=== PATIENT | male | born 1935 | race Caucasian/White ===

== ENCOUNTER 2019-04-17 03:44 | Emergency (ER) | payer MEDICARE, OTHER, SELFPAY | END 2019-04-17 06:46 | disposition short-term general hospital (02) | PROVIDERS: Emergency Provider Emergency Medicine; Family Provider Family Medicine; Visit Provider Emergency Medicine | DX: R55 Syncope and collapse (principal); S36.112A Contusion of liver, initial encounter; W19.XXXA Unspecified fall, initial encounter; Y92.000 Kitchen of unspecified non-institutional (private) residence as the place of occurrence of the external cause; I25.10 Atherosclerotic heart disease of native coronary artery without angina pectoris; I11.0 Hypertensive heart disease with heart failure; I50.9 Heart failure, unspecified; I25.2 Old myocardial infarction; Z98.61 Coronary angioplasty status; Z79.02 Long term (current) use of antithrombotics/antiplatelets; Z79.82 Long term (current) use of aspirin; Z88.5 Allergy status to narcotic agent | CPT/HCPCS: 70450; 70486; 71045; 71260; 72125; 73080; 74177; 80053; 81001; 83735; 84484 ×2; 85025; 85610; 93005; 96360; 96361; 99285; Q9967 ==

== ENCOUNTER 2019-05-09 09:51 | Observation (INO) | payer MEDICARE, OTHER, SELFPAY ==
[2019-05-09] VITALS (9 sets, daily range): BP systolic 128–151; BP diastolic 47–78; PULSE 65–76; RESP 14–26; TEMP 36.4–36.7; O2SAT 94–99; BMI 30.7
--- NOTE | 2019-05-09 09:59 | ED_ITS ---
Entered by Katerin Lerner, acting as scribe for Eriberto Brenner DO HPI - Chest Pain General: Chief Complaint: Chest Pain Stated Complaint: chest pain Time Seen by Provider: 05/09/19 10:03 History of Present Illness: HPI narrative: 83 yo male presents with chest pain. Pt states that his pain is gone at this time, but it started 2-3 days ago. pt states that he wasn't doing anything when his pain started. Pt states that eating worsened the pain. Pt states that when he sat down and rested it helped his pain. Pt states that he has noticed that all he wants to do is lay around and sleep. states that 3 weeks ago, pt fell and lacerated his liver. Pt was transferred at that time, ever since then he has been weak and fatigued. MD complaint: chest pain Onset (ago): day(s) (2-3 ) Prior episodes: Yes Pain radiation: back Severity: moderate Quality: aching Relieving factors: sitting upright Exacerbating factors: eating and movement Associated symptoms: Reports dyspnea; Deny abdominal pain, fever(s), nausea, palpitations, syncope or vomiting Review of Systems Const: Denies: fever, chills, body aches, fatigue or night sweats Eyes: Denies: change in vision or blurry vision ENMT: Denies: throat pain, oral sores/lesions, dental pain, nasal discharge or nasal congestion Card: Reports: chest pain and shortness of breath on exertion; Denies: palpitations, irregular heart rhythm, edema, syncope, shortness of breath when lying down or leg pain with exertion Resp: Reports: shortness of breath; Denies: productive cough, non-productive cough or wheezing GI: Denies: abdominal pain, nausea, vomiting, vomiting blood, coffee grounds in vomit, difficulty swallowing, heartburn/indigestion, diarrhea, constipation, cramping, blood in stool or black tarry stool : Denies: flank pain, difficulty urinating, painful urination, urinary frequency, urinary urgency, urinary incontinence or blood in urine Musc: Denies: neck pain, back pain, extremity pain, extremity swelling, joint pain or joint swelling Skin/Breast: Denies: rash, itching or redness Neuro: Denies: headache, numbness in extremities, weakness in extremities, changes in sensation, lack of coordination, difficulty walking, frequent falls, dizziness, vertigo or confusion Psych: Denies: anxiety, depression, loss of interest, visual hallucinations, auditory hallucinations, suicidal ideation or homicidal ideation Endo: Denies: excessive urination, excessive thirst, tired all the time or cold intolerance Aj/Lymph: Denies: easy bruising, easy bleeding, petechiae, enlarged lymph nodes or tender lymph nodes PFSH ED PFSH: Statuses (acute, chronic, etc) shown below reflect problem list status as previously entered and may not be historically accurate Medical History Aortic stenosis, severe (Acute) ASHD (arteriosclerotic heart disease) (Acute) Basal cell carcinoma (Acute) BPH (benign prostatic hyperplasia) (Acute) Cervical post-laminectomy syndrome (Acute) CHF (congestive heart failure) (Acute) CKD (chronic kidney disease) (Acute) DDD (degenerative disc disease) (Acute) Diabetes (Acute) GERD (gastroesophageal reflux disease) (Acute) Hyperlipemia (Acute) Hypertension (Acute) Iron deficiency anemia (Acute) Neuropathy (Acute) TIA (transient ischemic attack) (Acute) Surgical History H/O arthroscopy of knee (Acute) History of angioplasty (Acute) Family History Other CAD (coronary artery disease) Social History Smoking and tobacco status: former smoker Alcohol intake: never Household members: spouse Marital status: Current occupational status: retired Current gender identity: Male Physical Exam Const: COMMON NORMALS: average body habitus, oriented x3 and alert GENERAL APPEARANCE: cooperative, comfortable, well kempt and well developed NUTRITIONAL APPEARANCE: not obese ORIENTATION/CONSCIOUSNESS: Yes awake, Yes oriented to person and Yes oriented to place HENMT: COMMON NORMALS: normocephalic, head/scalp atraumatic, EAC's normal, TM's normal bilaterally, external nose normal, moist oral mucous membranes and oropharynx normal HEAD & SCALP: normocephalic and atraumatic NOSE: external nose normal EXTERNAL AUDITORY CANAL: EAC's normal TYMPANIC MEMBRANE: TM's normal bilaterally MOUTH: oral and palatal mucosa normal, lip normal and tongue normal THROAT: posterior oropharynx normal and tonsils normal Eye: COMMON NORMALS: PERRL, EOMs intact bilaterally, conjunctivae normal and no scleral icterus CONJUNCTIVA: Yes conjunctivae normal PUPIL: Yes PERRL Neck/C-Spine: COMMON NORMALS: full ROM, no lymphadenopathy, supple, no meninge al signs and thyroid normal THYROID: thyroid normal and asymmetrical Lymph: LYMPHATIC: no lymphadenopathy noted Resp: COMMON NORMALS: normal respiratory effort, no retractions, no use of accessory muscles and clear to auscultation bilaterally AUSCULTATION: clear to auscultation bilaterally Cardio: COMMON NORMALS: regular rate and regular rhythm RATE: regular rate RHYTHM: regular rhythm HEART SOUNDS: no murmurs GI: COMMON NORMALS: normal to inspection, nondistended, normoactive bowel sounds, soft to palpation and no hepatosplenomegaly PALPATION: Yes soft and Yes no hepatosplenomegaly : COMMON NORMALS: Yes no CVA tenderness BLADDER/KIDNEY EXAM: Yes no CVA tenderness Back/Pelvis: COMMON NORMALS: no CVA tenderness LUMBAR SPINE/LOWER BACK: Yes normal to inspection Extremity: COMMON NORMALS: no clubbing, cyanosis or edema, no calf tenderness and no pedal edema Neuro: COMMON NORMALS: oriented x3 SENSORIUM/ORIENTATION: Yes alert, Yes oriented to person and Yes oriented to place MENINGEAL SIGNS: Yes no meningeal signs Psych: APPEARANCE: Yes well kempt Skin: COMMON NORMALS: no rashes or lesions noted and skin turgor normal GE NERAL SKIN EXAM: no rashes or lesions noted and turgor normal Course ED course: Patient has intermittent chest pains with his exertion better with rest is a history of heart disease and a moderate heart score will go ahead and put him on [facility] discussed with the hospitalist they will accept him to their service. Vital Signs: Vital signs: Vital Signs Temperature 98.2 F 05/11/19 11:08 Pulse Rate 73 05/11/19 11:08 Respiratory Rate 22 H 05/11/19 11:08 Blood Pressure 97/44 05/11/19 11:08 Pulse Oximetry 93 05/11/19 11:08 MDM - Chest Pain Lab Data: Labs: Lab Results 05/09/19 05/09/19 05/09/19 Range/Units 10:37 10:37 10:37 WBC 8.3 (4.0-10.0) 10^3/ uL RBC 3.52 L (4.1-5.3) 10^6/u L Hgb 10.3 L (11.7-16.6) g/dL Hct 32.4 L (42.0-52.0) % MCV 92.0 (80-94) fL MCH 29.3 (28.0-34.0) pg MCHC 31.8 (30.0-36.0) g/dL RDW 13.4 (12.1-15.1) % Plt Count 288 (130-400) 10^3/c mm MPV 9.6 (7.4-10.4) fL Neut % (Auto) 78.7 % Lymph % (Auto) 10.9 % Charlton % (Auto) 7.2 % Eos % (Auto) 2.2 % Baso % (Auto) 0.6 % Neut # (Auto) 6.6 (1.8-7.7) 10^3/u L Lymph # (Auto) 0.9 (0.8-4.8) 10^3/u L Charlton # (Auto) 0.6 (0.2-0.9) 10^3/u L Eos # (Auto) 0.2 (0.0-0.8) 10^3/u L Baso # (Auto) 0.1 (0.0-0.1) 10^3/u L Nucleated RBC % (a uto) 0 % Nucleated RBCs # 0.0 /100WBC Sodium 137 (136-145) mmol/L Potassium 4.1 (3.5-5.1) mmol/L Chloride 98 (98-107) mmol/L Carbon Dioxide 30 H (22-29) mmol/L Anion Gap 13.1 (5-19) BUN 34 H (8-23) mg/dL Creatinine 1.5 H (0.7-1.2) mg/dL Glucose 140 H (74-106) mg/dL Calcium 9.4 (8.8-10.2) mg/Dl Total Bilirubin 0.4 (0.15-1.2) mg/dL AST 16 (0-40) U/L ALT 11 (0-41) U/L Alkaline Phosphata se 121 (40-130) IU/L Troponin T Baselin e 84 H (0-15) ng/mL Troponin T 120 Min [place] (0-15) ng/mL Delta Troponin T (0-10) ABS# Total Protein 6.8 (6.6-8.7) g/dL Albumin 3.3 L (3.5-5.2) g/dL Globulin 3.5 (1.3-4.6) g/dL 05/09/19 Range/Units 12:25 WBC (4.0-10.0) 10^3/ uL RBC (4.1-5.3) 10^6/u L Hgb (11.7-16.6) g/dL Hct (42.0-52.0) % MCV (80-94) fL MCH (28.0-34.0) pg MCHC (30.0-36.0) g/dL RDW (12.1-15.1) % Plt Count (130-400) 10^3/c mm MPV (7.4-10.4) fL Neut % (Auto) % Lymph % (Auto) % Charlton % (Auto) % Eos % (Auto) % Baso % (Auto) % Neut # (Auto) (1.8-7.7) 10^3/u L Lymph # (Auto) (0.8-4.8) 10^3/u L Charlton # (Auto) (0.2-0.9) 10^3/u L Eos # (Auto) (0.0-0.8) 10^3/u L Baso # (Auto) (0.0-0.1) 10^3/u L Nucleated RBC % (a uto) % Nucleated RBCs # /100WBC Sodium (136-145) mmol/L Potassium (3.5-5.1) mmol/L Chloride (98-107) mmol/L Carbon Dioxide (22-29) mmol/L Anion Gap (5-19) BUN (8-23) mg/dL Creatinine (0.7-1.2) mg/dL Glucose (74-106) mg/dL Calcium (8.8-10.2) mg/Dl Total Bilirubin (0.15-1.2) mg/dL AST (0-40) U/L ALT (0-41) U/L Alkaline Phosphata se (40-130) IU/L Troponin T Baselin e (0-15) ng/mL Troponin T 120 Min [place] 84.48 H (0-15) ng/mL Delta Troponin T 0.48 (0-10) ABS# Total Protein (6.6-8.7) g/dL Albumin (3.5-5.2) g/dL Globulin (1.3-4.6) g/dL Imaging Data^: CXR: Radiologist's impression: Patient: Hayes Solis Unit #: [id number] : 1935 Acct#:[id number] Age/Sex: 83 / M ADM Date: 05/09/19 Loc: ER Room/Bed: Attending Dr: Ordering Provider/Ordering MD: Eriberto Brenner DO Date of Service: 05/09/19 Procedure(s): XR chest 1V portable [id number] Accession Number(s): [id number] Report Number: [id number] WS: [id number] PORTABLE CHEST HISTORY: dyspnea/chest pain COMPARISON: 04/17/2019 No pneumonia. Minimal atelectasis at the lung bases. Small bilateral pleural effusions are similar to 04/17/2019. Cardiac size: Mildly enlarged cardiac silhouette. Mediastinum/Aorta: Normal mediastinum. No osseous abnormality seen. XR/XR chest 1V portable [id number] IMPRESSION: 1. Small stable bilateral pleural effusions. 2. No pneumonia. Dictated By: Marycruz Bobby DO Signed By: Marycruz Bobby DO Signed Date/Time: 05/09/19 1206 Discharge Plan Discharge Patient Disposition: Admitted As Inpatient Admit Provider: Yoel Gleason Condition: Stable Referrals: Tiki Dorado MD [Primary Care Provider] - Discharge Date/Time: 05/09/19 13:44 Coding Level of Care Code ED Gear Straightener for Chg Fwd Exam Problem Focused The documentation recorded by the Yann carrillo Kialy, accurately reflects the service I personally performed and the decisions made by Jordin hudson Curtis L, DO May 09, 2019 09:51
--- NOTE | 2019-05-09 10:25 | XR_ITS ---
WS: [id number] PORTABLE CHEST HISTORY: dyspnea/chest pain COMPARISON: 04/17/2019 No pneumonia. Minimal atelectasis at the lung bases. Small bilateral pleural effusions are similar to 04/17/2019. Cardiac size: Mildly enlarged cardiac silhouette. Mediastinum/Aorta: Normal mediastinum. No osseous abnormality seen. XR/XR chest 1V portable [id number] IMPRESSION: 1. Small stable bilateral pleural effusions. 2. No pneumonia.
--- NOTE | 2019-05-09 10:26 | ECG_ITS ---
Measurements Intervals [place] Rate: 70 P: 70 WI: 177 QRS: -33 QRSD: 105 T: 105 QT: 381 QTc: 413 SINUS RHYTHM LEFT AXIS DEVIATION [QRS AXIS < -30] ANTERIOR MYOCARDIAL INFARCTION , probably old with possible aneurysmal formation in the apex Compared to ECG 04/17/2019 04:08:48 Left-axis deviation now present Myocardial infarct finding still present Electronically Signed On 05-09-2019 17:22:13 YEAST MAKER by Ayo Sorenson M.D. [email or web address]
--- NOTE | 2019-05-09 10:39 | PC.NURSE ---
Lab at bedside
[2019-05-09 10:45] LABS: Basophils # 0.1 10^3/uL (0.0-0.1); Basophils % 0.6 %; Eosinophils # 0.2 10^3/uL (0.0-0.8); Eosinophils % 2.2 %; Hematocrit 32.4 % (42.0-52.0); Hemoglobin 10.3 g/dL (11.7-16.6); Lymphocytes # 0.9 10^3/uL (0.8-4.8); Lymphocytes % 10.9 %; Mean Corpuscular HGB Conc 31.8 g/dL (30.0-36.0); Mean Corpuscular Hemoglobin 29.3 pg (28.0-34.0); Mean Platelet Volume 9.6 fL (7.4-10.4); Monocytes # 0.6 10^3/uL (0.2-0.9); Monocytes % 7.2 %; Neutrophils # 6.6 10^3/uL (1.8-7.7); Neutrophils % 78.7 %; Nucleated Red Blood Cells % 0 %; Platelet Count 288 10^3/cmm (130-400); Red Blood Count 3.52 10^6/uL (4.1-5.3); Red Cell Distribution Width 13.4 % (12.1-15.1); White Blood Count 8.3 10^3/uL (4.0-10.0)
[2019-05-09 10:59] LABS: Alanine Aminotransferase 11 U/L (0-41); Albumin Level 3.3 g/dL (3.5-5.2); Alkaline Phosphatase 121 IU/L (40-130); Anion Gap 13.1 (5-19); Aspartate Amino Transferase 16 U/L (0-40); Blood Urea Nitrogen 34 mg/dL (8-23); Calcium 9.4 mg/Dl (8.8-10.2); Carbon Dioxide 30 mmol/L (22-29); Chloride 98 mmol/L (98-107); Globulin 3.5 g/dL (1.3-4.6); Glucose 140 mg/dL (74-106); Potassium 4.1 mmol/L (3.5-5.1); Sodium 137 mmol/L (136-145); Total Bilirubin 0.4 mg/dL (0.15-1.2); Total Protein 6.8 g/dL (6.6-8.7)
[2019-05-09 11:02] LABS: Troponin(5th) Baseline 84 ng/mL (0-15)
--- NOTE | 2019-05-09 11:13 | PC.NURSE ---
Denies chest pain at this time.
--- NOTE | 2019-05-09 12:26 | ECG_ITS ---
Measurements Intervals [place] Rate: 66 P: 54 NC: 215 QRS: -33 QRSD: 105 T: 124 QT: 407 QTc: 427 SINUS RHYTHM WITH FIRST DEGREE AV BLOCK LEFT AXIS DEVIATION [QRS AXIS < -30] ANTERIOR MYOCARDIAL INFARCTION , old with possible aneurysm formation of the apex Compared to ECG 04/17/2019 04:08:48 First degree AV block now present Left-axis deviation now present Myocardial infarct finding still present Electronically Signed On 05-09-2019 17:29:11 REIMBURSEMENT SPECIALIST by Ayo Sorenson M.D. [email or web address]
[2019-05-09 12:46] LABS: Troponin 5 2HR 84.48 ng/mL (0-15); Troponin 5 2HR Delta 0.48 ABS# (0-10)
--- NOTE | 2019-05-09 15:09 | USCV_ITS ---
Hayes Solis Age: 83 Gender: M : 1935 Exam Date: 05/09/2019 16:48 Ordering Phys: Yoel Gleason MD Technologist: Rebecca Montes Exam Location[place] [facility] [place]ication: eval aortic valve BP: 148 / 47 HR: 79 Rhythm: Sinus Technical Quality: Adequate MEASUREMENTS (Male / Female) Normal Values 2D ECHO LV Diastolic Diameter PLAX 3.9 cm 4.2 - 5.9 / 3.9 - 5.3 cm LV Systolic Diameter PLAX 2.4 cm LV Chamber Size 2.8 cm IVS Diastolic Thickness 1.4 cm 0.6 - 1.0 / 0.6 - 0.9 cm IVS Systolic Thickness 1.6 cm LVPW Diastolic Thickness 1.9 cm 0.6 - 1.0 / 0.6 - 0.9 cm LVPW Systolic Thickness 2.4 cm RV Chamber Size 2.3 cm LVOT Diameter 2.1 cm LV Ejection Fraction 2D Teich 70.1 % LV Ejection Fraction MOD 2C 26.6 % LV Ejection Fraction 2C AL 27.4 % LA Diameter 4.5 cm LA Width 4.8 cm LA Height 5.0 cm RA Width 4.1 cm RA Height 4.9 cm M-MODE LV Diastolic Diameter MM 7.4 cm 4.2 - 5.9 / 3.9 - 5.3 cm LV Systolic Diameter MM 6.4 cm LV Ejection Fraction MM Teich 27.7 % IVS Diastolic Thickness MM 0.8 cm 0.6 - 1.0 / 0.6 - 0.9 cm IVS Systolic Thickness MM 0.9 cm LVPW Diastolic Thickness MM 0.9 cm 0.6 - 1.0 / 0.6 - 0.9 cm LVPW Systolic Thickness MM 1.2 cm Aortic Annulus Diameter 3.0 cm LA Ao Ratio MM 1.5 MV E Point Septal Separation 1.1 cm DOPPLER AV Peak Velocity 311.0 cm/s LVOT Peak Velocity 128.0 cm/s AV Area Cont Eq vti 1.4 cm squared AV Area Cont Eq pk 1.4 cm squared MV Area PHT 3.0 cm squared Mitral E to A Ratio 0.8 MV E' Velocity 11.0 cm/s Mitral E to MV E' Ratio 13.4 Mitral E to LV E' Lateral Ratio 11.5 Mitral E to LV E' Septal Ratio 16.1 TR Peak Velocity 201.0 cm/s TR Peak Gradient 16.1 mmHg TV Peak E Velocity 50.0 cm/s Right Atrial Pressure 3.0 mmHg Pulmonary Artery Systolic Pressu 19.2 mmHg PV Peak Velocity 90.0 cm/s RV Acceleration Time 0.1 s RV Ejection Time 0.3 s RV AcT/ET 0.4 FINDINGS Left Ventricle Mildly increased left ventricular cavity size. The mid anterior wall and apex are thinned. The mid anterior wall, apex, anterior apex and apical septal regions are all akinetic. Ejection fraction is 35%. The remainder of the ventricle contracts normally. There is grade 1 diastolic dysfunction. There may be an aneurysmal segment in the apex. This is all consistent with a previous LAD distribution myocardial infarction. Right Ventricle Normal right ventricular size and systolic function. Normal right ventricular systolic pressure. Right Atrium Mildly increased right atrial size. Left Atrium Mildly increased left atrial size. Mitral Valve Thickened mitral valve. Moderate mitral annular calcification. Moderate-severe mitral valve regurgitation. Aortic Valve Structurally normal trileaflet aortic valve. Moderate aortic valve calcification. Moderate aortic valve stenosis, mean gradient 20 mmHg, TOMY 1.4 cm squared. Tricuspid Valve Structurally normal tricuspid valve. Trace to mild tricuspid valve regurgitation. Pulmonic Valve Pulmonic valve not well visualized. Pericardium Normal pericardium without effusion. Aorta Normal ascending aorta dimension. CONCLUSIONS Mildly increased left ventricular cavity size. The mid anterior wall and apex are thinned. The mid anterior wall, apex, anterior apex and apical septal regions are all akinetic. Ejection fraction is 35%. The remainder of the ventricle contracts normally. There is grade 1 diastolic dysfunction. There may be an aneurysmal segment in the apex. This is all consistent with a previous LAD distribution myocardial infarction. Mildly increased right atrial size. Mildly increased left atrial size. Thickened mitral valve. Moderate mitral annular calcification. Moderate-severe mitral valve regurgitation. Structurally normal trileaflet aortic valve. Moderate aortic valve calcification. Moderate aortic valve stenosis, mean gradient 20 mmHg, TOMY 1.4 cm squared. When compared to the previous echocardiogram performed 6 months ago there has been no change with the exception of the mitral regurgitation which is worse. Dr. Ayo Sorenson MD (Electronically Signed) Final Date: 09 May 2019 17:35 S
--- NOTE | 2019-05-09 15:09 | CT_ITS ---
WS: [id number] CTA THORACIC TECHNIQUE: Contrast enhanced CTA of the thoracic aorta with coronal and sagittal reformatted images a nd maximum intensity projection (MIP) images. CLINICAL INFORMATION: aortic dissection COMPARISON: None. DLP: 1153.[address] scans at [facility] use at least one of these dose optimization techniques: automat ed exposure control; mA and/or kV adjustment per patient size (includes targeted exams where dose is matched to clinical indication); or iterative reconstruction. FINDINGS: Multiple sclerotic lesions suspicious for blastic metastatic disease throughout the visualized thorac ic spine and ribs. Small right pleural effusion. Subsegmental atelectasis in the lung bases. Trace le ft pleural fluid. No acute-appearing pulmonary infiltrates. Cardiomegaly. Coronary calcification. Normal caliber thoracic aorta. No evidence of thoracic aortic dissection. A few enlarged pretracheal lymph nodes largest measuring 14 mm. No axillary lymphadenopat hy. Subcapsular liver hematoma described on the CT abdomen pelvis. Prominent gallstone in gallbladder. Le ft renal cortical cysts. CT/CT angio chest [id number] IMPRESSION: 1. Diffuse sclerotic lesions throughout the visualized bony structures suspici ous for blastic metastatic disease. 2. No evidence of thoracic aortic dissection. 3. Subcapsular liver hematoma described on the accompanying CT abdomen pelvis. 4. Small right greater than left pleural effusions with bibasilar atelectasis. 5. Prominent gallstone is unchanged. 6. Enlarged paratracheal lymph nodes
--- NOTE | 2019-05-09 15:14 | CT_ITS ---
WS: [id number] CT ABDOMEN PELVIS TECHNIQUE: Noncontrast CT of the abdomen and pelvis with coronal and sagittal reformatted images. CLINICAL INFORMATION: subscauplar hematoma COMPARISON: April 17, 2019 DLP: 1493.[address] scans at [facility] use at least one of these dose optimization techniques: automat ed exposure control; mA and/or kV adjustment per patient size (includes targeted exams where dose is matched to clinical indication); or iterative reconstruction. FINDINGS: Again seen is the mixed attenuation mass involving the right hepatic lobe corresponding to the previo usly described subcapsular hematoma. Evolution of the previously described blood products with some h igh attenuation subacute appearing hemorrhage. Subcapsular hematoma measures approximately 7.2 x 7.9 x 6.7 cm slightly larger compared to the prior examination. Localized mass effect on the right hepati c lobe. Recommend follow-up to resolution to exclude underlying mass. Stable prominent gallstone in the gallbladder. Small right pleural effusion. Bibasilar atelectasis. N ormal gastroesophageal junction. Adrenal glands are normal. Fatty atrophy of the pancreas. Normal lakia iber abdominal aorta. Aortic calcification. Lobulated enlarged prostate measuring 5.6 cm suspicious f or carcinoma. Sigmoid diverticulosis. No evidence of acute diverticulitis. No evidence of small or la rge bowel obstruction. No abdominal lymphadenopathy. Anterior wedging L1 is unchanged. Stable cortica l cysts left kidney. Sclerotic lesions visualized throughout the bony structures worse in the pelvis and sacrum suspicious for metastatic disease. Consider prostate carcinoma. CT/CT abdomen pelvis wo con [id number] IMPRESSION: 1. Enlarged lobulated heterogeneous prostate suspicious for prostate carcinoma . Recommend correlation for PSA. 2. Diffuse sclerotic lesions within the visualized bony structures worse in th e bony pelvis and sacrum suspicious for metastatic disease. This can be further evaluated with bone scan. Consider prostate carcinoma. 3. Slight increase in size with maturation of the previously described subcaps ular hematoma with subacute blood products. Recommend follow-up to resolution t o exclude underlying mass. 4. Small right pleural effusion. 5. Stable gallstone. 6. Stable cortical lesions left kidney.
--- NOTE | 2019-05-09 15:19 | PM.HP ---
Providers/Chief Complaint Admitting Physician: Yoel Gleason MD Primary Care Provider: Tiki Dorado Chief Complaint: chest pain History of Present Illness Hayes Solis is a 83 year old male CAD status post stenting x5, last stent was in June 2018, history of chronic systolic congestive heart failure echocardiogram in 10/07/2018 showed an ejection fraction of 45%, mild to moderate aortic stenosis, moderate mitral regurg, chronic lung disease obstructive and restrictive pattern, hypertension, BPH, obstructive sleep apnea who presents to the emergency room due to complaints of syncope, shortness of breath, chest pain. Patient states that 3 weeks ago he at 2:30 in the morning went to the kitchen to get ice cream, suddenly blacked out, the next thing he remembers he was on the floor floor, episode lasted a few seconds. He had head trauma, neck trauma, abdominal and back trauma and chest trauma from his fall, has hardwood floors. Both of his sons were able to get him very quickly, no reported seizure-like activity, no urinary or bowel incontinence, no postictal confusion. He said that he might of been a bit lightheaded, dizzy preceding the fall. No chest pain, no palpitations. Patient states that he has chronic shortness of breath, less than 100 feet, but for the last few months has been more short of breath with exertion, his health club manager feels that his shortness of breath is likely secondary to his heart failure, and was put on torsemide 20 mg once daily, his believes that his syncopal episode was secondary to his diuretic, but she states that he took the medication in the morning. Patient states that he has had other syncopal episodes, one might of been related to spironolactone, but never sought medical intervention. Denies fevers, chills, cough. Patient states what brought him into the emergency room today with chest pain radiating to his back. Patient and his states that on patient had severe chest pain radiating to his back specifically between both of the scapula, he has a history of back pain, typically lower back pain, but has never had pain between his scapula, pain was very severe, he did not seek any medical intervention, pain persisted intermittently throughout the weekend, last episode was at [employer]. In addition he complains of anterior chest pain, sometimes sharp, sometimes dull, intermittent, becoming more frequent recently, he states that this chest pain is a bit different from his typical chest pain in that it does not go down his left arm, chest pain is sometimes associated lightheadedness, dizziness he has, his shortness of breath all the time, no nausea, no vomiting. Patient does report some chest wall tenderness under the right breast. Review of Systems Const: Denies: fever or chills Eyes: Denies: change in vision Card: Reports: chest pain, lightheadedness, syncope, shortness of breath on exertion and shortness of breath when lying down Resp: Denies: shortness of breath or productive cough GI: Denies: abdominal pain, nausea or vomiting : Denies: flank pain or difficulty urinating Musc: Denies: neck pain or back pain Skin/Breast: Denies: rash or itching Neuro: Denies: headache, numbness in extremities or weakness in extremities Endo: Denies: excessive urination Aj/Lymph: Denies: easy bruising Medications/Allergies Home Medications Medication Instructions Recorded Confirmed Last Taken Type Multiple Vitamins 1 tab PO DAILY 05/09/19 05/09/19 05/08/19 History docusate sodium [Colace] 100 mg PO EVERY OTHER DAY 05/09/19 05/09/19 Unknown History duloxetine 30 mg PO DAILY 05/09/19 05/09/19 05/08/19 History torsemide 20 mg PO PRN PRN 05/09/19 05/09/19 05/05/19 07:00 History Allergies Allergy/AdvReac Type Severity Reaction Status Date / Time diclofenac Allergy Unknown Verified 05/06/19 13:13 isosorbide [From Imdur] Allergy Unknown Verified 05/06/19 13:13 meperidine Allergy ADR-Vomitin Verified 05/09/19 09:59 g spironolactone Allergy Unknown Verified 05/06/19 13:13 PFSH Acute PFSH: Statuses (acute, chronic, etc) shown below reflect problem list status as previously entered and may not be historically accurate Medical History (Updated 05/09/19 @ 15:51 by Yoel Gleason MD) Aortic stenosis, severe (Acute) ASHD (arteriosclerotic heart disease) (Acute) Basal cell carcinoma (Acute) BPH (benign prostatic hyperplasia) (Acute) Cervical post-laminectomy syndrome (Acute) CHF (congestive heart failure) (Acute) CKD (chronic kidney disease) (Acute) DDD (degenerative disc disease) (Acute) Diabetes (Acute) GERD (gastroesophageal reflux disease) (Acute) Hyperlipemia (Acute) Hypertension (Acute) Iron deficiency anemia (Acute) Neuropathy (Acute) TIA (transient ischemic attack) (Acute) Surgical History H/O arthroscopy of knee (Acute) History of angioplasty (Acute) Family History (Updated 05/09/19 @ 15:40 by Yoel Gleason MD) Other CAD (coronary artery disease) Social History Smoking and tobacco status: former smoker Alcohol intake: never Household members: spouse Marital status: Current occupational status: retired Current gender identity: Male Vitals/I&O/Wt Last Vital Signs Temp 97.9 F 05/09/19 14:27 Pulse 69 05/09/19 14:27 Resp 18 05/09/19 14:27 BP 140/66 05/09/19 14:27 Pulse Ox 97 05/09/19 14:27 Weight last 48 hrs Weight 99.79 kg Physical Exam Const: COMMON NORMALS: no apparent distress HENMT: COMMON NORMALS: normocephalic Eye: COMMON NORMALS: PERRL and EOMs intact bilaterally Neck/C-Spine: COMMON NORMALS: full ROM and no lymphadenopathy GENERAL: Yes JVD Lymph: LYMPHATIC: no lymphadenopathy noted Chest: COMMONS NORMALS: inspection of chest normal BREAST/AXILLA PALPATION: Yes abnormal palpation of the breast (Tenderness under right breast) Resp: COMMON NORMALS: normal respiratory effort, no retractions, no use of accessory muscles, clear to auscultation bilaterally and percussion normal Cardio: COMMON NORMALS: regular rate, regular rhythm, S1 normal heart sound and S2 normal heart sound HEART SOUNDS: murmur GI: COMMON NORMALS: normal to inspection, nondistended, normoactive bowel sounds, soft to palpation, non-tender and no hepatosplenomegaly OTHER: Has a umbilical hernia, reducible : COMMON NORMALS: Yes no CVA tenderness Back/Pelvis: COMMON NORMALS: thoracic and lumbar spine normal to inspection Extremity: COMMON NORMALS: normal to inspection, normal capillary refill, no clubbing, cyanosis or edema and no pedal edema Neuro: COMMON NORMALS: oriented x3, CN's II-XII intact bilaterally, moves all extremities and no focal motor deficits Psych: COMMON NORMALS: mental status grossly normal, thought process normal and cooperative Data : 05/09/19 10:37 05/09/19 10:37 CXR: Radiologist's impression: WS: [id number] PORTABLE CHEST HISTORY: dyspnea/chest pain COMPARISON: 04/17/2019 No pneumonia. Minimal atelectasis at the lung bases. Small bilateral pleural effusions are similar to 04/17/2019. Cardiac size: Mildly enlarged cardiac silhouette. Mediastinum/Aorta: Normal mediastinum. No osseous abnormality seen. EKG 1: I personally reviewed and interpreted this EKG as follows: My Interpretation: Chronic repolarization abnormalities in leads V1, V2, V3 Left axis deviation QTc 413 ms QRS 105 ms A&P Assessment and plan (1) Syncope: -Patient has had multiple syncopal episodes, along with angina and dyspnea, moderate to severe aortic stenosis, sounds like his symptoms are related to aortic stenosis Plan: -Given patient's fall, now complains of pain between the scapula, will do CT Angio of the chest to rule out aortic dissection -Continue telemetry monitoring -Cardiac echocardiogram Status: Acute Code(s): R55 - Syncope and collapse (2) Aortic stenosis: -Has moderate to severe aortic stenosis, mean gradient 22.9, aortic valve area 0.7 cm? 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, last time he was treated with a drug-eluting stent to the mid LAD for non-ST elevation [place] in June 2019 Status: Acute Code(s): I25.10 - Atherosclerotic heart disease of [place] coronary artery without angina pectoris (4) Hypertension: Status: Acute Code(s): I10 - Essential (primary) hypertension (5) Chronic systolic heart failure: -Chest x-ray showed bilateral pleural effusions -BNP is pending -no bilateral lower extremity edema, no significant JVD, chest x-ray shows bilateral pleural effusions -Continue Lasix Status: Acute Code(s): I50.22 - Chronic systolic (congestive) heart failure (6) Chronic lung disease: Status: Acute Code(s): J98.4 - Other disorders of lung (7) Hyperlipemia: Status: Acute Code(s): E78.5 - Hyperlipidemia, unspecified (8) Subcapsular hematoma of liver: -Has a history of a subscapular hematoma of the liver cyst sustained after a fall -We will repeat CT of the chest given drop in hemoglobin to 10.3 Status: Acute Code(s): K76.89 - Other specified diseases of liver (9) Chest pain: -Anterior chest wall pain, with tenderness under the right breast -With con current fall, likely patient has some component of chest wall trauma, rib fracture -Patient's baseline troponin was 84, 120-minute troponin was 84.48, with a clinically not significant delta -EKG showed chronic repolarization abnormalities in V1 to V3 -No active chest pain Plan: -Continue aspirin, statin, beta-hung -Continue telemetry monitoring -Imaging of the chest as above Status: Acute Code(s): R07.9 - Chest pain, unspecified Attestations Medical Necessity Statement*: Patient requires hospitalization, outpatient, with observation, for chest pain, syncope, abdominal pain Coding Level of Care Code Acute Gas Fitter Apprentice for Chg Fwd Diagnoses Syncope R55 Aortic stenosis I35.0 CAD (coronary artery disease) I25.10 Hypertension I10 Chronic systolic heart failure I50.22 Chronic lung disease J98.4 Hyperlipemia E78.5 Subcapsular hematoma of liver K76.89 Chest pain R07.9
[2019-05-09] MEDS: iodixanol 320 mg/mL 100mL Btl IV (15:56)
[2019-05-09 15:58] LABS: NT Pro B Type Natriuretic Pept 1762 pg/mL (0-450)
[2019-05-09] MEDS: sodium chloride 0.9% 1,000 ML 50 ML IV (16:06)
--- NOTE | 2019-05-09 16:26 | ECG_ITS ---
Measurements Intervals [place] Rate: 69 P: 60 [place]: 206 QRS: -30 QRSD: 112 T: 107 QT: 387 QTc: 415 SINUS RHYTHM WITH OCCASIONAL VENTRICULAR PREMATURE COMPLEXES ANTERIOR MYOCARDIAL INFARCTION [40+ ms Q WAVE AND/OR ST/T ABNORMALITY IN V3/V4], PROBABLY RECENT ACUTE OR Compared to ECG 05/09/2019 12:18:24 Ventricular premature complex(es) now present First degree AV block no longer present Left-axis deviation no longer present Myocardial infarct finding still present Electronically Signed On 05-10-2019 22:04:15 CODING SUPPORT SPECIALIST by Galina Houston M.D. [email or web address]
[2019-05-09] MEDS: carvedilol 6.25 mg Tablet PO (17:32)
[2019-05-09] MEDS: tamsulosin 0.4 mg Capsule PO (17:32)
[2019-05-09 17:34] LABS: Troponin 5 6HR 72.05 ng/L (0-15)
[2019-05-09 17:47] LABS: Troponin 5 6HR Delta -11.95 ng/L (0-12)
[2019-05-09] MEDS: nitroglycerin 1 gm/inch oint Pkt 1 INCH TOPICAL (18:30)
[2019-05-09 19:38] LABS: Tumor Marker Alpha Fetoprotein 0.6 ng/mL (0-8.3)
--- NOTE | 2019-05-09 20:30 | PC.NURSE ---
Patient lying supine in bed with family at bedside. Teary eyed at times. Denies complaints at present with no s/s of distress noted. Will monitor.
--- NOTE | 2019-05-09 21:28 | PC.NURSE ---
HS meds given to patient without difficulty. Unable to given 1/2 of Xanax secondary to patient receiving it earlier at 1830. Explained this to daughter and patient with daughter voicing understanding. Daughter states, The doctor was going to increase it today. This nurse explained to daughter that there was no order for increasing the Xanax but I would check on patient around 2300. Daughter in agreement with this. Will monitor.
--- NOTE | 2019-05-09 21:35 | PC.NURSE ---
Patient lying supine in bed with family members at bedside. Teary eyed at this time. States, I'll sure call you if I need anything. Denies any needs at this time. Will monitor.
--- NOTE | 2019-05-09 23:31 | PC.NURSE ---
Patient lying supine in bed with eyes closed. Respirations even and unlabored with oxygen saturation at 98%. Patient continues on NC at .5L/NC. Daughter sleeping at bedside. Heart rate 84 with monitor showing A-Fib. Will monitor.
[2019-05-10] VITALS (7 sets, daily range): BP systolic 103–121; BP diastolic 44–56; PULSE 63–76; RESP 16–30; TEMP 36.6–36.8; O2SAT 92–99
[2019-05-10] MEDS: nitroglycerin 1 gm/inch oint Pkt 1 INCH TOPICAL ×2 (00:27→06:00)
--- NOTE | 2019-05-10 03:15 | PC.NURSE ---
Lying supine in bed with spouse at bedside. Lab in room drawing blood. Denies needs at this time. Will monitor.
[2019-05-10 03:48] LABS: Basophils # 0.1 10^3/uL (0.0-0.1); Basophils % 0.7 %; Eosinophils # 0.2 10^3/uL (0.0-0.8); Eosinophils % 2.6 %; Hematocrit 29.9 % (42.0-52.0); Hemoglobin 9.5 g/dL (11.7-16.6); Lymphocytes # 0.9 10^3/uL (0.8-4.8); Mean Corpuscular HGB Conc 31.8 g/dL (30.0-36.0); Mean Corpuscular Hemoglobin 29.1 pg (28.0-34.0); Mean Corpuscular Volume 91.7 fL (80-94); Mean Platelet Volume 9.9 fL (7.4-10.4); Monocytes # 0.6 10^3/uL (0.2-0.9); Monocytes % 8.4 %; Neutrophils # 5.5 10^3/uL (1.8-7.7); Neutrophils % 75.9 %; Nucleated Red Blood Cells % 0 %; Platelet Count 287 10^3/cmm (130-400); Red Blood Count 3.26 10^6/uL (4.1-5.3); Red Cell Distribution Width 13.4 % (12.1-15.1); White Blood Count 7.3 10^3/uL (4.0-10.0)
[2019-05-10 04:05] LABS: Alanine Aminotransferase 10 U/L (0-41); Albumin Level 2.9 g/dL (3.5-5.2); Alkaline Phosphatase 107 IU/L (40-130); Anion Gap 11.6 (5-19); Aspartate Amino Transferase 17 U/L (0-40); Blood Urea Nitrogen 32 mg/dL (8-23); Calcium 9.4 mg/Dl (8.8-10.2); Carbon Dioxide 30 mmol/L (22-29); Chloride 102 mmol/L (98-107); Globulin 3.3 g/dL (1.3-4.6); Glucose 144 mg/dL (74-106); Magnesium 2.3 mg/dL (1.7-2.3); Phosphorus 3.7 mg/dL (2.5-4.5); Potassium 4.6 mmol/L (3.5-5.1); Sodium 139 mmol/L (136-145); Total Bilirubin 0.3 mg/dL (0.15-1.2); Total Protein 6.2 g/dL (6.6-8.7)
[2019-05-10] MEDS: FUROsemide 40 mg Tablet PO (06:00)
--- NOTE | 2019-05-10 06:21 | PC.NURSE ---
Patient states, You know, they told me today that basically there's nothing they can do for me....I wish they would let me go home and enjoy what time I have left with my family.....I don't want to be poked and prodded and running here and there to see doctor's....I just want to go home and enjoy myself. This nurse explained to patient that he needed to speak with his family and let them know how he feels and then let the physician know. Patient voices understanding.
[2019-05-10] MEDS: clopidogrel 75 mg Tablet PO (09:09)
[2019-05-10] MEDS: duloxetine 30 mg Capsule PO (09:09)
[2019-05-10] MEDS: finasteride 5 mg Tablet PO (09:09)
[2019-05-10] MEDS: atorvastatin 40 mg Tablet 20 MG PO (09:09)
[2019-05-10] MEDS: magnesium oxide 400 mg tablet PO (09:09)
[2019-05-10] MEDS: pantoprazole DR 40 mg Tablet PO (09:09)
[2019-05-10] MEDS: tamsulosin 0.4 mg Capsule PO ×2 (09:09→17:22)
[2019-05-10] MEDS: carvedilol 6.25 mg Tablet PO ×2 (09:09→17:21)
[2019-05-10] MEDS: multivitamin therapeutic Tablet 1 TAB PO (09:10)
[2019-05-10] MEDS: chlorthalidone 25 mg Tablet PO (09:10)
[2019-05-10] MEDS: losartan 50 mg Tablet PO (09:10)
--- NOTE | 2019-05-10 16:38 | P.PN_ITS ---
Subjective Subjective: Interval history: Overnight, no events, no chest pain, no shortness of breath, no lightheadedness, no dizziness, no nausea, no vomiting, no syncopal episodes Upon further review of imaging last night, patient was found to have metastatic prostate cancer, I reviewed these imaging findings with the radiologist Dr. Crowe, and I spoke to oncologist Dr. Giron. I discussed with the patient his options: -Can discharge him with outpatient follow-up with hematology oncology for consideration of prostate biopsy and further work-up -Can discharge him on hospice Patient voiced understanding, all questions answered Vitals/I&O/Wt Last Vital Signs Temp 97.9 F 05/10/19 15:01 Pulse 72 05/10/19 15:01 Resp 28 H 05/10/19 15:01 BP 103/44 05/10/19 15:01 Pulse Ox 94 05/10/19 15:01 05/10/19 05/10/19 05/10/19 06:59 14:59 22:59 Intake Total 320 / 680 1620 / 1620 Balance 320 / 680 1620 / 1620 Weight last 48 hrs Weight 101.196 kg Weight 99.79 kg Physical Exam Const: COMMON NORMALS: no apparent distress and oriented x3 HENMT: COMMON NORMALS: normocephalic HEAD & SCALP: normocephalic Eye: COMMON NORMALS: PERRL and EOMs intact bilaterally PUPIL: Yes PERRL Neck/C-Spine: COMMON NORMALS: full ROM and no lymphadenopathy GENERAL: Yes JVD Lymph: LYMPHATIC: no lymphadenopathy noted Chest: COMMONS NORMALS: inspection of chest normal BREAST/AXILLA PALPATION: Yes abnormal palpation of the breast (Tenderness under right breast) Resp: COMMON NORMALS: normal respiratory effort, no retractions, no use of a ccessory muscles, clear to auscultation bilaterally and percussion normal AUSCULTATION: clear to auscultation bilaterally PERCUSSION: percussion normal Cardio: COMMON NORMALS: regular rate, regular rhythm, S1 normal heart sound and S2 normal heart sound RATE: regular rate RHYTHM: regular rhythm HEART SOUNDS: S1 normal, S2 normal and murmur GI: COMMON NORMALS: normal to inspection, nondistended, normoactive bowel sounds, soft to palpation, non-tender and no hepatosplenomegaly PALPATION: Yes soft and Yes no hepatosplenomegaly OTHER: Has a umbilical hernia, reducible Extremity: COMMON NORMALS: normal to inspection, normal capillary refill, no clubbing, cyanosis or edema and no pedal edema Neuro: COMMON NORMALS: oriented x3 Data : 05/10/19 03:05 05/10/19 03:05 A&P Assessment and plan (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 - Diffuse sclerotic lesions within the visualized bony structures worse in the bony pelvis and sacrum suspicious for metastatic disease -Diffuse sclerotic lesions throughout the visualized bony structures suspicious for blastic metastatic disease -mixed attenuation mass involving the right hepatic lobe corresponding to the previously described subcapsular hematoma. Evolution of the previously described blood products with some high attenuation subacute appearing hemorrhage. Subcapsular hematoma measures approximately 7.2 x 7.9 x 6.7 cm slightly larger compared to the prior examination. Localized mass effect on the right hepatic lobe -Patient was advised that this is likely metastatic prostate cancer, however cancer is a tissue diagnosis, and he will likely require a prostate biopsy to prove that this is prostate cancer -I discussed options including prostate biopsy - I discussed options including anti androgenic therapy which would not be curative for the cancer but would help suppress cancer cells. 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 Moderate aortic valve stenosis, mean gradient 20 mmHg, TOMY 1.4 cm squared. Only significant change compared to echocardiogram 6 months ago, was worsening of mitral regurgitation Plan: -Unfortunately patient is not a good surgical candidate for aortic valve replacement given his newly diagnosed metastatic prostate cancer, poor functional status given his CAD, CHF, chronic lung disease -Continue telemetry monitoring Status: Acute Code(s): R55 - Syncope and collapse (4) Aortic stenosis: -Has moderate to severe aortic stenosis, mean gradient 22.9, aortic valve area 0.7 cm? -There were concerns for pseudo aortic stenosis due to reduced LV function on last echocardiogram -Moderate aortic valve calcification. Moderate aortic valve stenosis, mean gradient 20 mmHg, TOMY 1.4 cm squared. Status: Acute Code(s): I35.0 - Nonrheumatic aortic (valve) stenosis (5) CAD (coronary artery disease): -Stents x5 -Past medical history is significant for nonsignificant ostial left main 45% lesion, and a old anterior wall myocardial infarct, last time he was treated with a drug-eluting stent to the mid LAD for non-ST elevation [place] in June 2019 Status: Acute Code(s): I25.10 - Atherosclerotic heart disease of [place] coronary artery without angina pectoris (6) Hypertension: Status: Acute Code(s): I10 - Essential (primary) hypertension (7) Chronic systolic heart failure: -Chest x-ray showed bilateral pleural effusions -BNP is pending -no bilateral lower extremity edema, no significant JVD, chest x-ray shows bilateral pleural effusions -Continue Lasix Status: Acute Code(s): I50.22 - Chronic systolic (congestive) heart failure (8) Chronic lung disease: Status: Acute Code(s): J98.4 - Other disorders of lung (9) Hyperlipemia: Status: Acute Code(s): E78.5 - Hyperlipidemia, unspecified (10) Chest pain: -Anterior chest wall pain, with tenderness under the right breast -With con current fall, likely patient has some component of chest wall trauma, rib fracture -Patient's baseline troponin was 84, 120-minute troponin was 84.48, with a clinically not significant delta -EKG showed chronic repolarization abnormalities in V1 to V3 -No active chest pain Plan: -Continue aspirin, statin, beta-hung -Continue telemetry monitoring Status: Acute Code(s): R07.9 - Chest pain, unspecified (11) Subcapsular hematoma of liver: -No significant right upper quadrant pain -Hemoglobin 9.5 -We will continue to monitor hemoglobin -If hemoglobin drops, patient has right upper quadrant pain we will transfuse and consider consulting surgery Status: Acute Code(s): K76.89 - Other specified diseases of liver Attestations Medical Necessity Statement*: Patient requires continued hospitalization due to newly diagnosed metastatic prostate cancer Coding Level of Care Code Acute Casting Room Helper for Chg Fwd Diagnoses Prostate cancer metastatic to bone C61; C79.51 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
--- NOTE | 2019-05-10 17:31 | PC.PT ---
PT note;Dr Gleason recommends discharge physical therapy order secondary to new findings. Discharge physical therapy evaluation
[2019-05-10] MEDS: aspirin 81 mg EC Tablet PO (20:54)
[2019-05-11] VITALS (7 sets, daily range): BP systolic 97–115; BP diastolic 44–54; PULSE 53–76; RESP 21–22; TEMP 36.6–36.8; O2SAT 92–94
[2019-05-11] MEDS: FUROsemide 40 mg Tablet PO (05:25)
[2019-05-11 05:41] LABS: Basophils % 0.6 %; Eosinophils # 0.2 10^3/uL (0.0-0.8); Eosinophils % 3.3 %; Hematocrit 30.3 % (42.0-52.0); Hemoglobin 9.6 g/dL (11.7-16.6); Lymphocytes % 14.4 %; Mean Corpuscular HGB Conc 31.7 g/dL (30.0-36.0); Mean Corpuscular Hemoglobin 29.3 pg (28.0-34.0); Mean Corpuscular Volume 92.4 fL (80-94); Monocytes # 0.6 10^3/uL (0.2-0.9); Monocytes % 8.6 %; Neutrophils # 4.8 10^3/uL (1.8-7.7); Neutrophils % 72.8 %; Nucleated Red Blood Cells % 0 %; Platelet Count 292 10^3/cmm (130-400); Red Blood Count 3.28 10^6/uL (4.1-5.3); Red Cell Distribution Width 13.4 % (12.1-15.1); White Blood Count 6.6 10^3/uL (4.0-10.0)
[2019-05-11 05:57] LABS: Alanine Aminotransferase 10 U/L (0-41); Albumin Level 2.7 g/dL (3.5-5.2); Alkaline Phosphatase 101 IU/L (40-130); Aspartate Amino Transferase 15 U/L (0-40); Blood Urea Nitrogen 20 mg/dL (8-23); Calcium 9.4 mg/Dl (8.8-10.2); Carbon Dioxide 28 mmol/L (22-29); Chloride 102 mmol/L (98-107); Globulin 3.1 g/dL (1.3-4.6); Glucose 128 mg/dL (74-106); Magnesium 2.1 mg/dL (1.7-2.3); Phosphorus 3.6 mg/dL (2.5-4.5); Sodium 139 mmol/L (136-145); Total Bilirubin 0.4 mg/dL (0.15-1.2); Total Protein 5.8 g/dL (6.6-8.7)
[2019-05-11] MEDS: magnesium oxide 400 mg tablet PO (09:17)
[2019-05-11] MEDS: finasteride 5 mg Tablet PO (09:17)
[2019-05-11] MEDS: carvedilol 6.25 mg Tablet PO (09:18)
[2019-05-11] MEDS: duloxetine 30 mg Capsule PO (09:18)
[2019-05-11] MEDS: docusate sodium 100 mg Capsule PO (09:18)
[2019-05-11] MEDS: pantoprazole DR 40 mg Tablet PO (09:18)
[2019-05-11] MEDS: chlorthalidone 25 mg Tablet PO (09:18)
[2019-05-11] MEDS: tamsulosin 0.4 mg Capsule PO (09:18)
[2019-05-11] MEDS: clopidogrel 75 mg Tablet PO (09:18)
[2019-05-11] MEDS: multivitamin therapeutic Tablet 1 TAB PO (09:18)
[2019-05-11] MEDS: atorvastatin 40 mg Tablet 20 MG PO (09:19)
[2019-05-11] MEDS: losartan 50 mg Tablet PO (09:31)
--- NOTE | 2019-05-11 20:03 | PM.DCS ---
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: Status: Acute (3) Syncope: Status: Acute (4) Aortic stenosis: Status: Acute (5) CAD (coronary artery disease): Status: Acute (6) Hypertension: Status: Acute (7) Chronic systolic heart failure: Status: Acute (8) Chronic lung disease: Status: Acute (9) Hyperlipemia: Status: Acute (10) Chest pain: Status: Acute (11) Subcapsular hematoma of liver: Status: Acute Reason for Visit Reason for Visit: Reason For Visit: chest pain Hospital Course Hospital Course: Hayes Solis is a 83 year old male CAD status post stenting x5, last stent was in June 2018, history of chronic systolic congestive heart failure echocardiogram in 10/07/2018 showed an ejection fraction of 45%, mild to moderate aortic stenosis, moderate mitral regurg, chronic lung disease obstructive and restrictive pattern, hypertension, BPH, obstructive sleep apnea who presents to the emergency room due to complaints of syncope, shortness of breath, chest pain. Patient was admitted for's syncopal episode and chest pain, patient's baseline troponin was 84, 120-minute troponin was 84.48, with no clinically significant delta, EKG showed no significant ST-T wave changes, no active chest pain, no significant telemetry changes. Patient was discharged on his home aspirin, Plavix, statin, beta-hung. Patient's syncopal episode was likely multifactorial, related to dehydration related to torsemide, orthostatic hypotension, and aortic stenosis. Repeat echocardiogram on this admission showed an ejection fraction of 35%, mid anterior wall, apex, anterior apex and apical septal regions are all akinetic, moderate to severe mitral regurg, moderate aortic stenosis with a mean gradient of 20 mmHg, aortic valve area of 1.4 cm?, compared to echocardiogram 6 months ago there was no significant change except mitral regurg which is worse. Patient had complaints of syncope, angina, dyspnea intermittently for the last few months. Unfortunately due to patient's newly diagnosed metastatic prostate carcinoma as below, patient was deemed a poor surgical candidate currently, was discharged on Lasix 40 mg once daily, with a close follow-up with cardiology as outpatient. Unfortunately patient was unable to tolerate and declined and MRI brain to rule out metastatic disease from prostate cancer as a possible etiology for syncope, will have oncology readdress this as outpatient. Patient was advised that if he were to have recurrent episodes of syncope or chest pain to back to the emergency room. On 04/08/2019, patient had an ER visit for syncope and fall. Imaging at that time showed a subscapular hematoma, patient was told he had a liver laceration secondary to fall, and was advised of conservative management as outpatient. During this admission, patient had complaints of pain between his shoulder blades, and some right upper quadrant pain so I did a CT of the thoracic aorta to rule out dissection, and a CT of the abdomen to evaluate the subscapular hematoma. Unfortunately-we found and enlarged lobulated heterogeneous prostate suspicious for prostate carcinoma with a PSA of 435.2. Patients imaging also revealed, diffuse sclerotic lesions within the visualized bony structures worse in the bony pelvis and sacrum suspicious for metastatic disease; Diffuse sclerotic lesions throughout the visualized bony structures suspicious for blastic metastatic disease. [place], CT abdomen showed mixed attenuation mass involving the right hepatic lobe corresponding to the previously described subcapsular hematoma, and evolution of the previously described blood products with some high attenuation subacute appearing hemorrhage. Subcapsular hematoma measures approximately 7.2 x 7.9 x 6.7 cm slightly larger compared to the prior examination with Localized mass effect on the right hepatic lobe. His AFP was 0.6.Patient was advised that this was likely metastatic prostate cancer to the bone and liver. Obviously patient and family were devastated about the new findings, as he just had imaging a few weeks ago, I apologized to patient, and they were very understanding. I advised patient family options that are available to the patient include: -Further work-up with oncology, including MRI of the brain and PET scan -I discussed options including prostate biopsy, bone biopsy, lymph node biopsy - I discussed options including anti androgenic therapy which would not be curative for the cancer but would help suppress cancer cells. -For his metastatic disease to his liver he will likely require chemotherapy, and I am unsure if he is able to tolerate this due to his poor functional status -Hospice After long discussion of the risks and benefits, all questions answered, patient elected to see Dr. Lynch as outpatient for consideration of prostate biopsy and they have elected to follow-up with oncology as outpatient. I have of course spoke spoken to Dr. Lynch and oncology at [facility], who have graciously helped with above work-up, and have agreed to see patient as outpatient. For patient's subscapular liver hematoma related to fall versus metastatic prostate cancer?, patient's hemoglobin has slowly been declining, but stable between 10-9, likely multifactorial related to subscapular liver hematoma and/or malignancy. Patient was advised that he will require outpatient monitoring of his CBC, and to monitor for right upper quadrant pain, and if he were to develop lightheadedness, dizziness, or worsening right upper quadrant pain come back to the emergency room. Discharge Data Data Completed and Pending: Completed Studies During Hospitalization Category Date Time Status CT abdomen pelvis wo con [id number] Stat Cat Scan 05/09/19 15:[address] angio chest 71 275 Stat Cat Scan 05/09/19 15:09 Completed XR chest 1V kehinde ble [id number] Stat Exams 05/09/19 10:25 Completed CV echo complete* [id number] Routine Ultrasound 05/09/19 15:09 Completed Labs from last 24 hours 05/11/19 05/11/19 04:23 04:23 WBC 6.6 RBC 3.28 L Hgb 9.6 L Hct 30.3 L MCV 92.4 MCH 29.3 MCHC 31.7 RDW 13.4 Plt Count 292 MPV 10.0 Neut % (Auto) 72.8 Lymph % (Auto) 14.4 Colbert % (Auto) 8.6 Eos % (Auto) 3.3 Baso % (Auto) 0.6 Neut # (Auto) 4.8 Lymph # (Auto) 1.0 Colbert # (Auto) 0.6 Eos # (Auto) 0.2 Baso # (Auto) 0.0 Nucleated RBC % (a uto) 0 Nucleated RBCs # 0.0 Sodium 139 Potassium 4.0 Chloride 102 Carbon Dioxide 28 Anion Gap 13.0 BUN 20 Creatinine 1.2 Glucose 128 H Calcium 9.4 Phosphorus 3.6 Magnesium 2.1 Total Bilirubin 0.4 AST 15 ALT 10 Alkaline Phosphata se 101 Total Protein 5.8 L Albumin 2.7 L Globulin 3.1 Vitals: Last Vital Signs Temp 98.2 F 05/11/19 14:33 Pulse 73 05/11/19 14:33 Resp 22 H 05/11/19 14:33 BP 97/44 05/11/19 14:33 Pulse Ox 93 05/11/19 14:33 Discharge Plan Discharge Patient Disposition: Home, Self-Care Condition: Stable Prescriptions: Continued tamsulosin 0.4 mg capsule 0.4 mg PO BID RF: 0 omeprazole 20 mg capsule,delayed release(DR/EC) 20 mg PO DAILY RF: 0 furosemide 40 mg tablet 40 mg PO QAM RF: 0 pravastatin 80 mg tablet 80 mg PO DAILY RF: 0 nitroglycerin [Nitrostat] 0.4 mg tablet, sublingual 0.4 mg SUBLINGUAL Q5M PRN (Reason: Chest Pain) RF: 0 clopidogrel 75 mg tablet 75 mg PO DAILY RF: 0 carvedilol [Coreg] 6.25 mg tablet 6.25 mg PO BID RF: 0 finasteride 5 mg tablet 5 mg PO DAILY RF: 0 losartan 50 mg tablet 50 mg PO DAILY RF: 0 chlorthalidone 25 mg tablet 25 mg PO DAILY RF: 0 potassium chloride [Klor-Con 10] 10 mEq tablet extended release 20 meq PO BID RF: 0 magnesium oxide 400 mg magnesium tablet 400 mg PO DAILY RF: 0 aspirin [Adult Low Dose Aspirin] 81 mg tablet,delayed release (DR/EC) 81 mg PO DAILY RF: 0 Colace 100 mg Capsule 100 mg PO EVERY OTHER DAY RF: 0 Multiple Vitamins 1 tab PO DAILY RF: 0 duloxetine 30 mg capsule,delayed release(DR/EC) 30 mg PO DAILY RF: 0 Discontinued torsemide tablet 20 mg PO PRN PRN (Reason: Shortness Of Breath) RF: 0 Discharge Orders: Discharge Order (Routine); Ordered 05/11/19 Ordered By: Yoel Gleason Other Ambulatory Orders: Complete Blood Count w/Auto (Routine) Timeframe: 2 Days Location: Determined by Patient Ordered By: Yoel Gleason Referrals: Ayo Sorenson MD [Physician] - 2 weeks (You haave an follow-up appointment with Joan Michael at [facility] on May.25 at 10a.m. Please arrive at 9:45a.m. to check-in. If, you have any questions or need to reschedule. Please call ) Uri Lynch MD [Physician] - 4-7 days (You have an appointment at [facility] with on May 18 at 2:30p.m. If, you have any questions or need to reschedule. Please call: ) Shanice Giron MD [Staff Physician] - 7-10 days ([facility] will be contacting to schedule an appointment. If, You haven't heard from them by Thursday. Please, call ) Tiki Dorado MD [Primary Care Provider] - (You have an follow-up appointment with Tiki Dorado on May 16 at 1:00p.m. If, you have any questions or need to reschedule. Please [phone]) Discharge Diet: Advance as tolerated Discharge Activity: Resume usual activity Patient Instructions: Type 2 Diabetes, Heart Failure (DC), Heart Failure (GEN), Coronary Artery Disease (DC), Chest Pain (DC), Aortic Stenosis (DC), Benign Prostatic Hypertrophy (DC), Syncope (DC), Iron Deficiency Anemia (DC), Gastroesophageal Reflux Disease (DC), Hypertension (DC), CHF Stoplight, Chest Pain Stoplight Activity Restrictions/Additional Instructions: -If you have recurrent lightheadedness, dizziness, go to the emergency room -Please drink plenty of electrolyte balance fluids -please follow-up with Dr. 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
== END 2019-05-11 15:24 | disposition home or self-care (01) ==
LOC: ER 13:22 → CSU 13:34
PROVIDERS: Admitting Provider Family Medicine; Emergency Provider Family Medicine; Family Provider Family Medicine; PCP Family Medicine; Visit Provider Family Medicine
DX: C61 Malignant neoplasm of prostate (principal); C79.51 Secondary malignant neoplasm of bone; C78.7 Secondary malignant neoplasm of liver and intrahepatic bile duct; R55 Syncope and collapse; I35.0 Nonrheumatic aortic (valve) stenosis; I25.10 Atherosclerotic heart disease of native coronary artery without angina pectoris; J98.4 Other disorders of lung; E78.5 Hyperlipidemia, unspecified; K76.89 Other specified diseases of liver; R07.9 Chest pain, unspecified; Z95.5 Presence of coronary angioplasty implant and graft; N40.0 Benign prostatic hyperplasia without lower urinary tract symptoms; G47.33 Obstructive sleep apnea (adult) (pediatric); E11.22 Type 2 diabetes mellitus with diabetic chronic kidney disease; I13.0 Hypertensive heart and chronic kidney disease with heart failure and stage 1 through stage 4 chronic kidney disease, or unspecified chronic kidney disease; N18.9 Chronic kidney disease, unspecified; I50.20 Unspecified systolic (congestive) heart failure; K21.9 Gastro-esophageal reflux disease without esophagitis; Z86.73 Personal history of transient ischemic attack (TIA), and cerebral infarction without residual deficits; Z82.49 Family history of ischemic heart disease and other diseases of the circulatory system; Z87.891 Personal history of nicotine dependence
CPT/HCPCS: 12345; 36415; 71045; 71275; 74176; 80053; 82105; 83735; 83880; 84100; 84153; 84484; 85025; 93005; 93306; 96360; 96361; 99282; 99285; G0378; J7030; Q9967

== ENCOUNTER → 2019-05-16 14:22 | Outpatient (BNVA) | payer MEDICARE, OTHER, SELFPAY | PROVIDERS: Family Provider Family Medicine; PCP Family Medicine; Visit Provider Family Medicine | DX: D64.9 Anemia, unspecified (principal) | CPT/HCPCS: 85025 ==

== ENCOUNTER → 2019-05-18 14:49 | Outpatient (BNVA) | payer MEDICARE, OTHER, SELFPAY | PROVIDERS: Family Provider Family Medicine; PCP Family Medicine; Visit Provider Urology | DX: C61 Malignant neoplasm of prostate (principal); N40.0 Benign prostatic hyperplasia without lower urinary tract symptoms; C79.51 Secondary malignant neoplasm of bone; N18.9 Chronic kidney disease, unspecified | CPT/HCPCS: 81001 ==

== ENCOUNTER 2019-05-23 12:53 | Outpatient (CLI) | payer MEDICARE, OTHER, SELFPAY ==
[2019-05-23 17:33] LABS: Ferritin 135 ng/mL (30-400); Iron 63 ug/dL (59-158); Total Iron Binding Capacity 286 mcg/dl; Unsaturated Iron Binding 223 ug/dL (112-347)
== END 2019-05-23 12:54 | disposition home or self-care (01) ==
LOC: ONCMED 12:59
PROVIDERS: Family Provider Family Medicine; PCP Family Medicine; Referring Provider Family Medicine; Visit Provider Internal Medicine Hematology & Oncology
DX: C61 Malignant neoplasm of prostate (principal); C79.51 Secondary malignant neoplasm of bone; I25.10 Atherosclerotic heart disease of native coronary artery without angina pectoris; I13.0 Hypertensive heart and chronic kidney disease with heart failure and stage 1 through stage 4 chronic kidney disease, or unspecified chronic kidney disease; N18.9 Chronic kidney disease, unspecified; I08.0 Rheumatic disorders of both mitral and aortic valves; J44.9 Chronic obstructive pulmonary disease, unspecified; G47.33 Obstructive sleep apnea (adult) (pediatric); D50.9 Iron deficiency anemia, unspecified; J90 Pleural effusion, not elsewhere classified; S36.112D Contusion of liver, subsequent encounter; Z79.82 Long term (current) use of aspirin; Z79.02 Long term (current) use of antithrombotics/antiplatelets; Z79.891 Long term (current) use of opiate analgesic; Z79.899 Other long term (current) drug therapy; Z86.73 Personal history of transient ischemic attack (TIA), and cerebral infarction without residual deficits; Z95.5 Presence of coronary angioplasty implant and graft
CPT/HCPCS: 36415; 82728; 83540; 83550; 99205

== ENCOUNTER 2019-05-31 15:10 | Outpatient (CLI) | payer MEDICARE, OTHER, SELFPAY ==
[2019-05-31] MEDS: denosumab 120 mg SDV SUBCUT (15:35)
[2019-05-31] MEDS: goserelin acetate 10.8 mg Implant SUBCUT (15:42)
== END 2019-05-31 15:11 | disposition home or self-care (01) ==
PROVIDERS: Family Provider Family Medicine; PCP Family Medicine; Visit Provider Internal Medicine Hematology & Oncology
DX: C61 Malignant neoplasm of prostate (principal); C79.51 Secondary malignant neoplasm of bone
CPT/HCPCS: 96372; 96402; J0897; J9202

== ENCOUNTER 2019-06-27 09:15 | Outpatient (CLI) | payer MEDICARE, OTHER, SELFPAY ==
[2019-06-27 11:19] LABS: Basophils # 0.1 10^3/uL (0.0-0.1); Eosinophils # 0.1 10^3/uL (0.0-0.8); Eosinophils % 2.5 %; Hematocrit 35.9 % (42.0-52.0); Hemoglobin 11.2 g/dL (11.7-16.6); Lymphocytes % 18.7 %; Mean Corpuscular HGB Conc 31.2 g/dL (30.0-36.0); Mean Corpuscular Hemoglobin 27.5 pg (28.0-34.0); Mean Platelet Volume 10.6 fL (7.4-10.4); Monocytes # 0.3 10^3/uL (0.2-0.9); Monocytes % 5.4 %; Neutrophils # 3.7 10^3/uL (1.8-7.7); Neutrophils % 72.2 %; Nucleated Red Blood Cells % 0 %; Platelet Count 292 10^3/cmm (130-400); Red Blood Count 4.08 10^6/uL (4.1-5.3); Red Cell Distribution Width 13.8 % (12.1-15.1); White Blood Count 5.2 10^3/uL (4.0-10.0)
[2019-06-27 11:44] LABS: Prostate Specific Antigen 11.94 ng/mL (0-4)
[2019-06-27 11:55] LABS: Alanine Aminotransferase 12 U/L (0-41); Albumin Level 3.6 g/dL (3.5-5.2); Alkaline Phosphatase 115 IU/L (40-130); Anion Gap 17.6 (5-19); Aspartate Amino Transferase 17 U/L (0-40); Blood Urea Nitrogen 50 mg/dL (8-23); Calcium 8.4 mg/dL (8.5-10.5); Carbon Dioxide 29 mmol/L (22-29); Chloride 96 mmol/L (98-107); Globulin 3.1 g/dL (1.3-4.6); Glucose 234 mg/dL (65-115); Osmolality Calculated 294 mOsm/kg (285-295); Potassium 3.6 mmol/L (3.5-5.1); Sodium 139 mmol/L (136-145); Total Bilirubin 0.4 mg/dL (0.15-1.2); Total Protein 6.7 g/dL (6.6-8.7)
== END 2019-06-27 09:16 | disposition home or self-care (01) ==
LOC: ONCMED 17:55
PROVIDERS: Family Provider Family Medicine; PCP Family Medicine; Visit Provider Internal Medicine Hematology & Oncology
DX: C61 Malignant neoplasm of prostate (principal)
CPT/HCPCS: 80053; 84153; 85025

== ENCOUNTER 2019-06-29 05:56 | Outpatient (CLI) | payer MEDICARE, OTHER, SELFPAY ==
[2019-06-29] MEDS: denosumab 120 mg SDV SUBCUT (14:28)
--- NOTE | 2019-06-29 14:30 | ONC FU_ITS ---
Dr. Giron follow up note Patient: Hayes Solis Unit #: [id number]: [id number] Dicatated By: Shanice Giron M.D.Date of Visit:Jun 29, 2019 Onc Med Follow-up/Prog Note History of Present Illness: Mr. Hayes Solis, is a 83-year-old gentleman who was recently admitted to hospital with right sided chest pain, as per patient had a fall prior to the admission on 05/09/2019 and as per patient and his on 04/08/2019 patient had episode of syncopal attack and sustained the liver injury causing hepatic hematoma. Patient is on aspirin and Plavix as has history of coronary artery disease ???5 recent stent placed in June 2018., At that time he underwent CT scan of chest abdomen which showed a patent subscapular hematoma and also enlarged lobulated prostate suspicious for possible carcinoma and his PSA was 435.2 and scan also showed diffuse sclerotic lesions within the visualized bony structures worse in the pelvis and sacrum suspicious for metastatic disease moreover CT scan of abdomen showed mixed attenuation mass involving the right hepatic lobe corresponding to the previously described subcapsular hematoma., His AFP was 0.6. As per patient in October 2018 his PSA was 4, he follow Dr. Lynch. Patient was seen by Dr. 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 As history of coronary artery disease status post multiple stent and history of congestive heart failure, Echocardiogram done on 10/07/2018 showed ejection fraction 45%, [id number] aortic stenosis, moderate mitral regurg, COPD, sleep apnea, iron deficiency anemia, TIA, hypertension, chronic kidney disease, The patient denies any melena or hematochezia, denies any nausea or vomiting, denies any shortness of breath or palpitation at rest. But generalized weakness and fatigue. No hematuria or dysuria. Came for follow-up, denies any specific complaints except [id number] back pain, is tolerable, patient is not taking narcotics because of constipation. Otherwise no fever or chills no nausea vomiting no dysuria no hematuria. Patient it lost weeks and also complaining of excessive urination and blaming diuretics. Patient said he has aortic valve problem and Dr. Sorenson wants to fix it if is prostrate cancer is under control. Denies any night sweats but generalized weakness otherwise tolerating Zoladex/Casodex/Xgeva well Medications: Bicalutamide 1 Tablet (of 50 mg) Oral daily, Carvedilol 1 Tablet (of 6.25 mg) Oral b.i.d., Chlorthalidone 1 Tablet (of 25 mg) Oral daily, Clopidogrel Bisulfate 1 Tablet (of 75 mg) Oral daily, DULoxetine HCl 1 Capsule (of 30 mg) Capsule Delayed Release Particles Oral daily, Finasteride 1 Tablet (of 5 mg) Oral daily, HYDROcodone-Acetaminophen 1 Tablet (of 5-325 mg) Oral daily PRN, Losartan Potassium 1 Tablet (of 50 mg) Oral daily, Magnesium 1 Tablet (of 200 mg) Tablet, chewable Oral daily, Mens Multivitamin Tablet Oral, Omeprazole 1 Capsule (of 20 mg) Capsule Delayed Release Oral daily, Potassium Chloride ER 2 Capsule (of 10 meq) Capsule, controlled release Oral daily, Pravastatin Sodium 1 Tablet (of 80 mg) Oral at bedtime, Tamsulosin HCl 1 Capsule (of 0.4 mg) Oral b.i.d. Allergies: demoral, Diclofenac Sodium, Isosorbide Mononitrate, Meperidine HCl, and Spironolactone. Review of Systems: Review of Systems is not available for this patient. Vital Signs: Performed on Jun 29, 2019 13:51 Height - 71.00 in Weight - 213.8 lbs (LOW) BSA - 2.17 sq.m BMI - 29.82 Temperature - 97.8 F (LOW) Pulse - 79 /min Respiration - 18 /min BP - 92/51 mm(hg) O2 Sat - 94 % (LOW) Pain - 0 Performance Status: 1 - No physically strenuous activity, but ambulatory and able to carry out light or sedentary work (e.g. office work, light house work). (ECOG) Physical Examination: ENMT - Sinuses are nontender. No oral exudates, ulcers, masses, thrush or mucositis. Oropharynx clear. Tongue normal, Respiratory - Lungs are clear to auscultation without rhonchi or wheezing, Cardiovascular - Regular rate and rhythm of heart with systolic murmur, Abdomen - Non-tender, non-distended, Good bowel sounds. No guarding or rebound tenderness. No pulsatile masses, Extremities - trace edema. Lab/Imaging: Test performed on May 23, 2019 15:50 Ferritin 135 ng/mL Impression: 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 Lynch, urologist started him on Casodex 50 mg by mouth daily based on clinical diagnosis of metastatic prostrate cancer CT scan of chest abdomen pelvis done on 04/17/2019 and on 05/09/2019 showed enlarged lobulated heterogeneous prostate suspicious for prostrate carcinoma, diffuse sclerotic lesions within the visualized bony structures worse in the bony pelvis and sacrum suspicious for metastatic disease. Hepatic Subcapsular hematoma. Small right pleural effusion. History of hepatic subcapsular hematoma due to fall due to syncopal attack in March 2019 while on aspirin and Plavix for coronary artery disease status post stent placement History of congestive heart failure ejection fraction 45% on 10/07/2018 Plan: Discussed with patient regarding his labs white blood count 5.2 hemoglobin 11.2 crit 35.9 platelets 292,000 CMP within normal limit except glucose 234 creatinine 1.6 and his PSA is 11.94 compared to 435.2 at the time of diagnosis Clinically, patient is doing well, tolerating Zoladex/Casodex/Xgeva well but with expected side effects. With excellent response to the treatment his PSA has gone down to 11.94 compared to 435.2 with time of diagnosis. We'll proceed with next monthly dose of Xgeva today and then patient return to clinic in a month for his monthly dose of Xgeva and then we'll see him back in 2 months with CBC and PSA and testosterone level. As far as hyperglycemia is concern patient is noncompliant with his diet and patient was advised to watch his diet and minimize carbohydrate and sugar intake. And his back pain is under control without narcotics patient was advised in case there is sudden worsening of pain , he need to call us or go to emergency room for evaluation. Otherwise return to clinic in 2 months. Signed By: Shanice Giron M.D. <<Signature on File>>
== END 2019-06-29 05:57 | disposition home or self-care (01) ==
PROVIDERS: Family Provider Family Medicine; PCP Family Medicine; Visit Provider Internal Medicine Hematology & Oncology
DX: C61 Malignant neoplasm of prostate (principal); C79.51 Secondary malignant neoplasm of bone; I25.10 Atherosclerotic heart disease of native coronary artery without angina pectoris; I50.9 Heart failure, unspecified; I08.0 Rheumatic disorders of both mitral and aortic valves; N18.9 Chronic kidney disease, unspecified; I13.0 Hypertensive heart and chronic kidney disease with heart failure and stage 1 through stage 4 chronic kidney disease, or unspecified chronic kidney disease; J44.9 Chronic obstructive pulmonary disease, unspecified; G47.30 Sleep apnea, unspecified; D50.9 Iron deficiency anemia, unspecified; Z79.82 Long term (current) use of aspirin; Z79.02 Long term (current) use of antithrombotics/antiplatelets; Z79.818 Long term (current) use of other agents affecting estrogen receptors and estrogen levels; Z79.899 Other long term (current) drug therapy; Z79.891 Long term (current) use of opiate analgesic; Z86.73 Personal history of transient ischemic attack (TIA), and cerebral infarction without residual deficits; Z95.5 Presence of coronary angioplasty implant and graft
CPT/HCPCS: 96372; 99214; J0897

== ENCOUNTER 2019-08-01 13:10 | Outpatient (CLI) | payer MEDICARE, OTHER, SELFPAY | END 2019-08-01 13:11 | disposition home or self-care (01) | LOC: ONCMED 13:10 | PROVIDERS: Family Provider Family Medicine; PCP Family Medicine; Visit Provider Internal Medicine Hematology & Oncology | DX: C79.51 Secondary malignant neoplasm of bone (principal) | CPT/HCPCS: 96372; J0897 ==

== ENCOUNTER 2019-08-11 08:28 | Observation (INO) | payer MEDICARE, OTHER, SELFPAY ==
[2019-08-11] VITALS (15 sets, daily range): BP systolic 111–158; BP diastolic 39–65; PULSE 58–74; RESP 15–20; TEMP 36.2–37.1; O2SAT 95–100; BMI 29.5
--- NOTE | 2019-08-11 08:33 | ECG_ITS ---
Measurements Intervals [place] Rate: 62 P: 59 IL: 219 QRS: -24 QRSD: 114 T: 121 QT: 427 QTc: 436 SINUS RHYTHM WITH FIRST DEGREE AV BLOCK ANTEROSEPTAL MYOCARDIAL INFARCTION , PROBABLY RECENT [40+ ms Q WAVE IN V1-V4] ACUTE NV Compared to ECG 05/09/2019 18:05:48 First degree AV block now present Ventricular premature complex(es) no longer present Myocardial infarct finding still present Electronically Signed On 08-11-2019 18:11:07 CDT by Galina Houston M.D. [id number]
--- NOTE | 2019-08-11 08:33 | XR_ITS ---
WS: [id number] CHEST XRAY TECHNIQUE: Portable chest. CLINICAL INFORMATION: cough/congestion COMPARISON: May 09, 2019 FINDINGS: Heart: Cardiomegaly. Lungs: Mild chronic emphysematous changes. Small bilateral pleural effusions. Slight bibasilar atelec tasis. No focal pneumonia. Bones: Normal visualized bony structures. XR/XR chest 1V portable [id number] IMPRESSION: Cardiomegaly with small bilateral pleural effusions.
--- NOTE | 2019-08-11 08:47 | ED_ITS ---
HPI - Chest Pain General: Chief Complaint: Chest Pain Stated Complaint: CHEST/RT ARM PAIN Time Seen by Provider: 08/11/19 08:32 History of Present Illness: HPI narrative: 83-year-old male presents to the emergency room with complaint of left arm pain began overnight. He states pain is about a 5-6 of 10 initially and then after he took several nitro to decrease to around 2 or 3 he still has left arm pain. Mildly short of breath no orthopnea. No nausea or vomiting. He has had heart attack in the past. Has had multiple stenting. Denies being diabetic. He is unsure of his last cardiac evaluation. EKG today is unchanged from EKG on 04/17/2019 the computer is labeling today's EKG is being an acute GA there was more evidence of ST elevation on 04/17. 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 Onset (ago): hour(s) Timing of current episode: episodic Onset: during rest Pain location: other (Left shoulder ) Pain radiation: left arm Pain scale (0-10): 5 Quality: aching and similar to prior GA Relieving factors: nitroglycerin and rest Associated symptoms: Reports dyspnea and nausea; Deny abdominal pain, fever(s) or vomiting Treatment prior to arrival: nitroglycerin Review of Systems Const: Denies: fever, chills, body aches, change in appetite, fatigue or malaise ENMT: Denies: throat pain, ear pain, nasal discharge or nasal congestion Card: Reports: other (Complains of left shoulder and arm pain relates having had similar symptoms previously); Denies: chest pain, edema, shortness of breath on exertion or shortness of breath when lying down Resp: Reports: shortness of breath GI: Reports: nausea; Denies: abdominal pain or vomiting : Denies: flank pain, painful urination, urinary frequency or urinary urgency Skin/Breast: Denies: rash or itching [facility] ED PFSH: Medical History (Updated 08/11/19 @ 12:27 by Maya Brady DO) ASHD (arteriosclerotic heart disease) Basal cell carcinoma BPH (benign prostatic hyperplasia) Cervical post-laminectomy syndrome CHF (congestive heart failure) Chronic shortness of breath CKD (chronic kidney disease) DDD (degenerative disc disease) Diabetes GERD (gastroesophageal reflux disease) Hyperlipemia Hypertension Iron deficiency anemia Ischemic cardiomyopathy Neuropathy Sleep apnea TIA (transient ischemic attack) Surgical History 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 History of angioplasty History of heart artery stent Previous back surgery Family History Father , AT AGE 80 CAD (coronary artery disease) Mother , AT AGE 73 Dementia ALZHIEMERS Social History Smoking and tobacco status: former smoker Alcohol intake: current Alcohol intake frequency: holidays/special occasions only Household members: spouse Marital status: Current occupational status: retired Current gender identity: Male Physical Exam Const: COMMON NORMALS: no apparent distress GENERAL APPEARANCE: cooperative and comfortable ORIENTATION/CONSCIOUSNESS: Yes awake, Yes oriented to person, Yes oriented to place and Yes oriented to time HENMT: COMMON NORMALS: normocephalic, head/scalp atraumatic, hearing grossly normal bilaterally, external ears normal, EAC's normal, TM's normal bilaterally, nasal mucous membranes and turbinates normal, moist oral mucous membranes and oropharynx normal HEAD & SCALP: normocephalic and atraumatic NOSE: nasal mucous membranes and turbinates normal EXTERNAL EAR: Yes external ears normal EXTERNAL AUDITORY CANAL: EAC's normal TYMPANIC MEMBRANE: TM's normal bilaterally Eye: COMMON NORMALS: PERRL, EOMs intact bilaterally, conjunctivae normal and no scleral icterus CONJUNCTIVA: Yes conjunctivae normal PUPIL: Yes PERRL Neck/C-Spine: COMMON NORMALS: full ROM, no lymphadenopathy, supple and no JVD Lymph: LYMPHATIC: no lymphadenopathy noted and no lymphedema noted Resp: COMMON NORMALS: normal respiratory effort, no retractions, no use of accessory muscles and clear to auscultation bilaterally AUSCULTATION: clear to auscultation bilaterally Cardio: COMMON NORMALS: no JVD, regular rate, regular rhythm and no murmurs RATE: regular rate RHYTHM: regular rhythm GI: COMMON NORMALS: soft to palpation and no hepatosplenomegaly AUSCULTATION: Yes normoactive bowel sounds PALPATION: Yes soft, No tender, No guarding and Yes no hepatosplenomegaly Extremity: COMMON NORMALS: normal to inspection, normal capillary refill, no clubbing, cyanosis or edema, no calf tenderness and no pedal edema Neuro: SENSORIUM/ORIENTATION: Yes oriented to person, Yes oriented to place and Yes oriented to time Skin: COMMON NORMALS: no rashes or lesions noted GENERAL SKIN EXAM: no rashes or lesions noted Course Vital Signs: Vital signs: Vital Signs Temperature 98.1 F 08/11/19 15:06 Pulse Rate 60 08/11/19 15:06 Respiratory Rate 16 08/11/19 15:06 Blood Pressure 111/50 08/11/19 15:06 Pulse Oximetry 97 08/11/19 15:06 MDM - Chest Pain MDM Narrative: Medical decision making narrative: Discussed with Dr. Sorenson, Dr. Brady will admit to adjust for medical management at this point with his metastatic disease and severity of his heart disease and aortic stenosis not much of an interventional candidate. Lab Data: Labs: Lab Results 08/11/19 08/11/19 08/11/19 Range/Units 09:00 09:00 09:00 WBC 6.3 (4.0-10.0) 10^3/ uL RBC 4.31 (4.1-5.3) 10^6/u L Hgb 12.0 (11.7-16.6) g/dL Hct 37.6 L (42.0-52.0) % MCV 87.2 (80-94) fL MCH 27.8 L (28.0-34.0) pg MCHC 31.9 (30.0-36.0) g/dL RDW 13.6 (12.1-15.1) % Plt Count 276 (130-400) 10^3/c mm MPV 10.2 (7.4-10.4) fL Neut % (Auto) 74.5 % Lymph % (Auto) 15.7 % Sterling % (Auto) 7.3 % Eos % (Auto) 1.3 % Baso % (Auto) 1.0 % Neut # (Auto) 4.7 (1.8-7.7) 10^3/u L Lymph # (Auto) 1.0 (0.8-4.8) 10^3/u L Sterling # (Auto) 0.5 (0.2-0.9) 10^3/u L Eos # (Auto) 0.1 (0.0-0.8) 10^3/u L Baso # (Auto) 0.1 (0.0-0.1) 10^3/u L Nucleated RBC % (a uto) 0 % Nucleated RBCs # 0.0 /100WBC Sodium 139 (136-145) mmol/L Potassium 4.1 (3.5-5.1) mmol/L Chloride 99 (98-107) mmol/L Carbon Dioxide 29 (22-29) mmol/L Anion Gap 15.1 (5-19) BUN 43 H (8-23) mg/dL Creatinine 1.8 H (0.7-1.2) mg/dL Glucose 149 H (65-115) mg/dL Calculated Osmolal ity 289 (285-295) mOsm/k g Calcium 8.4 L (8.5-10.5) mg/dL Total Bilirubin 0.4 (0.15-1.2) mg/dL AST 18 (0-40) U/L ALT 12 (0-41) U/L Alkaline Phosphata se 125 (40-130) IU/L Creatine Kinase 73 (39-308) U/L Troponin T Baselin e 69 H (0-15) ng/mL NT-Pro-B Natriuret Pep (0-450) pg/mL Total Protein 7.4 (6.6-8.7) g/dL Albumin 3.9 (3.5-5.2) g/dL Globulin 3.5 (1.3-4.6) g/dL TSH (0.27-4.20) uIU/ mL 08/11/19 Range/Units 09:00 WBC (4.0-10.0) 10^3/ uL RBC (4.1-5.3) 10^6/u L Hgb (11.7-16.6) g/dL Hct (42.0-52.0) % MCV (80-94) fL MCH (28.0-34.0) pg MCHC (30.0-36.0) g/dL RDW (12.1-15.1) % Plt Count (130-400) 10^3/c mm MPV (7.4-10.4) fL Neut % (Auto) % Lymph % (Auto) % Sterling % (Auto) % Eos % (Auto) % Baso % (Auto) % Neut # (Auto) (1.8-7.7) 10^3/u L Lymph # (Auto) (0.8-4.8) 10^3/u L Sterling # (Auto) (0.2-0.9) 10^3/u L Eos # (Auto) (0.0-0.8) 10^3/u L Baso # (Auto) (0.0-0.1) 10^3/u L Nucleated RBC % (a uto) % Nucleated RBCs # /100WBC Sodium (136-145) mmol/L Potassium (3.5-5.1) mmol/L Chloride (98-107) mmol/L Carbon Dioxide (22-29) mmol/L Anion Gap (5-19) BUN (8-23) mg/dL Creatinine (0.7-1.2) mg/dL Glucose (65-115) mg/dL Calculated Osmolal ity (285-295) mOsm/k g Calcium (8.5-10.5) mg/dL Total Bilirubin (0.15-1.2) mg/dL AST (0-40) U/L ALT (0-41) U/L Alkaline Phosphata se (40-130) IU/L Creatine Kinase (39-308) U/L Troponin T Baselin e (0-15) ng/mL NT-Pro-B Natriuret Pep 1313 H (0-450) pg/mL Total Protein (6.6-8.7) g/dL Albumin (3.5-5.2) g/dL Globulin (1.3-4.6) g/dL TSH 3.93 (0.27-4.20) uIU/ mL Discharge Plan Discharge Patient Disposition: Placed in Observation Admit Provider: Maya Brady Clinical Impression: Aortic stenosis, Ischemic cardiomyopathy, CAD (coronary artery disease), Prostate cancer metastatic to bone Discharge Date/Time: 08/11/19 11:27 Coding Level of Care Code ED Vp Rheumatology for Chg Fwd Exam Comprehensive
[2019-08-11 09:10] LABS: Basophils # 0.1 10^3/uL (0.0-0.1); Eosinophils # 0.1 10^3/uL (0.0-0.8); Eosinophils % 1.3 %; Hematocrit 37.6 % (42.0-52.0); Lymphocytes % 15.7 %; Mean Corpuscular HGB Conc 31.9 g/dL (30.0-36.0); Mean Corpuscular Hemoglobin 27.8 pg (28.0-34.0); Mean Corpuscular Volume 87.2 fL (80-94); Mean Platelet Volume 10.2 fL (7.4-10.4); Monocytes # 0.5 10^3/uL (0.2-0.9); Monocytes % 7.3 %; Neutrophils # 4.7 10^3/uL (1.8-7.7); Neutrophils % 74.5 %; Nucleated Red Blood Cells % 0 %; Platelet Count 276 10^3/cmm (130-400); Red Blood Count 4.31 10^6/uL (4.1-5.3); Red Cell Distribution Width 13.6 % (12.1-15.1); White Blood Count 6.3 10^3/uL (4.0-10.0)
[2019-08-11] MEDS: aspirin 81 mg Chew Tablet PO (09:22)
[2019-08-11] MEDS: nitroglycerin 1 gm/inch oint Pkt 1 INCH TOPICAL (09:22)
[2019-08-11 09:33] LABS: Alanine Aminotransferase 12 U/L (0-41); Albumin Level 3.9 g/dL (3.5-5.2); Alkaline Phosphatase 125 IU/L (40-130); Anion Gap 15.1 (5-19); Aspartate Amino Transferase 18 U/L (0-40); Blood Urea Nitrogen 43 mg/dL (8-23); Calcium 8.4 mg/dL (8.5-10.5); Carbon Dioxide 29 mmol/L (22-29); Chloride 99 mmol/L (98-107); Creatine Phosphokinase 73 U/L (39-308); Globulin 3.5 g/dL (1.3-4.6); Glucose 149 mg/dL (65-115); Osmolality Calculated 289 mOsm/kg (285-295); Potassium 4.1 mmol/L (3.5-5.1); Sodium 139 mmol/L (136-145); Total Bilirubin 0.4 mg/dL (0.15-1.2); Total Protein 7.4 g/dL (6.6-8.7)
[2019-08-11 09:34] LABS: Troponin(5th) Baseline 69 ng/mL (0-15)
--- NOTE | 2019-08-11 10:33 | ECG_ITS ---
Measurements Intervals [place] Rate: 57 P: 39 MD: 166 QRS: -19 QRSD: 117 T: 104 QT: 468 QTc: 458 SINUS BRADYCARDIA ANTERIOR MYOCARDIAL INFARCTION , PROBABLY RECENT [40+ ms Q WAVE AND/OR ST/T ABNORMALITY IN V3/V4] ACUTE SD Compared to ECG 05/09/2019 18:05:48 Sinus rhythm no longer present Ventricular premature complex(es) no longer present Myocardial infarct finding still present Electronically Signed On 08-11-2019 18:14:11 CDT by Galina Houston M.D. [email or web address]
--- NOTE | 2019-08-11 10:54 | P.HP_ITS ---
Providers/Chief Complaint Admitting Physician: Maya Brady DO Primary Care Provider: Tiki Dorado MD Chief Complaint: Left Arm Pain History of Present Illness Hayes Solis is a 83 year old male that presented to the emergency department today due to pain in his left arm. He reported that every other time he has had pain like this in his left arm he had worsening coronary artery disease and required intervention. He stated that he has been having increased dyspnea on exertion and dizziness. He reports that he has known metastatic prostate cancer along with coronary artery disease and aortic stenosis. He reports that he believes he needs to have a TAVR to repair his aortic valve, he has been in multiple discussions with his engineering writer and oncologist about t his. Discussed with patient that many of the surgeries are on hold at this time due to pandemic and with his metastatic cancer this could be complicating factor, he verbalized understanding. Patient denies any recent fevers, no increasing cough or sputum production. Patient denies any sick contacts, no fevers or chills. Patient denies being on any oxygen at home, reports history of obstructive sleep apnea but refuses to wear CPAP. He reports that after nitroglycerin the pain in his left arm has now resolved. Patient denies any recent medication changes, reported that he had not taken his medications at home yet this morning. Patient was seen and evaluated in the emergency department due to his anginal equivalent he was admitted for further evaluation and treatment. Review of Systems Const: Denies: fever or chills Eyes: Denies: change in vision ENMT: Denies: nasal congestion Card: Reports: other (Reports left arm pain, anginal equivalent); Denies: chest pain, palpitations or edema Resp: Reports: other (Dyspnea on exertion); Denies: shortness of breath, productive cough or coughing up blood GI: Denies: abdominal pain, nausea, vomiting, diarrhea, constipation, blood in stool or black tarry stool : Denies: painful urination or blood in urine Musc: Denies: extremity pain or muscle cramps Skin/Breast: Denies: rash or new lesion Neuro: Reports: dizziness; Denies: headache Psych: Denies: anxiety or depression Endo: Denies: excessive urination or hot flashes Aj/Lymph: Denies: easy bruising or easy bleeding Medications/Allergies Home Medications Medication Instructions Recorded Confirmed Last Taken Type Multiple Vitamins 1 tab PO DAILY 05/09/19 08/11/19 08/10/19 History aspirin 81 mg tablet,delayed 81 mg PO DAILY 05/09/19 08/11/19 08/10/19 History release carvedilol 6.25 mg tablet 6.25 mg PO BID 05/09/19 08/11/19 08/10/19 History docusate sodium [Colace] 100 mg PO EVERY OTHER DAY 05/09/19 08/11/19 08/10/19 History finasteride 5 mg tablet 5 mg PO DAILY 05/09/19 08/11/19 08/10/19 History furosemide 40 mg tablet 40 mg PO QAM 05/09/19 08/11/19 08/10/19 History losartan 50 mg tablet 50 mg PO DAILY 05/09/19 08/11/19 08/10/19 History magnesium oxide 400 mg PO DAILY 05/09/19 08/11/19 08/10/19 History nitroglycerin 0.4 mg sublingual 0.4 mg SUBLINGUAL Q5M PRN 05/09/19 08/11/19 Unknown History tablet omeprazole 20 mg capsule,delayed 20 mg PO DAILY 05/09/19 08/11/19 08/10/19 History release potassium chloride 10 mEq 20 meq PO BID 05/09/19 08/11/19 08/10/19 History tablet,extended release pravastatin 80 mg tablet 80 mg PO DAILY 05/09/19 08/11/19 08/10/19 History tamsulosin 0.4 mg capsule 0.4 mg PO BID cap 05/09/19 08/11/19 08/10/19 History hydrocodone 5 mg-acetaminophen 325 1 tab PO Q6H PRN tab 05/18/19 08/11/19 08/10/19 History mg tablet chlorthalidone 25 mg tablet 25 mg PO DAILY 90 Days #90 tab 06/03/19 08/11/19 08/10/19 Rx duloxetine 30 mg capsule,delayed 30 mg PO DAILY #30 cap 06/03/19 08/11/19 08/10/19 Rx release clopidogrel 75 mg tablet 75 mg PO DAILY 90 Days #90 tab 06/28/19 08/11/19 08/10/19 Rx bicalutamide 50 mg PO DAILY 08/11/19 08/11/19 08/10/19 History Allergies Allergy/AdvReac Type Severity Reaction Status Date / Time diclofenac Allergy Unknown Verified 05/19/19 15:20 meperidine Allergy ADR-Vomitin Verified 05/19/19 15:20 g spironolactone Allergy Unknown Verified 05/19/19 15:20 PFSH Acute PFSH: Medical History (Updated 08/11/19 @ 12:27 by Maya Brady DO) ASHD (arteriosclerotic heart disease) Basal cell carcinoma BPH (benign prostatic hyperplasia) Cervical post-laminectomy syndrome CHF (congestive heart failure) Chronic shortness of breath CKD (chronic kidney disease) DDD (degenerative disc disease) Diabetes GERD (gastroesophageal reflux disease) Hyperlipemia Hypertension Iron deficiency anemia Ischemic cardiomyopathy Neuropathy Sleep apnea TIA (transient ischemic attack) Surgical History 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 History of angioplasty History of heart artery stent Previous back surgery Family History Father , AT AGE 80 CAD (coronary artery disease) Mother , AT AGE 73 Dementia ALZHIEMERS Social History Smoking and tobacco status: former smoker Alcohol intake: current Alcohol intake frequency: holidays/special occasions only Household members: spouse Marital status: Current occupational status: retired Current gender identity: Male Vitals/I&O/Wt Last Vital Signs Temp 97.8 F 08/11/19 08:32 Pulse 66 08/11/19 08:32 Resp 15 08/11/19 08:32 BP 145/57 08/11/19 08:32 Pulse Ox 98 08/11/19 08:32 Weight last 48 hrs Weight 96.162 kg Physical Exam Const: COMMON NORMALS: oriented x3 and alert GENERAL APPEARANCE: cooperative ORIENTATION/CONSCIOUSNESS: Yes awake, Yes oriented to person, Yes oriented to place and Yes oriented to time HENMT: COMMON NORMALS: normocephalic and head/scalp atraumatic HEAD & SCALP: normocephalic and atraumatic Eye: COMMON NORMALS: PERRL PUPIL: Yes PERRL Neck/C-Spine: COMMON NORMALS: supple GENERAL: Yes normal visual inspection Resp: COMMON NORMALS: normal respiratory effort and clear to auscultation bilaterally EFFORT & INSPECTION: Yes able to speak in complete sentences AUSCULTATION: clear to auscultation bilaterally, no rhonchi and no wheezes Cardio: COMMON NORMALS: regular rate and regular rhythm RATE: regular rate RHYTHM: regular rhythm HEART SOUNDS: murmur systolic GI: COMMON NORMALS: soft to palpation and non-tender INSPECTION: No abdominal distension AUSCULTATION: Yes normoactive bowel sounds PALPATION: Yes soft Extremity: COMMON NORMALS: no calf tenderness NARRATIVE EXTREMITY EXAM: non-pitting edema in the LE bilaterally Neuro: COMMON NORMALS: oriented x3, CN's II-XII intact bilaterally, moves all extremities and no focal motor deficits SENSORIUM/ORIENTATION: Yes alert, Yes oriented to person, Yes oriented to place and Yes oriented to time SPEECH: speech normal Psych: COMMON NORMALS: mental status grossly normal and cooperative Skin: COMMON NORMALS: no rashes or lesions noted GENERAL SKIN EXAM: no rashes or lesions noted Data : 08/11/19 09:00 08/11/19 09:00 A&P Assessment and plan (1) Chest pain: Atypical chest pain, left arm and shoulder pain, reports previous coronary events with similar symptoms. Serial EKG and troponin Close monitoring on telemetry Patient follows with Dr. Sorenson in the outpatient setting, he was made aware of admission Patient reports improvement with nitroglycerin, Nitropaste removed and started on Imdur, will continue with medical management at this time due to patient's underlying metastatic cancer. Continue on aspirin, statin, Coreg, Plavix, losartan and started on Imdur as noted. Had cardiac cath last year in June 2018 with stent placement to the LAD Status: Acute (2) Ischemic cardiomyopathy: LVEF of 35% on echocardiogram from earlier this year. Continue with home Lasix, chlorthalidone, Coreg, losartan Strict intake and output as well as daily weights Status: Acute (3) Prostate cancer metastatic to bone: Followed by Dr. Giron, currently on treatment for metastatic prostate cancer Status: Acute (4) CAD (coronary artery disease): As noted above, multiple stents in the past with many to the LAD. Last ca rdiac cath in June 2018 with stent to LAD at that time Followed in the outpatient setting by Dr. Sorenson Status: Acute (5) Aortic stenosis: Moderate to severe aortic stenosis, patient reports increased dizziness. Will repeat limited echocardiogram, echocardiogram from earlier this year reviewed. Patient has been told that TAVR is on hold at this time due to current pandemic by his engineering writer multiple times and also in light of his metastatic disease he may not be a good candidate for this surgical intervention. We will follow- up with repeat limited echocardiogram and further recommendations based on findi ngs Status: Acute (6) Hypertension: Continue home furosemide, chlorthalidone, Coreg, losartan Status: Acute (7) Hyperlipemia: Continue statin Status: Acute Additional A&P Information DVT prophylaxis: SCDs, no pharmacologic prophylaxis at this time due history of subcapsular hematoma of the liver in April, repeat ultrasound of the liver at this time Diet: Cardiac CODE STATUS: Limited resuscitation, okay with defibrillation, no other r esuscitative measures. No CPR and no intubation. This was discussed with patient in the ED> Attestations Medical Necessity Statement*: Observation due to chest pain with known coronary artery disease and aortic stenosis. Expected stay less than 2 midnights Coding Level of Care Code Acute Professor Of Management for Antwon Oconnell Diagnoses Chest pain R07.9 Ischemic cardiomyopathy I25.5 Prostate cancer metastatic to bone C61; C79.51 CAD (coronary artery disease) I25.10 Aortic stenosis I35.0 Hypertension I10 Hyperlipemia E78.5
--- NOTE | 2019-08-11 11:10 | XR_ITS ---
WS: [id number] Humerus LEFT TECHNIQUE: 2 views of the left humerus CLINICAL INFORMATION: Arm pain COMPARISON: None. 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 Rotator cuff arthropathy. Normal humerus . XR/[place] [id number] IMPRESSION: No acute fractures
--- NOTE | 2019-08-11 11:10 | USCV_ITS ---
SolisHayes Age: 83 Gender: M : 1935 Exam Date: 08/11/2019 13:47 Ordering Phys: Maya Brady DO Technologist: [place] Exam Location: [place] Indication: ANGINAL EQUIVALANT DIZZYNESS BP: 132 / 80 HR: 73 Rhythm: Sinus Technical Quality: Fair MEASUREMENTS (Male / Female) Normal Values 2D ECHO LV Diastolic Diameter PLAX 3.8 cm 4.2 - 5.9 / 3.9 - 5.3 cm LV Systolic Diameter PLAX 3.0 cm IVS Diastolic Thickness 0.8 cm 0.6 - 1.0 / 0.6 - 0.9 cm IVS Systolic Thickness 1.3 cm LVPW Diastolic Thickness 0.9 cm 0.6 - 1.0 / 0.6 - 0.9 cm LVPW Systolic Thickness 1.2 cm LVOT Diameter 2.1 cm LV Ejection Fraction 2D Teich 46.3 % LV Ejection Fraction MOD 2C 51.3 % LV Ejection Fraction 2C AL 49.0 % LA Diameter 5.3 cm LA Width 4.7 cm LA Height 5.6 cm RA Width 4.6 cm RA Height 6.0 cm M-MODE LV Diastolic Diameter MM 6.1 cm 4.2 - 5.9 / 3.9 - 5.3 cm LV Systolic Diameter MM 4.9 cm LV Ejection Fraction MM Teich 38.7 % IVS Diastolic Thickness MM 1.1 cm 0.6 - 1.0 / 0.6 - 0.9 cm IVS Systolic Thickness MM 1.1 cm LVPW Diastolic Thickness MM 1.2 cm 0.6 - 1.0 / 0.6 - 0.9 cm LVPW Systolic Thickness MM 1.5 cm RV Diastolic Diameter MM 1.7 cm Aortic Annulus Diameter 4.9 cm LA Ao Ratio MM 1.1 MV E Point Septal Separation 1.7 cm FINDINGS Left Ventricle Severe hypokinesia of the mid and apical septum, anteroseptal and inferolateral wall segments. Minimal dyskinesia of the LV apex. Ejection fraction around 35% Right Ventricle Not visualized well. Possibly of normal size and ejection fraction. Right Atrium Normal right atrial size. Left Atrium Mildly increased left atrial size. Mitral Valve Thickened mitral valve. Moderate mitral annular calcification. Aortic Valve Thickened aortic valve. Tricuspid Valve Not visualized well Pulmonic Valve Not visualized well Pericardium No significant effusion Aorta Normal aortic annulus size. CONCLUSIONS Multiple wall motion normalities with a diminished ejection fraction of 35%. Mildly dilated left ventricle and left atrium. Thickened aortic and mitral valves. No pericardial effusion. No obvious intracardiac masses. Technically difficult study because of the poor ultrasonic window. Compared to the previous study from 05/09/2019, there may not be a significant change in the 2D findings. Dr Galina Houston MD FACC (Electronically Signed) Final Date: 12 August 2019 12:26 S
[2019-08-11 11:39] LABS: Troponin 5 2HR 63.96 ng/mL (0-15)
[2019-08-11 11:43] LABS: Troponin 5 2HR Delta -5.04 ABS# (0-10)
--- NOTE | 2019-08-11 11:46 | PC.CHAP ---
Pastoral Care Encounter/Spiritual Assessment Type of Contact [] Declined fourchette sewer visit [] Patient/Family/Request visit [] Outpatient visit [] Follow-up visit [] Physician referral [] Code/Alert [x] Routine visit [] Staff referral [] Actively dying [] Patient sleeping [] Family support [] [] Out of room [] Palliative care [] [] Receiving care in room [] Pre-surgical visit [] Trauma [] Long length of stay [] ICU visit [] Other: Relational/Emotional Strength [x] Patient feels connected with others/family/visitors/staff [] Distress [] Loneliness/isolation [] Abandonment Spirituality of Patient [x] Person of Manuela [] Attends Mormon of their Manuela [] Believes in Prayer [] Reads Bible or Faith materials [x] There are Spiritual issues to be addressed [employer] Distribution Supervisor Interventions [x] Prayer x[] Active listening [x] Non-anxious presence [x] Spiritual/emotional support [] Crisis/trauma care x[] Spiritual counseling [] Bereavement support [] Provided bereavement packet [] Provided Bible/devotional materials [] Provided toy/stuffed animal, coloring book to patient or family member [] Provided Communion [] Anointing/[place] [] Salvation [x] Completed spiritual assessment [] Other: Impact on Illness or Injury [] Angry [] Fearful [] Anxious [] Often cries [] Exhaustion [] Unable to work [] Unable to attend islam [] Unable to walk/stand [] Unable to read [] Unable to drive [] Unable to eat/drink [] Unable to sleep [] Unable to be with family [] Patient intubated [x] Other: Summary Patient professes manuela in [place] but does not attend islam services. Time spent with patient 10 minutes
[2019-08-11 11:49] LABS: NT Pro B Type Natriuretic Pept 1313 pg/mL (0-450); Thyroid Stimulating Hormone 3.93 uIU/mL (0.27-4.20)
--- NOTE | 2019-08-11 12:33 | US_ITS ---
WS: [id number] ULTRASOUND ABDOMEN LIMITED CLINICAL INFORMATION: h/o hematoma of liver COMPARISON: CT May 09, 2019 FINDINGS: Liver Size: Normal. Craniocaudal length: 10.0 cm. Echogenicity: Normal. Surface nodularity: None. Mass (size and location): Mixed echogenicity mainly hypoechoic right hepatic lesion in the area of th e previously described hematoma. This lesion measures approximately 4.4 x 2.8 x 4.7 CM. This is decre ased in size from April and likely represents resolving hematoma. Recommend continued follow-up to resolution to exclude underlying mass. Bile ducts Intrahepatic ducts: Normal. Normal common bile duct. Gallbladder Cholelithiasis Gallstones: Present Gallbladder sludge: None. Gallbladder wall thickening: None. Pericholecystic fluid: None. Sonographic Sánchez sign: Absent. Pancreas Normal as visualized. Right kidney: Normal. Hydronephrosis: None. Size: 10.8 cm x 5.0 cm x 4.4 cm. Abdominal aorta and IVC Visualized portions are normal. Ascites: None. US/US liver [id number] IMPRESSION: 1. Mixed echogenicity mainly hypoechoic right hepatic lesion in the area of th e previously described hematoma. This lesion measures approximately 4.4 x 2.8 x 4.7 CM. This is decreased in size from April and likely represents resolving hematoma. However, recommend continued follow-up to resolution to exclude unde rlying mass with ultrasound in 6 weeks 2. Cholelithiasis. Prominent gallstone in gallbladder neck. No gallbladder wal l thickening or pericholecystic fluid. 3. Normal common bile duct. 4. No hydronephrosis in right kidney.
[2019-08-11] MEDS: atorvastatin 40 mg Tablet 20 MG PO (13:11)
[2019-08-11] MEDS: magnesium oxide 400 mg tablet PO (13:11)
[2019-08-11] MEDS: clopidogrel 75 mg Tablet PO (13:11)
[2019-08-11] MEDS: chlorthalidone 25 mg Tablet PO (13:11)
[2019-08-11] MEDS: FUROsemide 40 mg Tablet PO (13:12)
[2019-08-11] MEDS: finasteride 5 mg Tablet PO (13:12)
[2019-08-11] MEDS: losartan 50 mg Tablet PO (13:12)
[2019-08-11] MEDS: duloxetine 30 mg Capsule PO (13:12)
[2019-08-11] MEDS: pantoprazole DR 40 mg Tablet PO (13:12)
[2019-08-11] MEDS: carvedilol 6.25 mg Tablet PO ×2 (13:12→18:08)
[2019-08-11] MEDS: aspirin 81 mg EC Tablet PO (13:12)
[2019-08-11] MEDS: isosorbide mononitrate ER 30 mg Tablet PO (13:12)
--- NOTE | 2019-08-11 14:33 | ECG_ITS ---
Measurements Intervals [place] Rate: 65 P: 45 NE: 170 QRS: -22 QRSD: 118 T: 93 QT: 429 QTc: 447 SINUS RHYTHM ANTEROSEPTAL MYOCARDIAL INFARCTION [40+ ms Q WAVE IN V1-V4], PROBABLY RECENT ACUTE [place] Compared to ECG 05/09/2019 18:05:48 Ventricular premature complex(es) no longer present Myocardial infarct finding still present Electronically Signed On 08-11-2019 18:14:51 CDT by Galina Houston M.D. [email or web address]
[2019-08-11 16:42] LABS: Troponin 5 6HR 57.66 ng/mL (0-15)
[2019-08-11 16:49] LABS: Troponin 5 6HR Delta -11.34 ng/L (0-12)
[2019-08-11] MEDS: tamsulosin 0.4 mg Capsule PO (18:08)
[2019-08-12] VITALS (8 sets, daily range): BP systolic 92–144; BP diastolic 40–78; PULSE 56–75; RESP 17–18; TEMP 36.2–37.1; O2SAT 90–97
[2019-08-12] MEDS: ondansetron 2 mg/ML SDV 2 mL 4 MG IVP (00:57)
[2019-08-12] MEDS: FUROsemide 40 mg Tablet PO (05:19)
[2019-08-12 05:45] LABS: Anion Gap 15.7 (5-19); Blood Urea Nitrogen 36 mg/dL (8-23); Calcium 7.9 mg/dL (8.5-10.5); Carbon Dioxide 28 mmol/L (22-29); Chloride 101 mmol/L (98-107); Glucose 148 mg/dL (65-115); Osmolality Calculated 290 mOsm/kg (285-295); Potassium 4.7 mmol/L (3.5-5.1); Sodium 140 mmol/L (136-145)
[2019-08-12 06:24] LABS: Basophils # 0.1 10^3/uL (0.0-0.1); Eosinophils % 0.7 %; Hematocrit 34.4 % (42.0-52.0); Lymphocytes % 16.2 %; Mean Corpuscular Hemoglobin 28.1 pg (28.0-34.0); Mean Platelet Volume 9.9 fL (7.4-10.4); Monocytes # 0.4 10^3/uL (0.2-0.9); Monocytes % 7.5 %; Neutrophils # 4.4 10^3/uL (1.8-7.7); Neutrophils % 74.4 %; Nucleated Red Blood Cells % 0 %; Platelet Count 226 10^3/cmm (130-400); Red Blood Count 3.91 10^6/uL (4.1-5.3); Red Cell Distribution Width 13.8 % (12.1-15.1); White Blood Count 5.9 10^3/uL (4.0-10.0)
[2019-08-12] MEDS: losartan 50 mg Tablet 25 MG PO (08:38)
[2019-08-12] MEDS: aspirin 81 mg Chew Tablet PO (08:39)
[2019-08-12] MEDS: multivitamin therapeutic Tablet 1 TAB PO (08:39)
[2019-08-12] MEDS: pantoprazole DR 40 mg Tablet PO (08:39)
[2019-08-12] MEDS: isosorbide mononitrate ER 30 mg Tablet PO (08:39)
[2019-08-12] MEDS: docusate sodium 100 mg Capsule PO (08:39)
[2019-08-12] MEDS: magnesium oxide 400 mg tablet PO (08:39)
[2019-08-12] MEDS: aspirin 81 mg EC Tablet PO (08:39)
[2019-08-12] MEDS: finasteride 5 mg Tablet PO (08:39)
[2019-08-12] MEDS: tamsulosin 0.4 mg Capsule PO (08:39)
[2019-08-12] MEDS: atorvastatin 40 mg Tablet 20 MG PO (08:39)
[2019-08-12] MEDS: duloxetine 30 mg Capsule PO (08:40)
[2019-08-12] MEDS: clopidogrel 75 mg Tablet PO (08:40)
[2019-08-12] MEDS: carvedilol 3.125 mg Tablet PO (08:57)
[2019-08-12] MEDS: chlorthalidone 25 mg Tablet PO (09:10)
--- NOTE | 2019-08-12 10:53 | PC.CHAP ---
Pastoral Care Encounter/Spiritual Assessment Type of Contact [] Declined academic counselor visit [] Patient/Family/Request visit [] Outpatient visit [] Follow-up visit [] Physician referral [] Code/Alert [x] Routine visit [] Staff referral [] Actively dying [] Patient sleeping [] Family support [] [] Out of room [] Palliative care [] [] Receiving care in room [] Pre-surgical visit [] Trauma [] Long length of stay [] ICU visit [] Other: Relational/Emotional Strength [] Patient feels connected with others/family/visitors/staff [] Distress [] Loneliness/isolation [] Abandonment Spirituality of Patient [] Person of Manuela [] Attends Mandaeism of their Manuela [x] Believes in Prayer [] Reads Bible or Taoist materials [] There are Spiritual issues to be addressed Oxide Furnace Tender Interventions [x] Prayer [] Active listening [] Non-anxious presence [] Spiritual/emotional support [] Crisis/trauma care [] Spiritual counseling [] Bereavement support [] Provided bereavement packet [] Provided Bible/devotional materials [] Provided toy/stuffed animal, coloring book to patient or family member [] Provided Communion [] Anointing/[place] [] Salvation [x] Completed spiritual assessment [] Other: Impact on Illness or Injury [] Angry [] Fearful [x] Anxious [] Often cries [] Exhaustion [] Unable to work [] Unable to attend rastafari [] Unable to walk/stand [] Unable to read [] Unable to drive [] Unable to eat/drink [] Unable to sleep [] Unable to be with family [] Patient intubated [] Other: Summary Patient a little anxious, prior stroke, had same sign. Reports thus far do not indicate a problem. Time spent with patient 15 min
--- NOTE | 2019-08-12 10:55 | PC.CHAP ---
Pastoral Care Encounter/Spiritual Assessment Type of Contact [] Declined cooler worker visit [] Patient/Family/Request visit [] Outpatient visit [] Follow-up visit [] Physician referral [] Code/Alert [] Routine visit [] Staff referral [] Actively dying [] Patient sleeping [] Family support [] [] Out of room [] Palliative care [] [] Receiving care in room [] Pre-surgical visit [] Trauma [] Long length of stay [] ICU visit [] Other: Relational/Emotional Strength [] Patient feels connected with others/family/visitors/staff [] Distress [] Loneliness/isolation [] Abandonment Spirituality of Patient [] Person of Manuela [] Attends Scientology of their Manuela [] Believes in Prayer [] Reads Bible or Restorationist materials [] There are Spiritual issues to be addressed Consumer Loan Specialist Interventions [] Prayer [] Active listening [] Non-anxious presence [] Spiritual/emotional support [] Crisis/trauma care [] Spiritual counseling [] Bereavement support [] Provided bereavement packet [] Provided Bible/devotional materials [] Provided toy/stuffed animal, coloring book to patient or family member [] Provided Communion [] Anointing/[place] [] Salvation [] Completed spiritual assessment [] Other: Impact on Illness or Injury [] Angry [] Fearful [] Anxious [] Often cries [] Exhaustion [] Unable to work [] Unable to attend denominational [] Unable to walk/stand [] Unable to read [] Unable to drive [] Unable to eat/drink [] Unable to sleep [] Unable to be with family [] Patient intubated [] Other: Summary Time spent with patient
--- NOTE | 2019-08-12 14:48 | P.DS_ITS ---
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 He was monitored on telemetry with no acute events. He was started on Imdur and his pain resolved. He continued to do well. His blood pressures are slightly soft so his Coreg and losartan were decreased. Limited echocardiogram was performed due to his history of aortic stenosis, it showed no changes from previous echocardiogram. On date of discharge patient was awake and alert, no acute distress he reported that he was feeling well with no continued arm pain. Discussed with patient plan for discharge to home and close cardiology follow-up, he verbalized understanding and agreed with plan. Physical Exam Const: COMMON NORMALS: oriented x3 and alert GENERAL APPEARANCE: cooperative ORIENTATION/CONSCIOUSNESS: Yes awake, Yes oriented to person, Yes oriented to place and Yes oriented to time HENMT: COMMON NORMALS: normocephalic and head/scalp atraumatic HEAD & SCALP: normocephalic and atraumatic Eye: COMMON NORMALS: PERRL PUPIL: Yes PERRL Neck/C-Spine: COMMON NORMALS: supple GENERAL: Yes normal visual inspection Resp: COMMON NORMALS: normal respiratory effort and clear to auscultation bilaterally EFFORT & INSPECTION: Yes able to speak in complete sentences AUSCULTATION: clear to auscultation bilaterally, no rhonchi and no wheezes Cardio: COMMON NORMALS: regular rate and regular rhythm RATE: regular rate RHYTHM: regular rhythm HEART SOUNDS: murmur systolic GI: COMMON NORMALS: soft to palpation and non-tender INSPECTION: No abdominal distension AUSCULTATION: Yes normoactive bowel sounds PALPATION: Yes soft Extremity: COMMON NORMALS: no calf tenderness NARRATIVE EXTREMITY EXAM: non-pitting edema in the LE bilaterally Neuro: COMMON NORMALS: oriented x3, CN's II-XII intact bilaterally, moves all extremities and no focal motor deficits SENSORIUM/ORIENTATION: Yes alert, Yes oriented to person, Yes oriented to place and Yes oriented to time SPEECH: speech normal Psych: COMMON NORMALS: mental status grossly normal and cooperative Skin: COMMON NORMALS: no rashes or lesions noted GENERAL SKIN EXAM: no rashes or lesions noted Discharge Data Data Completed and Pending: Completed Studies During Hospitalization Category Date Time Status XR chest 1V kehinde ble 43271 Urgent Exams 08/11/19 08:33 Completed XR humerus LT 730 60 Routine Exams 08/11/19 11:10 Completed CV echo limited 9 3308 Routine Ultrasound 08/11/19 11:10 [place] liver 25551 Ro utine Ultrasound 08/11/19 12:33 Completed Labs from last 24 hours 08/12/19 08/12/19 08/11/19 06:14 04:53 15:42 WBC 5.9 RBC 3.91 L Hgb 11.0 L Hct 34.4 L MCV 88.0 MCH 28.1 MCHC 32.0 RDW 13.8 Plt Count 226 MPV 9.9 Neut % (Auto) 74.4 Lymph % (Auto) 16.2 Tom[place]kins % (Auto) 7.5 Eos % (Auto) 0.7 Baso % (Auto) 1.0 Neut # (Auto) 4.4 Lymph # (Auto) 1.0 [place] # (Auto) 0.4 Eos # (Auto) 0.0 Baso # (Auto) 0.1 Nucleated RBC % (a uto) 0 Nucleated RBCs # 0.0 Sodium 140 Potassium 4.7 Chloride 101 Carbon Dioxide 28 Anion Gap 15.7 BUN 36 H Creatinine 1.7 H Glucose 148 H Calculated Osmolal ity 290 Calcium 7.9 L Troponin I 6 Hour 57.66 H Troponin I Hi Sens Del -11.34 L Vitals: Last Vital Signs Temp 98.7 F 08/12/19 11:57 Pulse 67 08/12/19 11:57 Resp 17 08/12/19 11:57 BP 119/45 08/12/19 11:57 Pulse Ox 97 08/12/19 11:57 Discharge Plan Discharge Patient Disposition: Home, Self-Care Condition: Stable Prescriptions: New losartan 50 mg Tablet 25 mg PO DAILY 30 Days Qty: 30 RF: 0 isosorbide mononitrate 30 mg Tablet Extended Release 24 Hr 30 mg PO DAILY 30 Days Qty: 30 RF: 0 carvedilol 3.125 mg Tablet 3.125 mg PO BID 30 Days Qty: 60 RF: 0 Continued tamsulosin 0.4 mg capsule 0.4 mg PO BID RF: 0 omeprazole 20 mg capsule,delayed release(DR/EC) 20 mg PO DAILY RF: 0 furosemide 40 mg tablet 40 mg PO QAM RF: 0 pravastatin 80 mg tablet 80 mg PO DAILY RF: 0 nitroglycerin [Nitrostat] 0.4 mg tablet, sublingual 0.4 mg SUBLINGUAL Q5M PRN (Reason: Chest Pain) RF: 0 finasteride 5 mg tablet 5 mg PO DAILY RF: 0 potassium chloride [Klor-Con 10] 10 mEq tablet extended release 20 meq PO BID RF: 0 magnesium oxide 400 mg magnesium tablet 400 mg PO DAILY RF: 0 aspirin [Adult Low Dose Aspirin] 81 mg tablet,delayed release (DR/EC) 81 mg PO DAILY RF: 0 hydrocodone-acetaminophen 5-325 mg tablet 1 tab PO Q6H PRN (Reason: Pain) RF: 0 chlorthalidone 25 mg tablet 25 mg PO DAILY 90 Days Qty: 90 RF: 3 duloxetine 30 mg capsule,delayed release(DR/EC) 30 mg PO DAILY Qty: 30 RF: 5 clopidogrel 75 mg tablet 75 mg PO DAILY 90 Days Qty: 90 RF: 3 docusate sodium [Colace] 100 mg Capsule 100 mg PO EVERY OTHER DAY RF: 0 Multiple Vitamins 1 tab PO DAILY RF: 0 bicalutamide 50 mg tablet 50 mg PO DAILY RF: 0 Discontinued carvedilol [Coreg] 6.25 mg tablet 6.25 mg PO BID RF: 0 losartan 50 mg tablet 50 mg PO DAILY RF: 0 Discharge Orders: Discharge Order (Routine); Ordered 08/12/19 Ordered By: Maya Brady Referrals: Tiki Dorado MD [Primary Care Provider] - 4-7 days Ayo Sorenson MD [Physician] - 1 month Discharge Diet: Cardiac Discharge Activity: Increase activity as tolerated Activity Restrictions/Additional Instructions: Follow-up with primary care provider in 3 to 5 days Decrease Coreg as directed above, decrease losartan as directed above. Started on Imdur 30 mg daily. Call your physician or present to the ER for any acute illness or concern Follow-up with Dr. Giron as previously scheduled Follow-up with cardiology in 4 to 6 weeks Discharge Attestations Time Spent in Discharge Care*: greater than 30 min Quality Metrics Clinical Quality Measures During this hospital stay, did patient experience: None Coding Level of Care Code Acute Commodities Trader for Chg Fwd Diagnoses Chest pain R07.9 Ischemic cardiomyopathy I25.5 Prostate cancer metastatic to bone C61; C79.51 CAD (coronary artery disease) I25.10 Aortic stenosis I35.0 Hypertension I10 Hyperlipemia E78.5
== END 2019-08-12 16:25 | disposition home or self-care (01) ==
LOC: ER 10:38 → MEDSURG 10:40
PROVIDERS: Physician Assistant; Admitting Provider Family Medicine; Emergency Provider Family Medicine; Family Provider Family Medicine; PCP Family Medicine; Visit Provider Family Medicine
DX: R07.89 Other chest pain (principal); I25.5 Ischemic cardiomyopathy; C61 Malignant neoplasm of prostate; C79.51 Secondary malignant neoplasm of bone; I25.10 Atherosclerotic heart disease of native coronary artery without angina pectoris; I35.0 Nonrheumatic aortic (valve) stenosis; E78.5 Hyperlipidemia, unspecified; N40.0 Benign prostatic hyperplasia without lower urinary tract symptoms; E11.22 Type 2 diabetes mellitus with diabetic chronic kidney disease; I13.0 Hypertensive heart and chronic kidney disease with heart failure and stage 1 through stage 4 chronic kidney disease, or unspecified chronic kidney disease; N18.9 Chronic kidney disease, unspecified; I50.9 Heart failure, unspecified; K21.9 Gastro-esophageal reflux disease without esophagitis; E11.40 Type 2 diabetes mellitus with diabetic neuropathy, unspecified; G47.30 Sleep apnea, unspecified; Z86.73 Personal history of transient ischemic attack (TIA), and cerebral infarction without residual deficits; Z82.49 Family history of ischemic heart disease and other diseases of the circulatory system; Z87.891 Personal history of nicotine dependence
CPT/HCPCS: 12345; 36415; 71045; 73060; 76705; 80048; 80053; 82550; 83880; 84443; 84484; 85025; 93005; 93308; 96374; 96375; 97161; 99283; 99285; G0378; J2405; J8999

== ENCOUNTER 2019-08-29 12:55 | Outpatient (CLI) | payer MEDICARE, OTHER, SELFPAY ==
[2019-08-29 16:20] LABS: Basophils % 0.7 %; Eosinophils # 0.1 10^3/uL (0.0-0.8); Eosinophils % 1.5 %; Hematocrit 36.1 % (42.0-52.0); Hemoglobin 11.4 g/dL (11.7-16.6); Lymphocytes # 0.9 10^3/uL (0.8-4.8); Lymphocytes % 16.7 %; Mean Corpuscular HGB Conc 31.6 g/dL (30.0-36.0); Mean Corpuscular Hemoglobin 27.6 pg (28.0-34.0); Mean Corpuscular Volume 87.4 fL (80-94); Mean Platelet Volume 10.3 fL (7.4-10.4); Monocytes # 0.3 10^3/uL (0.2-0.9); Monocytes % 5.4 %; Neutrophils % 75.5 %; Nucleated Red Blood Cells % 0 %; Platelet Count 274 10^3/cmm (130-400); Red Blood Count 4.13 10^6/uL (4.1-5.3); Red Cell Distribution Width 13.8 % (12.1-15.1); White Blood Count 5.3 10^3/uL (4.0-10.0)
[2019-08-30 01:58] LABS: Prostate Specific Antigen 8.36 ng/mL (0-4)
[2019-08-30 01:59] LABS: Testosterone Total 2.5 ng/dL (193-740)
== END 2019-08-29 12:56 | disposition home or self-care (01) ==
PROVIDERS: PCP Family Medicine; Visit Provider Internal Medicine Hematology & Oncology
DX: C61 Malignant neoplasm of prostate (principal)
CPT/HCPCS: 84153; 84403; 85025

== ENCOUNTER 2019-08-31 10:25 | Outpatient (CLI) | payer MEDICARE, OTHER, SELFPAY ==
[2019-08-31] MEDS: denosumab 120 mg SDV SUBCUT (11:45)
[2019-08-31] MEDS: goserelin acetate 10.8 mg Implant SUBCUT (11:50)
--- NOTE | 2019-08-31 14:38 | ONC FU_ITS ---
Dr. Giron follow up note Patient: Hayes Solis Unit #: [id number]: [id number] Dicatated By: Shanice Giron M.D.Date of Visit:August 31, 2019 Onc Med Follow-up/Prog Note History of Present Illness: Mr. Hayes Solis, is a 83-year-old gentleman who was recently admitted to hospital with right sided chest pain, as per patient had a fall prior to the admission on 05/09/2019 and as per patient and his on 04/08/2019 patient had episode of syncopal attack and sustained the liver injury causing hepatic hematoma. Patient is on aspirin and Plavix as has history of coronary artery disease ???5 recent stent placed in June 2018., At that time he underwent CT scan of chest abdomen which showed a patent subscapular hematoma and also enlarged lobulated prostate suspicious for possible carcinoma and his PSA was 435.2 and scan also showed diffuse sclerotic lesions within the visualized bony structures worse in the pelvis and sacrum suspicious for metastatic disease moreover CT scan of abdomen showed mixed attenuation mass involving the right hepatic lobe corresponding to the previously described subcapsular hematoma., His AFP was 0.6. As per patient in October 2018 his PSA was 4, he follow Dr. Lynch. Patient was seen by Dr. 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 As history of coronary artery disease status post multiple stent and history of congestive heart failure, Echocardiogram done on 10/07/2018 showed ejection fraction 45%, [id number] aortic stenosis, moderate mitral regurg, COPD, sleep apnea, iron deficiency anemia, TIA, hypertension, chronic kidney disease, The patient denies any melena or hematochezia, denies any nausea or vomiting, denies any shortness of breath or palpitation at rest. But generalized weakness and fatigue. No hematuria or dysuria. Came for follow-up, denies any specific complaints, no fever or chills, no nausea or vomiting, no diarrhea constipation occasionally hot flashes otherwise tolerating Zoladex/Casodex/Xgeva well. Patient said Dr. Sorenson is considering cardiac procedure if prostrate cancer is under control and also considering seeing vascular surgeon for aortic aneurysm in [place] [facility], also mentioned about skin lesion involving mid back and some changes in chronic pigmented mole in the right upper neck. Medications: Bicalutamide 1 Tablet (of 50 mg) Oral daily, Carvedilol 1 Tablet (of 3.125 mg) Oral b.i.d., Chlorthalidone 1 Tablet (of 25 mg) Oral daily, Clopidogrel Bisulfate 1 Tablet (of 75 mg) Oral daily, DULoxetine HCl 1 Capsule (of 30 mg) Capsule Delayed Release Particles Oral daily, Finasteride 1 Tablet (of 5 mg) Oral daily, HYDROcodone-Acetaminophen 1 Tablet (of 5-325 mg) Oral daily PRN, Losartan Potassium 0.5 Tablet (of 50 mg) Oral daily, Magnesium 1 Tablet (of 200 mg) Tablet, chewable Oral daily, Mens Multivitamin Tablet Oral, Omeprazole 1 Capsule (of 20 mg) Capsule Delayed Release Oral daily, Potassium Chloride ER 2 Capsule (of 10 meq) Capsule, controlled release Oral daily, Pravastatin Sodium 1 Tablet (of 80 mg) Oral at bedtime, Tamsulosin HCl 1 Capsule (of 0.4 mg) Oral b.i.d. Allergies: demoral, Diclofenac Sodium, Isosorbide Mononitrate, Meperidine HCl, and Spironolactone. Review of Systems: Review of Systems is not available for this patient. Vital Signs: Performed on August 31, 2019 10:55 Height - 71.00 in Weight - 214.6 lbs (HIGH) BSA - 2.17 sq.m BMI - 29.93 Temperature - 97.3 F (LOW) Pulse - 78 /min Respiration - 17 /min BP - 110/50 mm(hg) O2 Sat - 98 % Pain - 0 Performance Status: 1 - No physically strenuous activity, but ambulatory and able to carry out light or sedentary work (e.g. office work, light house work). (ECOG) Physical Examination: ENMT - no mouth sores, Respiratory - Lungs are clear, Cardiovascular - Regular rate and rhythm, Abdomen - bowel sounds present, soft, Extremities - 1+ edema. , subcentimeter dark pigmented lesion in the right upper neck, regular margin not raised, no ulceration noted no regional lymphadenopathy Lab/Imaging: Test performed on August 29, 2019 12:55 Testosterone, Total 2.5 ng/dL WBC 5.3 10 3/uL RBC 4.13 10 6/uL HGB 11.4 g/dL HCT 36.1 % MCV 87.4 fL MCH 27.6 pg MCHC 31.6 g/dL RDW 13.8 % Platelet Count 274 10 3/cmm MPV 10.3 fL Neutrophils 4.0 10 3/uL Lymphocytes 0.9 10 3/uL Monocytes 0.3 10 3/uL Eosinophils 0.1 10 3/uL Basophils 0.0 10 3/uL Neutrophil % 75.5 % Lymphocyte % 16.7 % Monocyte % 5.4 % Eosinophil % 1.5 % Basophils % 0.7 % PSA 8.36 ng/mL Test performed on Jun 27, 2019 09:15 Sodium 139 mmol/L Potassium 3.6 mmol/L Chloride 96 mmol/L CO2 29 mmol/L Anion Gap 17.6 BUN 50 mg/dL Creatinine 1.6 mg/dL Cr Clearance (Est) 47.14 mL/min Glucose 234 mg/dL Calcium 8.4 mg/dL Protein, Total 6.7 g/dL Albumin 3.6 g/dL Globulin 3.1 g/dL Bilirubin, Total 0.4 mg/dL ALT (SGPT) 12 U/L AST (SGOT) 17 U/L Alkaline Phosphatase 115 IU/L Test performed on May 23, 2019 15:50 Ferritin 135 ng/mL Impression: 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 Lynch, urologist started him on Casodex 50 mg by mouth daily based on clinical diagnosis of metastatic prostrate cancer CT scan of chest abdomen pelvis done on 04/17/2019 and on 05/09/2019 showed enlarged lobulated heterogeneous prostate suspicious for prostrate carcinoma, diffuse sclerotic lesions within the visualized bony structures worse in the bony pelvis and sacrum suspicious for metastatic disease. Hepatic Subcapsular hematoma. Small right pleural effusion. History of hepatic subcapsular hematoma due to fall due to syncopal attack in March 2019 while on aspirin and Plavix for coronary artery disease status post stent placement History of congestive heart failure ejection fraction 45% on 10/07/2018 Plan: Discussed with patient regarding his labs white blood count 5.3 hemoglobin 11.4 crit 36.1 platelets 274,000 PSA 8.36 compared to 11.94 on 06/27/2019 Clinically, patient is doing well, tolerating Zoladex/Casodex/Xgeva well. We'll proceed with next 3 monthly dose of Zoladex/monthly Xgeva today and then he'll continue with daily Casodex as directed and then return to clinic in one month for his monthly Xgeva and PSA. As far as prostrate cancer is concern, his PSA has continued to improve and with significant improvement in his symptoms , tolerating ADT with Zoladex/Casodex well along with monthly Xgeva to prevent skeletal related complications.we'll consider follow-up CT PET scan in 2 months to assess disease status As far as right upper neck pigmented mole and mid back lesion is concern, could be benign in nature but we will refer him to dermatology for evaluation Signed By: Shanice Giron M.D. <<Signature on File>>
== END 2019-08-31 10:26 | disposition home or self-care (01) ==
LOC: ONCMED 10:30
PROVIDERS: PCP Family Medicine; Visit Provider Internal Medicine Hematology & Oncology
DX: C61 Malignant neoplasm of prostate (principal); C79.51 Secondary malignant neoplasm of bone; J90 Pleural effusion, not elsewhere classified; I25.10 Atherosclerotic heart disease of native coronary artery without angina pectoris; I70.0 Atherosclerosis of aorta; J44.9 Chronic obstructive pulmonary disease, unspecified; G47.33 Obstructive sleep apnea (adult) (pediatric); I50.9 Heart failure, unspecified; I10 Essential (primary) hypertension; N18.9 Chronic kidney disease, unspecified; D22.4 Melanocytic nevi of scalp and neck; Z79.899 Other long term (current) drug therapy; Z79.818 Long term (current) use of other agents affecting estrogen receptors and estrogen levels; Z86.73 Personal history of transient ischemic attack (TIA), and cerebral infarction without residual deficits
CPT/HCPCS: 96372; 96402; 99214; J0897; J9202

== ENCOUNTER 2019-09-19 07:56 | Observation (INO) | payer MEDICARE, OTHER, SELFPAY ==
[2019-09-16 12:39] VITALS: BMI 29.9
[2019-09-19] VITALS (14 sets, daily range): BP systolic 109–142; BP diastolic 43–59; PULSE 63–87; RESP 16–26; TEMP 36.6; O2SAT 92–98; BMI 29.9
--- NOTE | 2019-09-19 06:00 | XACV_ITS ---
Exam Room: 1 Ht: 180 cm Wt: 98 kg BSA: 2.23 m2 Gender: Male : 1935 Any Known Allergies: Other Exam Priority: Routine Procedure(s): Procedure Description: Diagnostic procedure Procedure Description: Left Heart Catheterization Procedure Description: Left ventriculography Procedure Description: Coronary Angiography Diagnostic Cath Status: Elective Diagnostic Findings Elderly patient with known coronary artery disease and several stents to the LAD. Otherwise essentially normal coronary arteries. Previous NE in the distribution of the LAD with ischemic cardiomyopathy, EF 35% with intractable shortness of breath. Moderate aortic stenosis by echo in April. Request repeat coronary angiography for consideration of further stenting versus TAVR. Right coronary artery dominance. The left main is very short. The circumflex contains mild diffuse luminal irregularities but otherwise is normal. There are proximal and mid LAD stents which are widely patent. There is minor diffuse luminal irregularity. The right coronary artery is large and dominant and contains mild nonobstructive disease. Conclusions Nonobstructive coronary artery disease with patent LAD stents. Ischemic cardiomyopathy ejection fraction 35% with wall motion disturbance in the distribution of the LAD. Moderate aortic stenosis with 17 mm peak to peak gradient on pullback. Easily accessed left ventricular cavity across the aortic valve. Ejection Fraction: 35.0 % Left Ventriculography Findings: Calcified aortic valve. The pigtail catheter easily crossed the aortic valve. Akinesis mid anterior wall. Dyskinesis apex. Inferior, posterior wall normal. Anterior base normal. Ejection fraction about 35%. Pressures Phase:Rest AO : 41 mmHg / 28 mmHg ( 33 mmHg ) @ 2:16:00 AM 70 mmHg / 41 mmHg ( 53 mmHg ) @ 2:16:00 AM 75 mmHg / 45 mmHg ( 58 mmHg ) @ 2:18:00 AM 156 mmHg / 48 mmHg ( 91 mmHg ) @ 2:24:00 AM 152 mmHg / 38 mmHg ( 83 mmHg ) @ 2:24:00 AM 160 mmHg / 50 mmHg ( 94 mmHg ) @ 2:24:00 AM LV : 181 mmHg / -1 mmHg / @ 2:22:00 AM 172 mmHg / 0 mmHg / @ 2:23:00 AM 173 mmHg / 0 mmHg / @ 2:24:00 AM Valves Phase:DefaultPhase AV : 17.0 mmHg @ 7:47:52 AM AV Mean Gradient: 25.0 mmHg @ 7:47:52 AM 25.0 mmHg @ 7:47:52 AM Clinical Evaluation EBL: 5mL-10mL Procedural Details Procedure Consent Obtained. Pre-Procedure Time Out. Identified patient by full name and date of as verbalized by the patient/guarantor. Does the consent match the physician's order: Yes. Accurate & Complete Informed Consent: Yes. If H&P is completed, is and addenduem needed: No. Relevant Radiology Images available: N/A. The risks, benefits, and alternatives of sedation and/or procedure were discussed by physician. The patient agrees to continue. Procedure started. [facility] Clinical Fraility Score: 6: Moderately Frail. 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 Chest Pain Symptom Assessment: Asymptomatic. Cardiovascular Instability: No. Correct patient, site and procedure confirmed by cath team. PERRLA. Strong, equal hand skein bleacher bilaterally. Lungs clear x 5 lobes. IV Site on Arrival: 18 gauge in the left anticubital. IV Fluids: 0.9% NaCl at KVO. 0 mL infused prior to industrial laborer. Pre Procedural Pulses: bilateral dorsalis pedis was 3+. Pre Procedural Pulses: right posterior tibial was Doppled. Pre Procedural Pulses: bilateral radial was 3+. Oxygen started at 2liters/min via nasal canula. bilateral groins was prepped with chloroprep then draped in the usual sterile fashion. Physician notified. Patient's family, & spouse, available by cell phone due to current Covid-19 restrictions. Equipment: 6F - Radial. Cardiac Cath Pack. ACIST Manifold Kit Model BT 2000. Heparinized Saline (2 units/mL), 1000 mL bag. Physician arrived. Physician scrubbed in. Immediate Pre-Procedure Time Out. Correct Patient: Yes; Correct Procedure: Yes; Correct Site: Yes; Correct Patient Position: Yes; Correct Supplies: Yes; Dried Flammable Prep: Yes; Blood Products Available: N/A. Lidocaine 1% infiltrated to the right groin. Arterial access obtained. A JJ 6F JL4 100cm Diagnostic Catheter was advanced over the wire and used for Left coronary angiography. Catheter out. A CRD 6F JR4 100cm Diagnostic Catheter was advanced over the wire and used for Right coronary angiography. Multiple views taken of right coronary artery. Catheter out. A JJ 6F Straight Pigtail 110cm Diagnostic Catheter was advanced over the wire and used for Ventriculography. EDP Sample taken: LV 181/-2,21; HR: 69 BPM; SpO2: 100%. LV gram performed in [place] @ 11 mL/second for a total of 44 mL. EDP Sample taken: LV 172/0,21; HR: 67 BPM; SpO2: 100%. Pullback taken: LV 173/0,21; AO 156/48(91); Mean: 25mmHg, Peak to Peak: 17mmHg, SEP: 24sec/min; HR: 67 BPM; SpO2: 100%. Catheter out. Physician review of cine films. Physician scrubbed out. Sheath(s) removed and manual pressure held until hemostasis was achieved. Sterile 4x4 and Op-site applied to the puncture site. No oozing or hematoma noted. Post sheath removal instructions were given and the patient verbalized understanding. Post Procedure: Pulses reassessed and unchanged. PERRLA. Strong, equal hand skein bleacher bilaterally. No VTE prophylaxis required. Medication's Wasted: Heparin = 1000 units. Medication's Wasted: Lidocaine 1% = ml mL. Post-op diagnosis: Aortic Stenosis. Complications: none. Estimated blood loss: 5mL-10mL. Total IV fluids: 26.[address] Sorenson spoke with the patient's , Jessenia, over the telephone with an update. Procedure completed. Patient transferred by bed to 1st floor. Vital chart was stopped. Site: Right Femoral artery Sheath Size: 6 Fr Hemostasis Success: Unsuccessful Procedure Medications Start: 7:10 AM Stop: 7:10 AM Medication: Versed Amount: 1 mg Route: I.V. Start: 7:11 AM Stop: 7:11 AM Medication: Fentanyl Amount: 50 mcg Route: I.V. I, the attending physician, have reviewed and verified all procedure medications. Yes, all medications given per verbal order History/Risk Factors Hypertension: Yes Dyslipidemia: Yes Peripheral Arterial Disease (PAD): No Myocardial Infarction (NE): Yes Obesity: No Tobacco Use: Former Prior Interventions PCI: No CABG: No Valve Surgery: No Report Signatures Finalized by:Dr. Ayo Sorenson MD on 09/19/2019 8:38:20 AM
[2019-09-19] MEDS: diphenhydrAMINE 50 mg Capsule PO (06:20)
[2019-09-19 06:39] LABS: Basophils # 0.1 10^3/uL (0.0-0.1); Basophils % 0.8 %; Eosinophils # 0.1 10^3/uL (0.0-0.8); Eosinophils % 1.7 %; Hematocrit 38.2 % (42.0-52.0); Hemoglobin 12.2 g/dL (11.7-16.6); Lymphocytes # 1.2 10^3/uL (0.8-4.8); Mean Corpuscular HGB Conc 31.9 g/dL (30.0-36.0); Mean Corpuscular Hemoglobin 28.1 pg (28.0-34.0); Mean Platelet Volume 9.7 fL (7.4-10.4); Monocytes # 0.5 10^3/uL (0.2-0.9); Monocytes % 7.2 %; Neutrophils # 5.3 10^3/uL (1.8-7.7); Neutrophils % 73.2 %; Nucleated Red Blood Cells % 0 %; Platelet Count 270 10^3/cmm (130-400); Red Blood Count 4.34 10^6/uL (4.1-5.3); Red Cell Distribution Width 13.7 % (12.1-15.1); White Blood Count 7.2 10^3/uL (4.0-10.0)
--- NOTE | 2019-09-19 06:41 | P.HP_ITS ---
Providers/Chief Complaint Admitting Physician: Delta Primary Care Provider: Tiki Dorado MD Chief Complaint: ANGIOGRAM History of Present Illness Hayes Solis is a 83 year old male who is being put in the hospital today for purposes of coronary angiography. He has a complex history that includes coronary disease with a large old anterior wall SD with an ischemic cardiomyopat hy. He has had stents placed to the LAD. He has been short of breath for many years. He also has aortic stenosis. He has frequent episodes of chest pain and chronic shortness of breath. His echo is around 35% with respect to the ejection fraction. The wall motion disturbances in the LAD distribution. He was in the hospital again recently for shortness of breath and chest pain. He is also undergoing treatment for stage IV widely metastatic prostate carcinoma. He has aortic stenosis. He has wanted me to replace his aortic valve for years thinking that this would improve his shortness of breath. When he came down with prostate cancer we put all of this on hold. Then the viral pandemic hip. More recently has been diagnosed with a melanoma and needs to have that resected. I last saw him in the office on 16 August when he walked in unannounced without an appointment telling me that he could not do anything. He has told me this for years. He states that he gets short of breath. He was not having chest discomfort. My concern has always been doing the TAVR may not improve his shortness of breath. He has had a good response to the chemotherapy for the prostate cancer. His last visit was on the of last month. His chemotherapy continues as an outpatient. Medications/Allergies Home Medications Medication Instructions Recorded Confirmed Last Taken Type Multiple Vitamins 1 tab PO DAILY 05/09/19 09/16/19 08/10/19 History aspirin 81 mg tablet,delayed 81 mg PO DAILY 05/09/19 09/16/19 08/10/19 History release docusate sodium [Colace] 100 mg PO EVERY OTHER DAY 05/09/19 09/16/19 08/10/19 History finasteride 5 mg tablet 5 mg PO DAILY 05/09/19 09/16/19 08/10/19 History magnesium oxide 400 mg PO DAILY 05/09/19 09/16/19 08/10/19 History nitroglycerin 0.4 mg sublingual 0.4 mg SUBLINGUAL Q5M PRN 05/09/19 09/16/19 Unknown History tablet omeprazole 20 mg capsule,delayed 20 mg PO DAILY 05/09/19 09/16/19 08/10/19 History release potassium chloride 10 mEq 20 meq PO BID 05/09/19 09/16/19 08/10/19 History tablet,extended release pravastatin 80 mg tablet 80 mg PO DAILY 05/09/19 09/16/19 08/10/19 History tamsulosin 0.4 mg capsule 0.4 mg PO BID cap 05/09/19 09/16/19 08/10/19 History hydrocodone 5 mg-acetaminophen 325 1 tab PO Q6H PRN tab 05/18/19 09/16/19 08/10/19 History mg tablet chlorthalidone 25 mg tablet 25 mg PO DAILY 90 Days #90 tab 06/03/19 09/16/19 08/10/19 Rx duloxetine 30 mg capsule,delayed 30 mg PO DAILY #30 cap 06/03/19 09/16/19 08/10/19 Rx release clopidogrel 75 mg tablet 75 mg PO DAILY 90 Days #90 tab 06/28/19 09/16/19 08/10/19 Rx bicalutamide 50 mg PO DAILY 08/11/19 09/16/19 08/10/19 History furosemide 40 mg tablet 40 mg PO QAM #90 tab 09/06/19 09/16/19 Unknown Rx carvedilol 3.125 mg tablet 3.125 mg PO BID 30 Days #60 tab 09/07/19 09/16/19 Unknown Rx isosorbide mononitrate 30 mg 30 mg PO DAILY 30 Days #30 tab 09/07/19 09/16/19 Unknown Rx tablet,extended release 24 hr losartan 25 mg PO DAILY 09/16/19 09/16/19 Unknown History Allergies Allergy/AdvReac Type Severity Reaction Status Date / Time diclofenac Allergy Unknown Verified 09/19/19 06:47 meperidine Allergy ADR-Vomitin Verified 09/19/19 06:47 g spironolactone Allergy Unknown Verified 09/19/19 06:47 PFSH Acute PFSH: Medical History (Updated 09/19/19 @ 06:47 by Ayo Sorenson MD) ASHD (arteriosclerotic heart disease) Basal cell carcinoma BPH (benign prostatic hyperplasia) Cervical post-laminectomy syndrome CHF (congestive heart failure) Chronic shortness of breath CKD (chronic kidney disease) DDD (degenerative disc disease) Diabetes GERD (gastroesophageal reflux disease) Hyperlipemia Hypertension Iron deficiency anemia Ischemic cardiomyopathy Melanoma Neuropathy Sleep apnea TIA (transient ischemic attack) Surgical History 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 History of angioplasty History of heart artery stent Previous back surgery Family History Father , AT AGE 80 CAD (coronary artery disease) Mother , AT AGE 73 Dementia ALZHIEMERS Social History Smoking and tobacco status: former smoker Alcohol intake: current Alcohol intake frequency: holidays/special occasions only Household members: spouse Marital status: Current occupational status: retired Current gender identity: Male Vitals/I&O/Wt Last Vital Signs Temp 97.9 F 09/19/19 06:18 Pulse 75 09/19/19 06:18 Resp 17 09/19/19 06:18 BP 142/59 09/19/19 06:18 Pulse Ox 98 09/19/19 06:18 Weight last 48 hrs Weight 215 lb Physical Exam Narrative: EXAM NARRATIVE: GENERAL: In general he is comfortable looks his stated age HEENT: Exam within normal limits. NECK: Supple without jugular vein distention. The carotid upstroke is normal without bruits. BACK: Exam normal. LUNGS: Clear. HEART: Regular rate and rhythm. ABDOMEN: Benign without organomegaly or tenderness. EXTREMITIES: No edema. NEUROLOGIC: Exam normal. SKIN: Unremarkable. 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 If his coronaries are not in need of any intervention then a dobutamine echo will need to be accomplished to see if he has the low output low gradient syndrome. After that he could be referred for consideration of TAVR. Attestations Medical Necessity Statement*: Outpatient in a bed. Expect him to be discharged home today. 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
[2019-09-19 06:44] LABS: Anion Gap 15.2 (5-19); Blood Urea Nitrogen 34 mg/dL (8-23); Calcium 9.4 mg/dL (8.5-10.5); Carbon Dioxide 29 mmol/L (22-29); Chloride 99 mmol/L (98-107); Glucose 136 mg/dL (65-115); Osmolality Calculated 287 mOsm/kg (285-295); Potassium 4.2 mmol/L (3.5-5.1); Sodium 139 mmol/L (136-145)
[2019-09-19] MEDS: sodium chloride 0.9% 1,000 ML 100 ML IV (08:00)
--- NOTE | 2019-09-19 11:26 | PC.NURSE ---
Rounding with physician, patient requests a sleeping aide. Dr. Sorenson ordered 7.5 mg of Restoril one time. Physician notified that Restoril comes in a 15 mg capsule and is not able to be split into a smaller dose. Dr. Sorenson ordered for patient to receive 15 mg Restoril. RBVO.
[2019-09-19] MEDS: temazepam 15 mg Capsule PO (11:37)
--- NOTE | 2019-09-19 14:00 | PC.NURSE ---
Patient 6 hour activity restriction over at 1345. Patient ambulated in hallway. Site reassessed and asymptomatic.
--- NOTE | 2019-09-19 14:19 | PC.NURSE ---
Discharge information given per the physician's orders. Patient verbalized understanding of information and did not have any further questions. Family contacted for discharge.
--- NOTE | 2019-09-19 17:27 | PC.NURSE ---
Undocumented Waste in Pyxis 15 mg capsule of Restoril pulled for initial order for 7.5 mg order. Nurse clarified with pharmacists that capsule cannot be split. Dr. Sorenson notified. ordered for patient to receive 15 mg Restoril. Initial capsule was administered to the patient; No other restoril was removed for the second order. Therefore, nurse unable to waste any medications. Verified by Elijah Dudley RN.
--- NOTE | 2019-09-19 18:33 | PC.NURSE ---
Undocumented Waste in Pyxis This nurse witnessed Lauren Randall pulling a 15 mg capsule of Restoril pulled for initial order for 7.5 mg order. then changed order to 15 mg Restoril. Initial capsule was administered to the patient; No other restoril was removed for the second order. Therefore, nurse unable to waste any medications in the Pyxis.
== END 2019-09-19 15:30 | disposition home or self-care (01) ==
LOC: CSU 07:56
PROVIDERS: Admitting Provider Internal Medicine Cardiovascular Disease; PCP Family Medicine; Visit Provider Internal Medicine Cardiovascular Disease
DX: I25.10 Atherosclerotic heart disease of native coronary artery without angina pectoris (principal); R06.02 Shortness of breath; I25.5 Ischemic cardiomyopathy; D64.9 Anemia, unspecified; K76.89 Other specified diseases of liver; C61 Malignant neoplasm of prostate; C79.51 Secondary malignant neoplasm of bone; J98.4 Other disorders of lung; R55 Syncope and collapse; I35.0 Nonrheumatic aortic (valve) stenosis; K21.9 Gastro-esophageal reflux disease without esophagitis; D50.9 Iron deficiency anemia, unspecified; C43.9 Malignant melanoma of skin, unspecified; Z79.82 Long term (current) use of aspirin; N40.0 Benign prostatic hyperplasia without lower urinary tract symptoms; E11.22 Type 2 diabetes mellitus with diabetic chronic kidney disease; I13.0 Hypertensive heart and chronic kidney disease with heart failure and stage 1 through stage 4 chronic kidney disease, or unspecified chronic kidney disease; N18.9 Chronic kidney disease, unspecified; I50.22 Chronic systolic (congestive) heart failure; E78.5 Hyperlipidemia, unspecified; G47.30 Sleep apnea, unspecified; Z86.73 Personal history of transient ischemic attack (TIA), and cerebral infarction without residual deficits; Z87.891 Personal history of nicotine dependence; Z95.5 Presence of coronary angioplasty implant and graft
CPT/HCPCS: 12345; 36415; 80048; 85025; 93452; C1769; C1887; C1894; G0378; J1644; J2001; J2250; J3010; J7030; Q0163; Q9967

== ENCOUNTER 2019-10-04 12:30 | Outpatient (CLI) | payer MEDICARE, OTHER, SELFPAY ==
[2019-10-04 14:08] LABS: Basophils % 0.6 %; Eosinophils # 0.1 10^3/uL (0.0-0.8); Eosinophils % 1.8 %; Hematocrit 34.9 % (42.0-52.0); Hemoglobin 11.1 g/dL (11.7-16.6); Lymphocytes % 15.8 %; Mean Corpuscular HGB Conc 31.8 g/dL (30.0-36.0); Mean Corpuscular Hemoglobin 28.2 pg (28.0-34.0); Mean Corpuscular Volume 88.8 fL (80-94); Mean Platelet Volume 10.2 fL (7.4-10.4); Monocytes # 0.5 10^3/uL (0.2-0.9); Monocytes % 7.6 %; Neutrophils # 4.6 10^3/uL (1.8-7.7); Nucleated Red Blood Cells % 0 %; Platelet Count 262 10^3/cmm (130-400); Red Blood Count 3.93 10^6/uL (4.1-5.3); Red Cell Distribution Width 13.5 % (12.1-15.1); White Blood Count 6.2 10^3/uL (4.0-10.0)
[2019-10-04 14:41] LABS: Alanine Aminotransferase 9 U/L (0-41); Albumin Level 3.6 g/dL (3.5-5.2); Alkaline Phosphatase 98 IU/L (40-130); Anion Gap 14.9 (5-19); Aspartate Amino Transferase 15 U/L (0-40); Blood Urea Nitrogen 31 mg/dL (8-23); Calcium 8.8 mg/dL (8.5-10.5); Carbon Dioxide 29 mmol/L (22-29); Chloride 100 mmol/L (98-107); Globulin 2.7 g/dL (1.3-4.6); Glucose 126 mg/dL (65-115); Osmolality Calculated 289 mOsm/kg (285-295); Potassium 3.9 mmol/L (3.5-5.1); Sodium 140 mmol/L (136-145); Total Bilirubin 0.4 mg/dL (0.15-1.2); Total Protein 6.3 g/dL (6.6-8.7)
== END 2019-10-04 12:31 | disposition home or self-care (01) ==
LOC: ONCMED 14:31
PROVIDERS: PCP Family Medicine; Visit Provider Internal Medicine Hematology & Oncology
DX: C61 Malignant neoplasm of prostate (principal)
CPT/HCPCS: 80053; 84153; 85025

== ENCOUNTER 2019-10-05 06:00 | Outpatient (CLI) | payer MEDICARE, OTHER, SELFPAY ==
[2019-10-05] MEDS: denosumab 120 mg SDV SUBCUT (14:46)
--- NOTE | 2019-10-13 15:57 | ONC FU_ITS ---
Dr. Giron follow up note Patient: Hayes Solis Unit #: [id number]: 1935 Dicatated By: Shanice Giron M.D.Date of Visit:Oct 05, 2019 Onc Med Follow-up/Prog Note History of Present Illness: Mr. Hayes Solis, is a 84-year-old gentleman who was recently admitted to hospital with right sided chest pain, as per patient had a fall prior to the admission on 05/09/2019 and as per patient and his on 04/08/2019 patient had episode of syncopal attack and sustained the liver injury causing hepatic hematoma. Patient is on aspirin and Plavix as has history of coronary artery disease ???5 recent stent placed in June 2018., At that time he underwent CT scan of chest abdomen which showed a patent subscapular hematoma and also enlarged lobulated prostate suspicious for possible carcinoma and his PSA was 435.2 and scan also showed diffuse sclerotic lesions within the visualized bony structures worse in the pelvis and sacrum suspicious for metastatic disease moreover CT scan of abdomen showed mixed attenuation mass involving the right hepatic lobe corresponding to the previously described subcapsular hematoma., His AFP was 0.6. As per patient in October 2018 his PSA was 4, he follow Dr. Lynch. Patient was seen by Dr. 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 As history of coronary artery disease status post multiple stent and history of congestive heart failure, Echocardiogram done on 10/07/2018 showed ejection fraction 45%, [id number] aortic stenosis, moderate mitral regurg, COPD, sleep apnea, iron deficiency anemia, TIA, hypertension, chronic kidney disease, The patient denies any melena or hematochezia, denies any nausea or vomiting, denies any shortness of breath or palpitation at rest. But generalized weakness and fatigue. No hematuria or dysuria. Came for follow-up, denies any specific complaint except dyspnea on exertion, recently underwent cardiac evaluation, as per patient he has 5 coronary stents and they are functioning fine. He was also evaluated by pulmonology and was advised to avoid fluid overload. And recently underwent dermatology evaluation had skin lesion removed from right posterior auricular crease which showed neoplasm of uncertain behavior versus basal cell carcinoma versus squamous cell carcinoma. Patient went to [place] where as per patient melanoma was removed from his left scalp top and now being monitored by Dr. Nguyen, director of outpatient services in [place]., No new bony pains, no fever or chills, no dysuria, no hematuria. Occasional hot flashes otherwise tolerating Zoladex/Casodex/Xgeva well Medications: Bicalutamide 1 Tablet (of 50 mg) Oral daily, Carvedilol 1 Tablet (of 3.125 mg) Oral b.i.d., Chlorthalidone 1 Tablet (of 25 mg) Oral daily, Clopidogrel Bisulfate 1 Tablet (of 75 mg) Oral daily, DULoxetine HCl 1 Capsule (of 30 mg) Capsule Delayed Release Particles Oral daily, Finasteride 1 Tablet (of 5 mg) Oral daily, HYDROcodone-Acetaminophen 1 Tablet (of 5-325 mg) Oral daily PRN, Losartan Potassium 0.5 Tablet (of 50 mg) Oral daily, Magnesium 1 Tablet (of 200 mg) Tablet, chewable Oral daily, Mens Multivitamin Tablet Oral, Omeprazole 1 Capsule (of 20 mg) Capsule Delayed Release Oral daily, Potassium Chloride ER 2 Capsule (of 10 meq) Capsule, controlled release Oral daily, Pravastatin Sodium 1 Tablet (of 80 mg) Oral at bedtime, Tamsulosin HCl 1 Capsule (of 0.4 mg) Oral b.i.d. Allergies: demoral, Diclofenac Sodium, Isosorbide Mononitrate, Meperidine HCl, and Spironolactone. Review of Systems: Constitutional - Appetite is good and weight is stable. No fever, night sweats, or hot flashes. Energy level is good, ENMT - No sinus congestion/drainage. No mouth sores. No sore throat or difficulty swallowing, Hematologic/Lymphatic - No abnormal bruising or bleeding, Respiratory - No shortness of breath. No cough. No pleuritic pain or hemoptysis, Cardiovascular - No angina pain. No palpitations, Gastrointestinal - No nausea or vomiting. No heartburn or acid reflux. No diarrhea or constipation. No blood in the stool or black stools, Genitourinary (M) - No dysuria or hematuria. No urinary frequency. No urgency or incontinence, Musculoskeletal - No joint or bone pain, Neurologic - No headache or dizziness. No numbness or tingling. No other focal neurologic symptoms, Psychiatric - No anxiety or depression. No insomnia. Vital Signs: Performed on Oct 05, 2019 13:47 Height - 71.00 in Weight - 214.8 lbs (HIGH) BSA - 2.17 sq.m BMI - 29.96 Temperature - 97.6 F (LOW) Pulse - 76 /min Respiration - 18 /min BP - 132/56 mm(hg) O2 Sat - 97 % Pain - 0 Performance Status: 1 - No physically strenuous activity, but ambulatory and able to carry out light or sedentary work (e.g. office work, light house work). (ECOG) Physical Examination: ENMT - No mouth sores, no thrush, no jaundice, Respiratory - Lungs are clear, Cardiovascular - Regular rate and rhythm of heart, Abdomen - Soft, bowel sounds present, Extremities - No visible edema. Lab/Imaging: Test performed on August 29, 2019 12:55 Testosterone, Total 2.5 ng/dL WBC 5.3 10 3/uL RBC 4.13 10 6/uL HGB 11.4 g/dL HCT 36.1 % MCV 87.4 fL MCH 27.6 pg MCHC 31.6 g/dL RDW 13.8 % Platelet Count 274 10 3/cmm MPV 10.3 fL Neutrophils 4.0 10 3/uL Lymphocytes 0.9 10 3/uL Monocytes 0.3 10 3/uL Eosinophils 0.1 10 3/uL Basophils 0.0 10 3/uL Neutrophil % 75.5 % Lymphocyte % 16.7 % Monocyte % 5.4 % Eosinophil % 1.5 % Basophils % 0.7 % PSA 8.36 ng/mL Test performed on Jun 27, 2019 09:15 Sodium 139 mmol/L Potassium 3.6 mmol/L Chloride 96 mmol/L CO2 29 mmol/L Anion Gap 17.6 BUN 50 mg/dL Creatinine 1.6 mg/dL Cr Clearance (Est) 47.14 mL/min Glucose 234 mg/dL Calcium 8.4 mg/dL Protein, Total 6.7 g/dL Albumin 3.6 g/dL Globulin 3.1 g/dL Bilirubin, Total 0.4 mg/dL ALT (SGPT) 12 U/L AST (SGOT) 17 U/L Alkaline Phosphatase 115 IU/L Test performed on May 23, 2019 15:50 Ferritin 135 ng/mL Impression: 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 Lynch, urologist started him on Casodex 50 mg by mouth daily based on clinical diagnosis of metastatic prostrate cancer CT scan of chest abdomen pelvis done on 04/17/2019 and on 05/09/2019 showed enlarged lobulated heterogeneous prostate suspicious for prostrate carcinoma, diffuse sclerotic lesions within the visualized bony structures worse in the bony pelvis and sacrum suspicious for metastatic disease. Hepatic Subcapsular hematoma. Small right pleural effusion. History of hepatic subcapsular hematoma due to fall due to syncopal attack in March 2019 while on aspirin and Plavix for coronary artery disease status post stent placement History of congestive heart failure ejection fraction 45% on 10/07/2018 Plan: Discussed with patient regarding his labs white blood count 6.2 hemoglobin 11.1 crit 34.9 platelets 262,000 CMP within normal limit except creatinine 1.6 and PSA 8.53 compared to 8.36 on August 29, 2019 and 11.94 on June 27, 2019 Clinically, patient is doing reasonably well, with no new signs symptom suggestive of disease progression has follow-up lab work-up shows stable but still elevated PSA, we will continue to monitor a PSA started going up we will consider CT PET scan or bone scan/CT scan as a follow-up. Today we will proceed with monthly Xgeva and then patient will return to clinic in 1 month with a PSA/testosterone and for dose of Xgeva. In the meantime will obtain records from Dr. Morales's office regarding newly diagnosed melanoma involving scalp. Signed By: Shanice Giron M.D. <<Signature on File>>
== END 2019-10-05 06:01 | disposition home or self-care (01) ==
LOC: ONCMED 14:30
PROVIDERS: PCP Family Medicine; Visit Provider Internal Medicine Hematology & Oncology
DX: C61 Malignant neoplasm of prostate (principal); C79.51 Secondary malignant neoplasm of bone; C43.4 Malignant melanoma of scalp and neck; R97.21 Rising PSA following treatment for malignant neoplasm of prostate; I50.9 Heart failure, unspecified; J90 Pleural effusion, not elsewhere classified; Z79.02 Long term (current) use of antithrombotics/antiplatelets; Z79.899 Other long term (current) drug therapy; Z95.5 Presence of coronary angioplasty implant and graft; Z79.818 Long term (current) use of other agents affecting estrogen receptors and estrogen levels
CPT/HCPCS: 96372; 99214; J0897

== ENCOUNTER 2019-11-03 11:43 | Outpatient (CLI) | payer MEDICARE, OTHER, SELFPAY ==
[2019-11-03 14:04] LABS: Testosterone Total 2.5 ng/dL (193-740)
== END 2019-11-03 11:44 | disposition home or self-care (01) ==
LOC: ONCMED 14:48
PROVIDERS: PCP Family Medicine; Visit Provider Internal Medicine Hematology & Oncology
DX: C61 Malignant neoplasm of prostate (principal)
CPT/HCPCS: 84153; 84403

== ENCOUNTER 2019-11-04 09:21 | Outpatient (CLI) | payer MEDICARE, OTHER, SELFPAY ==
[2019-11-04] MEDS: denosumab 120 mg SDV SUBCUT (10:19)
--- NOTE | 2019-11-04 10:27 | ONC FU_ITS ---
Dr. Giron follow up note Patient: Hayes Solis Unit #: [id number]: 1935 Dicatated By: Shanice Giron M.D.Date of Visit:Nov 04, 2019 Onc Med Follow-up/Prog Note History of Present Illness: Mr. Hayes Solis, is a 84-year-old gentleman who was recently admitted to hospital with right sided chest pain, as per patient had a fall prior to the admission on 05/09/2019 and as per patient and his on 04/08/2019 patient had episode of syncopal attack and sustained the liver injury causing hepatic hematoma. Patient is on aspirin and Plavix as has history of coronary artery disease ???5 recent stent placed in June 2018., At that time he underwent CT scan of chest abdomen which showed a patent subscapular hematoma and also enlarged lobulated prostate suspicious for possible carcinoma and his PSA was 435.2 and scan also showed diffuse sclerotic lesions within the visualized bony structures worse in the pelvis and sacrum suspicious for metastatic disease moreover CT scan of abdomen showed mixed attenuation mass involving the right hepatic lobe corresponding to the previously described subcapsular hematoma., His AFP was 0.6. As per patient in October 2018 his PSA was 4, he follow Dr. Lynch. Patient was seen by Dr. 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 As history of coronary artery disease status post multiple stent and history of congestive heart failure, Echocardiogram done on 10/07/2018 showed ejection fraction 45%, [id number] aortic stenosis, moderate mitral regurg, COPD, sleep apnea, iron deficiency anemia, TIA, hypertension, chronic kidney disease, The patient denies any melena or hematochezia, denies any nausea or vomiting, denies any shortness of breath or palpitation at rest. But generalized weakness and fatigue. No hematuria or dysuria. CT PET scan done on October 29, 2019 showed diffuse low-grade activity in the prostate gland with no focal activity to localize. Small scattered pelvic lymph nodes are FDG negative with no evidence of zeyad metastatic disease There are widespread sclerotic lesion throughout the axial and appendicular skeleton consistent with osseous metastatic disease demonstrate low-grade FDG Came for follow-up, denies any specific complaints, except chronic back pain, currently controlled with pain medication. No fever chills no nausea or vomiting no diarrhea constipation no new bony pains, no dysuria hematuria butOccasional hot flashes otherwise tolerating Zoladex/Casodex/Xgeva well Medications: Bicalutamide 1 Tablet (of 50 mg) Oral daily, Carvedilol 1 Tablet (of 3.125 mg) Oral b.i.d., Chlorthalidone 1 Tablet (of 25 mg) Oral daily, Clopidogrel Bisulfate 1 Tablet (of 75 mg) Oral daily, DULoxetine HCl 1 Capsule (of 30 mg) Capsule Delayed Release Particles Oral daily, Finasteride 1 Tablet (of 5 mg) Oral daily, HYDROcodone-Acetaminophen 1 Tablet (of 5-325 mg) Oral q 6 hours PRN, Losartan Potassium 0.5 Tablet (of 50 mg) Oral daily, Magnesium 1 Tablet (of 200 mg) Tablet, chewable Oral daily, Mens Multivitamin Tablet Oral, Omeprazole 1 Capsule (of 20 mg) Capsule Delayed Release Oral daily, Potassium Chloride ER 2 Capsule (of 10 meq) Capsule, controlled release Oral daily, Pravastatin Sodium 1 Tablet (of 80 mg) Oral at bedtime, Tamsulosin HCl 1 Capsule (of 0.4 mg) Oral b.i.d. Allergies: demoral, Diclofenac Sodium, Isosorbide Mononitrate, Meperidine HCl, and Spironolactone. Review of Systems: Review of Systems is not available for this patient. Vital Signs: Performed on Nov 04, 2019 09:38 Height - 71.00 in Weight - 217.0 lbs (HIGH) BSA - 2.18 sq.m BMI - 30.27 (HIGH) Temperature - 97.8 F (LOW) Pulse - 72 /min Respiration - 22 /min BP - 127/61 mm(hg) O2 Sat - 97 % Pain - 3 Performance Status: 1 - No physically strenuous activity, but ambulatory and able to carry out light or sedentary work (e.g. office work, light house work). (ECOG) Physical Examination: ENMT - No mouth sores, no thrush or jaundice, Respiratory - Lungs are clear, Cardiovascular - Regular rate and rhythm of heart, Abdomen - Soft, bowel sounds present, Extremities - No visible edema. Lab/Imaging: Test performed on Oct 04, 2019 12:30 Sodium 140 mmol/L Potassium 3.9 mmol/L Chloride 100 mmol/L CO2 29 mmol/L Anion Gap 14.9 BUN 31 mg/dL Creatinine 1.6 mg/dL Cr Clearance (Est) 46.52 mL/min Glucose 126 mg/dL Calcium 8.8 mg/dL Protein, Total 6.3 g/dL Albumin 3.6 g/dL Globulin 2.7 g/dL Bilirubin, Total 0.4 mg/dL ALT (SGPT) 9 U/L AST (SGOT) 15 U/L Alkaline Phosphatase 98 IU/L WBC 6.2 10 3/uL RBC 3.93 10 6/uL HGB 11.1 g/dL HCT 34.9 % MCV 88.8 fL MCH 28.2 pg MCHC 31.8 g/dL RDW 13.5 % Platelet Count 262 10 3/cmm MPV 10.2 fL Neutrophils 4.6 10 3/uL Lymphocytes 1.0 10 3/uL Monocytes 0.5 10 3/uL Eosinophils 0.1 10 3/uL Basophils 0.0 10 3/uL Neutrophil % 74.0 % Lymphocyte % 15.8 % Monocyte % 7.6 % Eosinophil % 1.8 % Basophils % 0.6 % NRBC % 0 % PSA 8.530 ng/mL Test performed on August 29, 2019 12:55 Testosterone, Total 2.5 ng/dL Test performed on May 23, 2019 15:50 Ferritin 135 ng/mL Impression: 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 Lynch, urologist started him on Casodex 50 mg by mouth daily based on clinical diagnosis of metastatic prostrate cancer CT scan of chest abdomen pelvis done on 04/17/2019 and on 05/09/2019 showed enlarged lobulated heterogeneous prostate suspicious for prostrate carcinoma, diffuse sclerotic lesions within the visualized bony structures worse in the bony pelvis and sacrum suspicious for metastatic disease. Hepatic Subcapsular hematoma. Small right pleural effusion. History of hepatic subcapsular hematoma due to fall due to syncopal attack in March 2019 while on aspirin and Plavix for coronary artery disease status post stent placement History of congestive heart failure ejection fraction 45% on 10/07/2018 Plan: Discussed with patient regarding his labs testosterone 2.5, and PSA 9.21 compared to 8.530 on October 04, 2019 and follow-up CT PET scan showed no evidence of new lesion, small scattered pelvic lymph nodes are FDG negative widespread sclerotic lesions throughout the axial and appendicular skeleton with low-grade activity and diffuse low-grade activity in the prostate gland Clinically, patient is doing well with no signs symptoms suggestive of disease progression but his lab work-up shows persistent mildly elevated PSA and follow-up CT PET scan showed no new lesions, earlier [place] CT PET scan was recommended but patient does not want to go to [place]. We will continue with same treatment including Zoladex/Casodex/monthly Xgeva and to monitor his PSA, if continues to go up may hold Casodex, as about an 30% patient it can cause drop in PSA level.As far as mid/lower back pain is concerned, is chronic in nature and not been controlled with the current pain medication patient advised to take 1 to 2 tablets every 6 hours as needed, was given prescription today We will proceed with dose of Xgeva today and then return to clinic in 1 month for Zoladex and Xgeva in the meantime he will continue with daily Casodex and will repeat his PSA in 2 months. Signed By: Shanice Giron M.D. <<Signature on File>>
== END 2019-11-04 09:22 | disposition home or self-care (01) ==
LOC: ONCMED 09:24
PROVIDERS: PCP Family Medicine; Visit Provider Internal Medicine Hematology & Oncology
DX: Z51.12 Encounter for antineoplastic immunotherapy (principal); C79.51 Secondary malignant neoplasm of bone; C61 Malignant neoplasm of prostate; J90 Pleural effusion, not elsewhere classified; R97.21 Rising PSA following treatment for malignant neoplasm of prostate; Z79.899 Other long term (current) drug therapy; Z79.818 Long term (current) use of other agents affecting estrogen receptors and estrogen levels; Z86.79 Personal history of other diseases of the circulatory system
CPT/HCPCS: 96372; 99214; J0897

== ENCOUNTER 2019-12-06 09:55 | Outpatient (CLI) | payer MEDICARE, OTHER, SELFPAY ==
[2019-12-06] MEDS: lidocaine 1% INJ 20 mL INJECTION (10:37)
[2019-12-06] MEDS: denosumab 120 mg SDV SUBCUT (10:41)
[2019-12-06] MEDS: goserelin acetate 10.8 mg Implant IM (10:47)
--- NOTE | 2019-12-06 16:59 | ONC FU_ITS ---
Dr. Giron follow up note Patient: Hayes Solis Unit #: [id number]: 1935 Dicatated By: Shanice Giron M.D.Date of Visit:Dec 06, 2019 Onc Med Follow-up/Prog Note History of Present Illness: Mr. Hayes Solis, is a 84-year-old gentleman who was recently admitted to hospital with right sided chest pain, as per patient had a fall prior to the admission on 05/09/2019 and as per patient and his on 04/08/2019 patient had episode of syncopal attack and sustained the liver injury causing hepatic hematoma. Patient is on aspirin and Plavix as has history of coronary artery disease ???5 recent stent placed in June 2018., At that time he underwent CT scan of chest abdomen which showed a patent subscapular hematoma and also enlarged lobulated prostate suspicious for possible carcinoma and his PSA was 435.2 and scan also showed diffuse sclerotic lesions within the visualized bony structures worse in the pelvis and sacrum suspicious for metastatic disease moreover CT scan of abdomen showed mixed attenuation mass involving the right hepatic lobe corresponding to the previously described subcapsular hematoma., His AFP was 0.6. As per patient in October 2018 his PSA was 4, he follow Dr. Lynch. Patient was seen by Dr. 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 As history of coronary artery disease status post multiple stent and history of congestive heart failure, Echocardiogram done on 10/07/2018 showed ejection fraction 45%, [id number] aortic stenosis, moderate mitral regurg, COPD, sleep apnea, iron deficiency anemia, TIA, hypertension, chronic kidney disease, The patient denies any melena or hematochezia, denies any nausea or vomiting, denies any shortness of breath or palpitation at rest. But generalized weakness and fatigue. No hematuria or dysuria. CT PET scan done on October 29, 2019 showed diffuse low-grade activity in the prostate gland with no focal activity to localize. Small scattered pelvic lymph nodes are FDG negative with no evidence of zeyad metastatic disease There are widespread sclerotic lesion throughout the axial and appendicular skeleton consistent with osseous metastatic disease demonstrate low-grade FDG Came for follow-up, denies any specific complaints, no fever chills, no nausea or vomiting, no diarrhea constipation, no new bony pains, occasionally hot flashes otherwise tolerating Zoladex/Casodex/Xgeva well Medications: Bicalutamide 1 Tablet (of 50 mg) Oral daily, Carvedilol 1 Tablet (of 3.125 mg) Oral b.i.d., Chlorthalidone 1 Tablet (of 25 mg) Oral daily, Clopidogrel Bisulfate 1 Tablet (of 75 mg) Oral daily, DULoxetine HCl 1 Capsule (of 30 mg) Capsule Delayed Release Particles Oral daily, Finasteride 1 Tablet (of 5 mg) Oral daily, HYDROcodone-Acetaminophen 1 Tablet (of 5-325 mg) Oral q 6 hours PRN, Losartan Potassium 0.5 Tablet (of 50 mg) Oral daily, Magnesium 1 Tablet (of 200 mg) Tablet, chewable Oral daily, Mens Multivitamin Tablet Oral, Omeprazole 1 Capsule (of 20 mg) Capsule Delayed Release Oral daily, Potassium Chloride ER 2 Capsule (of 10 meq) Capsule, controlled release Oral daily, Pravastatin Sodium 1 Tablet (of 80 mg) Oral at bedtime, Tamsulosin HCl 1 Capsule (of 0.4 mg) Oral b.i.d. Allergies: demoral, Diclofenac Sodium, Isosorbide Mononitrate, Meperidine HCl, and Spironolactone. Review of Systems: Constitutional - Appetite is good and weight is stable. No fever, night sweats, or hot flashes. Energy level is good, ENMT - No sinus congestion/drainage. No mouth sores. No sore throat or difficulty swallowing, Hematologic/Lymphatic - No abnormal bruising or bleeding, Respiratory - No shortness of breath. No cough. No pleuritic pain or hemoptysis, Cardiovascular - No angina pain. No palpitations, Gastrointestinal - No nausea or vomiting. No heartburn or acid reflux. No diarrhea or constipation. No blood in the stool or black stools, Genitourinary (M) - No dysuria or hematuria. No urinary frequency. No urgency or incontinence, Musculoskeletal - No joint or bone pain, Neurologic - No headache or dizziness. No numbness or tingling. No other focal neurologic symptoms, Psychiatric - No anxiety or depression. No insomnia. Vital Signs: Performed on Dec 06, 2019 10:05 Height - 71.00 in Weight - 216.0 lbs (LOW) BSA - 2.18 sq.m BMI - 30.13 (HIGH) Temperature - 98.5 F Pulse - 72 /min Respiration - 18 /min BP - 116/63 mm(hg) O2 Sat - 97 % Pain - 0 Performance Status: 0 - Fully active, able to carry on all predisease activities without restrictions. (ECOG) Physical Examination: ENMT - No mouth sores, no thrush, no jaundice, Respiratory - Lungs are clear, Cardiovascular - Regular rate and rhythm of heart, Abdomen - Soft, bowel sounds, Extremities - No visible edema. Lab/Imaging: Test performed on Nov 03, 2019 09:16 Testosterone, Total 2.5 ng/dL PSA 9.210 ng/mL Test performed on Oct 04, 2019 12:30 Sodium 140 mmol/L Potassium 3.9 mmol/L Chloride 100 mmol/L CO2 29 mmol/L Anion Gap 14.9 BUN 31 mg/dL Creatinine 1.6 mg/dL Cr Clearance (Est) 46.52 mL/min Glucose 126 mg/dL Calcium 8.8 mg/dL Protein, Total 6.3 g/dL Albumin 3.6 g/dL Globulin 2.7 g/dL Bilirubin, Total 0.4 mg/dL ALT (SGPT) 9 U/L AST (SGOT) 15 U/L Alkaline Phosphatase 98 IU/L WBC 6.2 10 3/uL RBC 3.93 10 6/uL HGB 11.1 g/dL HCT 34.9 % MCV 88.8 fL MCH 28.2 pg MCHC 31.8 g/dL RDW 13.5 % Platelet Count 262 10 3/cmm MPV 10.2 fL Neutrophils 4.6 10 3/uL Lymphocytes 1.0 10 3/uL Monocytes 0.5 10 3/uL Eosinophils 0.1 10 3/uL Basophils 0.0 10 3/uL Neutrophil % 74.0 % Lymphocyte % 15.8 % Monocyte % 7.6 % Eosinophil % 1.8 % Basophils % 0.6 % NRBC % 0 % Impression: 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 Lynch, urologist started him on Casodex 50 mg by mouth daily based on clinical diagnosis of metastatic prostrate cancer CT scan of chest abdomen pelvis done on 04/17/2019 and on 05/09/2019 showed enlarged lobulated heterogeneous prostate suspicious for prostrate carcinoma, diffuse sclerotic lesions within the visualized bony structures worse in the bony pelvis and sacrum suspicious for metastatic disease. Hepatic Subcapsular hematoma. Small right pleural effusion. History of hepatic subcapsular hematoma due to fall due to syncopal attack in March 2019 while on aspirin and Plavix for coronary artery disease status post stent placement History of congestive heart failure ejection fraction 45% on 10/07/2018 Plan: Discussed with patient regarding his questions and concern, will proceed with his scheduled dose of Zoladex and Xgeva and then he will return to clinic in 1 month with a PSA and for monthly dose of Xgeva. If PSA continues to go up we will discuss further treatment options., Signed By: Shanice Giron M.D. <<Signature on File>>
== END 2019-12-06 09:56 | disposition home or self-care (01) ==
LOC: ONCMED 09:59
PROVIDERS: PCP Family Medicine; Visit Provider Internal Medicine Hematology & Oncology
DX: C61 Malignant neoplasm of prostate (principal); C79.51 Secondary malignant neoplasm of bone; Z79.818 Long term (current) use of other agents affecting estrogen receptors and estrogen levels; I25.10 Atherosclerotic heart disease of native coronary artery without angina pectoris; J90 Pleural effusion, not elsewhere classified; S36.112D Contusion of liver, subsequent encounter; W19.XXXD Unspecified fall, subsequent encounter; Z95.5 Presence of coronary angioplasty implant and graft; Z79.899 Other long term (current) drug therapy
CPT/HCPCS: 96372; 96402; 99214; J0897; J9202

== ENCOUNTER 2020-01-10 14:25 | Outpatient (CLI) | payer MEDICARE, OTHER, SELFPAY ==
[2020-01-10] MEDS: denosumab 120 mg SDV SUBCUT (16:30)
--- NOTE | 2020-01-10 16:53 | ONC FU_ITS ---
Dr. Giron follow up note Patient: Hayes Solis Unit #: [id number]: 1935 Dicatated By: Shanice Giron M.D.Date of Visit:Jan 10, 2020 Onc Med Follow-up/Prog Note History of Present Illness: Mr. Hayes Solis, is a 84-year-old gentleman who was recently admitted to hospital with right sided chest pain, as per patient had a fall prior to the admission on 05/09/2019 and as per patient and his on 04/08/2019 patient had episode of syncopal attack and sustained the liver injury causing hepatic hematoma. Patient is on aspirin and Plavix as has history of coronary artery disease ???5 recent stent placed in June 2018., At that time he underwent CT scan of chest abdomen which showed a patent subscapular hematoma and also enlarged lobulated prostate suspicious for possible carcinoma and his PSA was 435.2 and scan also showed diffuse sclerotic lesions within the visualized bony structures worse in the pelvis and sacrum suspicious for metastatic disease moreover CT scan of abdomen showed mixed attenuation mass involving the right hepatic lobe corresponding to the previously described subcapsular hematoma., His AFP was 0.6. As per patient in October 2018 his PSA was 4, he follow Dr. Lynch. Patient was seen by Dr. 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 As history of coronary artery disease status post multiple stent and history of congestive heart failure, Echocardiogram done on 10/07/2018 showed ejection fraction 45%, [id number] aortic stenosis, moderate mitral regurg, COPD, sleep apnea, iron deficiency anemia, TIA, hypertension, chronic kidney disease, The patient denies any melena or hematochezia, denies any nausea or vomiting, denies any shortness of breath or palpitation at rest. But generalized weakness and fatigue. No hematuria or dysuria. CT PET scan done on October 29, 2019 showed diffuse low-grade activity in the prostate gland with no focal activity to localize. Small scattered pelvic lymph nodes are FDG negative with no evidence of zeyad metastatic disease There are widespread sclerotic lesion throughout the axial and appendicular skeleton consistent with osseous metastatic disease demonstrate low-grade FDG Came for follow-up, complaining of generalized weakness and fatigue, hot flashes but no fever chills, no nausea or vomiting, no diarrhea constipation, no new bony pains. tolerating Zoladex/Casodex/Xgeva well Medications: Bicalutamide 1 Tablet (of 50 mg) Oral daily, Carvedilol 1 Tablet (of 3.125 mg) Oral b.i.d., Chlorthalidone 1 Tablet (of 25 mg) Oral daily, Clopidogrel Bisulfate 1 Tablet (of 75 mg) Oral daily, DULoxetine HCl 1 Capsule (of 30 mg) Capsule Delayed Release Particles Oral daily, Finasteride 1 Tablet (of 5 mg) Oral daily, HYDROcodone-Acetaminophen 1 Tablet (of 5-325 mg) Oral q 6 hours PRN, Losartan Potassium 0.5 Tablet (of 50 mg) Oral daily, Magnesium 1 Tablet (of 200 mg) Tablet, chewable Oral daily, Mens Multivitamin Tablet Oral, Omeprazole 1 Capsule (of 20 mg) Capsule Delayed Release Oral daily, Potassium Chloride ER 2 Capsule (of 10 meq) Capsule, controlled release Oral daily, Pravastatin Sodium 1 Tablet (of 80 mg) Oral at bedtime, Tamsulosin HCl 1 Capsule (of 0.4 mg) Oral b.i.d. Allergies: demoral, Diclofenac Sodium, Isosorbide Mononitrate, Meperidine HCl, and Spironolactone. Review of Systems: Review of Systems is not available for this patient. Vital Signs: Vitals are not available for this patient. Performance Status: 0 - Fully active, able to carry on all predisease activities without restrictions. (ECOG) Physical Examination: ENMT - No mouth sores, no thrush, no jaundice, Respiratory - Lungs are clear to auscultation, Cardiovascular - Regular rate and rhythm of heart, Abdomen - Soft, bowel sounds present, Extremities - No visible edema. Lab/Imaging: Test performed on Nov 03, 2019 09:16 Testosterone, Total 2.5 ng/dL PSA 9.210 ng/mL Test performed on Oct 04, 2019 12:30 Sodium 140 mmol/L Potassium 3.9 mmol/L Chloride 100 mmol/L CO2 29 mmol/L Anion Gap 14.9 BUN 31 mg/dL Creatinine 1.6 mg/dL Cr Clearance (Est) 46.52 mL/min Glucose 126 mg/dL Calcium 8.8 mg/dL Protein, Total 6.3 g/dL Albumin 3.6 g/dL Globulin 2.7 g/dL Bilirubin, Total 0.4 mg/dL ALT (SGPT) 9 U/L AST (SGOT) 15 U/L Alkaline Phosphatase 98 IU/L WBC 6.2 10 3/uL RBC 3.93 10 6/uL HGB 11.1 g/dL HCT 34.9 % MCV 88.8 fL MCH 28.2 pg MCHC 31.8 g/dL RDW 13.5 % Platelet Count 262 10 3/cmm MPV 10.2 fL Neutrophils 4.6 10 3/uL Lymphocytes 1.0 10 3/uL Monocytes 0.5 10 3/uL Eosinophils 0.1 10 3/uL Basophils 0.0 10 3/uL Neutrophil % 74.0 % Lymphocyte % 15.8 % Monocyte % 7.6 % Eosinophil % 1.8 % Basophils % 0.6 % NRBC % 0 % Impression: 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 Lynch, urologist started him on Casodex 50 mg by mouth daily based on clinical diagnosis of metastatic prostrate cancer CT scan of chest abdomen pelvis done on 04/17/2019 and on 05/09/2019 showed enlarged lobulated heterogeneous prostate suspicious for prostrate carcinoma, diffuse sclerotic lesions within the visualized bony structures worse in the bony pelvis and sacrum suspicious for metastatic disease. Hepatic Subcapsular hematoma. Small right pleural effusion. History of hepatic subcapsular hematoma due to fall due to syncopal attack in March 2019 while on aspirin and Plavix for coronary artery disease status post stent placement History of congestive heart failure ejection fraction 45% on 10/07/2018 Plan: Discussed with patient regarding his labs PSA 14.6 compared to 9.21 on November 03, 2019 Clinically, patient is doing well with no new signs symptom except generalized weakness and fatigue which could be multifactorial including due to ADT with Zoladex/Casodex and or overexertion. Patient was advised to hold Casodex for 1 month as his PSA is going up and in about 25% patient with holding of antiandrogen PSA may drop and also may reduce ADT related side effect e.g. hot flashes and generalized weakness and fatigue. We will proceed with his monthly dose of Xgeva today and then return to clinic in 1 month with CBC CMP PSA and testosterone and if PSA continues to go up, repeating CT scan of abdomen pelvis and bone scan to assess disease status.If localized progression may consider radiation therapy Signed By: Shanice Giron M.D. <<Signature on File>>
== END 2020-01-10 14:26 | disposition home or self-care (01) ==
LOC: ONCMED 14:28
PROVIDERS: PCP Family Medicine; Visit Provider Internal Medicine Hematology & Oncology
DX: Z51.11 Encounter for antineoplastic chemotherapy (principal); C61 Malignant neoplasm of prostate; S36.13XA Injury of bile duct, initial encounter; J90 Pleural effusion, not elsewhere classified
CPT/HCPCS: 84153; 96372; 99214; J0897

== ENCOUNTER → 2020-01-18 10:05 | Outpatient (BNVA) | payer MEDICARE, OTHER, SELFPAY | PROVIDERS: PCP Family Medicine; Visit Provider Family Medicine | DX: I10 Essential (primary) hypertension (principal); E78.5 Hyperlipidemia, unspecified; E11.9 Type 2 diabetes mellitus without complications | CPT/HCPCS: 80053; 80061; 83036; 85025 ==

== ENCOUNTER 2020-02-14 13:59 | Outpatient (CLI) | payer MEDICARE, OTHER, SELFPAY ==
[2020-02-14 14:38] LABS: Basophils % 0.6 %; Eosinophils # 0.1 10^3/uL (0.0-0.8); Eosinophils % 2.2 %; Hematocrit 36.4 % (42.0-52.0); Hemoglobin 11.3 g/dL (11.7-16.6); Lymphocytes % 15.8 %; Mean Corpuscular Hemoglobin 28.8 pg (28.0-34.0); Mean Corpuscular Volume 92.6 fL (80-94); Mean Platelet Volume 9.9 fL (7.4-10.4); Monocytes # 0.4 10^3/uL (0.2-0.9); Monocytes % 5.7 %; Neutrophils # 4.76 10^3/uL (1.8-7.7); Neutrophils % 75.5 %; Nucleated Red Blood Cells % 0 %; Platelet Count 290 10^3/cmm (130-400); Red Blood Count 3.93 10^6/uL (4.1-5.3); Red Cell Distribution Width 13.2 % (12.1-15.1); White Blood Count 6.3 10^3/uL (4.0-10.0)
[2020-02-14] MEDS: denosumab 120 mg SDV SUBCUT (16:35)
--- NOTE | 2020-02-14 16:38 | ONC FU_ITS ---
Dr. Giron follow up note Patient: Hayes Solis Unit #: [id number]: 1935 Dicatated By: Shanice Giron M.D.Date of Visit:Feb 14, 2020 Onc Med Follow-up/Prog Note History of Present Illness: Mr. Hayes Solis, is a 84-year-old gentleman who was recently admitted to hospital with right sided chest pain, as per patient had a fall prior to the admission on 05/09/2019 and as per patient and his on 04/08/2019 patient had episode of syncopal attack and sustained the liver injury causing hepatic hematoma. Patient is on aspirin and Plavix as has history of coronary artery disease ???5 recent stent placed in June 2018., At that time he underwent CT scan of chest abdomen which showed a patent subscapular hematoma and also enlarged lobulated prostate suspicious for possible carcinoma and his PSA was 435.2 and scan also showed diffuse sclerotic lesions within the visualized bony structures worse in the pelvis and sacrum suspicious for metastatic disease moreover CT scan of abdomen showed mixed attenuation mass involving the right hepatic lobe corresponding to the previously described subcapsular hematoma., His AFP was 0.6. As per patient in October 2018 his PSA was 4, he follow Dr. Lynch. Patient was seen by Dr. 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 As history of coronary artery disease status post multiple stent and history of congestive heart failure, Echocardiogram done on 10/07/2018 showed ejection fraction 45%, [id number] aortic stenosis, moderate mitral regurg, COPD, sleep apnea, iron deficiency anemia, TIA, hypertension, chronic kidney disease, The patient denies any melena or hematochezia, denies any nausea or vomiting, denies any shortness of breath or palpitation at rest. But generalized weakness and fatigue. No hematuria or dysuria. CT PET scan done on October 29, 2019 showed diffuse low-grade activity in the prostate gland with no focal activity to localize. Small scattered pelvic lymph nodes are FDG negative with no evidence of zeyad metastatic disease There are widespread sclerotic lesion throughout the axial and appendicular skeleton consistent with osseous metastatic disease demonstrate low-grade FDG tolerating Zoladex/Casodex/Xgeva well, Precedex was discontinued on January 10, 2020 because of progressive PSA has some time holding of antiandrogen can improve PSA. 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 But denies any trauma to his back, denies any nausea vomiting but constipation due to narcotics. Responding well to laxatives. Medications: Bicalutamide 1 Tablet (of 50 mg) Oral daily, Carvedilol 1 Tablet (of 3.125 mg) Oral b.i.d., Chlorthalidone 1 Tablet (of 25 mg) Oral daily, Clopidogrel Bisulfate 1 Tablet (of 75 mg) Oral daily, DULoxetine HCl 1 Capsule (of 30 mg) Capsule Delayed Release Particles Oral daily, Finasteride 1 Tablet (of 5 mg) Oral daily, HYDROcodone-Acetaminophen 1 Tablet (of 5-325 mg) Oral q 6 hours PRN, Losartan Potassium 0.5 Tablet (of 50 mg) Oral daily, Magnesium 1 Tablet (of 200 mg) Tablet, chewable Oral daily, Mens Multivitamin Tablet Oral, Omeprazole 1 Capsule (of 20 mg) Capsule Delayed Release Oral daily, Potassium Chloride ER 2 Capsule (of 10 meq) Capsule, controlled release Oral daily, Pravastatin Sodium 1 Tablet (of 80 mg) Oral at bedtime, Tamsulosin HCl 1 Capsule (of 0.4 mg) Oral b.i.d. Allergies: demoral, Diclofenac Sodium, Isosorbide Mononitrate, Meperidine HCl, and Spironolactone. Review of Systems: Review of Systems is not available for this patient. Vital Signs: Performed on Feb 14, 2020 16:01 Height - 71.00 in Weight - 218.4 lbs (HIGH) BSA - 2.19 sq.m BMI - 30.46 (HIGH) Temperature - 97.9 F (LOW) Pulse - 83 /min Respiration - 18 /min BP - 131/55 mm(hg) O2 Sat - 95 % (LOW) Pain - 0 Performance Status: 0 - Fully active, able to carry on all predisease activities without restrictions. (ECOG) Physical Examination: ENMT - No mouth sores, no thrush, no jaundice, Respiratory - Lungs are clear to auscultation, Cardiovascular - Regular rate and rhythm of heart, Abdomen - Soft, bowel sounds present, Extremities - No visible edema. Lab/Imaging: Test performed on Nov 03, 2019 09:16 Testosterone, Total 2.5 ng/dL PSA 9.210 ng/mL Test performed on Oct 04, 2019 12:30 Sodium 140 mmol/L Potassium 3.9 mmol/L Chloride 100 mmol/L CO2 29 mmol/L Anion Gap 14.9 BUN 31 mg/dL Creatinine 1.6 mg/dL Cr Clearance (Est) 46.52 mL/min Glucose 126 mg/dL Calcium 8.8 mg/dL Protein, Total 6.3 g/dL Albumin 3.6 g/dL Globulin 2.7 g/dL Bilirubin, Total 0.4 mg/dL ALT (SGPT) 9 U/L AST (SGOT) 15 U/L Alkaline Phosphatase 98 IU/L WBC 6.2 10 3/uL RBC 3.93 10 6/uL HGB 11.1 g/dL HCT 34.9 % MCV 88.8 fL MCH 28.2 pg MCHC 31.8 g/dL RDW 13.5 % Platelet Count 262 10 3/cmm MPV 10.2 fL Neutrophils 4.6 10 3/uL Lymphocytes 1.0 10 3/uL Monocytes 0.5 10 3/uL Eosinophils 0.1 10 3/uL Basophils 0.0 10 3/uL Neutrophil % 74.0 % Lymphocyte % 15.8 % Monocyte % 7.6 % Eosinophil % 1.8 % Basophils % 0.6 % NRBC % 0 % Impression: 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 Lynch, urologist started him on Casodex 50 mg by mouth daily based on clinical diagnosis of metastatic prostrate cancer CT scan of chest abdomen pelvis done on 04/17/2019 and on 05/09/2019 showed enlarged lobulated heterogeneous prostate suspicious for prostrate carcinoma, diffuse sclerotic lesions within the visualized bony structures worse in the bony pelvis and sacrum suspicious for metastatic disease. Hepatic Subcapsular hematoma. Small right pleural effusion. History of hepatic subcapsular hematoma due to fall due to syncopal attack in March 2019 while on aspirin and Plavix for coronary artery disease status post stent placement History of congestive heart failure ejection fraction 45% on 10/07/2018 Plan: Discussed with patient regarding his labs white blood count 6.3 hemoglobin 11.3, hematocrit 36.4 platelets 290,000, CMP and PSA is pending Clinically, patient is doing reasonably well but now with progressive back pain, at this point we will proceed with CT scan of abdomen pelvis and bone scan to assess disease status in the meantime we will proceed with his monthly dose of Xgeva today and , He will continue with 3 monthly Zoladex as Casodex was discontinued during his last visit. patient will return to clinic after his follow-up CT scan of abdomen pelvis and bone scan for further discussion. Signed By: Shanice Giron M.D. <<Signature on File>>
[2020-02-14 17:10] LABS: Alanine Aminotransferase 15 U/L (0-41); Albumin Level 3.5 g/dL (3.5-5.2); Alkaline Phosphatase 100 IU/L (40-130); Aspartate Amino Transferase 17 U/L (0-40); Blood Urea Nitrogen 35 mg/dL (8-23); Calcium 8.9 mg/dL (8.5-10.5); Carbon Dioxide 31 mmol/L (22-29); Chloride 101 mmol/L (98-107); Globulin 3.1 g/dL (1.3-4.6); Glucose 174 mg/dL (65-115); Osmolality Calculated 300 mOsm/kg (285-295); Sodium 139 mmol/L (136-145); Total Bilirubin 0.3 mg/dL (0.15-1.2); Total Protein 6.6 g/dL (6.6-8.7)
== END 2020-02-14 14:00 | disposition home or self-care (01) ==
LOC: ONCMED 14:02
PROVIDERS: PCP Family Medicine; Visit Provider Internal Medicine Hematology & Oncology
DX: C61 Malignant neoplasm of prostate (principal); C79.51 Secondary malignant neoplasm of bone; K76.89 Other specified diseases of liver; J90 Pleural effusion, not elsewhere classified; I25.10 Atherosclerotic heart disease of native coronary artery without angina pectoris; M54.9 Dorsalgia, unspecified; I12.9 Hypertensive chronic kidney disease with stage 1 through stage 4 chronic kidney disease, or unspecified chronic kidney disease; N18.9 Chronic kidney disease, unspecified; J44.9 Chronic obstructive pulmonary disease, unspecified; Z79.818 Long term (current) use of other agents affecting estrogen receptors and estrogen levels; Z79.899 Other long term (current) drug therapy; Z95.5 Presence of coronary angioplasty implant and graft
CPT/HCPCS: 36415; 80053; 84153; 85025; 96372; 99214; J0897

== ENCOUNTER 2020-02-28 08:11 | Outpatient (CLI) | payer MEDICARE, OTHER, SELFPAY ==
--- NOTE | 2020-02-28 08:15 | CT_ITS ---
WS: [id number] CT ABDOMEN PELVIS TECHNIQUE: Contrast-enhanced CT of the abdomen and pelvis with coronal and sagittal reformatted image s. CLINICAL INFORMATION: PROSTATE CANCER COMPARISON: CT May 09, 2019 and PET/CT October 29, 2019 DLP: 1363.[address] scans at [facility] use at least one of these dose optimization techniques: automat ed exposure control; mA and/or kV adjustment per patient size (includes targeted exams where dose is matched to clinical indication); or iterative reconstruction. FINDINGS: Nodular enhancement and enlargement of the prostate with heterogeneous enhancement. Prostate measures 4.3 x 4.1 x 5.2 cm today this is slightly smaller compared to previous. Mild diffuse bladder wall th ickening with pulsion diverticuli. Normal seminal vesicles. No pelvic lymphadenopathy. No inguinal ly mphadenopathy. Previously described right hepatic subcapsular hematoma has resolved small amount of residual low-att enuation change in the right hepatic lobe peripherally. Cholelithiasis. Small bilateral pleural effus ions with subsegmental atelectasis in the lung bases. Normal GE junction. Adrenal glands are normal. Normal renal parenchymal enhancement. Renal cortical atrophy. Small bilateral renal cysts. Exophytic upper pole left renal cystic lesion is unchanged measuring 2.3 CM. Fatty atrophy of the pancreas. Normal spleen. Adrenal glands are normal. Normal caliber abdomina l aorta. Aortic calcification. No periaortic lymphadenopathy. Sigmoid diverticulosis. Diffuse blastic bone metastasis throughout the visualized bony structures progressed since April. Metastatic lesions visualized throughout the lower thoracic spine, lumbar spine, pelvis, and sacrum. This extends into the proximal femurs bilaterally. Chronic anterior wedging at L1 is unchange d. Metastatic lesions visualized in the partially included ribs. CT/CT abdomen pelvis w con* [id number] IMPRESSION: 1. Progressed diffuse blastic metastasis throughout the visualized bony struct ures. 2. Heterogeneous enhancing nodular prostate has decreased in size slightly com pared to the prior examination. 3. No pelvic lymphadenopathy. No inguinal lymphadenopathy. Normal seminal vesi cles. 4. No abdominal lymphadenopathy. 5. Cholelithiasis. 6. Previously described right subcapsular hepatic hematoma has resolved. 7. Small bilateral pleural effusions with bibasilar atelectasis.
--- NOTE | 2020-02-28 08:15 | NM_ITS ---
WS: [id number] NM bone scan whole body* [id number] REASON FOR EXAM: RESTAGING EVAL/BONE PAIN/PROSTATE CANCER TECHNICAL: After the injection of the radionuclide, delayed whole body skeletal imaging was performed in the anterior and posterior projections with coned-down and lateral and oblique views of the chest . FINDINGS: There are in numerable foci of increased uptake of radionuclide in the bony pelvis, the lumbar and th oracic and cervical spine, the manubrium and sternum, bony structure of both shoulder joints. No definite uptake within the hip joints or femurs. Photopenia in the distal femurs at the knee joint level. NM/NM bone scan whole body* [id number] IMPRESSION: Diffuse bony metastatic prostate cancer. Bilateral knee arthroplasties.
[2020-02-28] MEDS: iohexol 300 mg/mL 50 mL Btl PO (08:32)
[2020-02-28] MEDS: iodixanol 320 mg/mL 100mL Btl IV (09:47)
--- NOTE | 2020-02-28 11:08 | XR_ITS ---
WS: [id number] XR sternum min 2V [id number] REASON FOR EXAM: BONE SCAN COMPARISON FINDINGS: Multiple areas of sclerotic density within the manubrium and sternum compatible with metastatic prost ate carcinoma. No fracture. XR/XR sternum min 2V [id number] IMPRESSION: Metastatic disease in the sternum as above
== END 2020-02-28 08:12 | disposition home or self-care (01) ==
LOC: CT 08:12
PROVIDERS: PCP Family Medicine; Visit Provider Internal Medicine Hematology & Oncology
DX: C61 Malignant neoplasm of prostate (principal); Z96.653 Presence of artificial knee joint, bilateral; J90 Pleural effusion, not elsewhere classified; J98.11 Atelectasis; K80.20 Calculus of gallbladder without cholecystitis without obstruction
CPT/HCPCS: 71120; 74177; 78306; A9561

== ENCOUNTER 2020-03-19 15:09 | Outpatient (CLI) | payer MEDICARE, OTHER, SELFPAY ==
[2020-03-19 15:41] LABS: Basophils % 0.7 %; Eosinophils # 0.1 10^3/uL (0.0-0.8); Hematocrit 35.9 % (42.0-52.0); Hemoglobin 11.4 g/dL (11.7-16.6); Lymphocytes % 16.3 %; Mean Corpuscular HGB Conc 31.8 g/dL (30.0-36.0); Mean Corpuscular Hemoglobin 29.5 pg (28.0-34.0); Mean Platelet Volume 9.8 fL (7.4-10.4); Monocytes # 0.4 10^3/uL (0.2-0.9); Neutrophils # 4.45 10^3/uL (1.8-7.7); Neutrophils % 74.7 %; Nucleated Red Blood Cells % 0 %; Platelet Count 251 10^3/cmm (130-400); Red Blood Count 3.86 10^6/uL (4.1-5.3); Red Cell Distribution Width 13.3 % (12.1-15.1)
[2020-03-19] MEDS: lidocaine 1% INJ 20 mL INJECTION (16:08)
[2020-03-19] MEDS: goserelin acetate 10.8 mg Implant IM (16:20)
[2020-03-19 16:22] LABS: Alanine Aminotransferase 12 U/L (0-41); Albumin Level 3.4 g/dL (3.5-5.2); Alkaline Phosphatase 93 IU/L (40-130); Anion Gap 13.9 (5-19); Aspartate Amino Transferase 15 U/L (0-40); Blood Urea Nitrogen 33 mg/dL (8-23); Calcium 8.7 mg/dL (8.5-10.5); Carbon Dioxide 30 mmol/L (22-29); Chloride 100 mmol/L (98-107); Glucose 189 mg/dL (65-115); Osmolality Calculated 302 mOsm/kg (285-295); Potassium 3.9 mmol/L (3.5-5.1); Sodium 140 mmol/L (136-145); Total Bilirubin 0.3 mg/dL (0.15-1.2); Total Protein 6.4 g/dL (6.6-8.7)
[2020-03-19] MEDS: denosumab 120 mg SDV SUBCUT (16:35)
== END 2020-03-19 15:10 | disposition home or self-care (01) ==
LOC: ONCMED 15:12
PROVIDERS: PCP Family Medicine; Visit Provider Internal Medicine Hematology & Oncology
DX: C61 Malignant neoplasm of prostate (principal)
CPT/HCPCS: 36415; 80053; 84153; 85025; 96372; 96402; J0897; J9202

== ENCOUNTER 2020-03-26 05:40 | Outpatient (CLI) | payer MEDICARE, OTHER, SELFPAY ==
--- NOTE | 2020-03-26 16:36 | ONC FU_ITS ---
Dr. Giron follow up note Patient: Hayes Solis Unit #: [id number]: [id number] Dicatated By: Shanice Giron M.D.Date of Visit:Mar 26, 2020 Onc Med Follow-up/Prog Note History of Present Illness: Mr. Hayes Solis, is a 84-year-old gentleman who was recently admitted to hospital with right sided chest pain, as per patient had a fall prior to the admission on 05/09/2019 and as per patient and his on 04/08/2019 patient had episode of syncopal attack and sustained the liver injury causing hepatic hematoma. Patient is on aspirin and Plavix as has history of coronary artery disease ???5 recent stent placed in June 2018., At that time he underwent CT scan of chest abdomen which showed a patent subscapular hematoma and also enlarged lobulated prostate suspicious for possible carcinoma and his PSA was 435.2 and scan also showed diffuse sclerotic lesions within the visualized bony structures worse in the pelvis and sacrum suspicious for metastatic disease moreover CT scan of abdomen showed mixed attenuation mass involving the right hepatic lobe corresponding to the previously described subcapsular hematoma., His AFP was 0.6. As per patient in October 2018 his PSA was 4, he follow Dr. Lynch. Patient was seen by Dr. 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 As history of coronary artery disease status post multiple stent and history of congestive heart failure, Echocardiogram done on 10/07/2018 showed ejection fraction 45%, [id number] aortic stenosis, moderate mitral regurg, COPD, sleep apnea, iron deficiency anemia, TIA, hypertension, chronic kidney disease, The patient denies any melena or hematochezia, denies any nausea or vomiting, denies any shortness of breath or palpitation at rest. But generalized weakness and fatigue. No hematuria or dysuria. CT PET scan done on October 29, 2019 showed diffuse low-grade activity in the prostate gland with no focal activity to localize. Small scattered pelvic lymph nodes are FDG negative with no evidence of zeyad metastatic disease There are widespread sclerotic lesion throughout the axial and appendicular skeleton consistent with osseous metastatic disease demonstrate low-grade FDG tolerating Zoladex/Xgeva well, Precedex was discontinued on January 10, 2020 because of progressive PSA has some time holding of antiandrogen can improve PSA. Follow-up CT scan of abdomen and pelvis done on February 28, 2020 showed no pelvic lymphadenopathy no inguinal lymphadenopathy, normal seminal vesicles, no abdominal lymphadenopathy, previously described right subcapsular hepatic hematoma is resolved. Progressive diffuse blastic metastasis throughout the visualized bony structures. Heterogeneous enhancing nodular prostate has decreased in size Bone scan done on February 28, 2020 showed diffuse bony metastatic prostate cancer involving bony pelvis, lumbar and thoracic and cervical spine sternum and ribs Came for follow-up, denies any specific complaints, no fever chills, no nausea or vomiting, no diarrhea or constipation mild lower back pain/discomfort but not requiring pain medication. No hematuria no dysuria, no hot flashes, fatigue has improved since holding off Casodex otherwise tolerating 3 monthly Zoladex and monthly Xgeva well Medications: Carvedilol 1 Tablet (of 3.125 mg) Oral b.i.d., Chlorthalidone 1 Tablet (of 25 mg) Oral daily, Clopidogrel Bisulfate 1 Tablet (of 75 mg) Oral daily, DULoxetine HCl 1 Capsule (of 30 mg) Capsule Delayed Release Particles Oral daily, Finasteride 1 Tablet (of 5 mg) Oral daily, HYDROcodone-Acetaminophen 1 Tablet (of 5-325 mg) Oral q 6 hours PRN, Losartan Potassium 1 Tablet (of 50 mg) Oral daily, Magnesium 1 Tablet (of 200 mg) Tablet, chewable Oral daily, Mens Multivitamin Tablet Oral, Omeprazole 1 Capsule (of 20 mg) Capsule Delayed Release Oral daily, Potassium Chloride ER 2 Capsule (of 10 meq) Capsule, controlled release Oral daily, Pravastatin Sodium 1 Tablet (of 80 mg) Oral at bedtime, Tamsulosin HCl 1 Capsule (of 0.4 mg) Oral b.i.d. Allergies: Diclofenac Sodium, Isosorbide Mononitrate, Meperidine HCl, and Spironolactone. Review of Systems: Constitutional - Appetite is good and weight is stable. No fever, night sweats, or hot flashes. Energy level is good, ENMT - No sinus congestion/drainage. No mouth sores. No sore throat or difficulty swallowing, Hematologic/Lymphatic - No abnormal bruising or bleeding, Respiratory - No shortness of breath. No cough. No pleuritic pain or hemoptysis, Cardiovascular - No angina pain. No palpitations, Gastrointestinal - No nausea or vomiting. No heartburn or acid reflux. No diarrhea or constipation. No blood in the stool or black stools, Genitourinary (M) - No dysuria or hematuria. No urinary frequency. No urgency or incontinence, Musculoskeletal - No joint or bone pain, Neurologic - No headache or dizziness. No numbness or tingling. No other focal neurologic symptoms, Psychiatric - No anxiety or depression. No insomnia. Vital Signs: Performed on Mar 26, 2020 15:08 Height - 71.00 in Weight - 219.6 lbs (HIGH) BSA - 2.19 sq.m BMI - 30.63 (HIGH) Temperature - 96.7 F (LOW) Pulse - 82 /min Respiration - 14 /min BP - 115/55 mm(hg) O2 Sat - 97 % Pain - 3 Performance Status: 1 - No physically strenuous activity, but ambulatory and able to carry out light or sedentary work (e.g. office work, light house work). (ECOG) Physical Examination: ENMT - No mouth sores, no thrush, no jaundice, Respiratory - Lungs are clear to auscultation, Cardiovascular - Regular rate and rhythm of heart, Abdomen - Soft, bowel sounds present, Extremities - No visible edema. Lab/Imaging: Test performed on Mar 19, 2020 15:25 Sodium 140 mmol/L Potassium 3.9 mmol/L Chloride 100 mmol/L CO2 30 mmol/L Anion Gap 13.9 BUN 33 mg/dL Creatinine 1.5 mg/dL Cr Clearance (Est) 50.4500 mL/min Glucose 189 mg/dL Osmolality - Calculated 302 mOsm/kg Calcium 8.7 mg/dL Protein, Total 6.4 g/dL Albumin 3.4 g/dL Globulin 3.0 g/dL Bilirubin, Total 0.3 mg/dL ALT (SGPT) 12 U/L AST (SGOT) 15 U/L Alkaline Phosphatase 93 IU/L WBC 6.0 10 3/uL RBC 3.86 10 6/uL HGB 11.4 g/dL HCT 35.9 % MCV 93.0 fL MCH 29.5 pg MCHC 31.8 g/dL RDW 13.3 % Platelet Count 251 10 3/cmm MPV 9.8 fL Neutrophils 4.45 10 3/uL Lymphocytes 1.0 10 3/uL Monocytes 0.4 10 3/uL Eosinophils 0.1 10 3/uL Basophils 0.0 10 3/uL Neutrophil % 74.7 % Lymphocyte % 16.3 % Monocyte % 6.0 % Eosinophil % 2.0 % Basophils % 0.7 % NRBC % 0 % PSA 31.190 ng/mL Test performed on Nov 03, 2019 09:16 Testosterone, Total 2.5 ng/dL Impression: 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 Lynch, urologist started him on Casodex 50 mg by mouth daily based on clinical diagnosis of metastatic prostrate cancer CT scan of chest abdomen pelvis done on 04/17/2019 and on 05/09/2019 showed enlarged lobulated heterogeneous prostate suspicious for prostrate carcinoma, diffuse sclerotic lesions within the visualized bony structures worse in the bony pelvis and sacrum suspicious for metastatic disease. Hepatic Subcapsular hematoma. Small right pleural effusion. History of hepatic subcapsular hematoma due to fall due to syncopal attack in March 2019 while on aspirin and Plavix for coronary artery disease status post stent placement History of congestive heart failure ejection fraction 45% on 10/07/2018 Plan: Discussed with patient regarding his labs PSA has gone up to 31.19 compared to 19.70 on February 14, 2020 and a 14.61 on January 10, 2020 and follow-up CT scan of abdomen pelvis showed no abdominal/pelvic/inguinal lymphadenopathy and previously seen subcapsular hepatic hematoma, now resolved. But extensive bone mets and bone scan confirmed extensive bone mets involving whole spine, pelvic bones and ribs and sternum. Clinically, patient doing reasonably well no new signs symptoms but his follow-up bone scan shows extensive bone mets and also seen on CT scan of abdomen pelvis but no visceral disease, his PSA has continued to go up now 31.19 compared to 19.70 on February 14, 2020 while on Zoladex every 3-month, his Casodex was put on hold because of progressive PSA and related symptoms like generalized weakness and fatigue, hot flashes which were presumed due to Casodex and in fact has improved. Treatment options including but not limited to, continue with 3 monthly Zoladex and monthly Xgeva and addition of apalutamide or enzalutamide or Zytiga/prednisone or systemic chemotherapy with docetaxel, patient opted for adding Zytiga/prednisone and would like to get further information on Xofigo so we will refer him to radiation oncology in [place] for evaluation for Xofigo as patient has only osseous metastatic disease, no evidence of visceral disease. All the side effects possible benefits associated with Zytiga/prednisone were discussed, further teaching will done by chemotherapy nurse. Patient will return to clinic in a month with PSA and testosterone level Signed By: Shanice Giron M.D. <<Signature on File>>
== END 2020-03-26 05:41 | disposition home or self-care (01) ==
LOC: ONCMED 05:42
PROVIDERS: PCP Family Medicine; Visit Provider Internal Medicine Hematology & Oncology
DX: C61 Malignant neoplasm of prostate (principal); C79.51 Secondary malignant neoplasm of bone; K76.89 Other specified diseases of liver; J90 Pleural effusion, not elsewhere classified; R97.20 Elevated prostate specific antigen [PSA]; Z79.52 Long term (current) use of systemic steroids; Z79.899 Other long term (current) drug therapy
CPT/HCPCS: 99214

== ENCOUNTER 2020-04-05 05:53 | Outpatient (CLI) | payer MEDICARE, OTHER, SELFPAY ==
[2020-04-05 15:20] LABS: Basophils % 0.7 %; Eosinophils # 0.1 10^3/uL (0.0-0.8); Eosinophils % 1.7 %; Hemoglobin 11.1 g/dL (11.7-16.6); Lymphocytes % 16.7 %; Mean Corpuscular HGB Conc 31.7 g/dL (30.0-36.0); Mean Corpuscular Volume 91.4 fL (80-94); Mean Platelet Volume 10.3 fL (7.4-10.4); Monocytes # 0.4 10^3/uL (0.2-0.9); Monocytes % 5.8 %; Neutrophils # 4.55 10^3/uL (1.8-7.7); Neutrophils % 74.9 %; Nucleated Red Blood Cells % 0 %; Platelet Count 258 10^3/cmm (130-400); Red Blood Count 3.83 10^6/uL (4.1-5.3); Red Cell Distribution Width 13.4 % (12.1-15.1); White Blood Count 6.1 10^3/uL (4.0-10.0)
[2020-04-05 16:12] LABS: Alanine Aminotransferase 12 U/L (0-41); Albumin Level 3.3 g/dL (3.5-5.2); Alkaline Phosphatase 84 IU/L (40-130); Anion Gap 11.7 (5-19); Aspartate Amino Transferase 15 U/L (0-40); Blood Urea Nitrogen 35 mg/dL (8-23); Calcium 9.1 mg/dL (8.5-10.5); Carbon Dioxide 31 mmol/L (22-29); Chloride 100 mmol/L (98-107); Glucose 193 mg/dL (65-115); Osmolality Calculated 301 mOsm/kg (285-295); Potassium 3.7 mmol/L (3.5-5.1); Sodium 139 mmol/L (136-145); Total Bilirubin 0.3 mg/dL (0.15-1.2); Total Protein 6.3 g/dL (6.6-8.7)
--- NOTE | 2020-04-09 21:45 | ONC FU_ITS ---
[facility] Patient Note Patient: Hayes Solis Unit #: [id number]: 1935 Dictated By: Paulina AbrahamDate of Visit: Apr 05, 2020 Onc MED Follow-Up/Prog Note Chief Complaint: Metastatic prostate cancer History of Present Illness: Mr. Solis is an 84-year-old gentleman who was recently admitted to hospital with right sided chest pain. He had a fall prior to the admission on 05/09/2019 that occurred on 04/08/2019. Mr Solis had had an episode of syncopal attack and sustained liver injury causing hepatic hematoma. He was on aspirin and Plavix as he has history of coronary artery disease ???5 recent stent placed in June 2018. At the time of his admission in April 2019, he underwent CT scan of chest/ abdomen which showed a patent subscapular hematoma and also enlarged lobulated prostate suspicious for possible carcinoma. His PSA was 435.2. A bone scan also showed diffuse sclerotic lesions within the visualized bony structures- worse in the pelvis and sacrum and were suspicious for metastatic disease. The CT scan of abdomen showed mixed attenuation mass involving the right hepatic lobe corresponding to the previously described subcapsular hematoma. His AFP was 0.6. As per patient in October 2018 his PSA was 4. He follows with Dr. Lynch. Mr Solis was seen by Dr. Lynch for prostate biopsy. Mr Solis reports that he was started on Casodex 50 mg by mouth daily and no biopsy was considered due to the reports of extensive bone metastases and abnormal looking prostate gland on the scan and PSA being extremely high at 435.2. Clinically diagnosed with prostate cancer was entertained and now being treated as stage IV prostate cancer with Zoladex and Xgeva. The Casodex was discontinued on January 10, 2020 due to progressive PSA and Dr Giron's note indicates that sometimes holding the antiandrogen can improve PSA results. PMH: As history of coronary artery disease status post multiple stent and history of congestive heart failure, Echocardiogram done on 10/07/2018 showed ejection fraction 45%, [id number] aortic stenosis, moderate mitral regurg. Other medical history includes: COPD, sleep apnea, iron deficiency anemia, TIA, hypertension, chronic kidney disease, INTERIM HISTORY: CT PET scan done on October 29, 2019 showed diffuse low-grade activity in the prostate gland with no focal activity to localize. Small scattered pelvic lymph nodes are FDG negative with no evidence of zeyad metastatic disease. There were widespread sclerotic lesion throughout the axial and appendicular skeleton consistent with osseous metastatic disease demonstrate low-grade FDG. Follow-up CT scan of abdomen and pelvis done on February 28, 2020 showed no pelvic lymphadenopathy no inguinal lymphadenopathy, normal seminal vesicles, no abdominal lymphadenopathy, previously described right subcapsular hepatic hematoma is resolved. Progressive diffuse blastic metastasis throughout the visualized bony structures. Heterogeneous enhancing nodular prostate has decreased in size Bone scan done on February 28, 2020 showed diffuse bony metastatic prostate cancer involving bony pelvis, lumbar and thoracic and cervical spine sternum and ribs. Mr. Solis has been offered treatment with Zytiga/prednisone. He will continue with Zoladex. He is also been referred to radiation oncology in [place] for He is here today to start his first cycle of the Zytiga/prednisone. He denies any concerns. He remains very active. 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 He does not sit still well. He states he does get tired but he recovers well with rest. He states he just does better to stay active. He denies any new pain. He does have consult with [place] later this week/early next week. He denies any fever or chills. Has had no signs or symptoms of infection for at least the last 72 hours. He states his appetite is good. He states his bowels and bladder are normal for him. His ECOG is 0. Past Medical History: Heart disease Past Surgical History: Allergies: Diclofenac Sodium, Isosorbide Mononitrate, Meperidine HCl, and Spironolactone. Medications: Carvedilol 1 Tablet (of 3.125 mg) Oral b.i.d. Chlorthalidone 1 Tablet (of 25 mg) Oral daily Clopidogrel Bisulfate 1 Tablet (of 75 mg) Oral daily DULoxetine HCl 1 Capsule (of 30 mg) Capsule Delayed Release Particles Oral daily Finasteride 1 Tablet (of 5 mg) Oral daily HYDROcodone-Acetaminophen 1 Tablet (of 5-325 mg) Oral q 6 hours PRN Losartan Potassium 1 Tablet (of 50 mg) Oral daily Magnesium 1 Tablet (of 200 mg) Tablet, chewable Oral daily Mens Multivitamin Tablet Oral Omeprazole 1 Capsule (of 20 mg) Capsule Delayed Release Oral daily Potassium Chloride ER 2 Capsule (of 10 meq) Capsule, controlled release Oral daily Pravastatin Sodium 1 Tablet (of 80 mg) Oral at bedtime Tamsulosin HCl 1 Capsule (of 0.4 mg) Oral b.i.d. Family History: Mr. Solis's mother at age 73: alzheimers. Mr. Solis's father at age 80: heart disease. Mr. Solis has 1 brother who is : stroke. He has 1 sister who is : heart disease. Social History: Mr. Solis is and he is retired. Mr. Solis has never smoked. Review Of Symptoms: Constitutional Denies fevers, chills, night sweats, excessive fatigue or weight loss. Allergic/Immunologic No reactions. Eyes Denies significant visual changes. No diplopia. No amaurosis. ENMT Denies changes in hearing, sore throat, mouth sores, difficulty or changes in swallowing ability, and/or sinus drainage. Hematologic/Lymphatic Denies easy bruising or bleeding. The patient denies any tender or palpable lymph nodes. Respiratory Denies any new or worsening dyspnea on exertion, chest pain, cough or hemoptysis. Denies orthopnea. Cardiovascular Denies anginal chest pain, palpitations or orthopnea. Gastrointestinal Denies nausea, vomiting, diarrhea, GI bleeding, or constipation. Denies change in bowel habits and/or stool color, no heartburn or early satiety. Genitourinary (M) Denies hematuria, dysuria, increased frequency, urgency, hesitancy or incontinence. Musculoskeletal Denies joint pain, swelling or redness. No decreased range of motion. Integumentary Denies chronic rashes, inflammation, ulcerations or skin changes. Neurologic Denies headache, blurred vision, and no areas of focal weakness or numbness. Normal gait. No sensory problems. Psychiatric Denies insomnia, depression, daljit or mood swings. Vital Signs: Performed on Apr 05, 2020 13:09 Height - 71.00 in Weight - 220.4 lbs (HIGH) BSA - 2.20 sq.m BMI - 30.74 (HIGH) Temperature - 97.1 F (LOW) Pulse - 85 /min Respiration - 26 /min BP - 123/49 mm(hg) O2 Sat - 97 % Pain - 0,0 - Fully active, able to carry on all predisease activities without restrictions. (ECOG) Physical Examination: Constitutional Alert, oriented, no acute distress. Skin pink, warm and dry. Head Normocephalic; atraumatic. Eyes Conjunctivae and sclerae are clear and without icterus. Pupils are reactive and equal. ENMT No oral exudates, ulcers, masses, thrush or mucositis. Oropharynx clear. Tongue normal. Neck Supple without masses or thyromegaly. No jugular venous distension. Hematologic/Lymphatic No petechiae or purpura. No tender or palpable lymph nodes in the cervical or supraclavicular areas. Respiratory Lungs are clear to auscultation without rhonchi or wheezing. Cardiovascular Regular rate and rhythm of heart without murmurs,clicks, gallops or rubs. Abdomen Non-tender, non-distended, no masses or ascites. Good bowel sounds noted in all quads. No guarding or rebound tenderness. No pulsatile masses. Back/Spine Non-tender to palpation. Extremities No visible deformities, no cyanosis, clubbing or edema. Musculoskeletal No tenderness or swelling, normal range of motion without obvious weakness. Integumentary No rashes or lesions. Neurologic No sensory or motor deficits, normal cerebellar function, normal gait. Psychiatric Alert and oriented times three. Coherent speech. Verbalizes understanding of our discussions today. Laboratory:Test performed on Apr 05, 2020 14:52 Sodium 139 mmol/L Potassium 3.7 mmol/L Chloride 100 mmol/L CO2 31 mmol/L Anion Gap 11.7 BUN 35 mg/dL Creatinine 1.6 mg/dL Cr Clearance (Est) 47.7300 mL/min Glucose 193 mg/dL Osmolality - Calculated 301 mOsm/kg Calcium 9.1 mg/dL Protein, Total 6.3 g/dL Albumin 3.3 g/dL Globulin 3.0 g/dL Bilirubin, Total 0.3 mg/dL ALT (SGPT) 12 U/L AST (SGOT) 15 U/L Alkaline Phosphatase 84 IU/L WBC 6.1 10 3/uL RBC 3.83 10 6/uL HGB 11.1 g/dL HCT 35.0 % MCV 91.4 fL MCH 29.0 pg MCHC 31.7 g/dL RDW 13.4 % Platelet Count 258 10 3/cmm MPV 10.3 fL Neutrophils 4.55 10 3/uL Lymphocytes 1.0 10 3/uL Monocytes 0.4 10 3/uL Eosinophils 0.1 10 3/uL Basophils 0.0 10 3/uL Neutrophil % 74.9 % Lymphocyte % 16.7 % Monocyte % 5.8 % Eosinophil % 1.7 % Basophils % 0.7 % NRBC % 0 % PSA 43.250 ng/mL Test performed on Nov 03, 2019 09:16 Testosterone, Total 2.5 ng/dL Impression: 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 Lynch, urologist started him on Casodex 50 mg by mouth daily based on clinical diagnosis of metastatic prostrate cancer CT scan of chest abdomen pelvis done on 04/17/2019 and on 05/09/2019 showed enlarged lobulated heterogeneous prostate suspicious for prostrate carcinoma, diffuse sclerotic lesions within the visualized bony structures worse in the bony pelvis and sacrum suspicious for metastatic disease. Hepatic Subcapsular hematoma. Small right pleural effusion. History of hepatic subcapsular hematoma due to fall due to syncopal attack in March 2019 while on aspirin and Plavix for coronary artery disease status post stent placement History of congestive heart failure ejection fraction 45% on 10/07/2018 Dr Giron discussed with Mr and Mrs Solis that the PSA had increased to 31.19 compared to 19.70 on February 14, 2020 and a 14.61 on January 10, 2020. Follow-up CT scan of abdomen pelvis showed no abdominal/pelvic/inguinal lymphadenopathy and previously seen subcapsular hepatic hematoma, now resolved. But extensive bone mets and bone scan confirmed extensive bone mets involving whole spine, pelvic bones and ribs and sternum. Clinically, patient doing reasonably well no new signs symptoms but his follow-up bone scan shows extensive bone mets and also seen on CT scan of abdomen pelvis but no visceral disease, his PSA has continued to go up now 31.19 compared to 19.70 on February 14, 2020 while on Zoladex every 3-month, his Casodex was put on hold because of progressive PSA and related symptoms like generalized weakness and fatigue, hot flashes which were presumed due to Casodex and in fact improved off Casodex. Treatment options including but not limited to, continue with 3 monthly Zoladex and monthly Xgeva and addition of apalutamide or enzalutamide or Zytiga/prednisone or systemic chemotherapy with docetaxel. Mr Solis opted for a trial of Zytiga/prednisone was referred to radiation oncology at [facility] for evaluation for Xofigo as patient has only osseous metastatic disease, no evidence of visceral disease. Mr Solis has received the Zytiga and is here today to start his first cycle. Plan: 1. Start Zytiga (abiraterone) 500 mg 2 tablets daily. 2. Prednisone 5 mg twice daily 3. Continue Zoladex 10.8 mg every 3 months. His last dose was 03/19/2020. 4. Continue Xgeva monthly last dose given 03/19/2020. He is not due for this yet this month. 5. He may utilize Compazine as needed for antiemetics at home. 6. I have requested baseline CBC CMP and repeat PSA. His last PSA was March 19, 2020 at which time it was 31.190. 7. He did have appoint with Dr Kyle Pringle with [facility] at [facility] on 03/28/2020. Dr. Pringle did refer him to nuclear medication for treatment with the Xofigo. 8. I have requested weekly CBCs for following with the Zytiga especially with him being treated with the Xofigo. We will be more than glad to send copies to Dr. Pringle. 9. We will plan to see Mr. Solis back as scheduled on April 25, 2020. His Xgeva currently scheduled for 1228 and I have requested that we move this to April 25, 2020 2 save him a trip here. Also will need to see where he is out with the Xofigo treatment at that time. We will want to watch his counts closely after he receives the Xofigo as he will be on the Zytiga as well. 10. The patient and family were informed of the treatment plan and specific drugs were discussed. We also discussed how the medication works and identified common side effects including hot flashes, elevated triglycerides, headache, dizziness, hypertension, urticaria, flushing, fatigue, nausea, diarrhea, constipation, joint/muscle pain, heartburn, palpitations, alopecia is reported at < 5%. We discussed that they certainly need to let us know before taking any antioxidants or herbal or further dietary supplements, as we are unsure of how these agents react with the treatment plan and we request that they avoid these products for now. They are informed that it is okay to take the multivitamins. They verbally state that they understand to take all medications as directed by the provider unless otherwise indicated. Instructions for oral care with baking soda and salt water rinses as well as a guide for use of [id number] medication were provided with the treatment plan. They were given specific drug information. They have no questions and verbalized understanding and are willing to proceed with treatment at this time. The majority of this visit was spent in face to face communication with this patient and/or his family in regards to plan of care, side effect identification and management. Signed By: Paulina Abraham-, AOCNP Shanice Giron MD <<Signature on File>>
== END 2020-04-05 05:54 | disposition home or self-care (01) ==
LOC: ONCMED 05:54
PROVIDERS: PCP Family Medicine; Visit Provider Nurse Practitioner
DX: C61 Malignant neoplasm of prostate (principal); C79.51 Secondary malignant neoplasm of bone; J90 Pleural effusion, not elsewhere classified; I50.9 Heart failure, unspecified; Z79.899 Other long term (current) drug therapy; Z79.52 Long term (current) use of systemic steroids; Z79.818 Long term (current) use of other agents affecting estrogen receptors and estrogen levels
CPT/HCPCS: 36415; 80053; 84153; 85025; 99215

== ENCOUNTER 2020-04-25 11:59 | Outpatient (CLI) | payer MEDICARE, OTHER, SELFPAY ==
[2020-04-25 13:35] LABS: Testosterone Total 2.5 ng/dL (193-740)
[2020-04-25] MEDS: denosumab 120 mg SDV SUBCUT (14:35)
[2020-04-25 14:45] LABS: Basophils # 0.1 10^3/uL (0.0-0.1); Basophils % 0.5 %; Eosinophils # 0.1 10^3/uL (0.0-0.8); Eosinophils % 0.9 %; Hematocrit 40.4 % (42.0-52.0); Hemoglobin 12.7 g/dL (11.7-16.6); Lymphocytes # 0.9 10^3/uL (0.8-4.8); Lymphocytes % 9.6 %; Mean Corpuscular HGB Conc 31.4 g/dL (30.0-36.0); Mean Corpuscular Hemoglobin 29.3 pg (28.0-34.0); Mean Corpuscular Volume 93.3 fL (80-94); Mean Platelet Volume 11.2 fL (7.4-10.4); Monocytes # 0.6 10^3/uL (0.2-0.9); Monocytes % 6.1 %; Neutrophils # 7.83 10^3/uL (1.8-7.7); Neutrophils % 82.7 %; Nucleated Red Blood Cells % 0 %; Platelet Count 248 10^3/cmm (130-400); Red Blood Count 4.33 10^6/uL (4.1-5.3); Red Cell Distribution Width 13.8 % (12.1-15.1); White Blood Count 9.5 10^3/uL (4.0-10.0)
--- NOTE | 2020-04-26 11:26 | ONC FU_ITS ---
Dr. Giron follow up note Patient: Hayes Solis Unit #: [id number]: 1935 Dicatated By: Shanice Giron M.D.Date of Visit:Apr 25, 2020 Onc Med Follow-up/Prog Note History of Present Illness: Mr. Solis is an 84-year-old gentleman who was recently admitted to hospital with right sided chest pain. He had a fall prior to the admission on 05/09/2019 that occurred on 04/08/2019. Mr Solis had had an episode of syncopal attack and sustained liver injury causing hepatic hematoma. He was on aspirin and Plavix as he has history of coronary artery disease ???5 recent stent placed in June 2018. At the time of his admission in April 2019, he underwent CT scan of chest/ abdomen which showed a patent subscapular hematoma and also enlarged lobulated prostate suspicious for possible carcinoma. His PSA was 435.2. A bone scan also showed diffuse sclerotic lesions within the visualized bony structures- worse in the pelvis and sacrum and were suspicious for metastatic disease. The CT scan of abdomen showed mixed attenuation mass involving the right hepatic lobe corresponding to the previously described subcapsular hematoma. His AFP was 0.6. As per patient in October 2018 his PSA was 4. He follows with Dr. Lynch. Mr Solis was seen by Dr. Lynch for prostate biopsy. Mr Solis reports that he was started on Casodex 50 mg by mouth daily and no biopsy was considered due to the reports of extensive bone metastases and abnormal looking prostate gland on the scan and PSA being extremely high at 435.2. Clinically diagnosed with prostate cancer was entertained and now being treated as stage IV prostate cancer with Zoladex and Xgeva. The Casodex was discontinued on January 10, 2020 due to progressive PSA and Dr Giron's note indicates that sometimes holding the antiandrogen can improve PSA results. PMH: As history of coronary artery disease status post multiple stent and history of congestive heart failure, Echocardiogram done on 10/07/2018 showed ejection fraction 45%, [id number] aortic stenosis, moderate mitral regurg. Other medical history includes: COPD, sleep apnea, iron deficiency anemia, TIA, hypertension, chronic kidney disease, INTERIM HISTORY: CT PET scan done on October 29, 2019 showed diffuse low-grade activity in the prostate gland with no focal activity to localize. Small scattered pelvic lymph nodes are FDG negative with no evidence of zeyad metastatic disease. There were widespread sclerotic lesion throughout the axial and appendicular skeleton consistent with osseous metastatic disease demonstrate low-grade FDG. Follow-up CT scan of abdomen and pelvis done on February 28, 2020 showed no pelvic lymphadenopathy no inguinal lymphadenopathy, normal seminal vesicles, no abdominal lymphadenopathy, previously described right subcapsular hepatic hematoma is resolved. Progressive diffuse blastic metastasis throughout the visualized bony structures. Heterogeneous enhancing nodular prostate has decreased in size Bone scan done on February 28, 2020 showed diffuse bony metastatic prostate cancer involving bony pelvis, lumbar and thoracic and cervical spine sternum and ribs. Mr. Solis has been offered treatment with Zytiga/prednisone.Which was started on April 07, 2020 with zytiga 1000 mg along with the prednisone, dose was reduced to 250 mg p.o. daily along with prednisone for better tolerance on April 25, 2019 He will continue with Zoladex. He is also been referred to radiation oncology in [place] for Evaluation for Xofigo Came for follow-up, denies any specific complaints, no fever chills, no nausea or vomiting no diarrhea or constipation no skin rash, no shortness of breath no new bony pains tolerating zytiga /prednisone which was started on April 07, 2020 along with Zoladex and monthly Xgeva well. Patient said he has seen radiation oncology in [place] regarding evaluation for Xofigo, now being considered and waiting for their call for the treatment. Medications: Carvedilol 1 Tablet (of 3.125 mg) Oral b.i.d., Chlorthalidone 1 Tablet (of 25 mg) Oral daily, Clopidogrel Bisulfate 1 Tablet (of 75 mg) Oral daily, DULoxetine HCl 1 Capsule (of 30 mg) Capsule Delayed Release Particles Oral daily, Finasteride 1 Tablet (of 5 mg) Oral daily, HYDROcodone-Acetaminophen 1 Tablet (of 5-325 mg) Oral q 6 hours PRN, Losartan Potassium 1 Tablet (of 50 mg) Oral daily, Magnesium 1 Tablet (of 200 mg) Tablet, chewable Oral daily, Mens Multivitamin Tablet Oral, Omeprazole 1 Capsule (of 20 mg) Capsule Delayed Release Oral daily, Potassium Chloride ER 2 Capsule (of 10 meq) Capsule, controlled release Oral daily, Pravastatin Sodium 1 Tablet (of 80 mg) Oral at bedtime, Tamsulosin HCl 1 Capsule (of 0.4 mg) Oral b.i.d. Allergies: Diclofenac Sodium, Isosorbide Mononitrate, Meperidine HCl, and Spironolactone. Review of Systems: Review of Systems is not available for this patient. Vital Signs: Performed on Apr 25, 2020 13:45 Height - 71.00 in Weight - 218.6 lbs (LOW) BSA - 2.19 sq.m BMI - 30.49 (HIGH) Temperature - 97.3 F (LOW) Pulse - 93 /min Respiration - 18 /min BP - 100/42 mm(hg) O2 Sat - 96 % Pain - 0 Performance Status: 1 - No physically strenuous activity, but ambulatory and able to carry out light or sedentary work (e.g. office work, light house work). (ECOG) Physical Examination: ENMT - No mouth sores, no thrush, no jaundice, Respiratory - Lungs are clear to auscultation, Cardiovascular - Regular rate and rhythm of heart, Abdomen - Soft, bowel sounds present, Extremities - No visible edema. Lab/Imaging: Test performed on Apr 05, 2020 14:52 Sodium 139 mmol/L Potassium 3.7 mmol/L Chloride 100 mmol/L CO2 31 mmol/L Anion Gap 11.7 BUN 35 mg/dL Creatinine 1.6 mg/dL Cr Clearance (Est) 47.7300 mL/min Glucose 193 mg/dL Osmolality - Calculated 301 mOsm/kg Calcium 9.1 mg/dL Protein, Total 6.3 g/dL Albumin 3.3 g/dL Globulin 3.0 g/dL Bilirubin, Total 0.3 mg/dL ALT (SGPT) 12 U/L AST (SGOT) 15 U/L Alkaline Phosphatase 84 IU/L WBC 6.1 10 3/uL RBC 3.83 10 6/uL HGB 11.1 g/dL HCT 35.0 % MCV 91.4 fL MCH 29.0 pg MCHC 31.7 g/dL RDW 13.4 % Platelet Count 258 10 3/cmm MPV 10.3 fL Neutrophils 4.55 10 3/uL Lymphocytes 1.0 10 3/uL Monocytes 0.4 10 3/uL Eosinophils 0.1 10 3/uL Basophils 0.0 10 3/uL Neutrophil % 74.9 % Lymphocyte % 16.7 % Monocyte % 5.8 % Eosinophil % 1.7 % Basophils % 0.7 % NRBC % 0 % PSA 43.250 ng/mL Test performed on Nov 03, 2019 09:16 Testosterone, Total 2.5 ng/dL Impression: 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 Lynch, urologist started him on Casodex 50 mg by mouth daily based on clinical diagnosis of metastatic prostrate cancer CT scan of chest abdomen pelvis done on 04/17/2019 and on 05/09/2019 showed enlarged lobulated heterogeneous prostate suspicious for prostrate carcinoma, diffuse sclerotic lesions within the visualized bony structures worse in the bony pelvis and sacrum suspicious for metastatic disease. Hepatic Subcapsular hematoma. Small right pleural effusion. History of hepatic subcapsular hematoma due to fall due to syncopal attack in March 2019 while on aspirin and Plavix for coronary artery disease status post stent placement History of congestive heart failure ejection fraction 45% on 10/07/2018 discussed with Mr and Mrs Irma that the PSA had increased to 31.19 compared to 19.70 on February 14, 2020 and a 14.61 on January 10, 2020. Follow-up CT scan of abdomen pelvis showed no abdominal/pelvic/inguinal lymphadenopathy and previously seen subcapsular hepatic hematoma, now resolved. But extensive bone mets and bone scan confirmed extensive bone mets involving whole spine, pelvic bones and ribs and sternum. Clinically, patient doing reasonably well no new signs symptoms but his follow-up bone scan shows extensive bone mets and also seen on CT scan of abdomen pelvis but no visceral disease, his PSA has continued to go up now 31.19 compared to 19.70 on February 14, 2020 while on Zoladex every 3-month, his Casodex was put on hold because of progressive PSA and related symptoms like generalized weakness and fatigue, hot flashes which were presumed due to Casodex and in fact improved off Casodex. Treatment options including but not limited to, continue with 3 monthly Zoladex and monthly Xgeva and addition of apalutamide or enzalutamide or Zytiga/prednisone or systemic chemotherapy with docetaxel. Mr Solis opted for a trial of Zytiga/prednisone was referred to radiation oncology at [facility] for evaluation for Xofigo as patient has only osseous metastatic disease, no evidence of visceral disease. Mr Solis has received the Zytiga 1000mg Along with prednisone was started on April 07, 2020, But dose was reduced to 250 mg p.o. daily along with prednisone on April 25, 2019 for better tolerance and moreover patient is being considered for Xofigo treatment Plan: Discussed with patient regarding his labs PSA 56.19 compared to 43.25 on April 05, 2020 and testosterone is 2.5 Clinically, patient doing well with no new signs symptoms, his PSA continues to go up while on Zoladex/Zytiga/prednisone and monthly Xgeva. As patient has extensive bone mets but no visceral disease, he was referred to radiation oncology in [place] for evaluation for Xofigo treatment and which is being under consideration, radiation center has already obtained insurance approval and in a process of obtaining medication and scheduling the patient for the therapy. His follow-up labs shows PSA has gone up further. Hopefully with treatment with Xofigo will have better control over his extensive bone mets, may cause significant cytoreduction thus improvement in his PSA and overall disease status. In the meantime we will continue with Zytiga but at reduced dose to 250 mg p.o. daily instead of 1000 mg p.o. daily, to minimize toxicity related to Xofigo and for better tolerance. And we will also proceed with monthly Xgeva today and then he will return to clinic in a month with CBC and PSA Signed By: Shanice Giron M.D. <<Signature on File>>
== END 2020-04-25 12:00 | disposition home or self-care (01) ==
LOC: ONCMED 12:02
PROVIDERS: PCP Family Medicine; Visit Provider Internal Medicine Hematology & Oncology
DX: Z51.11 Encounter for antineoplastic chemotherapy (principal); C61 Malignant neoplasm of prostate; C79.51 Secondary malignant neoplasm of bone; J90 Pleural effusion, not elsewhere classified; R97.20 Elevated prostate specific antigen [PSA]; Z79.52 Long term (current) use of systemic steroids
CPT/HCPCS: 36415; 84153; 84403; 85025; 96372; 99215; J0897

== ENCOUNTER 2020-05-24 08:33 | Outpatient (CLI) | payer MEDICARE, OTHER, SELFPAY ==
[2020-05-24 09:12] LABS: Basophils % 0.6 %; Eosinophils % 0.4 %; Hematocrit 39.8 % (42.0-52.0); Hemoglobin 12.6 g/dL (11.7-16.6); Lymphocytes % 19.7 %; Mean Corpuscular HGB Conc 31.7 g/dL (30.0-36.0); Mean Corpuscular Hemoglobin 29.4 pg (28.0-34.0); Mean Platelet Volume 9.9 fL (7.4-10.4); Monocytes # 0.4 10^3/uL (0.2-0.9); Monocytes % 7.8 %; Neutrophils # 3.57 10^3/uL (1.8-7.7); Neutrophils % 71.1 %; Nucleated Red Blood Cells % 0 %; Platelet Count 249 10^3/cmm (130-400); Red Blood Count 4.28 10^6/uL (4.1-5.3); Red Cell Distribution Width 14.7 % (12.1-15.1)
--- NOTE | 2020-05-24 15:05 | ONC FU_ITS ---
Dr. Giron follow up note Patient: Hayes Solis Unit #: [id number]: [id number] Dicatated By: Shanice Giron M.D.Date of Visit:May 24, 2020 Onc Med Follow-up/Prog Note History of Present Illness: Mr. Solis is an 84-year-old gentleman who was recently admitted to hospital with right sided chest pain. He had a fall prior to the admission on 05/09/2019 that occurred on 04/08/2019. Mr Solis had had an episode of syncopal attack and sustained liver injury causing hepatic hematoma. He was on aspirin and Plavix as he has history of coronary artery disease ???5 recent stent placed in June 2018. At the time of his admission in April 2019, he underwent CT scan of chest/ abdomen which showed a patent subscapular hematoma and also enlarged lobulated prostate suspicious for possible carcinoma. His PSA was 435.2. A bone scan also showed diffuse sclerotic lesions within the visualized bony structures- worse in the pelvis and sacrum and were suspicious for metastatic disease. The CT scan of abdomen showed mixed attenuation mass involving the right hepatic lobe corresponding to the previously described subcapsular hematoma. His AFP was 0.6. As per patient in October 2018 his PSA was 4. He follows with Dr. Lynch. Mr Solis was seen by Dr. Lynch for prostate biopsy. Mr Solis reports that he was started on Casodex 50 mg by mouth daily and no biopsy was considered due to the reports of extensive bone metastases and abnormal looking prostate gland on the scan and PSA being extremely high at 435.2. Clinically diagnosed with prostate cancer was entertained and now being treated as stage IV prostate cancer with Zoladex and Xgeva. The Casodex was discontinued on January 10, 2020 due to progressive PSA and Dr Giron's note indicates that sometimes holding the antiandrogen can improve PSA results. PMH: As history of coronary artery disease status post multiple stent and history of congestive heart failure, Echocardiogram done on 10/07/2018 showed ejection fraction 45%, [id number] aortic stenosis, moderate mitral regurg. Other medical history includes: COPD, sleep apnea, iron deficiency anemia, TIA, hypertension, chronic kidney disease, INTERIM HISTORY: CT PET scan done on October 29, 2019 showed diffuse low-grade activity in the prostate gland with no focal activity to localize. Small scattered pelvic lymph nodes are FDG negative with no evidence of zeyad metastatic disease. There were widespread sclerotic lesion throughout the axial and appendicular skeleton consistent with osseous metastatic disease demonstrate low-grade FDG. Follow-up CT scan of abdomen and pelvis done on February 28, 2020 showed no pelvic lymphadenopathy no inguinal lymphadenopathy, normal seminal vesicles, no abdominal lymphadenopathy, previously described right subcapsular hepatic hematoma is resolved. Progressive diffuse blastic metastasis throughout the visualized bony structures. Heterogeneous enhancing nodular prostate has decreased in size Bone scan done on February 28, 2020 showed diffuse bony metastatic prostate cancer involving bony pelvis, lumbar and thoracic and cervical spine sternum and ribs. Mr. Solis has been offered treatment with Zytiga/prednisone.Which was started on April 07, 2020 with zytiga 1000 mg along with the prednisone, dose was reduced to 250 mg p.o. daily along with prednisone for better tolerance on April 25, 2019 He will continue with Zoladex. He is also been referred to radiation oncology in [place] for Evaluation for XofigoStatus post 1 Infusion next one is due in 1 week Came for follow-up, denies any specific complaint except chronic diarrhea now almost over 1 month, not responding to Imodium or Lomotil patient said most the time is watery and almost always after meals, but no blood or mucus in it. No abdominal pain, no nausea or vomiting, no fever chills, no new bony pains, patient tolerated 1 infusion of Xofigo well and now due for second infusion in a week. Medications: Carvedilol 1 Tablet (of 3.125 mg) Oral b.i.d., Chlorthalidone 1 Tablet (of 25 mg) Oral daily, Clopidogrel Bisulfate 1 Tablet (of 75 mg) Oral daily, DULoxetine HCl 1 Capsule (of 30 mg) Capsule Delayed Release Particles Oral daily, Finasteride 1 Tablet (of 5 mg) Oral daily, HYDROcodone-Acetaminophen 1 Tablet (of 5-325 mg) Oral q 6 hours PRN, Losartan Potassium 1 Tablet (of 50 mg) Oral daily, Magnesium 1 Tablet (of 200 mg) Tablet, chewable Oral daily, Mens Multivitamin Tablet Oral, Omeprazole 1 Capsule (of 20 mg) Capsule Delayed Release Oral daily, Potassium Chloride ER 2 Capsule (of 10 meq) Capsule, controlled release Oral daily, Pravastatin Sodium 1 Tablet (of 80 mg) Oral at bedtime, Tamsulosin HCl 1 Capsule (of 0.4 mg) Oral b.i.d. Allergies: Diclofenac Sodium, Isosorbide Mononitrate, Meperidine HCl, and Spironolactone. Review of Systems: Constitutional - Appetite is good and weight is stable. No fever, night sweats, or hot flashes. Energy level is good, ENMT - No sinus congestion/drainage. No mouth sores. No sore throat or difficulty swallowing, Hematologic/Lymphatic - No abnormal bruising or bleeding, Respiratory - No shortness of breath. No cough. No pleuritic pain or hemoptysis, Cardiovascular - No angina pain. No palpitations, Gastrointestinal - No nausea or vomiting. No heartburn or acid reflux. Positive for diarrhea, no constipation. No blood in the stool or black stools, Genitourinary (M) - No dysuria or hematuria. No urinary frequency. No urgency or incontinence, Musculoskeletal - No joint or bone pain, Neurologic - No headache or dizziness. No numbness or tingling. No other focal neurologic symptoms, Psychiatric - No anxiety or depression. No insomnia. Vital Signs: Performed on May 24, 2020 10:18 Height - 71.00 in Weight - 211.2 lbs (LOW) BSA - 2.16 sq.m BMI - 29.46 Temperature - 97.2 F (LOW) Pulse - 75 /min Respiration - 20 /min BP - 108/48 mm(hg) O2 Sat - 97 % Pain - 0 Performance Status: 1 - No physically strenuous activity, but ambulatory and able to carry out light or sedentary work (e.g. office work, light house work). (ECOG) Physical Examination: ENMT - No mouth sores, no thrush, no jaundice, Respiratory - Lungs are clear to auscultation, Cardiovascular - Regular rate and rhythm of heart, Abdomen - Soft, bowel sounds present, Extremities - No visible edema. Lab/Imaging: Test performed on Apr 25, 2020 12:15 Testosterone, Total 2.5 ng/dL WBC 9.5 10 3/uL RBC 4.33 10 6/uL HGB 12.7 g/dL HCT 40.4 % MCV 93.3 fL MCH 29.3 pg MCHC 31.4 g/dL RDW 13.8 % Platelet Count 248 10 3/cmm MPV 11.2 fL Neutrophils 7.83 10 3/uL Lymphocytes 0.9 10 3/uL Monocytes 0.6 10 3/uL Eosinophils 0.1 10 3/uL Basophils 0.1 10 3/uL Neutrophil % 82.7 % Lymphocyte % 9.6 % Monocyte % 6.1 % Eosinophil % 0.9 % Basophils % 0.5 % NRBC % 0 % PSA 56.190 ng/mL Test performed on Apr 05, 2020 14:52 Sodium 139 mmol/L Potassium 3.7 mmol/L Chloride 100 mmol/L CO2 31 mmol/L Anion Gap 11.7 BUN 35 mg/dL Creatinine 1.6 mg/dL Cr Clearance (Est) 47.7300 mL/min Glucose 193 mg/dL Osmolality - Calculated 301 mOsm/kg Calcium 9.1 mg/dL Protein, Total 6.3 g/dL Albumin 3.3 g/dL Globulin 3.0 g/dL Bilirubin, Total 0.3 mg/dL ALT (SGPT) 12 U/L AST (SGOT) 15 U/L Alkaline Phosphatase 84 IU/L Impression: 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 Lynch, urologist started him on Casodex 50 mg by mouth daily based on clinical diagnosis of metastatic prostrate cancer CT scan of chest abdomen pelvis done on 04/17/2019 and on 05/09/2019 showed enlarged lobulated heterogeneous prostate suspicious for prostrate carcinoma, diffuse sclerotic lesions within the visualized bony structures worse in the bony pelvis and sacrum suspicious for metastatic disease. Hepatic Subcapsular hematoma. Small right pleural effusion. History of hepatic subcapsular hematoma due to fall due to syncopal attack in March 2019 while on aspirin and Plavix for coronary artery disease status post stent placement History of congestive heart failure ejection fraction 45% on 10/07/2018 discussed with Mr and Mrs Solis that the PSA had increased to 31.19 compared to 19.70 on February 14, 2020 and a 14.61 on January 10, 2020. Follow-up CT scan of abdomen pelvis showed no abdominal/pelvic/inguinal lymphadenopathy and previously seen subcapsular hepatic hematoma, now resolved. But extensive bone mets and bone scan confirmed extensive bone mets involving whole spine, pelvic bones and ribs and sternum. Clinically, patient doing reasonably well no new signs symptoms but his follow-up bone scan shows extensive bone mets and also seen on CT scan of abdomen pelvis but no visceral disease, his PSA has continued to go up now 31.19 compared to 19.70 on February 14, 2020 while on Zoladex every 3-month, his Casodex was put on hold because of progressive PSA and related symptoms like generalized weakness and fatigue, hot flashes which were presumed due to Casodex and in fact improved off Casodex. Treatment options including but not limited to, continue with 3 monthly Zoladex and monthly Xgeva and addition of apalutamide or enzalutamide or Zytiga/prednisone or systemic chemotherapy with docetaxel. Mr Solis opted for a trial of Zytiga/prednisone was referred to radiation oncology at [facility] for evaluation for Xofigo as patient has only osseous metastatic disease, no evidence of visceral disease. Mr Solis has received the Zytiga 1000mg Along with prednisone was started on April 07, 2020, But dose was reduced to 250 mg p.o. daily along with prednisone on April 25, 2019 for better tolerance and moreover patient is being treated with Xofigo Plan: Discussed with patient regarding his labs white blood count 5 hemoglobin 12.6 hematocrit 39.8 platelets 249,000, CMP is pending PSA 78.74 compared to 56.19 on April 25, 2020 eg prior to Xofigo infusion Clinically, patient is doing well with no new signs symptom but persistent diarrhea which could be multifactorial including due to malabsorption or secretory type or infectious like C. difficile, not responding to Lomotil or Imodium. At this point we will check his stool for C. difficile and start him on ciprofloxacin/Flagyl for infectious diarrhea including C. difficile, if no improvement, will refer him to gastroenterology for further evaluation in the meantime we will hold Zytiga/prednisone and Xgeva. Patient was advised to maintain hydration, patient is consuming Gatorade, will monitor his electrolytes, Follow-up labs shows increasing PSA level, which could be due to Xofigo treatment or disease progression but less likely, will monitor and if alkaline phosphatase is normal range or no worsening, could be due to Xofigo patient said he is scheduled to get COVID-19 vaccine tomorrow morning. And second dose of Xofigo is scheduled for next week. Return to clinic in 3 weeks with CBC CMP and PSA and for Zoladex and if diarrhea resolved, will resume Zytiga/prednisone and Xgeva Signed By: Shanice Giron M.D. <<Signature on File>>
[2020-05-24 21:18] LABS: Alanine Aminotransferase 19 U/L (0-41); Albumin Level 3.4 g/dL (3.5-5.2); Alkaline Phosphatase 60 IU/L (40-130); Anion Gap 12.9 (5-19); Aspartate Amino Transferase 19 U/L (0-40); Blood Urea Nitrogen 28 mg/dL (8-23); Calcium 8.4 mg/dL (8.5-10.5); Carbon Dioxide 31 mmol/L (22-29); Chloride 101 mmol/L (98-107); Globulin 2.6 g/dL (1.3-4.6); Glucose 139 mg/dL (65-115); Osmolality Calculated 300 mOsm/kg (285-295); Potassium 3.9 mmol/L (3.5-5.1); Sodium 141 mmol/L (136-145); Total Bilirubin 0.3 mg/dL (0.15-1.2)
== END 2020-05-24 08:34 | disposition home or self-care (01) ==
PROVIDERS: PCP Family Medicine; Visit Provider Internal Medicine Hematology & Oncology
DX: C61 Malignant neoplasm of prostate (principal); C79.51 Secondary malignant neoplasm of bone; S36.13XA Injury of bile duct, initial encounter; J90 Pleural effusion, not elsewhere classified; D89.9 Disorder involving the immune mechanism, unspecified; J44.9 Chronic obstructive pulmonary disease, unspecified; G47.33 Obstructive sleep apnea (adult) (pediatric); D50.9 Iron deficiency anemia, unspecified; I10 Essential (primary) hypertension; N18.9 Chronic kidney disease, unspecified; I25.10 Atherosclerotic heart disease of native coronary artery without angina pectoris; Z95.5 Presence of coronary angioplasty implant and graft; Z79.52 Long term (current) use of systemic steroids; Z79.890 Hormone replacement therapy
CPT/HCPCS: 36415; 80053; 84153; 85025; 87493; 87506; 99214

== ENCOUNTER 2020-06-26 12:05 | Outpatient (CLI) | payer MEDICARE, OTHER, SELFPAY ==
[2020-06-26 12:38] LABS: Basophils % 0.6 %; Eosinophils # 0.1 10^3/uL (0.0-0.8); Eosinophils % 1.1 %; Hematocrit 38.9 % (42.0-52.0); Hemoglobin 12.4 g/dL (11.7-16.6); Lymphocytes # 1.2 10^3/uL (0.8-4.8); Lymphocytes % 16.4 %; Mean Corpuscular HGB Conc 31.9 g/dL (30.0-36.0); Mean Corpuscular Volume 94.2 fL (80-94); Mean Platelet Volume 10.4 fL (7.4-10.4); Monocytes # 0.4 10^3/uL (0.2-0.9); Monocytes % 5.9 %; Neutrophils # 5.36 10^3/uL (1.8-7.7); Neutrophils % 75.6 %; Nucleated Red Blood Cells % 0 %; Platelet Count 227 10^3/cmm (130-400); Red Blood Count 4.13 10^6/uL (4.1-5.3); Red Cell Distribution Width 14.7 % (12.1-15.1); White Blood Count 7.1 10^3/uL (4.0-10.0)
[2020-06-26 13:24] LABS: Alanine Aminotransferase 15 U/L (0-41); Albumin Level 3.2 g/dL (3.5-5.2); Alkaline Phosphatase 67 IU/L (40-130); Anion Gap 11.8 (5-19); Aspartate Amino Transferase 15 U/L (0-40); Blood Urea Nitrogen 31 mg/dL (8-23); Calcium 8.8 mg/dL (8.5-10.5); Carbon Dioxide 32 mmol/L (22-29); Chloride 95 mmol/L (98-107); Globulin 2.8 g/dL (1.3-4.6); Glucose 132 mg/dL (65-115); Osmolality Calculated 288 mOsm/kg (285-295); Potassium 3.8 mmol/L (3.5-5.1); Sodium 135 mmol/L (136-145); Total Bilirubin 0.4 mg/dL (0.15-1.2)
[2020-06-26] MEDS: lidocaine 1% INJ 20 mL INJECTION (14:22)
[2020-06-26] MEDS: goserelin acetate 10.8 mg Implant IM (14:33)
[2020-06-26] MEDS: denosumab 120 mg SDV SUBCUT (15:51)
--- NOTE | 2020-07-08 16:48 | ONC FU_ITS ---
[facility] Patient Note Patient: Hayes Solis Unit #: [id number]: 1935 Dictated By: Paulina AbrahamDate of Visit: Jun 26, 2020 Onc MED Follow-Up/Prog Note Chief Complaint: Metastatic prostate cancer History of Present Illness: Mr. Solis is an 84-year-old gentleman who was recently admitted to hospital with right sided chest pain. He had a fall prior to the admission on 05/09/2019 that occurred on 04/08/2019. Mr Solis had had an episode of syncopal attack and sustained liver injury causing hepatic hematoma. He was on aspirin and Plavix as he has history of coronary artery disease ???5 recent stent placed in June 2018. At the time of his admission in April 2019, he underwent CT scan of chest/ abdomen which showed a patent subscapular hematoma and also enlarged lobulated prostate suspicious for possible carcinoma. His PSA was 435.2. A bone scan also showed diffuse sclerotic lesions within the visualized bony structures- worse in the pelvis and sacrum and were suspicious for metastatic disease. The CT scan of abdomen showed mixed attenuation mass involving the right hepatic lobe corresponding to the previously described subcapsular hematoma. His AFP was 0.6. As per patient in October 2018 his PSA was 4. He follows with Dr. Lynch. Mr Solis was seen by Dr. Lynch for prostate biopsy. Mr Solis reports that he was started on Casodex 50 mg by mouth daily and no biopsy was considered due to the reports of extensive bone metastases and abnormal looking prostate gland on the scan and PSA being extremely high at 435.2. Clinically diagnosed with prostate cancer was entertained and now being treated as stage IV prostate cancer with Zoladex and Xgeva. The Casodex was discontinued on January 10, 2020 due to progressive PSA and Dr Giron's note indicates that sometimes holding the antiandrogen can improve PSA results. PMH: As history of coronary artery disease status post multiple stent and history of congestive heart failure, Echocardiogram done on 10/07/2018 showed ejection fraction 45%, [id number] aortic stenosis, moderate mitral regurg. Other medical history includes: COPD, sleep apnea, iron deficiency anemia, TIA, hypertension, chronic kidney disease, INTERIM HISTORY: CT PET scan done on October 29, 2019 showed diffuse low-grade activity in the prostate gland with no focal activity to localize. Small scattered pelvic lymph nodes are FDG negative with no evidence of zeyad metastatic disease. There were widespread sclerotic lesion throughout the axial and appendicular skeleton consistent with osseous metastatic disease demonstrate low-grade FDG. Follow-up CT scan of abdomen and pelvis done on February 28, 2020 showed no pelvic lymphadenopathy no inguinal lymphadenopathy, normal seminal vesicles, no abdominal lymphadenopathy, previously described right subcapsular hepatic hematoma is resolved. Progressive diffuse blastic metastasis throughout the visualized bony structures. Heterogeneous enhancing nodular prostate has decreased in size Bone scan done on February 28, 2020 showed diffuse bony metastatic prostate cancer involving bony pelvis, lumbar and thoracic and cervical spine sternum and ribs. Mr. Solis has been offered treatment with Zytiga/prednisone. He began his first cycle on April 07, 2020 with Zytiga 1000 mg orally along with the prednisone. His Zytiga, dose was reduced to 250 mg p.o. daily along with prednisone for better tolerance on April 25, 2020. He was having significant diarrhea and decline in his performance status. He will continue with Zoladex. He was also referred to radiation oncology in [place] for Evaluation for Xofigo. He has had 2 infusions and thenext one is due in 1 week. Mr. Solis is here today for follow-up. He has no new concerns. He states overall he feels great. 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 He states he does get tired easily but recovers well with rest. He is eating well. His bowels and bladder are normal for him. He denies any lower extremity edema. He again denies any pain. He has had no new pain. He is eating well. He remains very jovial. His ECOG is 0. He states his diarrhea is well controlled with the Zytiga at 250 daily. Past Medical History: Heart disease Past Surgical History: Allergies: Diclofenac Sodium, Isosorbide Mononitrate, Meperidine HCl, and Spironolactone. Medications: Carvedilol 1 Tablet (of 3.125 mg) Oral b.i.d. Chlorthalidone 1 Tablet (of 25 mg) Oral daily Clopidogrel Bisulfate 1 Tablet (of 75 mg) Oral daily DULoxetine HCl 1 Capsule (of 30 mg) Capsule Delayed Release Particles Oral daily Finasteride 1 Tablet (of 5 mg) Oral daily HYDROcodone-Acetaminophen 1 Tablet (of 5-325 mg) Oral q 6 hours PRN Losartan Potassium 1 Tablet (of 50 mg) Oral daily Magnesium 1 Tablet (of 200 mg) Tablet, chewable Oral daily Mens Multivitamin Tablet Oral Omeprazole 1 Capsule (of 20 mg) Capsule Delayed Release Oral daily Potassium Chloride ER 2 Capsule (of 10 meq) Capsule, controlled release Oral daily Pravastatin Sodium 1 Tablet (of 80 mg) Oral at bedtime Tamsulosin HCl 1 Capsule (of 0.4 mg) Oral b.i.d. Family History: Mr. Solis's mother at age 73: alzheimers. Mr. Solis's father at age 80: heart disease. Mr. Solis has 1 brother who is : stroke. He has 1 sister who is : heart disease. Social History: Mr. Solis is and he is retired. Mr. Solis has never smoked. Review Of Symptoms: Constitutional Denies fevers, chills, night sweats, excessive fatigue or weight loss. Allergic/Immunologic No reactions. Eyes Denies significant visual changes. No diplopia. No amaurosis. ENMT Denies changes in hearing, sore throat, mouth sores, difficulty or changes in swallowing ability, and/or sinus drainage. Hematologic/Lymphatic Denies easy bruising or bleeding. The patient denies any tender or palpable lymph nodes. Respiratory Denies any new or worsening dyspnea on exertion, chest pain, cough or hemoptysis. Denies orthopnea. Cardiovascular Denies anginal chest pain, palpitations or orthopnea. Gastrointestinal Denies nausea, vomiting, diarrhea, GI bleeding, or constipation. Denies change in bowel habits and/or stool color, no heartburn or early satiety. Genitourinary (M) Denies hematuria, dysuria, increased frequency, urgency, hesitancy or incontinence. Musculoskeletal Denies joint pain, swelling or redness. No decreased range of motion. Integumentary Denies chronic rashes, inflammation, ulcerations or skin changes. Neurologic Denies headache, blurred vision, and no areas of focal weakness or numbness. Normal gait. No sensory problems. Psychiatric Denies insomnia, depression, daljit or mood swings. Vital Signs: Performed on Jun 26, 2020 13:45 Height - 71.00 in Weight - 217.0 lbs (HIGH) BSA - 2.18 sq.m BMI - 30.27 (HIGH) Temperature - 97.5 F (LOW) Pulse - 94 /min Respiration - 16 /min BP - 101/50 mm(hg) O2 Sat - 96 % Pain - 0,0 - Fully active, able to carry on all predisease activities without restrictions. (ECOG) Physical Examination: Constitutional Alert, oriented, no acute distress. Skin pink, warm and dry. Head Normocephalic; atraumatic. Eyes Conjunctivae and sclerae are clear and without icterus. Pupils are reactive and equal. ENMT No oral exudates, ulcers, masses, thrush or mucositis. Oropharynx clear. Tongue normal. Neck Supple without masses or thyromegaly. No jugular venous distension. Hematologic/Lymphatic No petechiae or purpura. No tender or palpable lymph nodes in the cervical or supraclavicular areas. Respiratory Lungs are clear to auscultation without rhonchi or wheezing. Cardiovascular Regular rate and rhythm of heart without murmurs,clicks, gallops or rubs. Abdomen Non-tender, non-distended, no masses or ascites. Good bowel sounds noted in all quads. No guarding or rebound tenderness. No pulsatile masses. Back/Spine Non-tender to palpation. Extremities No visible deformities, no cyanosis, clubbing or edema. Musculoskeletal No tenderness or swelling, normal range of motion without obvious weakness. Integumentary No rashes or lesions. Neurologic No sensory or motor deficits, normal cerebellar function, normal gait. Psychiatric Alert and oriented times three. Coherent speech. Verbalizes understanding of our discussions today. Laboratory:Test performed on Jun 26, 2020 12:18 Sodium 135 mmol/L Potassium 3.8 mmol/L Chloride 95 mmol/L CO2 32 mmol/L Anion Gap 11.8 BUN 31 mg/dL Creatinine 1.4 mg/dL Cr Clearance (Est) 53.71 mL/min Glucose 132 mg/dL Osmolality - Calculated 288 mOsm/kg Calcium 8.8 mg/dL Protein, Total 6.0 g/dL Albumin 3.2 g/dL Globulin 2.8 g/dL Bilirubin, Total 0.4 mg/dL ALT (SGPT) 15 U/L AST (SGOT) 15 U/L Alkaline Phosphatase 67 IU/L WBC 7.1 10 3/uL RBC 4.13 10 6/uL HGB 12.4 g/dL HCT 38.9 % MCV 94.2 fL MCH 30.0 pg MCHC 31.9 g/dL RDW 14.7 % Platelet Count 227 10 3/cmm MPV 10.4 fL Neutrophils 5.36 10 3/uL Lymphocytes 1.2 10 3/uL Monocytes 0.4 10 3/uL Eosinophils 0.1 10 3/uL Basophils 0.0 10 3/uL Neutrophil % 75.6 % Lymphocyte % 16.4 % Monocyte % 5.9 % Eosinophil % 1.1 % Basophils % 0.6 % NRBC % 0 % PSA 124.400 ng/mL Test performed on May 24, 2020 03:45 C. Difficile, PCR No C. difficile toxin B gene DNA detected Enteric Pathogens, PCR No Shigella/E.coli (EIEC) DNA Detected No Shiga Toxin I/II Genes Detected No Campylobacter DNA Detected No Salmonella DNA Detected Test performed on Apr 25, 2020 12:15 Testosterone, Total 2.5 ng/dL Impression: 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 Lynch, urologist started him on Casodex 50 mg by mouth daily based on clinical diagnosis of metastatic prostrate cancer CT scan of chest abdomen pelvis done on 04/17/2019 and on 05/09/2019 showed enlarged lobulated heterogeneous prostate suspicious for prostrate carcinoma, diffuse sclerotic lesions within the visualized bony structures worse in the bony pelvis and sacrum suspicious for metastatic disease. Hepatic Subcapsular hematoma. Small right pleural effusion. History of hepatic subcapsular hematoma due to fall due to syncopal attack in March 2019 while on aspirin and Plavix for coronary artery disease status post stent placement History of congestive heart failure ejection fraction 45% on 10/07/2018 discussed with Mr and Mrs Irma that the PSA had increased to 31.19 compared to 19.70 on February 14, 2020 and a 14.61 on January 10, 2020. Follow-up CT scan of abdomen pelvis showed no abdominal/pelvic/inguinal lymphadenopathy and previously seen subcapsular hepatic hematoma, now resolved. But extensive bone mets and bone scan confirmed extensive bone mets involving whole spine, pelvic bones and ribs and sternum. Clinically, patient doing reasonably well no new signs symptoms but his follow-up bone scan shows extensive bone mets and also seen on CT scan of abdomen pelvis but no visceral disease, his PSA has continued to go up now 31.19 compared to 19.70 on February 14, 2020 while on Zoladex every 3-month, his Casodex was put on hold because of progressive PSA and related symptoms like generalized weakness and fatigue, hot flashes which were presumed due to Casodex and in fact improved off Casodex. Treatment options including but not limited to, continue with 3 monthly Zoladex and monthly Xgeva and addition of apalutamide or enzalutamide or Zytiga/prednisone or systemic chemotherapy with docetaxel. Mr Solis opted for a trial of Zytiga/prednisone was referred to radiation oncology at [facility] for evaluation for Xofigo as patient has only osseous metastatic disease, no evidence of visceral disease. Mr Solis has received the Zytiga 1000mg Along with prednisone was started on April 07, 2020, But dose was reduced to 250 mg p.o. daily along with prednisone on April 25, 2019 for better tolerance and moreover patient is being treated with Xofigo Plan: PROBLEMS ADDRESSED TODAY 1. Metastatic prostate cancer with extensive bone metastasis A. Proceed with Zytiga 1 daily???Dr. Giron's note indicates he is taking 250 mg daily but his prescription is for 500 mg tablets-will verify dosing with him. Continue Prednisone 10 mg daily. B. Proceed with monthly Xgeva 120 mg for the bone metastasis. He is due for dosing today as his last documented dose was April 25, 2020. C. Continue every 3-month Zoladex. His last dose was 03/19/2020. He is due for that today. D. He continues with Xofigo per radiation therapy in [place]. D. Today's labs reviewed in detail and discussed with Mr. Mrs. Solis and a copy was given to them. WBC 7.1, hemoglobin 12.4, platelets 227,000 ANC is 5360. Potassium 3.8 creatinine 1.4 which is stable random glucose 132 LFTs are normal alk phos is 67. PSA is 124.4. This is up from May 24, 2020 is 78.74. Follow-up plan A. we will plan to see him back in a minimum of 28 days at which time he will be due for his next Xgeva shot. B. His next Zoladex injection will be due around September 26, 2020. C. Mr. Solis was instructed to contact us in interim should questions or problems arise. Signed By: Paulina Abraham-, AOCNP Shanice Giron MD <<Signature on File>>
== END 2020-06-26 12:06 | disposition home or self-care (01) ==
PROVIDERS: PCP Family Medicine; Visit Provider Nurse Practitioner
DX: C61 Malignant neoplasm of prostate (principal); C79.51 Secondary malignant neoplasm of bone; J90 Pleural effusion, not elsewhere classified; Z79.899 Other long term (current) drug therapy; Z79.52 Long term (current) use of systemic steroids; Z79.818 Long term (current) use of other agents affecting estrogen receptors and estrogen levels
CPT/HCPCS: 36415; 80053; 84153; 85025; 96372; 96402; 99214; J0897; J9202

== ENCOUNTER 2020-08-02 08:26 | Outpatient (CLI) | payer MEDICARE, OTHER, SELFPAY ==
[2020-08-02 09:14] LABS: Hematocrit 36.9 % (42.0-52.0); Hemoglobin 12.1 g/dL (11.7-16.6); Mean Corpuscular HGB Conc 32.8 g/dL (30.0-36.0); Mean Corpuscular Hemoglobin 31.5 pg (28.0-34.0); Mean Corpuscular Volume 96.1 fL (80-94); Mean Platelet Volume 10.7 fL (7.4-10.4); Platelet Count 193 10^3/cmm (130-400); Red Blood Count 3.84 10^6/uL (4.1-5.3); Red Cell Distribution Width 14.6 % (12.1-15.1); White Blood Count 5.3 10^3/uL (4.0-10.0)
[2020-08-02 09:28] LABS: Alanine Aminotransferase 14 U/L (0-41); Albumin Level 3.6 g/dL (3.5-5.2); Alkaline Phosphatase 86 IU/L (40-130); Anion Gap 11.7 (5-19); Aspartate Amino Transferase 14 U/L (0-40); Blood Urea Nitrogen 38 mg/dL (8-23); Calcium 8.5 mg/dL (8.5-10.5); Carbon Dioxide 33 mmol/L (22-29); Chloride 98 mmol/L (98-107); Globulin 2.4 g/dL (1.3-4.6); Glucose 153 mg/dL (65-115); Osmolality Calculated 300 mOsm/kg (285-295); Potassium 3.7 mmol/L (3.5-5.1); Sodium 139 mmol/L (136-145); Total Bilirubin 0.4 mg/dL (0.15-1.2)
[2020-08-02 10:33] LABS: Absolute Neutrophil 4.3 10^3/cmm (1.4-6.5); Absolute Segmented Neutrophil 3.8 10/cmm (1.6-7.1); Band Neutrophils Absolute 0.5 10^3/cmm (0.0-1.2); Basophils Absolute 0.1 10^3/cmm (0.0-0.2); Eosinophils 0 %; Lymphocytes 15 %; Lymphocytes Absolute 0.8 10^3/cmm (1.2-3.4); Monocytes Absolute 0.1 10^3/cmm (0.1-0.6); Platelet Estimate Normal (Normal); Segmented Neutrophils 72 %; Total Cells Counted 100 (0-100)
[2020-08-02] MEDS: denosumab 120 mg SDV SUBCUT (11:34)
--- NOTE | 2020-08-02 15:26 | ONC FU_ITS ---
Dr. Giron follow up note Patient: Hayes Solis Unit #: [id number]: 1935 Dicatated By: Shanice Giron M.D.Date of Visit:Aug 02, 2020 Onc Med Follow-up/Prog Note History of Present Illness: Mr. Solis is an 84-year-old gentleman who was recently admitted to hospital with right sided chest pain. He had a fall prior to the admission on 05/09/2019 that occurred on 04/08/2019. Mr Solis had had an episode of syncopal attack and sustained liver injury causing hepatic hematoma. He was on aspirin and Plavix as he has history of coronary artery disease ???5 recent stent placed in June 2018. At the time of his admission in April 2019, he underwent CT scan of chest/ abdomen which showed a patent subscapular hematoma and also enlarged lobulated prostate suspicious for possible carcinoma. His PSA was 435.2. A bone scan also showed diffuse sclerotic lesions within the visualized bony structures- worse in the pelvis and sacrum and were suspicious for metastatic disease. The CT scan of abdomen showed mixed attenuation mass involving the right hepatic lobe corresponding to the previously described subcapsular hematoma. His AFP was 0.6. As per patient in October 2018 his PSA was 4. He follows with Dr. Lynch. Mr Solis was seen by Dr. Lynch for prostate biopsy. Mr Solis reports that he was started on Casodex 50 mg by mouth daily and no biopsy was considered due to the reports of extensive bone metastases and abnormal looking prostate gland on the scan and PSA being extremely high at 435.2. Clinically diagnosed with prostate cancer was entertained and now being treated as stage IV prostate cancer with Zoladex and Xgeva. The Casodex was discontinued on January 10, 2020 due to progressive PSA and Dr Giron's note indicates that sometimes holding the antiandrogen can improve PSA results. PMH: As history of coronary artery disease status post multiple stent and history of congestive heart failure, Echocardiogram done on 10/07/2018 showed ejection fraction 45%, [id number] aortic stenosis, moderate mitral regurg. Other medical history includes: COPD, sleep apnea, iron deficiency anemia, TIA, hypertension, chronic kidney disease, INTERIM HISTORY: CT PET scan done on October 29, 2019 showed diffuse low-grade activity in the prostate gland with no focal activity to localize. Small scattered pelvic lymph nodes are FDG negative with no evidence of zeyad metastatic disease. There were widespread sclerotic lesion throughout the axial and appendicular skeleton consistent with osseous metastatic disease demonstrate low-grade FDG. Follow-up CT scan of abdomen and pelvis done on February 28, 2020 showed no pelvic lymphadenopathy no inguinal lymphadenopathy, normal seminal vesicles, no abdominal lymphadenopathy, previously described right subcapsular hepatic hematoma is resolved. Progressive diffuse blastic metastasis throughout the visualized bony structures. Heterogeneous enhancing nodular prostate has decreased in size Bone scan done on February 28, 2020 showed diffuse bony metastatic prostate cancer involving bony pelvis, lumbar and thoracic and cervical spine sternum and ribs. Mr. Solis has been offered treatment with Zytiga/prednisone. He began his first cycle on April 07, 2020 with Zytiga 1000 mg orally along with the prednisone. His Zytiga, dose was reduced to 250 mg p.o. daily along with prednisone for better tolerance on April 25, 2020. He was having significant diarrhea and decline in his performance status. He will continue with Zoladex. He was also referred to radiation oncology in [place] for Evaluation for Xofigo. He has had 3 infusions and next one is due on August 16, 2020 Came for, complaining of generalized weakness and fatigue, as per patient, patient has significant heart condition for which he is being followed by Dr. Bermeo, as far as prostate cancer is concerned patient is on Xofigo infusion, so far has received 3 doses in the next 1 is due on August 16, 2020. Patient denies any diarrhea denies any fever chills denies any nausea or vomiting denies any chest pain or shortness of breath denies any dysuria or hematuria, tolerating Zytiga/prednisone/3 monthly Zoladex and monthly Xgeva well otherwise Medications: Carvedilol 1 Tablet (of 3.125 mg) Oral b.i.d., Chlorthalidone 1 Tablet (of 25 mg) Oral daily, Clopidogrel Bisulfate 1 Tablet (of 75 mg) Oral daily, DULoxetine HCl 1 Capsule (of 30 mg) Capsule Delayed Release Particles Oral daily, Finasteride 1 Tablet (of 5 mg) Oral daily, HYDROcodone-Acetaminophen 1 Tablet (of 5-325 mg) Oral q 6 hours PRN, Losartan Potassium 1 Tablet (of 50 mg) Oral daily, Magnesium 1 Tablet (of 200 mg) Tablet, chewable Oral daily, Mens Multivitamin Tablet Oral, Omeprazole 1 Capsule (of 20 mg) Capsule Delayed Release Oral daily, Potassium Chloride ER 2 Capsule (of 10 meq) Capsule, controlled release Oral daily, Pravastatin Sodium 1 Tablet (of 80 mg) Oral at bedtime, Tamsulosin HCl 1 Capsule (of 0.4 mg) Oral b.i.d. Allergies: Diclofenac Sodium, Isosorbide Mononitrate, Meperidine HCl, and Spironolactone. Review of Systems: Review of Systems is not available for this patient. Vital Signs: Performed on Aug 02, 2020 08:35 Height - 71.00 in Weight - 215.0 lbs (LOW) BSA - 2.17 sq.m BMI - 29.99 Temperature - 98.3 F (LOW) Pulse - 80 /min Respiration - 18 /min BP - 103/62 mm(hg) O2 Sat - 99 % Pain - 0 Fatigue - 4 Performance Status: 2 - Ambulatory/capable of all self-care, unable to perform any work activities. Up and about more than 50% of waking hours. (ECOG) Physical Examination: ENMT - No mouth sores, no thrush, no jaundice, Respiratory - Lungs are clear to auscultation, Cardiovascular - Regular rate and rhythm of heart, Abdomen - Soft, bowel sounds present, Extremities - Trace edema bilaterally. Lab/Imaging: Test performed on Jun 26, 2020 12:18 Sodium 135 mmol/L Potassium 3.8 mmol/L Chloride 95 mmol/L CO2 32 mmol/L Anion Gap 11.8 BUN 31 mg/dL Creatinine 1.4 mg/dL Cr Clearance (Est) 53.71 mL/min Glucose 132 mg/dL Osmolality - Calculated 288 mOsm/kg Calcium 8.8 mg/dL Protein, Total 6.0 g/dL Albumin 3.2 g/dL Globulin 2.8 g/dL Bilirubin, Total 0.4 mg/dL ALT (SGPT) 15 U/L AST (SGOT) 15 U/L Alkaline Phosphatase 67 IU/L WBC 7.1 10 3/uL RBC 4.13 10 6/uL HGB 12.4 g/dL HCT 38.9 % MCV 94.2 fL MCH 30.0 pg MCHC 31.9 g/dL RDW 14.7 % Platelet Count 227 10 3/cmm MPV 10.4 fL Neutrophils 5.36 10 3/uL Lymphocytes 1.2 10 3/uL Monocytes 0.4 10 3/uL Eosinophils 0.1 10 3/uL Basophils 0.0 10 3/uL Neutrophil % 75.6 % Lymphocyte % 16.4 % Monocyte % 5.9 % Eosinophil % 1.1 % Basophils % 0.6 % NRBC % 0 % PSA 124.400 ng/mL Test performed on May 24, 2020 03:45 C. Difficile, PCR No C. difficile toxin B gene DNA detected Enteric Pathogens, PCR No Shigella/E.coli (EIEC) DNA Detected No Shiga Toxin I/II Genes Detected No Campylobacter DNA Detected No Salmonella DNA Detected Test performed on Apr 25, 2020 12:15 Testosterone, Total 2.5 ng/dL Impression: 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 Lynch, urologist started him on Casodex 50 mg by mouth daily based on clinical diagnosis of metastatic prostrate cancer CT scan of chest abdomen pelvis done on 04/17/2019 and on 05/09/2019 showed enlarged lobulated heterogeneous prostate suspicious for prostrate carcinoma, diffuse sclerotic lesions within the visualized bony structures worse in the bony pelvis and sacrum suspicious for metastatic disease. Hepatic Subcapsular hematoma. Small right pleural effusion. History of hepatic subcapsular hematoma due to fall due to syncopal attack in March 2019 while on aspirin and Plavix for coronary artery disease status post stent placement History of congestive heart failure ejection fraction 45% on 10/07/2018 discussed with Mr and Mrs Solis that the PSA had increased to 31.19 compared to 19.70 on February 14, 2020 and a 14.61 on January 10, 2020. Follow-up CT scan of abdomen pelvis showed no abdominal/pelvic/inguinal lymphadenopathy and previously seen subcapsular hepatic hematoma, now resolved. But extensive bone mets and bone scan confirmed extensive bone mets involving whole spine, pelvic bones and ribs and sternum. Clinically, patient doing reasonably well no new signs symptoms but his follow-up bone scan shows extensive bone mets and also seen on CT scan of abdomen pelvis but no visceral disease, his PSA has continued to go up now 31.19 compared to 19.70 on February 14, 2020 while on Zoladex every 3-month, his Casodex was put on hold because of progressive PSA and related symptoms like generalized weakness and fatigue, hot flashes which were presumed due to Casodex and in fact improved off Casodex. Treatment options including but not limited to, continue with 3 monthly Zoladex and monthly Xgeva and addition of apalutamide or enzalutamide or Zytiga/prednisone or systemic chemotherapy with docetaxel. Mr Solis opted for a trial of Zytiga/prednisone was referred to radiation oncology at [facility] for evaluation for Xofigo as patient has only osseous metastatic disease, no evidence of visceral disease. Mr Solis has received the Zytiga 1000mg Along with prednisone was started on April 07, 2020, But dose was reduced to 250 mg p.o. daily along with prednisone on April 25, 2019 for better tolerance and moreover patient is being treated with Xofigo Plan: Discussed with patient regarding his labs white blood count 5.3 hemoglobin 12.1 hematocrit 36.9 platelets 193,000 CMP within normal limits except creatinine 1.2 compared to 1.4 previously and alk phos 86 which is within normal limits and PSA 117.2 compared to 124.4 on June 26, 2020 Clinically, patient is doing well now being treated with Xofigo biweekly, so far has received 3 infusions and fourth 1 is due on August 16, 2020, tolerating well. And of also on 3 monthly Zoladex/Zytiga/prednisone/monthly Xgeva. We will proceed with his monthly dose of Xgeva today and then return to clinic in 1 month with PSA and testosterone, CBC/CMP As far as his elevated PSA is concerned, with a normal alkaline phosphatase, could be due to Xofigo treatment, today his PSA shows small drop, will continue to monitor. As for generalized weakness and fatigue is concerned, patient was advised to discuss with Dr. Bermeo regarding reevaluation Signed By: Shanice Giron M.D. <<Signature on File>>
== END 2020-08-02 08:27 | disposition home or self-care (01) ==
PROVIDERS: PCP Family Medicine; Visit Provider Internal Medicine Hematology & Oncology
DX: Z51.11 Encounter for antineoplastic chemotherapy (principal); C61 Malignant neoplasm of prostate; C79.51 Secondary malignant neoplasm of bone; J90 Pleural effusion, not elsewhere classified; I50.9 Heart failure, unspecified; Z79.818 Long term (current) use of other agents affecting estrogen receptors and estrogen levels
CPT/HCPCS: 80053; 84153; 85007; 85027; 96372; 99215; J0897

== ENCOUNTER 2020-08-30 06:00 | Outpatient (CLI) | payer MEDICARE, OTHER, SELFPAY ==
[2020-08-30 13:56] LABS: Basophils % 0.3 %; Eosinophils % 0.5 %; Hematocrit 37.6 % (42.0-52.0); Hemoglobin 12.3 g/dL (11.7-16.6); Lymphocytes # 0.9 10^3/uL (0.8-4.8); Lymphocytes % 14.4 %; Mean Corpuscular HGB Conc 32.7 g/dL (30.0-36.0); Mean Corpuscular Hemoglobin 32.1 pg (28.0-34.0); Mean Corpuscular Volume 98.2 fL (80-94); Mean Platelet Volume 10.8 fL (7.4-10.4); Monocytes # 0.5 10^3/uL (0.2-0.9); Monocytes % 7.3 %; Neutrophils # 4.88 10^3/uL (1.8-7.7); Neutrophils % 77.2 %; Nucleated Red Blood Cells % 0 %; Platelet Count 217 10^3/cmm (130-400); Red Blood Count 3.83 10^6/uL (4.1-5.3); Red Cell Distribution Width 13.6 % (12.1-15.1); White Blood Count 6.3 10^3/uL (4.0-10.0)
[2020-08-30 14:42] LABS: Alanine Aminotransferase 17 U/L (0-41); Albumin Level 3.7 g/dL (3.5-5.2); Alkaline Phosphatase 91 IU/L (40-130); Anion Gap 11.5 (5-19); Aspartate Amino Transferase 14 U/L (0-40); Blood Urea Nitrogen 47 mg/dL (8-23); Calcium 9.3 mg/dL (8.5-10.5); Carbon Dioxide 33 mmol/L (22-29); Chloride 96 mmol/L (98-107); Globulin 2.6 g/dL (1.3-4.6); Glucose 160 mg/dL (65-115); Osmolality Calculated 300 mOsm/kg (285-295); Potassium 3.5 mmol/L (3.5-5.1); Sodium 137 mmol/L (136-145); Total Bilirubin 0.4 mg/dL (0.15-1.2); Total Protein 6.3 g/dL (6.6-8.7)
[2020-08-30 15:41] LABS: Testosterone Total < 2.5 ng/dL (193-740)
[2020-08-30] MEDS: denosumab 120 mg SDV SUBCUT (15:50)
[2020-08-30 16:22] LABS: Thyroid Stimulating Hormone 2.18 uIU/mL (0.27-4.20)
--- NOTE | 2020-09-11 15:44 | ONC FU_ITS ---
Julianne Mcqueen Patient Note Patient: Hayes Solis Unit #: [id number]: 1935 Dictated By: Paulina AbrahamDate of Visit: August 30, 2020 Onc MED Follow-Up/Prog Note Chief Complaint: Metastatic prostate cancer History of Present Illness: Mr. Solis is an 84-year-old gentleman who was recently admitted to hospital with right sided chest pain. He had a fall prior to the admission on 05/09/2019 that occurred on 04/08/2019. Mr Solis had had an episode of syncopal attack and sustained liver injury causing hepatic hematoma. He was on aspirin and Plavix as he has history of coronary artery disease ???5 recent stent placed in June 2018. At the time of his admission in April 2019, he underwent CT scan of chest/ abdomen which showed a patent subscapular hematoma and also enlarged lobulated prostate suspicious for possible carcinoma. His PSA was 435.2. A bone scan also showed diffuse sclerotic lesions within the visualized bony structures- worse in the pelvis and sacrum and were suspicious for metastatic disease. The CT scan of abdomen showed mixed attenuation mass involving the right hepatic lobe corresponding to the previously described subcapsular hematoma. His AFP was 0.6. As per patient in October 2018 his PSA was 4. He follows with Dr. Lynch. Mr Solis was seen by Dr. Lynch for prostate biopsy. Mr Solis reports that he was started on Casodex 50 mg by mouth daily and no biopsy was considered due to the reports of extensive bone metastases and abnormal looking prostate gland on the scan and PSA being extremely high at 435.2. Clinically diagnosed with prostate cancer was entertained and now being treated as stage IV prostate cancer with Zoladex and Xgeva. The Casodex was discontinued on January 10, 2020 due to progressive PSA and Dr Giron's note indicates that sometimes holding the antiandrogen can improve PSA results. PMH: As history of coronary artery disease status post multiple stent and history of congestive heart failure, Echocardiogram done on 10/07/2018 showed ejection fraction 45%, [id number]-sw-volphybz aortic stenosis, moderate mitral regurg. Other medical history includes: COPD, sleep apnea, iron deficiency anemia, TIA, hypertension, chronic kidney disease, INTERIM HISTORY: CT PET scan done on October 29, 2019 showed diffuse low-grade activity in the prostate gland with no focal activity to localize. Small scattered pelvic lymph nodes are FDG negative with no evidence of zeyad metastatic disease. There were widespread sclerotic lesion throughout the axial and appendicular skeleton consistent with osseous metastatic disease demonstrate low-grade FDG. Follow-up CT scan of abdomen and pelvis done on February 28, 2020 showed no pelvic lymphadenopathy no inguinal lymphadenopathy, normal seminal vesicles, no abdominal lymphadenopathy, previously described right subcapsular hepatic hematoma is resolved. Progressive diffuse blastic metastasis throughout the visualized bony structures. Heterogeneous enhancing nodular prostate has decreased in size Bone scan done on February 28, 2020 showed diffuse bony metastatic prostate cancer involving bony pelvis, lumbar and thoracic and cervical spine sternum and ribs. Mr. Solis has been offered treatment with Zytiga/prednisone. He began his first cycle on April 07, 2020 with Zytiga 1000 mg orally along with the prednisone. His Zytiga, dose was reduced to 250 mg p.o. daily along with prednisone for better tolerance on April 25, 2020. He was having significant diarrhea and decline in his performance status. He will continue with Zoladex. He was also referred to radiation oncology in [place] for Evaluation for Xofigo. He has had 4 infusions and the 4th one was on August 16, 2020. He continues to tolerate them well. Mr. Solis is here today for follow-up. He is also due for denosumab today. He states overall he feels that he is doing pretty good. He is having some lower extremity edema. He states he follows with Dr. Guerrero on September 06, 2020. He states he has been having more fatigue and Mrs. 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 He states he has been having quite a bit of swelling in his feet. His shortness of breath is about the same per his description but Mrs. Solis states it might be just a little bit worse. He denies any new pain. He denies any urinary problems. He states his feet are swelling but they tend to get better at night when he is off of them. He denies any chest pain or palpitations. He denies any night sweats. He denies fever or chills. His appetite is good. His ECOG today is 2. Past Medical History: Heart disease Past Surgical History: Allergies: Diclofenac Sodium, Isosorbide Mononitrate, Meperidine HCl, and Spironolactone. Medications: Carvedilol 1 Tablet (of 3.125 mg) Oral b.i.d. Chlorthalidone 1 Tablet (of 25 mg) Oral daily Clopidogrel Bisulfate 1 Tablet (of 75 mg) Oral daily DULoxetine HCl 1 Capsule (of 30 mg) Capsule Delayed Release Particles Oral daily Finasteride 1 Tablet (of 5 mg) Oral daily HYDROcodone-Acetaminophen 1 Tablet (of 5-325 mg) Oral q 6 hours PRN Losartan Potassium 1 Tablet (of 50 mg) Oral daily Magnesium 1 Tablet (of 200 mg) Tablet, chewable Oral daily Mens Multivitamin Tablet Oral Omeprazole 1 Capsule (of 20 mg) Capsule Delayed Release Oral daily Potassium Chloride ER 2 Capsule (of 10 meq) Capsule, controlled release Oral daily Pravastatin Sodium 1 Tablet (of 80 mg) Oral at bedtime Tamsulosin HCl 1 Capsule (of 0.4 mg) Oral b.i.d. Family History: Mr. Solis's mother at age 73: alzheimers. Mr. Solis's father at age 80: heart disease. Mr. Solis has 1 brother who is : stroke. He has 1 sister who is : heart disease. Social History: Mr. Solis is and he is retired. Mr. Solis has never smoked. Review Of Symptoms: <See Above> Vital Signs: Performed on August 30, 2020 15:00 Height - 71.00 in Weight - 213.8 lbs (LOW) BSA - 2.17 sq.m BMI - 29.82 Temperature - 96.6 F (LOW) Pulse - 84 /min Respiration - 18 /min BP - 93/46 mm(hg) O2 Sat - 97 % Pain - 0,2 - Ambulatory/capable of all self-care, unable to perform any work activities. Up and about more than 50% of waking hours. (ECOG) Physical Examination: Constitutional Alert, oriented, no acute distress. Skin pink, warm and dry. Head Normocephalic; atraumatic. Eyes Conjunctivae and sclerae are clear and without icterus. Pupils are reactive and equal. Neck Supple without masses or thyromegaly. No jugular venous distension. Hematologic/Lymphatic No petechiae or purpura. No tender or palpable lymph nodes in the cervical or supraclavicular areas. Respiratory Lungs are clear to auscultation without rhonchi or wheezing. Cardiovascular Regular rate and rhythm of heart without murmurs,clicks, gallops or rubs. Abdomen Non-tender, non-distended, no masses or ascites. Good bowel sounds noted in all quads. No guarding or rebound tenderness. No pulsatile masses. Back/Spine Non-tender to palpation. Extremities No visible deformities, no cyanosis, clubbing or edema. Musculoskeletal No tenderness or swelling, normal range of motion without obvious weakness. Integumentary No rashes or lesions. Neurologic No sensory or motor deficits, normal cerebellar function, normal gait. Psychiatric Alert and oriented times three. Coherent speech. Verbalizes understanding of our discussions today. Laboratory:Test performed on August 30, 2020 13:14 Sodium 137 mmol/L Testosterone, Total < 2.5 ng/dL TSH 2.18 uIU/mL Potassium 3.5 mmol/L Chloride 96 mmol/L CO2 33 mmol/L Anion Gap 11.5 BUN 47 mg/dL Creatinine 1.2 mg/dL Cr Clearance (Est) 61.73 mL/min Glucose 160 mg/dL Osmolality - Calculated 300 mOsm/kg Calcium 9.3 mg/dL Protein, Total 6.3 g/dL Albumin 3.7 g/dL Globulin 2.6 g/dL Bilirubin, Total 0.4 mg/dL ALT (SGPT) 17 U/L AST (SGOT) 14 U/L Alkaline Phosphatase 91 IU/L WBC 6.3 10 3/uL RBC 3.83 10 6/uL HGB 12.3 g/dL HCT 37.6 % MCV 98.2 fL MCH 32.1 pg MCHC 32.7 g/dL RDW 13.6 % Platelet Count 217 10 3/cmm MPV 10.8 fL Neutrophils 4.88 10 3/uL Lymphocytes 0.9 10 3/uL Monocytes 0.5 10 3/uL Eosinophils 0.0 10 3/uL Basophils 0.0 10 3/uL Neutrophil % 77.2 % Lymphocyte % 14.4 % Monocyte % 7.3 % Eosinophil % 0.5 % Basophils % 0.3 % NRBC % 0 % PSA 142.500 ng/mL Test performed on May 24, 2020 03:45 C. Difficile, PCR No C. 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 Lynch, urologist started him on Casodex 50 mg by mouth daily based on clinical diagnosis of metastatic prostrate cancer CT scan of chest abdomen pelvis done on 04/17/2019 and on 05/09/2019 showed enlarged lobulated heterogeneous prostate suspicious for prostrate carcinoma, diffuse sclerotic lesions within the visualized bony structures worse in the bony pelvis and sacrum suspicious for metastatic disease. Hepatic Subcapsular hematoma. Small right pleural effusion. History of hepatic subcapsular hematoma due to fall due to syncopal attack in March 2019 while on aspirin and Plavix for coronary artery disease status post stent placement History of congestive heart failure ejection fraction 45% on 10/07/2018 discussed with Mr and Mrs Solis that the PSA had increased to 31.19 compared to 19.70 on February 14, 2020 and a 14.61 on January 10, 2020. Follow-up CT scan of abdomen pelvis showed no abdominal/pelvic/inguinal lymphadenopathy and previously seen subcapsular hepatic hematoma, now resolved. But extensive bone mets and bone scan confirmed extensive bone mets involving whole spine, pelvic bones and ribs and sternum. Clinically, patient doing reasonably well no new signs symptoms but his follow-up bone scan shows extensive bone mets and also seen on CT scan of abdomen pelvis but no visceral disease, his PSA has continued to go up now 31.19 compared to 19.70 on February 14, 2020 while on Zoladex every 3-month, his Casodex was put on hold because of progressive PSA and related symptoms like generalized weakness and fatigue, hot flashes which were presumed due to Casodex and in fact improved off Casodex. Treatment options including but not limited to, continue with 3 monthly Zoladex and monthly Xgeva and addition of apalutamide or enzalutamide or Zytiga/prednisone or systemic chemotherapy with docetaxel. Mr Solis opted for a trial of Zytiga/prednisone was referred to radiation oncology at [facility] for evaluation for Xofigo as patient has only osseous metastatic disease, no evidence of visceral disease. Mr Solis has received the Zytiga 1000mg Along with prednisone was started on April 07, 2020, But dose was reduced to 250 mg p.o. daily along with prednisone on April 25, 2019 for better tolerance and moreover patient is being treated with Xofigo Plan/Problems Addressed at this Visit: PROBLEMS ADDRESSED TODAY 1. Metastatic prostate cancer with extensive bone metastasis A. Proceed with Zytiga 250 mg daily. Continue Prednisone 10 mg daily. B. Proceed with monthly Xgeva 120 mg for the bone metastasis. He is due for dosing today as his last documented dose was August 02, 2020. C. Continue every 3-month Zoladex. His last dose was 06/26/2020. He is due for that next month. D. He continues with Xofigo per radiation therapy in [place]. E. Today's labs reviewed in detail and discussed with Mr. Mrs. Solis and a copy was given to them. WBC 6.3, hemoglobin 12.3, platelets 217,000 ANC is 4880. Potassium 3.5 creatinine 1.2 BUN is 47 albumin 3.7 LFTs are normal. His PSA today is 142.5. It has gradually increased from January 10, 2020 which time was 14.6. He does continue on the Xofigo. F. I have requested a TSH to be added to the blood in the lab for evaluation of his fatigue. G. I have also requested [employer] 360 prostate panel for his elevated PSA and metastatic prostate cancer. H. I did request a echocardiogram for evaluation of shortness of breath and lower extremity edema with worsening shortness of breath. He is due to see Dr. Guerrero on September 06, 2020 and I would like to have the echocardiogram prior to that visit. I. We did discuss adding furosemide to his current medication regimen however he is due to see Dr. Purvis soon and unless his edema significantly worsens prior to that visit we will hold off for now. I would like the results of the echocardiogram to review as well. Follow-up plan A. We will plan to see him back in a minimum of 28 days at which time he will be due for his next Xgeva shot. B. His next Zoladex injection will be due around September 26, 2020. C. Mr. Solis was instructed to contact us in interim should questions or problems arise. Signed By: Paulina Abraham-, [facility] Shanice Giron MD <<Signature on File>>
== END 2020-08-30 06:01 | disposition home or self-care (01) ==
LOC: ONCMED 06:03
PROVIDERS: Internal Medicine Hematology & Oncology; PCP Family Medicine; Visit Provider Nurse Practitioner
DX: Z51.11 Encounter for antineoplastic chemotherapy (principal); C61 Malignant neoplasm of prostate; C79.51 Secondary malignant neoplasm of bone; J90 Pleural effusion, not elsewhere classified; I50.9 Heart failure, unspecified; R97.20 Elevated prostate specific antigen [PSA]; Z79.52 Long term (current) use of systemic steroids; Z79.899 Other long term (current) drug therapy
CPT/HCPCS: 36415; 80053; 84153; 84403; 84443; 85025; 96372; 99214; J0897

== ENCOUNTER 2020-09-06 15:24 | Outpatient (CLI) | payer MEDICARE, OTHER, SELFPAY ==
--- NOTE | 2020-09-06 15:29 | USCV_ITS ---
IrmaHayes Age: 84 Gender: M : 1935 Exam Date: 09/06/2020 15:45 Ordering Phys: Charo Mcqueen NP Technologist: LEONEL Exam Location: [facility] [place] Indication: prostate ca BP: 97 / 45 HR: 72 Rhythm: Sinus Technical Quality: Adequate MEASUREMENTS (Male / Female) Normal Values 2D ECHO LV Diastolic Diameter PLAX 6.7 cm 4.2 - 5.9 / 3.9 - 5.3 cm LV Systolic Diameter PLAX 4.7 cm IVS Diastolic Thickness 1.3 cm 0.6 - 1.0 / 0.6 - 0.9 cm IVS Systolic Thickness 2.0 cm LVPW Diastolic Thickness 1.4 cm 0.6 - 1.0 / 0.6 - 0.9 cm LVPW Systolic Thickness 2.5 cm LVOT Diameter 2.1 cm LV Ejection Fraction 2D Teich 56.6 % LV Ejection Fraction MOD 2C 53.5 % LV Ejection Fraction 2C AL 57.2 % LA Diameter 3.9 cm LA Width 4.1 cm LA Height 5.6 cm RA Width 2.9 cm RA Height 4.2 cm Aorta at Sinotubular Diameter 2.9 cm M-MODE LV Diastolic Diameter MM 7.8 cm 4.2 - 5.9 / 3.9 - 5.3 cm LV Systolic Diameter MM 6.8 cm LV Ejection Fraction MM Teich 26.4 % IVS Diastolic Thickness MM 0.9 cm 0.6 - 1.0 / 0.6 - 0.9 cm IVS Systolic Thickness MM 1.6 cm LVPW Diastolic Thickness MM 1.4 cm 0.6 - 1.0 / 0.6 - 0.9 cm LVPW Systolic Thickness MM 1.3 cm Aortic Annulus Diameter 2.3 cm LA Ao Ratio MM 1.7 MV E Point Septal Separation 0.9 cm DOPPLER AV Peak Velocity 309.0 cm/s LVOT Peak Velocity 93.0 cm/s AV Area Cont Eq vti 1.2 cm squared AV Area Cont Eq pk 1.0 cm squared MV Area PHT 3.9 cm squared Mitral E to A Ratio 1.4 MV E' Velocity 90.0 cm/s Mitral E to MV E' Ratio 22.8 Mitral E to LV E' Lateral Ratio 26.7 Mitral E to LV E' Septal Ratio 19.9 TR Peak Velocity 203.3 cm/s TR Peak Gradient 16.5 mmHg TV Peak E Velocity 71.0 cm/s Right Atrial Pressure 3.0 mmHg Pulmonary Artery Systolic Pressu 19.5 mmHg PV Peak Velocity 91.0 cm/s RV Acceleration Time 0.1 s RV Ejection Time 0.3 s RV AcT/ET 0.3 FINDINGS Left Ventricle Moderately increased left ventricular cavity size. Severely decreased left ventricular systolic function. Left ventricular ejection fraction is estimated at 26 %. There appear to be mid to distal anterior wall dyskinesis, apical and mid to distal lateral wall akinesis suggestive of ischemic heart disease.Grade II/IV diastolic dysfunction, moderately elevated filling pressures. Right Ventricle The right ventricle is normal in size and function. Right Atrium The right atrium is normal in size. Left Atrium Moderately increased left atrial size. Mitral Valve Severely thickened mitral valve. Moderate mitral annular calcification. No mitral valve stenosis. Severe mitral valve regurgitation. Aortic Valve Severe aortic valve calcification. Moderate aortic valve stenosis, mean gradient 18.7 mmHg, TOMY 1.2 cm squared mild aortic valve regurgitation. Tricuspid Valve [id number] tricuspid valve regurgitation. Pulmonic Valve Trace pulmonary valve regurgitation. Pericardium Normal pericardium without effusion. Aorta Normal ascending aorta dimension. CONCLUSIONS 1-Moderately increased left ventricular cavity size. Severely decreased left ventricular systolic function. Left ventricular ejection fraction is estimated at 26 %. There appear to be mid to distal anterior wall dyskinesis, apical and mid to distal lateral wall akinesis suggestive of ischemic heart disease.Grade II/IV diastolic dysfunction, moderately elevated filling pressures. 2-Moderately increased left atrial size. 3-Severely thickened mitral valve. Moderate mitral annular calcification. No mitral valve stenosis. Severe mitral valve regurgitation. 4-Severe aortic valve calcification. Moderate aortic valve stenosis, mean gradient 18.7 mmHg, TOMY 1.2 cm squared mild aortic valve regurgitation. 6-Avvo-jk-moderate tricuspid valve regurgitation. 6-There is no pericardial effusion. 7-Pulmonary artery systolic pressure is within normal limits. 8-Right atrial pressure is around 5 mm of mercury. 9-No significant change since the prior echocardiogram study of 05/09/2019. Cameron Bermeo MD (Electronically Signed) Final Date: 06 Sep 2020 20:18 S
== END 2020-09-06 15:25 | disposition home or self-care (01) ==
LOC: ONCMED 15:26
PROVIDERS: PCP Family Medicine; Visit Provider Nurse Practitioner
DX: I51.7 Cardiomegaly (principal); I08.0 Rheumatic disorders of both mitral and aortic valves; I07.1 Rheumatic tricuspid insufficiency
CPT/HCPCS: 93306

== ENCOUNTER → 2020-10-04 10:39 | Outpatient (BNVA) | payer MEDICARE, OTHER, SELFPAY | PROVIDERS: PCP Family Medicine; Visit Provider Internal Medicine Hematology & Oncology | DX: I50.22 Chronic systolic (congestive) heart failure (principal); C61 Malignant neoplasm of prostate; C78.7 Secondary malignant neoplasm of liver and intrahepatic bile duct; C79.51 Secondary malignant neoplasm of bone | CPT/HCPCS: 80048; 80053; 84153; 85025 ==

== ENCOUNTER 2020-10-08 08:26 | Outpatient (CLI) | payer MEDICARE, OTHER, SELFPAY ==
[2020-10-08] MEDS: denosumab 120 mg SDV SUBCUT (09:30)
[2020-10-08] MEDS: goserelin acetate 10.8 mg Implant SUBCUT (09:40)
--- NOTE | 2020-10-09 17:01 | ONC FU_ITS ---
Dr. Giron follow up note Patient: Hayes Solis Unit #: [id number]: 1935 Dicatated By: Shanice Giron M.D.Date of Visit:Oct 08, 2020 Onc Med Follow-up/Prog Note History of Present Illness: Mr. Solis is an 84-year-old gentleman who was recently admitted to hospital with right sided chest pain. He had a fall prior to the admission on 05/09/2019 that occurred on 04/08/2019. Mr Solis had had an episode of syncopal attack and sustained liver injury causing hepatic hematoma. He was on aspirin and Plavix as he has history of coronary artery disease ???5 recent stent placed in June 2018. At the time of his admission in April 2019, he underwent CT scan of chest/ abdomen which showed a patent subscapular hematoma and also enlarged lobulated prostate suspicious for possible carcinoma. His PSA was 435.2. A bone scan also showed diffuse sclerotic lesions within the visualized bony structures- worse in the pelvis and sacrum and were suspicious for metastatic disease. The CT scan of abdomen showed mixed attenuation mass involving the right hepatic lobe corresponding to the previously described subcapsular hematoma. His AFP was 0.6. As per patient in October 2018 his PSA was 4. He follows with Dr. Lynch. Mr Solis was seen by Dr. Lynch for prostate biopsy. Mr Solis reports that he was started on Casodex 50 mg by mouth daily and no biopsy was considered due to the reports of extensive bone metastases and abnormal looking prostate gland on the scan and PSA being extremely high at 435.2. Clinically diagnosed with prostate cancer was entertained and now being treated as stage IV prostate cancer with Zoladex and Xgeva. The Casodex was discontinued on January 10, 2020 due to progressive PSA and Dr Giron's note indicates that sometimes holding the antiandrogen can improve PSA results. PMH: As history of coronary artery disease status post multiple stent and history of congestive heart failure, Echocardiogram done on 10/07/2018 showed ejection fraction 45%, [id number] aortic stenosis, moderate mitral regurg. Other medical history includes: COPD, sleep apnea, iron deficiency anemia, TIA, hypertension, chronic kidney disease, INTERIM HISTORY: CT PET scan done on October 29, 2019 showed diffuse low-grade activity in the prostate gland with no focal activity to localize. Small scattered pelvic lymph nodes are FDG negative with no evidence of zeyad metastatic disease. There were widespread sclerotic lesion throughout the axial and appendicular skeleton consistent with osseous metastatic disease demonstrate low-grade FDG. Follow-up CT scan of abdomen and pelvis done on February 28, 2020 showed no pelvic lymphadenopathy no inguinal lymphadenopathy, normal seminal vesicles, no abdominal lymphadenopathy, previously described right subcapsular hepatic hematoma is resolved. Progressive diffuse blastic metastasis throughout the visualized bony structures. Heterogeneous enhancing nodular prostate has decreased in size Bone scan done on February 28, 2020 showed diffuse bony metastatic prostate cancer involving bony pelvis, lumbar and thoracic and cervical spine sternum and ribs. Mr. Solis has been offered treatment with Zytiga/prednisone. He began his first cycle on April 07, 2020 with Zytiga 1000 mg orally along with the prednisone. His Zytiga, dose was reduced to 250 mg p.o. daily along with prednisone for better tolerance on April 25, 2020. He was having significant diarrhea and decline in his performance status. He will continue with Zoladex. He was also referred to radiation oncology in [place] for Evaluation for Xofigo. He has had 4 infusions and the 4th one was on August 16, 2020. And second last was given on September 14, 2020 and final dose is due on October 11, 2020 Came for follow-up, complaining of generalized weakness and fatigue, as per patient he been told he has a very weak heart, his echocardiogram done on September 06, 2020 showed ejection fraction around 26%, now being followed by Dr. Bermeo. Patient denies any new bony pains, denies any nausea or vomiting denies any diarrhea or constipation, patient is undergoing therapy with Xofigo and last dose was given on September 14, 2020, as per patient his treatment with Xofigo will be concluded on October 11, 2020. Medications: Carvedilol 1 Tablet (of 3.125 mg) Oral b.i.d., Chlorthalidone 1 Tablet (of 25 mg) Oral daily, Clopidogrel Bisulfate 1 Tablet (of 75 mg) Oral daily, DULoxetine HCl 1 Capsule (of 30 mg) Capsule Delayed Release Particles Oral daily, Finasteride 1 Tablet (of 5 mg) Oral daily, HYDROcodone-Acetaminophen 1 Tablet (of 5-325 mg) Oral q 6 hours PRN, Magnesium 1 Tablet (of 200 mg) Tablet, chewable Oral daily, Mens Multivitamin Tablet Oral, Omeprazole 1 Capsule (of 20 mg) Capsule Delayed Release Oral daily, Potassium Chloride ER 2 Capsule (of 10 meq) Capsule, controlled release Oral daily, Pravastatin Sodium 1 Tablet (of 80 mg) Oral at bedtime, Tamsulosin HCl 1 Capsule (of 0.4 mg) Oral b.i.d. Allergies: Diclofenac Sodium, Isosorbide Mononitrate, Meperidine HCl, and Spironolactone. Review of Systems: Review of Systems is not available for this patient. Vital Signs: Performed on Oct 08, 2020 11:33 Height - 71.00 in Weight - 213.2 lbs (LOW) BSA - 2.17 sq.m BMI - 29.74 Temperature - 97.9 F (LOW) Pulse - 92 /min Respiration - 18 /min BP - 110/56 mm(hg) O2 Sat - 97 % Pain - 0 Fatigue - 10 Performance Status: 2 - Ambulatory/capable of all self-care, unable to perform any work activities. Up and about more than 50% of waking hours. (ECOG) Physical Examination: ENMT - No mouth sores, no thrush, no jaundice, Respiratory - Lungs are clear to auscultation, Cardiovascular - Regular rate and rhythm of heart, Abdomen - Soft, bowel sounds present, Extremities - Trace edema bilaterally. Lab/Imaging: Test performed on Oct 04, 2020 11:27 Sodium 142 mmol/L Potassium 3.7 mmol/L Chloride 100 mmol/L CO2 29 mmol/L Anion Gap 16.7 BUN 26 mg/dL Creatinine 1.2 mg/dL Cr Clearance (Est) 60.4400 mL/min Glucose 187 mg/dL Osmolality - Calculated 304 mOsm/kg Calcium 8.3 mg/dL Protein, Total 5.5 g/dL Albumin 3.2 g/dL Globulin 2.3 g/dL Bilirubin, Total 0.3 mg/dL ALT (SGPT) 12 Units/L AST (SGOT) 18 Units/L Alkaline Phosphatase 74 IU/L WBC 5.1 10^3/uL RBC 3.80 10^6/uL HGB 11.6 g/dL HCT 36.6 % MCV 96.3 fl MCH 30.5 pg MCHC 31.7 g/dL RDW 13.2 % Platelet Count 265 10^3/uL MPV 10.2 fl Neutrophils 3.59 10^3/uL Lymphocytes 0.8 10^3/uL Monocytes 0.6 10^3/uL Eosinophils 0.1 10^3/uL Basophils 0.0 10^3/uL Neutrophil % 70.7 % Lymphocyte % 16.3 % Monocyte % 11.0 % Eosinophil % 1.0 % Basophils % 0.8 % NRBC 0.0 /100 WBC NRBC % 0 % PSA 147.200 ng/mL Test performed on August 30, 2020 13:14 Testosterone, Total < 2.5 ng/dL TSH 2.18 uIU/mL Test performed on May 24, 2020 03:45 C. Difficile, PCR No C. 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 Lynch, urologist started him on Casodex 50 mg by mouth daily based on clinical diagnosis of metastatic prostrate cancer CT scan of chest abdomen pelvis done on 04/17/2019 and on 05/09/2019 showed enlarged lobulated heterogeneous prostate suspicious for prostrate carcinoma, diffuse sclerotic lesions within the visualized bony structures worse in the bony pelvis and sacrum suspicious for metastatic disease. Hepatic Subcapsular hematoma. Small right pleural effusion. History of hepatic subcapsular hematoma due to fall due to syncopal attack in March 2019 while on aspirin and Plavix for coronary artery disease status post stent placement History of congestive heart failure ejection fraction 45% on 10/07/2018 discussed with Mr and Mrs Irma that the PSA had increased to 31.19 compared to 19.70 on February 14, 2020 and a 14.61 on January 10, 2020. Follow-up CT scan of abdomen pelvis showed no abdominal/pelvic/inguinal lymphadenopathy and previously seen subcapsular hepatic hematoma, now resolved. But extensive bone mets and bone scan confirmed extensive bone mets involving whole spine, pelvic bones and ribs and sternum. Clinically, patient doing reasonably well no new signs symptoms but his follow-up bone scan shows extensive bone mets and also seen on CT scan of abdomen pelvis but no visceral disease, his PSA has continued to go up now 31.19 compared to 19.70 on February 14, 2020 while on Zoladex every 3-month, his Casodex was put on hold because of progressive PSA and related symptoms like generalized weakness and fatigue, hot flashes which were presumed due to Casodex and in fact improved off Casodex. Treatment options including but not limited to, continue with 3 monthly Zoladex and monthly Xgeva and addition of apalutamide or enzalutamide or Zytiga/prednisone or systemic chemotherapy with docetaxel. Mr Solis opted for a trial of Zytiga/prednisone was referred to radiation oncology at [facility] for evaluation for Xofigo as patient has only osseous metastatic disease, no evidence of visceral disease. Mr Solis has received the Zytiga 1000mg Along with prednisone was started on April 07, 2020, But dose was reduced to 250 mg p.o. daily along with prednisone on April 25, 2019 for better tolerance and moreover patient is being treated with Xofigo Plan: Discussed with patient regarding his labs white blood count 5.1 hemoglobin 11.6 hematocrit 36.6 platelets 265,000 CMP within normal limits except glucose 187, his PSA has gone up 247.2 compared to 142 previously and 117 prior to that Clinically, patient doing reasonably well, now undergoing Xofigo therapy in [facility], tolerating well, as per patient he will conclude his Xofigo therapy on October 11, 2020 other than that denies any new bony pains denies any hematuria or dysuria but there is a concerned about progressive PSA level earlier it was thought that it could be due to Xofigo therapy but now it is concerned whether we have visceral disease progression thus we will consider CT scan of chest abdomen pelvis and also consider guardant 360 in the meantime we will continue with 3 monthly Zoladex andAbiraterone/prednisone monthly Xgeva, he will receive his next dose today and then return to clinic in 1 month with CBC CMP PSA and CT scan of chest abdomen pelvis. As far as generalized weakness and fatigue is concerned, appears multifactorial, including low ejection fraction. Signed By: Shanice Giron M.D. <<Signature on File>>
== END 2020-10-08 08:27 | disposition home or self-care (01) ==
PROVIDERS: PCP Family Medicine; Visit Provider Internal Medicine Hematology & Oncology
DX: Z51.11 Encounter for antineoplastic chemotherapy (principal); C61 Malignant neoplasm of prostate; C79.51 Secondary malignant neoplasm of bone; J90 Pleural effusion, not elsewhere classified; I50.9 Heart failure, unspecified; Z79.899 Other long term (current) drug therapy; Z79.818 Long term (current) use of other agents affecting estrogen receptors and estrogen levels
CPT/HCPCS: 96372; 96402; 99215; J0897; J9202

== ENCOUNTER 2020-11-07 11:37 | Outpatient (CLI) | payer MEDICARE, OTHER, SELFPAY ==
--- NOTE | 2020-11-07 12:00 | CT_ITS ---
WS: [id number] CT scan of the chest With IV contrast, CT scan of the abdomen and pelvis with IV contrast and oral contrast. Additional two-dimensional coronal and sagittal reconstruction was performed. 11/07/2020 Clinical Data: PROSTATE CANCER Comparison: CT abdomen and pelvis, 02/28/2020. DLP: 1853.[address] scans at [facility] use at least one of these dose optimization techniques: automat ed exposure control; mA and/or kV adjustment per patient size (includes targeted exams where dose is matched to clinical indication); or iterative reconstruction. Findings: Chest: No nodules or masses are seen. There is minimal bilateral pleural thickening and small bilateral pleu ral effusions unchanged. The heart size is normal with no pericardial effusion. There is coronary artery calcification. No pne umonia or pneumothorax is present. The pulmonary arterial system and thoracic aorta demonstrate no d ilatations. There is calcification in the wall of the thoracic aorta. The trachea bifurcates normally into the bronchi. There is no axillary or significant mediastinal adenopathy. The bones of the thora x show diffuse osteoblastic metastatic disease involving the vertebral bodies, ribs and sternum. Abdomen/pelvis: The liver, spleen, adrenal glands and pancreas are normal. There is a solitary gallstone in the gallb ladder. The small bilateral kidneys show equal bilateral contrast excretion with cysts but no hydronephrosis, masses or renal calculi.. The abdominal aorta is normal in size with calcification in the wall. No appendicitis or diverticulitis is seen. There are sigmoid diverticula. Oral contrast is in the sto mach, small bowel and colon, and there is no bowel dilatation. No abscess, adenopathy, ascites, mass, obstruction or free air is seen. The bladder is unremarkable. The prostate is enlarged. No inguinal hernia is seen. The bones of the lumbar spine, pelvis, and hips show osteoblastic lesions. CT/CT chest abd pel w con* Impression: 1. Diffuse osteoblastic metastatic disease throughout the bones of the chest, a bdomen and pelvis. 2. No lymphadenopathy. 3. Small bilateral pleural effusions and pleural thickening unchanged. 4. Solitary gallstone
[2020-11-07] MEDS: iohexol 300 mg/mL 50 mL Btl PO (12:44)
[2020-11-07] MEDS: iodixanol 320 mg/mL 100mL Btl IV (13:45)
== END 2020-11-07 11:38 | disposition home or self-care (01) ==
PROVIDERS: PCP Family Medicine; Visit Provider Internal Medicine Hematology & Oncology
DX: C61 Malignant neoplasm of prostate (principal); J90 Pleural effusion, not elsewhere classified; K80.80 Other cholelithiasis without obstruction
CPT/HCPCS: 71260; 74177; Q9967

== ENCOUNTER → 2020-11-09 09:30 | Outpatient (BNVA) | payer MEDICARE, OTHER, SELFPAY | PROVIDERS: PCP Family Medicine; Visit Provider Internal Medicine Hematology & Oncology | DX: C61 Malignant neoplasm of prostate (principal); C79.51 Secondary malignant neoplasm of bone | CPT/HCPCS: 80053; 84153; 85025 ==

== ENCOUNTER 2020-11-13 15:32 | Outpatient (CLI) | payer MEDICARE, OTHER, SELFPAY ==
[2020-11-13] MEDS: denosumab 120 mg SDV SUBCUT (16:31)
--- NOTE | 2020-11-13 16:54 | ONC FU_ITS ---
Dr. Giron follow up note Patient: Hayes Solis Unit #: [id number]: 1935 Dicatated By: Shanice Giron M.D.Date of Visit:Nov 13, 2020 Onc Med Follow-up/Prog Note History of Present Illness: Mr. Solis is an 85-year-old gentleman who was recently admitted to hospital with right sided chest pain. He had a fall prior to the admission on 05/09/2019 that occurred on 04/08/2019. Mr Solis had had an episode of syncopal attack and sustained liver injury causing hepatic hematoma. He was on aspirin and Plavix as he has history of coronary artery disease ???5 recent stent placed in June 2018. At the time of his admission in April 2019, he underwent CT scan of chest/ abdomen which showed a patent subscapular hematoma and also enlarged lobulated prostate suspicious for possible carcinoma. His PSA was 435.2. A bone scan also showed diffuse sclerotic lesions within the visualized bony structures- worse in the pelvis and sacrum and were suspicious for metastatic disease. The CT scan of abdomen showed mixed attenuation mass involving the right hepatic lobe corresponding to the previously described subcapsular hematoma. His AFP was 0.6. As per patient in October 2018 his PSA was 4. He follows with Dr. Lynch. Mr Solis was seen by Dr. Lynch for prostate biopsy. Mr Solis reports that he was started on Casodex 50 mg by mouth daily and no biopsy was considered due to the reports of extensive bone metastases and abnormal looking prostate gland on the scan and PSA being extremely high at 435.2. Clinically diagnosed with prostate cancer was entertained and now being treated as stage IV prostate cancer with Zoladex and Xgeva. The Casodex was discontinued on January 10, 2020 due to progressive PSA and Dr Giron's note indicates that sometimes holding the antiandrogen can improve PSA results. PMH: As history of coronary artery disease status post multiple stent and history of congestive heart failure, Echocardiogram done on 10/07/2018 showed ejection fraction 45%, [id number] aortic stenosis, moderate mitral regurg. Other medical history includes: COPD, sleep apnea, iron deficiency anemia, TIA, hypertension, chronic kidney disease, INTERIM HISTORY: CT PET scan done on October 29, 2019 showed diffuse low-grade activity in the prostate gland with no focal activity to localize. Small scattered pelvic lymph nodes are FDG negative with no evidence of zeyad metastatic disease. There were widespread sclerotic lesion throughout the axial and appendicular skeleton consistent with osseous metastatic disease demonstrate low-grade FDG. Follow-up CT scan of abdomen and pelvis done on February 28, 2020 showed no pelvic lymphadenopathy no inguinal lymphadenopathy, normal seminal vesicles, no abdominal lymphadenopathy, previously described right subcapsular hepatic hematoma is resolved. Progressive diffuse blastic metastasis throughout the visualized bony structures. Heterogeneous enhancing nodular prostate has decreased in size Bone scan done on February 28, 2020 showed diffuse bony metastatic prostate cancer involving bony pelvis, lumbar and thoracic and cervical spine sternum and ribs. Mr. Solis has been offered treatment with Zytiga/prednisone. He began his first cycle on April 07, 2020 with Zytiga 1000 mg orally along with the prednisone. His Zytiga, dose was reduced to 250 mg p.o. daily along with prednisone for better tolerance on April 25, 2020. He was having significant diarrhea and decline in his performance status. He will continue with Zoladex. He was also referred to radiation oncology in [place] for Evaluation for Xofigo. He has had 4 infusions and the 4th one was on August 16, 2020. And second last was given on September 14, 2020 and final dose was on October 11, 2020 Came for follow-up, denies any specific complaints except off-and-on constipation due to narcotics, patient said he is trying gummy bear and is helping him too. No new bony pains, no hemoptysis hematemesis, no nausea vomiting, no diarrhea but constipation, no dysuria or hematuria, tolerating monthly Xgeva and 3 monthly Zoladex well, earlier patient was given Zytiga and prednisone but patient could not tolerate Zytiga, as per patient he was taking prednisone twice a day and it was helping him and recently stopped taking it now requesting if he can continue with low-dose prednisone as it was helping his bone pains Medications: Carvedilol 1 Tablet (of 3.125 mg) Oral b.i.d., Chlorthalidone 1 Tablet (of 25 mg) Oral daily, Clopidogrel Bisulfate 1 Tablet (of 75 mg) Oral daily, DULoxetine HCl 1 Capsule (of 30 mg) Capsule Delayed Release Particles Oral daily, Finasteride 1 Tablet (of 5 mg) Oral daily, HYDROcodone-Acetaminophen 1 Tablet (of 5-325 mg) Oral q 6 hours PRN, Magnesium 1 Tablet (of 200 mg) Tablet, chewable Oral daily, Mens Multivitamin Tablet Oral, Omeprazole 1 Capsule (of 20 mg) Capsule Delayed Release Oral daily, Potassium Chloride ER 2 Capsule (of 10 meq) Capsule, controlled release Oral daily, Pravastatin Sodium 1 Tablet (of 80 mg) Oral at bedtime, Tamsulosin HCl 1 Capsule (of 0.4 mg) Oral b.i.d. Allergies: Diclofenac Sodium, Isosorbide Mononitrate, Meperidine HCl, and Spironolactone. Review of Systems: Review of Systems is not available for this patient. Vital Signs: Performed on Nov 13, 2020 15:51 Height - 71.00 in Weight - 211.2 lbs (LOW) BSA - 2.16 sq.m BMI - 29.46 Temperature - 97.5 F (LOW) Pulse - 88 /min Respiration - 18 /min BP - 155/69 mm(hg) (HIGH) O2 Sat - 97 % Pain - 5 Fatigue - 10 Performance Status: 0 - Fully active, able to carry on all predisease activities without restrictions. (ECOG) Physical Examination: ENMT - No mouth sores, no thrush, no jaundice, Respiratory - Lungs are clear to auscultation, Cardiovascular - Regular rate and rhythm of heart, Abdomen - Soft, bowel sounds present, Extremities - No visible edema. Lab/Imaging: Test performed on Nov 09, 2020 09:30 WBC 5.9 10^3/uL RBC 3.69 10^6/uL HGB 11.1 g/dL HCT 35.0 % MCV 94.9 fl MCH 30.1 pg MCHC 31.7 g/dL RDW 13.5 % Platelet Count 265 10^3/uL MPV 10.4 fl Neutrophils 4.49 10^3/uL Lymphocytes 0.6 10^3/uL Monocytes 0.6 10^3/uL Eosinophils 0.1 10^3/uL Basophils 0.0 10^3/uL Neutrophil % 76.7 % Lymphocyte % 10.8 % Monocyte % 10.1 % Eosinophil % 1.4 % Basophils % 0.7 % PSA 249.900 ng/mL Test performed on Oct 04, 2020 11:27 Sodium 142 mmol/L Potassium 3.7 mmol/L Chloride 100 mmol/L CO2 29 mmol/L Anion Gap 16.7 BUN 26 mg/dL Creatinine 1.2 mg/dL Cr Clearance (Est) 60.4400 mL/min Glucose 187 mg/dL Osmolality - Calculated 304 mOsm/kg Calcium 8.3 mg/dL Protein, Total 5.5 g/dL Albumin 3.2 g/dL Globulin 2.3 g/dL Bilirubin, Total 0.3 mg/dL ALT (SGPT) 12 Units/L AST (SGOT) 18 Units/L Alkaline Phosphatase 74 IU/L NRBC 0.0 /100 WBC NRBC % 0 % Test performed on August 30, 2020 13:14 Testosterone, Total < 2.5 ng/dL TSH 2.18 uIU/mL Test performed on May 24, 2020 03:45 C. Difficile, PCR No C. 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 Lynch, urologist started him on Casodex 50 mg by mouth daily based on clinical diagnosis of metastatic prostrate cancer CT scan of chest abdomen pelvis done on 04/17/2019 and on 05/09/2019 showed enlarged lobulated heterogeneous prostate suspicious for prostrate carcinoma, diffuse sclerotic lesions within the visualized bony structures worse in the bony pelvis and sacrum suspicious for metastatic disease. Hepatic Subcapsular hematoma. Small right pleural effusion. History of hepatic subcapsular hematoma due to fall due to syncopal attack in March 2019 while on aspirin and Plavix for coronary artery disease status post stent placement History of congestive heart failure ejection fraction 45% on 10/07/2018 discussed with Mr and Mrs Solis that the PSA had increased to 31.19 compared to 19.70 on February 14, 2020 and a 14.61 on January 10, 2020. Follow-up CT scan of abdomen pelvis showed no abdominal/pelvic/inguinal lymphadenopathy and previously seen subcapsular hepatic hematoma, now resolved. But extensive bone mets and bone scan confirmed extensive bone mets involving whole spine, pelvic bones and ribs and sternum. Clinically, patient doing reasonably well no new signs symptoms but his follow-up bone scan shows extensive bone mets and also seen on CT scan of abdomen pelvis but no visceral disease, his PSA has continued to go up now 31.19 compared to 19.70 on February 14, 2020 while on Zoladex every 3-month, his Casodex was put on hold because of progressive PSA and related symptoms like generalized weakness and fatigue, hot flashes which were presumed due to Casodex and in fact improved off Casodex. Treatment options including but not limited to, continue with 3 monthly Zoladex and monthly Xgeva and addition of apalutamide or enzalutamide or Zytiga/prednisone or systemic chemotherapy with docetaxel. Mr Solis opted for a trial of Zytiga/prednisone was referred to radiation oncology at [facility] for evaluation for Xofigo as patient has only osseous metastatic disease, no evidence of visceral disease. Mr Solis has received the Zytiga 1000mg Along with prednisone was started on April 07, 2020, But dose was reduced to 250 mg p.o. daily along with prednisone on April 25, 2019 for better tolerance and moreover patient is being treated with Xofigo Plan: Discussed with patient regarding his labs white blood count 5.9 hemoglobin 11.1 hematocrit 35 platelets 265,000 PSA 249.9 compared to 147.20 previously Clinically, patient is doing well with no new signs symptom suggestive of disease progression but his follow-up PSA continue to progress patient has completed his recommended Xofigo in September 2020, earlier impression was his PSA was progressive due to PSA flare due to Xofigo but his alkaline phosphatase was within normal range to ensure there is no disease progression, CT scan of chest abdomen pelvis was done on November 07, 2020 which showed no evidence of visceral disease but persistent extensive bone mets for which he underwent Xofigo therapy which he completed on October 11, 2020 Overall patient is feeling well and 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 As his follow-up CT scan of chest abdomen pelvis shows no evidence of visceral disease, with a normal alkaline phosphatase, his PSA could be increasing due to Xofigo therapy so we will continue to monitor. In the meantime we will proceed with his monthly dose of Xgeva and then return to clinic in 1 month for monthly dose of Xgeva with CBC CMP and PSA Mild anemia, could be multifactorial including due to Xofigo, will continue to monitor if there is a further drop in hemoglobin, will consider work-up Extensive bone mets status post Xofigo, patient is on Percocet, he was advised to take laxative or constipation and also advised to continue low-dose prednisone once a day in the morning, as per patient it was helping his bone pains until he stopped taking it about a week ago. So now patient is on 3 monthly Zoladex and monthly Xgeva and has recently finished Xofigo Signed By: Shanice Giron M.D. <<Signature on File>>
== END 2020-11-13 15:33 | disposition home or self-care (01) ==
PROVIDERS: PCP Family Medicine; Visit Provider Internal Medicine Hematology & Oncology
DX: Z51.11 Encounter for antineoplastic chemotherapy (principal); C61 Malignant neoplasm of prostate; C79.51 Secondary malignant neoplasm of bone; J90 Pleural effusion, not elsewhere classified; I25.10 Atherosclerotic heart disease of native coronary artery without angina pectoris; Z79.01 Long term (current) use of anticoagulants; Z79.899 Other long term (current) drug therapy; Z92.21 Personal history of antineoplastic chemotherapy
CPT/HCPCS: 96372; 99215; J0897

== ENCOUNTER 2020-12-14 08:07 | Outpatient (CLI) | payer MEDICARE, OTHER, SELFPAY ==
[2020-12-14 08:51] LABS: Basophils % 0.4 %; Eosinophils % 0.5 %; Hematocrit 30.3 % (42.0-52.0); Hemoglobin 9.7 g/dL (11.7-16.6); Lymphocytes # 0.6 10^3/uL (0.8-4.8); Lymphocytes % 7.5 %; Mean Corpuscular Hemoglobin 28.9 pg (28.0-34.0); Mean Corpuscular Volume 90.2 fl (80-94); Mean Platelet Volume 9.2 fL (7.4-10.4); Monocytes # 0.6 10^3/uL (0.2-0.9); Monocytes % 8.1 %; Neutrophils # 6.08 10^3/uL (1.8-7.7); Neutrophils % 83.4 %; Nucleated Red Blood Cells % 0 %; Platelet Count 274 10^3/cmm (130-400); Red Blood Count 3.36 10^6/uL (4.1-5.3); Red Cell Distribution Width 14.1 % (12.1-15.1); White Blood Count 7.3 10^3/uL (4.0-10.0)
[2020-12-14 09:36] LABS: Alanine Aminotransferase 10 U/L (0-41); Alkaline Phosphatase 87 IU/L (40-130); Anion Gap 15.7 (5-19); Aspartate Amino Transferase 22 U/L (0-40); Blood Urea Nitrogen 30 mg/dL (8-23); Calcium 8.4 mg/dL (8.5-10.5); Carbon Dioxide 27 mmol/L (22-29); Chloride 97 mmol/L (98-107); Globulin 3.2 g/dL (1.3-4.6); Glucose 227 mg/dL (65-115); Osmolality Calculated 295 mOsm/kg (285-295); Potassium 3.7 mmol/L (3.5-5.1); Sodium 136 mmol/L (136-145); Total Bilirubin 0.2 mg/dL (0.15-1.2); Total Protein 6.2 g/dL (6.6-8.7)
--- NOTE | 2020-12-14 12:49 | ONC FU_ITS ---
Dr. Giron follow up note Patient: Hayes Solis Unit #: [id number]: 1935 Dicatated By: Shanice Giron M.D.Date of Visit:Dec 14, 2020 Onc Med Follow-up/Prog Note History of Present Illness: Mr. Solis is an 85-year-old gentleman who was recently admitted to hospital with right sided chest pain. He had a fall prior to the admission on 05/09/2019 that occurred on 04/08/2019. Mr Solis had had an episode of syncopal attack and sustained liver injury causing hepatic hematoma. He was on aspirin and Plavix as he has history of coronary artery disease ???5 recent stent placed in June 2018. At the time of his admission in April 2019, he underwent CT scan of chest/ abdomen which showed a patent subscapular hematoma and also enlarged lobulated prostate suspicious for possible carcinoma. His PSA was 435.2. A bone scan also showed diffuse sclerotic lesions within the visualized bony structures- worse in the pelvis and sacrum and were suspicious for metastatic disease. The CT scan of abdomen showed mixed attenuation mass involving the right hepatic lobe corresponding to the previously described subcapsular hematoma. His AFP was 0.6. As per patient in October 2018 his PSA was 4. He follows with Dr. Lynch. Mr Solis was seen by Dr. Lynch for prostate biopsy. Mr Solis reports that he was started on Casodex 50 mg by mouth daily and no biopsy was considered due to the reports of extensive bone metastases and abnormal looking prostate gland on the scan and PSA being extremely high at 435.2. Clinically diagnosed with prostate cancer was entertained and now being treated as stage IV prostate cancer with Zoladex and Xgeva. The Casodex was discontinued on January 10, 2020 due to progressive PSA and Dr Giron's note indicates that sometimes holding the antiandrogen can improve PSA results. PMH: As history of coronary artery disease status post multiple stent and history of congestive heart failure, Echocardiogram done on 10/07/2018 showed ejection fraction 45%, [id number] aortic stenosis, moderate mitral regurg. Other medical history includes: COPD, sleep apnea, iron deficiency anemia, TIA, hypertension, chronic kidney disease, INTERIM HISTORY: CT PET scan done on October 29, 2019 showed diffuse low-grade activity in the prostate gland with no focal activity to localize. Small scattered pelvic lymph nodes are FDG negative with no evidence of zeyad metastatic disease. There were widespread sclerotic lesion throughout the axial and appendicular skeleton consistent with osseous metastatic disease demonstrate low-grade FDG. Follow-up CT scan of abdomen and pelvis done on February 28, 2020 showed no pelvic lymphadenopathy no inguinal lymphadenopathy, normal seminal vesicles, no abdominal lymphadenopathy, previously described right subcapsular hepatic hematoma is resolved. Progressive diffuse blastic metastasis throughout the visualized bony structures. Heterogeneous enhancing nodular prostate has decreased in size Bone scan done on February 28, 2020 showed diffuse bony metastatic prostate cancer involving bony pelvis, lumbar and thoracic and cervical spine sternum and ribs. Mr. Solis has been offered treatment with Zytiga/prednisone. He began his first cycle on April 07, 2020 with Zytiga 1000 mg orally along with the prednisone. His Zytiga, dose was reduced to 250 mg p.o. daily along with prednisone for better tolerance on April 25, 2020. He was having significant diarrhea and decline in his performance status. He will continue with Zoladex. He was also referred to radiation oncology in [place] for Evaluation for Xofigo. He has had 4 infusions and the 4th one was on August 16, 2020. And second last was given on September 14, 2020 and final dose was on October 11, 2020 . Patient could not to tolerate even a reduced dose Zytiga, so was discontinued while he continue with prednisone alone as it was helping his appetite and bone discomfort while continue with 3 monthly Zoladex along with Xgeva Came for follow-up, complaining of generalized weakness and fatigue, no melena or hematochezia no hemoptysis hematemesis, no jaundice, no chest pain but dyspnea on exertion and lower extremity edema, as per patient's patient is consuming a lot of salt, cardiology is following him for congestive heart failure and adjusting his diuretics. Denies any new bony pains, his pain is under control with current pain medication, but sometimes feel drowsy and sleepy and he take his narcotics twice a day. Medications: Carvedilol 1 Tablet (of 6.25 mg) Oral b.i.d., Chlorthalidone 1 Tablet (of 25 mg) Oral daily, Clopidogrel Bisulfate 1 Tablet (of 75 mg) Oral daily, DULoxetine HCl 1 Capsule (of 30 mg) Capsule Delayed Release Particles Oral daily, Entresto (24-26 mg) Tablet Oral b.i.d., Finasteride 1 Tablet (of 5 mg) Oral daily, HYDROcodone-Acetaminophen 1 Tablet (of 5-325 mg) Oral q 6 hours PRN, Magnesium 1 Tablet (of 200 mg) Tablet, chewable Oral daily, Mens Multivitamin Tablet Oral, Omeprazole 1 Capsule (of 20 mg) Capsule Delayed Release Oral daily, Potassium Chloride ER 2 Capsule (of 10 meq) Capsule, controlled release Oral daily, Pravastatin Sodium 1 Tablet (of 80 mg) Oral at bedtime, Tamsulosin HCl 1 Capsule (of 0.4 mg) Oral b.i.d. Allergies: Diclofenac Sodium, Isosorbide Mononitrate, Meperidine HCl, and Spironolactone. Review of Systems: Review of Systems is not available for this patient. Vital Signs: Performed on Dec 14, 2020 10:25 Height - 71.00 in Temperature - 96.8 F (LOW) Pulse - 80 /min Respiration - 20 /min BP - 112/56 mm(hg) O2 Sat - 96 % Pain - 0 Fatigue - 10 Performance Status: 1 - No physically strenuous activity, but ambulatory and able to carry out light or sedentary work (e.g. office work, light house work). (ECOG) Physical Examination: ENMT - No mouth sores no thrush, no jaundice, Respiratory - Few basilar crackles otherwise clear, Cardiovascular - Regular rate and rhythm of heart, Abdomen - Soft, bowel sounds present, Extremities - 1+ edema bilaterally. Lab/Imaging: Test performed on Nov 09, 2020 09:30 WBC 5.9 10^3/uL RBC 3.69 10^6/uL HGB 11.1 g/dL HCT 35.0 % MCV 94.9 fl MCH 30.1 pg MCHC 31.7 g/dL RDW 13.5 % Platelet Count 265 10^3/uL MPV 10.4 fl Neutrophils 4.49 10^3/uL Lymphocytes 0.6 10^3/uL Monocytes 0.6 10^3/uL Eosinophils 0.1 10^3/uL Basophils 0.0 10^3/uL Neutrophil % 76.7 % Lymphocyte % 10.8 % Monocyte % 10.1 % Eosinophil % 1.4 % Basophils % 0.7 % PSA 249.900 ng/mL Test performed on Oct 04, 2020 11:27 Sodium 142 mmol/L Potassium 3.7 mmol/L Chloride 100 mmol/L CO2 29 mmol/L Anion Gap 16.7 BUN 26 mg/dL Creatinine 1.2 mg/dL Cr Clearance (Est) 60.4400 mL/min Glucose 187 mg/dL Osmolality - Calculated 304 mOsm/kg Calcium 8.3 mg/dL Protein, Total 5.5 g/dL Albumin 3.2 g/dL Globulin 2.3 g/dL Bilirubin, Total 0.3 mg/dL ALT (SGPT) 12 Units/L AST (SGOT) 18 Units/L Alkaline Phosphatase 74 IU/L NRBC 0.0 /100 WBC NRBC % 0 % Test performed on August 30, 2020 13:14 Testosterone, Total < 2.5 ng/dL TSH 2.18 uIU/mL Impression: 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 Lynch, urologist started him on Casodex 50 mg by mouth daily based on clinical diagnosis of metastatic prostrate cancer CT scan of chest abdomen pelvis done on 04/17/2019 and on 05/09/2019 showed enlarged lobulated heterogeneous prostate suspicious for prostrate carcinoma, diffuse sclerotic lesions within the visualized bony structures worse in the bony pelvis and sacrum suspicious for metastatic disease. Hepatic Subcapsular hematoma. Small right pleural effusion. History of hepatic subcapsular hematoma due to fall due to syncopal attack in March 2019 while on aspirin and Plavix for coronary artery disease status post stent placement History of congestive heart failure ejection fraction 45% on 10/07/2018 discussed with Mr and Mrs Irma that the PSA had increased to 31.19 compared to 19.70 on February 14, 2020 and a 14.61 on January 10, 2020. Follow-up CT scan of abdomen pelvis showed no abdominal/pelvic/inguinal lymphadenopathy and previously seen subcapsular hepatic hematoma, now resolved. But extensive bone mets and bone scan confirmed extensive bone mets involving whole spine, pelvic bones and ribs and sternum. Clinically, patient doing reasonably well no new signs symptoms but his follow-up bone scan shows extensive bone mets and also seen on CT scan of abdomen pelvis but no visceral disease, his PSA has continued to go up now 31.19 compared to 19.70 on February 14, 2020 while on Zoladex every 3-month, his Casodex was put on hold because of progressive PSA and related symptoms like generalized weakness and fatigue, hot flashes which were presumed due to Casodex and in fact improved off Casodex. Treatment options including but not limited to, continue with 3 monthly Zoladex and monthly Xgeva and addition of apalutamide or enzalutamide or Zytiga/prednisone or systemic chemotherapy with docetaxel. Mr Solis opted for a trial of Zytiga/prednisone was referred to radiation oncology at [facility] for evaluation for Xofigo as patient has only osseous metastatic disease, no evidence of visceral disease. Mr Solis has received the Zytiga 1000mg Along with prednisone was started on April 07, 2020, But dose was reduced to 250 mg p.o. daily along with prednisone on April 25, 2019 for better tolerance and moreover patient is being treated with Xofigo Patient could not tolerate even her reduced dose Zytiga so it was discontinued while continue with low-dose prednisone for comfort measures along with 3 monthly Zoladex and monthly Xgeva, Started on flutamide 250 mg. Every 8 hours along with 3 monthly Zoladex on December 14, 2020 as PSA continues to go up Molecular profiling done on October 08, 2020 showed TMB 9.57, MSI-H, not detected, AR amplification detected Plan: Discussed with patient regarding his labs white blood count 7.3 hemoglobin 9.7 compared to 11.1 earlier hematocrit 30.3 platelets 274,000 CMP within normal limits PSA 270.8 compared to 249.9, alk phos is within normal range at 87 Clinically, patient doing reasonably well, now with progressive weakness and fatigue which could be multifactorial including progressive anemia and etiology unclear could be due to underlying myelodysplasia or chronic blood loss, will check iron studies, B12 folic acid and erythropoietin level and reticulocyte count and if needed, will consider supplement if anemia work-up was inconclusive, will consider bone marrow evaluation to rule out underlying myelodysplasia as he may benefit from erythropoietin. , Clinically patient appears fluid overload, bilateral lower extremity edema and bibasilar crackles, patient was advised to cut down salt intake, he is scheduled see cardiology today and will follow the recommendation regarding CHF management. As far as prostate cancer is concerned, his PSA continues to go up while his CT scan of chest abdomen pelvis done in October was unremarkable for visceral disease and as his alk phos is within normal range and patient recently underwent Xofigo for extensive bone mets etiology of progressive PSA remained inconclusive, at this point, as his molecular profiling showed TMB was 9.57 and MSI-H, was not detected but it showed AR amplification, which is uncommon and hormone sensitive tumor and are present in 20 to 30% hormone resistant tumor,., As is PSAs continue to go up while on Zoladex alone along with low-dose prednisone for comfort measure and monthly Xgeva, will consider adding flutamide 250 mg p.o. 3 times daily and follow his PSA and any new symptoms, if his PSA continues to go up, may consider choline CT PET scan for better evaluation for progressive prostate cancer. We will proceed with his monthly dose of Xgeva today and then patient return to clinic in 1 month with CBC CMP and PSA and for 3 monthly dose of Zoladex and Xgeva. Signed By: Shanice Giron M.D. <<Signature on File>>
[2020-12-14 21:52] LABS: Iron 32 ug/dL (59-158); Total Iron Binding Capacity 200 mcg/dl; Unsaturated Iron Binding 168 ug/dL (112-347)
[2020-12-14 22:08] LABS: Vitamin B12 494 pg/mL (232-1245)
== END 2020-12-14 08:08 | disposition home or self-care (01) ==
LOC: ONCMED 08:10
PROVIDERS: PCP Family Medicine; Visit Provider Internal Medicine Hematology & Oncology
DX: C61 Malignant neoplasm of prostate (principal); C79.51 Secondary malignant neoplasm of bone; I25.10 Atherosclerotic heart disease of native coronary artery without angina pectoris; Z95.5 Presence of coronary angioplasty implant and graft; Z79.818 Long term (current) use of other agents affecting estrogen receptors and estrogen levels; Z79.899 Other long term (current) drug therapy
CPT/HCPCS: 36415; 80053; 82607; 83540; 83550; 84153; 85025; 96372; 99215; J0897

== ENCOUNTER → 2020-12-18 16:39 | Outpatient (BNVA) | payer MEDICARE, OTHER, SELFPAY | PROVIDERS: PCP Family Medicine; Visit Provider Nurse Practitioner Family | DX: I50.22 Chronic systolic (congestive) heart failure (principal); D64.9 Anemia, unspecified; I10 Essential (primary) hypertension; E78.5 Hyperlipidemia, unspecified | CPT/HCPCS: 80048; 83880; 85025 ==

== ENCOUNTER 2021-01-15 16:20 | Outpatient (CLI) | payer MEDICARE, OTHER, SELFPAY ==
--- NOTE | 2021-01-15 17:14 | ONC FU_ITS ---
Dr. Giron follow up note Patient: Hayes Solis Unit #: [id number]: 1935 Dicatated By: Shanice Giron M.D.Date of Visit:Jan 15, 2021 Onc Med Follow-up/Prog Note History of Present Illness: Mr. Solis is an 85-year-old gentleman who was recently admitted to hospital with right sided chest pain. He had a fall prior to the admission on 05/09/2019 that occurred on 04/08/2019. Mr Solis had had an episode of syncopal attack and sustained liver injury causing hepatic hematoma. He was on aspirin and Plavix as he has history of coronary artery disease ???5 recent stent placed in June 2018. At the time of his admission in April 2019, he underwent CT scan of chest/ abdomen which showed a patent subscapular hematoma and also enlarged lobulated prostate suspicious for possible carcinoma. His PSA was 435.2. A bone scan also showed diffuse sclerotic lesions within the visualized bony structures- worse in the pelvis and sacrum and were suspicious for metastatic disease. The CT scan of abdomen showed mixed attenuation mass involving the right hepatic lobe corresponding to the previously described subcapsular hematoma. His AFP was 0.6. As per patient in October 2018 his PSA was 4. He follows with Dr. Lynch. Mr Solis was seen by Dr. Lynch for prostate biopsy. Mr Solis reports that he was started on Casodex 50 mg by mouth daily and no biopsy was considered due to the reports of extensive bone metastases and abnormal looking prostate gland on the scan and PSA being extremely high at 435.2. Clinically diagnosed with prostate cancer was entertained and now being treated as stage IV prostate cancer with Zoladex and Xgeva. The Casodex was discontinued on January 10, 2020 due to progressive PSA and Dr Giron's note indicates that sometimes holding the antiandrogen can improve PSA results. PMH: As history of coronary artery disease status post multiple stent and history of congestive heart failure, Echocardiogram done on 10/07/2018 showed ejection fraction 45%, [id number] aortic stenosis, moderate mitral regurg. Other medical history includes: COPD, sleep apnea, iron deficiency anemia, TIA, hypertension, chronic kidney disease, INTERIM HISTORY: CT PET scan done on October 29, 2019 showed diffuse low-grade activity in the prostate gland with no focal activity to localize. Small scattered pelvic lymph nodes are FDG negative with no evidence of zeyad metastatic disease. There were widespread sclerotic lesion throughout the axial and appendicular skeleton consistent with osseous metastatic disease demonstrate low-grade FDG. Follow-up CT scan of abdomen and pelvis done on February 28, 2020 showed no pelvic lymphadenopathy no inguinal lymphadenopathy, normal seminal vesicles, no abdominal lymphadenopathy, previously described right subcapsular hepatic hematoma is resolved. Progressive diffuse blastic metastasis throughout the visualized bony structures. Heterogeneous enhancing nodular prostate has decreased in size Bone scan done on February 28, 2020 showed diffuse bony metastatic prostate cancer involving bony pelvis, lumbar and thoracic and cervical spine sternum and ribs. Mr. Solis has been offered treatment with Zytiga/prednisone. He began his first cycle on April 07, 2020 with Zytiga 1000 mg orally along with the prednisone. His Zytiga, dose was reduced to 250 mg p.o. daily along with prednisone for better tolerance on April 25, 2020. He was having significant diarrhea and decline in his performance status. He will continue with Zoladex. He was also referred to radiation oncology in [place] for Evaluation for Xofigo. He has had 4 infusions and the 4th one was on August 16, 2020. And second last was given on September 14, 2020 and final dose was on October 11, 2020 . Patient could not to tolerate even a reduced dose Zytiga, so was discontinued while he continue with prednisone alone as it was helping his appetite and bone discomfort while continue with 3 monthly Zoladex along with Xgeva Came for follow-up, complaining of progressive dyspnea on exertion now even a few steps would make him short of breath, as per patient his heart is not doing good, now undergoing cardiac work-up for valve regurgitation as per patient, he is now being scheduled for transesophageal echocardiogram. Denies any fever or chills denies any nausea or vomiting denies any diarrhea constipation denies any new bony pains but weak and lethargic Medications: Carvedilol 1 Tablet (of 3.125 mg) Oral b.i.d., Chlorthalidone 1 Tablet (of 25 mg) Oral daily, Clopidogrel Bisulfate 1 Tablet (of 75 mg) Oral daily, DULoxetine HCl 1 Capsule (of 30 mg) Capsule Delayed Release Particles Oral daily, Entresto (49-51 mg) Tablet Oral b.i.d., Finasteride 1 Tablet (of 5 mg) Oral daily, HYDROcodone-Acetaminophen 1 Tablet (of 5-325 mg) Oral q 6 hours PRN, Magnesium 1 Tablet (of 200 mg) Tablet, chewable Oral daily, Mens Multivitamin Tablet Oral, Omeprazole 1 Capsule (of 20 mg) Capsule Delayed Release Oral daily, Potassium Chloride ER 2 Capsule (of 10 meq) Capsule, controlled release Oral daily, Pravastatin Sodium 1 Tablet (of 80 mg) Oral at bedtime, Tamsulosin HCl 1 Capsule (of 0.4 mg) Oral b.i.d. Allergies: Diclofenac Sodium, Isosorbide Mononitrate, Meperidine HCl, and Spironolactone. Review of Systems: Review of Systems is not available for this patient. Vital Signs: Performed on Jan 15, 2021 16:40 Height - 71.00 in Temperature - 97.5 F (LOW) Pulse - 56 /min (LOW) Respiration - 18 /min BP - 96/56 mm(hg) O2 Sat - 98 % Pain - 0 Fatigue - 10 Performance Status: 3 - Capable of only limited self-care, confined to bed or chair more than 50% of waking hours. (ECOG) Physical Examination: ENMT - No mouth sores, no thrush, no jaundice,, Respiratory - Poor air entry, few basilar crackles, Cardiovascular - Regular rate and rhythm of heart, Abdomen - Soft, bowel sounds present, Extremities - 1+ edema bilaterally. Lab/Imaging: Test performed on Nov 09, 2020 09:30 WBC 5.9 10^3/uL RBC 3.69 10^6/uL HGB 11.1 g/dL HCT 35.0 % MCV 94.9 fl MCH 30.1 pg MCHC 31.7 g/dL RDW 13.5 % Platelet Count 265 10^3/uL MPV 10.4 fl Neutrophils 4.49 10^3/uL Lymphocytes 0.6 10^3/uL Monocytes 0.6 10^3/uL Eosinophils 0.1 10^3/uL Basophils 0.0 10^3/uL Neutrophil % 76.7 % Lymphocyte % 10.8 % Monocyte % 10.1 % Eosinophil % 1.4 % Basophils % 0.7 % PSA 249.900 ng/mL Test performed on Oct 04, 2020 11:27 Sodium 142 mmol/L Potassium 3.7 mmol/L Chloride 100 mmol/L CO2 29 mmol/L Anion Gap 16.7 BUN 26 mg/dL Creatinine 1.2 mg/dL Cr Clearance (Est) 60.4400 mL/min Glucose 187 mg/dL Osmolality - Calculated 304 mOsm/kg Calcium 8.3 mg/dL Protein, Total 5.5 g/dL Albumin 3.2 g/dL Globulin 2.3 g/dL Bilirubin, Total 0.3 mg/dL ALT (SGPT) 12 Units/L AST (SGOT) 18 Units/L Alkaline Phosphatase 74 IU/L NRBC 0.0 /100 WBC NRBC % 0 % Test performed on August 30, 2020 13:14 Testosterone, Total < 2.5 ng/dL TSH 2.18 uIU/mL Impression: 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 Lynch, urologist started him on Casodex 50 mg by mouth daily based on clinical diagnosis of metastatic prostrate cancer CT scan of chest abdomen pelvis done on 04/17/2019 and on 05/09/2019 showed enlarged lobulated heterogeneous prostate suspicious for prostrate carcinoma, diffuse sclerotic lesions within the visualized bony structures worse in the bony pelvis and sacrum suspicious for metastatic disease. Hepatic Subcapsular hematoma. Small right pleural effusion. History of hepatic subcapsular hematoma due to fall due to syncopal attack in March 2019 while on aspirin and Plavix for coronary artery disease status post stent placement History of congestive heart failure ejection fraction 45% on 10/07/2018 discussed with Mr and Mrs Solis that the PSA had increased to 31.19 compared to 19.70 on February 14, 2020 and a 14.61 on January 10, 2020. Follow-up CT scan of abdomen pelvis showed no abdominal/pelvic/inguinal lymphadenopathy and previously seen subcapsular hepatic hematoma, now resolved. But extensive bone mets and bone scan confirmed extensive bone mets involving whole spine, pelvic bones and ribs and sternum. Clinically, patient doing reasonably well no new signs symptoms but his follow-up bone scan shows extensive bone mets and also seen on CT scan of abdomen pelvis but no visceral disease, his PSA has continued to go up now 31.19 compared to 19.70 on February 14, 2020 while on Zoladex every 3-month, his Casodex was put on hold because of progressive PSA and related symptoms like generalized weakness and fatigue, hot flashes which were presumed due to Casodex and in fact improved off Casodex. Treatment options including but not limited to, continue with 3 monthly Zoladex and monthly Xgeva and addition of apalutamide or enzalutamide or Zytiga/prednisone or systemic chemotherapy with docetaxel. Mr Solis opted for a trial of Zytiga/prednisone was referred to radiation oncology at [facility] for evaluation for Xofigo as patient has only osseous metastatic disease, no evidence of visceral disease. Mr Solis has received the Zytiga 1000mg Along with prednisone was started on April 07, 2020, But dose was reduced to 250 mg p.o. daily along with prednisone on April 25, 2019 for better tolerance and moreover patient is being treated with Xofigo Plan: Discussed with patient regarding his labs white blood count 4.8 hemoglobin 10.1 hematocrit 32.3 platelets 375,000 reticulocyte count 1.6 PSA is pending Clinically, patient is doing reasonably well now in mild to moderate distress due to progressive congestive heart failure, cardiac work-up is in progress, at this point, due to deteriorating overall performance status, will hold has Xgeva and Zoladex for 1 month while he is undergoing cardiac work-up and if his cardiac status improved then will resume his treatment otherwise may consider comfort measures only. Signed By: Shanice Giron M.D. <<Signature on File>>
== END 2021-01-15 16:21 | disposition home or self-care (01) ==
PROVIDERS: PCP Family Medicine; Visit Provider Internal Medicine Hematology & Oncology
DX: C79.51 Secondary malignant neoplasm of bone (principal); C61 Malignant neoplasm of prostate; I50.9 Heart failure, unspecified; Z79.818 Long term (current) use of other agents affecting estrogen receptors and estrogen levels; Z79.899 Other long term (current) drug therapy
CPT/HCPCS: 80053; 82668; 82746; 84153; 85025; 85045; 85610; 87635; 99214

== ENCOUNTER 2021-01-21 05:02 | Outpatient (CLI) | payer MEDICARE, OTHER, SELFPAY ==
[2021-01-21] VITALS (16 sets, daily range): BP systolic 113–146; BP diastolic 46–72; PULSE 77–94; RESP 17–35; TEMP 36.8–37.2; O2SAT 80–95; BMI 28.7
--- NOTE | 2021-01-21 05:49 | XACV_ITS ---
Ht: 180 cm Wt: 93 kg BSA: 2.18 m2 Gender: Male : 1935 Any Known Allergies: Other Exam Priority: Routine Procedure(s): Procedure Description: Diagnostic procedure Procedure Description: Left Heart Catheterization Procedure Description: Right Heart Catheterization Procedure Description: Left ventriculography Procedure Description: O2 saturation Procedure Description: Coronary Angiography Elvie BANGURA; Diagnostic Cath Status: Elective Diagnostic Findings * Left Main has no disease. * Left Anterior Descending has no disease. * Distal Right Coronary Artery: minimal 30% stenosis, BYRON: 3 flow. * Mid Circumflex: minimal 30% stenosis, BYRON: 3 flow. * Coronary angiography shows right dominance. Conclusions 1. Patent prior proximal LAD stent. 2. There is minimal coronary artery disease with two vessel disease. 3. Moderate left ventricular systolic dysfunction. Ejection fraction of 35%. Recommendations * Continue current medical management and risk factor modification. Diagnostic RX Recommendation: medical therapy and/or counseling Ventriculography Ejection Fraction: 35.0 % Pressures Phase:Rest AO : 224 / 113 ( 79 ) @ 6:24:00 AM 143 / 0 ( 57 ) @ 6:43:00 AM 131 / 47 ( 83 ) @ 6:43:00 AM LV : 148 / -1 / 15 @ 6:40:00 AM 150 / 0 / 15 @ 6:43:00 AM RV : 44 / -7 / 2 @ 6:17:00 AM 54 / 2 / 12 @ 6:20:00 AM PA : 56 / 13 ( 24 ) @ 6:15:00 AM RA : a wave = 13 v wave = 9 mean = 8 @ 6:20:00 AM PCW : a wave = 17 v wave = 25 mean = 13 @ 6:16:00 AM O2 Content Phase:Rest PA : O2 Content O2: 56.7 @ 6:24:00 AM Saturations Phase:Rest AO : 95 @ 6:40:00 AM RA : 56 @ 6:43:00 AM RV : 60 @ 6:43:00 AM PA : 57 @ 6:24:00 AM Cardiac Output Phase:Rest Rachelle : 5 @ 8:09:59 AM Rachelle Cardiac Index: 2 @ 8:09:59 AM Flow Phase:Rest Qp : 5 @ 8:09:59 AM Qs : 5 @ 8:09:59 AM Clinical Evaluation EBL: 5mL-10mL Procedural Details Pre-Procedure Time Out. Identified patient by full name and date of as verbalized by the patient/guarantor. Does the consent match the physician's order: Yes. Accurate & Complete Informed Consent: Yes. Inpatient/Outpatient History & Physical on Chart: Yes. If H&P is completed, is and addenduem needed: No; If yes, is the addendum complete: N/A. Visualize and Verify Site with Patient/Guarantor: N/A. Relevant Radiology Images available: N/A. Pre-op teaching completed and patient verbalized understanding. The risks, benefits, and alternatives of sedation and/or procedure were discussed by physician. The patient agrees to continue. Procedure started. [facility] Clinical Fraility Score: 6: Moderately Frail. Health Information Assistant Indications: Valvular Disease. Chest Pain Symptom Assessment: Atypical Angina. Cardiovascular Instability: No. Correct patient, site and procedure confirmed by cath team. PERRLA. Strong, equal hand retail key holder bilaterally. Lungs clear x 5 lobes. IV Site on Arrival: 20 gauge in the left anticubital. IV Fluids: 0.9% NaCl at KVO. 0 mL infused prior to pharmacy laboratory technician. Pre Procedural Pulses: bilateral dorsalis pedis was 3+. Pre Procedural Pulses: bilateral posterior tibial was Doppled. Pre Procedural Pulses: bilateral radial was 3+. bilateral groins was prepped with chloroprep then draped in the usual sterile fashion. Equipment: 6F - Femoral. Cardiac Cath Pack. ACIST Manifold Kit Model BT 2000. Heparinized Saline (2 units/mL), 1000 mL bag. Kit, Micropuncture. Baseline sample Acquired. HR: 86 BPM. Physician notified. Physician arrived. Physician scrubbed in. Immediate Pre-Procedure Time Out. Correct Patient: Yes; Correct Procedure: Yes; Correct Site: Yes; Correct Patient Position: Yes; Correct Supplies: Yes; Dried Flammable Prep: Yes; Blood Products Available: N/A;. Lidocaine 1% infiltrated to the right groin. Venous access obtained with a micropuncture set. Lidocaine 1% infiltrated to the right groin. Arterial access obtained with micropuncture set. [place]-Pily MON catheter inserted. [place] wire inserted. [place] wire out. [place]-Pily out. A 5 martiniquais JL4 catheter in over wire. AO sample obtained. Oxygen sats ran by RT for analysis. Multiple views taken of left coronary artery. catheter removed over the wire. A 5 martiniquais JR4 catheter in over wire. Multiple views taken of right coronary artery. Catheter removed over the standard wire. A 5 martiniquais Angled Pig catheter in over wire. Catheter removed over the standard wire. EDP Sample taken: LV 148/-2,15; HR: 73 BPM; SpO2: 94%. LV gram performed in DIXON @ 10 mL/second for a total of 30 mL. EDP Sample taken: LV 150/-1,15; HR: 72 BPM; SpO2: 94%. Pullback taken: LV Off; AO Off; Mean: , Peak to Peak: , SEP: ; HR: 54 BPM; SpO2: 94%. Catheter removed over the standard wire. A Right femoral angiogram was performed to determine safe placement of closure device. Lidocaine 1% infiltrated to the right groin. A Perclose (ZeaKal) was successful obtaining hemostatsis at the Right Femoral artery insertion site. Perclose placed without complications. No signs or symptoms of hematoma noted. Sterile dressing applied per usual sterile fashion. Post Procedure: Pulses reassessed and unchanged. PERRLA. Strong, equal hand retail key holder bilaterally. No VTE prophylaxis required. Medication's Wasted: Lidocaine 1% = 10 mL. Medication's Wasted: Heparin = 1000 units. Medication's Wasted: Other = versed 1 mg. Medication's Wasted: Other = fentanyl 75 mcg. Total IV fluids: 100 mL. A Mynx was successful obtaining hemostatsis at the Right Femoral vein insertion site. Mynx placed without complications. No signs or symptoms of hematoma noted. Sterile dressing applied per usual sterile fashion. Contrast type used: Omnipaque 300 mgI/mL, 500 mL bottle. Post-op diagnosis: Severe mitral valve regurg, patent stents. Complications: none. Estimated blood loss: 5mL-10mL. Procedure completed. Patient transferred by bed to 1st floor. Vital chart was stopped. Access Site Site: Right Femoral vein Sheath Size: 6 Fr Hemostasis Method: Mynx Hemostasis Success: Successful Site: Right Femoral artery Sheath Size: 6 Fr Hemostasis Method: Perclose (ZeaKal) Hemostasis Success: Successful Procedure Medications Start: 6:54 AM Stop: 6:54 AM Medication: Versed Amount: 1 mg Route: I.V. Start: 6:54 AM Stop: 6:54 AM Medication: Fentanyl Amount: 25 mcg Route: I.V. I, the attending physician, have reviewed and verified all procedure medications. Yes, all medications given per verbal order History/Risk Factors Hypertension: Yes Dyslipidemia: Yes Peripheral Arterial Disease (PAD): No Obesity: No Renal Disease: No Tobacco Use: Never Prior Interventions PCI: Yes CABG: No Valve Surgery: No Date of PCI: 09/19/2019 Report Signatures Finalized by Cameron Bermeo MD on 02/03/2021 06:07 PM
[2021-01-21] MEDS: diphenhydrAMINE 50 mg Capsule PO (05:59)
--- NOTE | 2021-01-21 06:41 | W.PM.OPSUD ---
Surgery/Procedure H&P Update DATE OF PROCEDURE: January 21, 2021 DATE H&P PERFORMED: 01/11/21 H&P UPDATE INFORMATION: I have reviewed H&P completed within last 30 days, I have examined patient prior to procedure and No changes to prior documentation PREOP DIAGNOSIS: Unexplained shortness of breath, prevalve PRIMARY INDICATION FOR PROCEDURE: Unexplained shortness of breath, valvular study PLANNED PROCEDURE: Operation Date: 01/21/21 06:00 Proposed Procedures p Cardiac Catheterization(Not Applicable) - Cameron Bermeo MD PATIENT REASSESSED PRIOR TO SEDATION, WITH NO CHANGE NOTED: Yes PHYSICAL EXAM: alert, oriented x 3 and clear to auscultation bilaterally AIRWAY EVAL/ANESTHESIA PLAN: ASA II, Risks, benefits & alternatives of sedation and/or procedure discussed and Patient agrees to continue as planned ADDITIONAL INFORMATION: Patient has been explained all risk benefit and alternative by myself. He understand risk for stroke major minor bleed urgent emergent bypass surgery transfusion sedation bruising infection hematoma pseudoaneurysm. He is a candidate for DAPT he is on clopidogrel. He would like to proceed with it. We are proceeding with a right and left heart cath.
--- NOTE | 2021-01-21 09:54 | PC.CHAP ---
Pastoral Care Encounter/Spiritual Assessment Type of Contact [] Declined fish hatchery superintendent visit [] Patient/Family/Request visit [] Outpatient visit [] Follow-up visit [] Physician referral [] Code/Alert [x] Routine visit [] Staff referral [] Actively dying [] Patient sleeping [x] Family support [] [] Out of room [] Palliative care [] [] Receiving care in room [] Pre-surgical visit [] Trauma [] Long length of stay [] ICU visit [] Other: Relational/Emotional Strength [] Patient feels connected with others/family/visitors/staff [] Distress [] Loneliness/isolation [] Abandonment Spirituality of Patient [] Person of Manuela [] Attends Druze of their Manuela [] Believes in Prayer [] Reads Bible or Orthodoxy materials [] There are Spiritual issues to be addressed Veneer Cutter Interventions [x] Prayer [x] Active listening [x] Non-anxious presence [x] Spiritual/emotional support [] Crisis/trauma care [] Spiritual counseling [] Bereavement support [] Provided bereavement packet [] Provided Bible/devotional materials [] Provided toy/stuffed animal, coloring book to patient or family member [] Provided Communion [] Anointing/[place] [] Salvation [x] Completed spiritual assessment [] Other: Impact on Illness or Injury [] Angry [] Fearful [] Anxious [] Often cries [] Exhaustion [] Unable to work [] Unable to attend cheondoism [] Unable to walk/stand [] Unable to read [] Unable to drive [] Unable to eat/drink [] Unable to sleep [] Unable to be with family [] Patient intubated [] Other: Summary patient just arrived... family with him. waiting for doctor Time spent with patient 5 min
== END 2021-01-21 12:45 | disposition home or self-care (01) ==
LOC: CCL 05:11 → CSU 09:05
PROVIDERS: Visit Provider Internal Medicine Cardiovascular Disease
DX: I25.10 Atherosclerotic heart disease of native coronary artery without angina pectoris (principal); R06.02 Shortness of breath; E78.5 Hyperlipidemia, unspecified; Z79.82 Long term (current) use of aspirin; N40.0 Benign prostatic hyperplasia without lower urinary tract symptoms; M19.90 Unspecified osteoarthritis, unspecified site; G47.30 Sleep apnea, unspecified; Z86.73 Personal history of transient ischemic attack (TIA), and cerebral infarction without residual deficits; I13.0 Hypertensive heart and chronic kidney disease with heart failure and stage 1 through stage 4 chronic kidney disease, or unspecified chronic kidney disease; N18.9 Chronic kidney disease, unspecified; I50.9 Heart failure, unspecified; I35.0 Nonrheumatic aortic (valve) stenosis; I34.0 Nonrheumatic mitral (valve) insufficiency; I07.1 Rheumatic tricuspid insufficiency
CPT/HCPCS: 36415; 93460; C1751; C1760; C1769; C1887; C1894; J1644; J2250; J3010; J3490; J7030; Q0163; Q9967

== ENCOUNTER → 2021-03-04 15:48 | Outpatient (BNVA) | payer MEDICARE, OTHER, SELFPAY | PROVIDERS: Visit Provider Family Medicine | DX: Z79.01 Long term (current) use of anticoagulants (principal) | CPT/HCPCS: 85610 ==

== ENCOUNTER 2021-03-06 15:18 | Inpatient (IN) | payer MEDICARE, OTHER, SELFPAY ==
[2021-03-06] VITALS (7 sets, daily range): BP systolic 95–146; BP diastolic 46–84; PULSE 65–79; RESP 16–24; TEMP 36.7; O2SAT 93–96; BMI 29.0
--- NOTE | 2021-03-06 15:21 | XRR_ITS ---
PROCEDURE INFORMATION: Exam: XR Chest Exam date and time: 03/06/2021 3:21 PM Age: 85 years old Clinical indication: Pain; Angina pectoris; Prior surgery; Surgery date: 1-6 months; Patient HX: Valve replaced 4 wks ago, open heart, HX of prostate cancer; Additional info: Cp TECHNIQUE: Imaging protocol: XR of the chest. Views: 1 view. COMPARISON: CT chest abd pel w con* 11/07/2020 1:36 PM FINDINGS: Tubes, catheters and devices: Heart valve prosthesis. Lungs: Atelectasis in the lung bases. Ground-glass opacity in the right lung base and peripheral left upper lobe. Pleural spaces: Blunting of the costophrenic angles. No pneumothorax. Heart/Mediastinum: Unremarkable. No cardiomegaly. Bones/joints: Degenerative changes of the shoulders and thoracic spine. Right lateral rib fractures are age indeterminate. XR/XR chest 1V portable [id number] IMPRESSION: 1. Ground-glass opacities in the right lung base and peripheral left upper lobe could represent pneumonia. 2. Blunting of the costophrenic angles appears to represent subpleural fatty deposition on the CT chest. Small pleural effusions are not excluded. Radiation Dose CTDIVOL = (mGy): DLP = (mGy-cm)
--- NOTE | 2021-03-06 15:21 | ECG_ITS ---
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 Measurements Intervals [place] Rate: 75 P: 58 NC: 253 QRS: -28 QRSD: 129 T: 59 QT: 429 QTc: 480 Interpretive Statements SINUS RHYTHM WITH FIRST DEGREE AV BLOCK POSSIBLE ANTERIOR MYOCARDIAL INFARCTION , OF INDETERMINATE AGE [30 ms Q WAVE IN V3/V4, OR R < 0.2 mV IN V4] Compared to ECG 03/06/2021 16:49:21 No significant changes Electronically Signed On 03-06-2021 22:48:11 QUALITY PROCESS ENGINEER by Galina Houston M.D. [id number]
--- NOTE | 2021-03-06 16:45 | USCV_ITS ---
Hayes Solis Age: 85 Gender: M : 1935 Exam Date: 03/06/2021 17:08 Ordering Phys: Siena Dalal MD Technologist: Phil Amador [place]am [place] [facility] [place]: SOB BP: 141 / 53 HR: 74 Rhythm: Sinus Technical Quality: Technically difficult study MEASUREMENTS (Male / Female) Normal Values 2D ECHO LV Diastolic Diameter PLAX 3.9 cm 4.2 - 5.9 / 3.9 - 5.3 cm LV Systolic Diameter PLAX 3.4 cm IVS Diastolic Thickness 0.7 cm 0.6 - 1.0 / 0.6 - 0.9 cm IVS Systolic Thickness 0.6 cm LVPW Diastolic Thickness 1.8 cm 0.6 - 1.0 / 0.6 - 0.9 cm LVPW Systolic Thickness 2.1 cm LVOT Diameter 2.0 cm LV Ejection Fraction 2D Teich 27.3 % LV Ejection Fraction MOD 2C 13.9 % LV Ejection Fraction 2C AL 14.4 % LA Diameter 4.1 cm LA Width 4.5 cm LA Height 5.7 cm RA Width 4.4 cm RA Height 5.2 cm Aorta at Sinotubular Diameter 2.4 cm DOPPLER AV Peak Velocity 317.0 cm/s LVOT Peak Velocity 146.0 cm/s AV Area Cont Eq vti 1.4 cm squared AV Area Cont Eq pk 1.4 cm squared MV Area PHT 4.2 cm squared Mitral E to A Ratio 0.9 MV E' Velocity 116.0 cm/s TR Peak Velocity 222.4 cm/s TR Peak Gradient 19.8 mmHg TR Mean Velocity 144.4 cm/s TR Mean Gradient 9.9 mmHg TR Velocity Time Integral 43.3 cm Right Atrial Pressure 3.0 mmHg Pulmonary Artery Systolic Pressu 22.8 mmHg RV Acceleration Time 0.1 s RV Ejection Time 0.3 s RV AcT/ET 0.3 FINDINGS Left Ventricle Dilated left ventricle. Severely decreased left ventricle systolic function. Left ventricular ejection fraction is estimated at 20-25 %. Severe global hypokinesis with regional variation (mid to apical anterior and apical hurley ). Rhythm precludes evaluation of diastolic function. Abnormal septal motion. Right Ventricle Normal right ventricular size and systolic function. Right ventricular systolic pressure 22.8 mmHg. Right Atrium Normal right atrial size. Left Atrium Moderately to markedly increased left atrial size Mitral Valve Mitral valve bioprosthesis in situ well-seated and normally functioning. Mean gradient 3 mmHg. No significant valvular or perivalvular regurgitation. Aortic Valve Aortic valve not well visualized. Thickened and calcified aortic valve. Moderate aortic valve stenosis, mean gradient 22.3 mmHg, TOMY 1.4 cm squared. Mild aortic valve regurgitation. Tricuspid Valve Mild tricuspid valve regurgitation. Pulmonic Valve Pulmonic valve not well visualized. No significant pulmonary valve regurgitation. Pericardium No pericardial effusion. Aorta Aorta not well visualized. CONCLUSIONS 1. Dilated left ventricle. Severely decreased left ventricle systolic function. Left ventricular ejection fraction is estimated at 20-25 %. Severe global hypokinesis with regional variation (mid to apical anterior and apical hurley ). 2. Normal right ventricular size and systolic function. 3. Moderately to markedly increased left atrial size. 4. Mitral valve bioprosthesis in situ well-seated and normally functioning. Mean gradient 3 mmHg. No significant valvular or perivalvular regurgitation. 5. Moderate aortic valve stenosis, mean gradient 22.3 mmHg, TOMY 1.4 cm squared. Mild aortic valve regurgitation. 6. When compared to previous echocardiogram dated 09/06/2020, there is bioprosthetic mitral valve now. Arabella Mosqueda MD (Electronically Signed) Final Date: 07 March 2021 09:51 S
--- NOTE | 2021-03-06 16:49 | W.ED.SOB ---
HPI - SOB/Dyspnea General: Chief Complaint: Shortness of Breath/Dyspnea Stated Complaint: SOB VALVE REPLACED 4WKS AGO Time Seen by Provider: 03/06/21 16:40 Source: patient Mode of arrival: ambulatory Limitations: no limitations History of Present Illness: HPI Narrative: 85-year-old male states that he had a mitral valve replacement roughly 4 weeks ago. States that since then he has been having increasing dyspnea he just got out of rehab facility . States he has had some increasing leg swelling he is on Lasix. He states he just feels weak and with any exertion he gets short of breath and weak patient is in no distress here pulse ox is currently 96% on room air. Denies any chest pain denies any fever. Associated symptoms: Deny abdominal pain, chest pain, fever(s), nausea or vomiting Review of Systems Const: Denies: fever(s), chills, body aches or change in appetite Eyes: Denies: blurry vision or eye discomfort ENMT: Denies: throat pain or dental pain Card: Denies: chest pain Resp: Reports: dyspnea GI: Denies: abdominal pain, nausea, vomiting or diarrhea : Denies: dysuria Musc: Denies: neck pain or back pain Skin/Breast: Denies: rash Neuro: Denies: headache(s) Psych: Denies: depression Aj/Lymph: Denies: easy bruising All/Imm: Denies: urticaria PFSH ED PFSH: Medical History Anemia ASHD (arteriosclerotic heart disease) Atrial fibrillation Basal cell carcinoma BPH (benign prostatic hyperplasia) Cervical post-laminectomy syndrome CHF (congestive heart failure) Chronic lung disease Chronic shortness of breath Chronic systolic heart failure CKD (chronic kidney disease) DDD (degenerative disc disease) Diabetes GERD (gastroesophageal reflux disease) Hyperlipemia Hypertension Immunization due Iron deficiency anemia Ischemic cardiomyopathy Melanoma Mitral valve regurgitation Needs flu shot Neuropathy 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 Sleep apnea Subcapsular hematoma of liver Subcapsular hematoma of liver Syncope TIA (transient ischemic attack) Tricuspid valve regurgitation Surgical History 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 History of angioplasty History of heart artery stent Previous back surgery Family History Father , AT AGE 80 CAD (coronary artery disease) Mother , AT AGE 73 Dementia ALZHIEMERS Social History Smoking and tobacco status: never smoked Alcohol intake: current Alcohol intake frequency: holidays/special occasions only Household members: spouse Marital status: Current occupational status: retired Current gender identity: Male Physical Exam Const: COMMON NORMALS: no acute distress, patient oriented x3 and healthy appearing HENMT: COMMON NORMALS: normocephalic and atraumatic HEAD & SCALP: normocephalic and atraumatic Eye: COMMON NORMALS: Equal, round and reactive pupils present and EOMs intact bilaterally PUPIL: Yes Equal, round and reactive pupils present Neck/C-Spine: COMMON NORMALS: full ROM and supple Chest: COMMONS NORMALS: normal inspection of the chest and normal palpation of entire chest wall Resp: COMMON NORMALS: normal respiratory effort, No retractions, No use of accessory muscles and clear to auscultation bilaterally AUSCULTATION: clear to auscultation bilaterally Cardio: COMMON NORMALS: regular rate, regular rhythm and No murmurs present (Cardio) RATE: regular rate RHYTHM: regular rhythm GI: COMMON NORMALS: Normal to inspection, nondistended, normoactive bowel sounds present, Soft to palpation, non-tender and no masses PALPATION: Yes Soft to palpation Extremity: COMMON NORMALS: full ROM NARRATIVE EXTREMITY EXAM: 1+ edema bilaterally Neuro: COMMON NORMALS: patient oriented x3, moves all extremities and no focal motor deficits Psych: COMMON NORMALS: mental status grossly normal, Normal thought process present and cooperative THOUGHT PROCESS: Normal thought process present Skin: COMMON NORMALS: no rashes or lesions noted and no wounds GENERAL SKIN EXAM: no rashes or lesions noted Course Vital Signs: Vital signs: Vital Signs Temperature 98.0 F 03/06/21 15:33 Pulse Rate 76 03/06/21 21:31 Respiratory Rate 16 03/06/21 21:31 Blood Pressure 124/84 03/06/21 21:31 Pulse Oximetry 95 03/06/21 21:31 MDM - SOB/Dyspnea MDM Narrative: Medical decision making narrative: Patient presents here with dyspnea CT does show a right pleural effusion with a possible empyema he did have incision on that right side of his chest for his mitral valve replacement. He has no fevers not requiring oxygen here did start him on IV antibiotics will get blood culture. Spoke to hospitalist who will admit. Lab Data: Labs: Lab Results 03/06/21 03/06/21 03/06/21 18:23 18:23 18:23 WBC 4.6 10^3/uL 10^3/ uL (4.0-10.0) RBC 3.14 10^6/uL L 10 ^6/uL (4.1-5.3) Hgb 9.2 g/dL L g/dL (11.7-16.6) Hct 29.0 % L % (42.0-52.0) MCV 92.4 fl fl (80-94) MCH 29.3 pg pg (28.0-34.0) MCHC 31.7 g/dL g/dL (30.0-36.0) RDW 18.7 % H % (12.1-15.1) Plt Count 278 10^3/cmm 10^3 /cmm (130-400) MPV 9.1 fL fL (7.4-10.4) Neut % (Auto) 73.6 % % Lymph % (Auto) 12.7 % % Bond % (Auto) 6.8 % % Eos % (Auto) 4.2 % % Baso % (Auto) 0.7 % % Neut # (Auto) 3.36 10^3/uL 10^3 /uL (1.8-7.7) Lymph # (Auto) 0.6 10^3/uL L 10^ 3/uL (0.8-4.8) Bond # (Auto) 0.3 10^3/uL 10^3/ uL (0.2-0.9) Eos # (Auto) 0.2 10^3/uL 10^3/ uL (0.0-0.8) Baso # (Auto) 0.0 10^3/uL 10^3/ uL (0.0-0.1) Nucleated RBC % (a uto) 0 % % Nucleated RBCs # 0.0 /100WBC /100W BC PT 17.10 SECONDS H S ECONDS (12.1-14.9) INR 1.36 H (0.8-1.2) D-Dimer 2.85 ug/mIFEU H u g/mIFEU (0-0.59) Sodium 136 mmol/L mmol/L (136-145) Potassium 4.7 mmol/L mmol/L (3.5-5.1) Chloride 98 mmol/L mmol/L (98-107) Carbon Dioxide 28 mmol/L mmol/L (22-29) Anion Gap 14.7 (5-19) BUN 24 mg/dL H mg/dL (8-23) Creatinine 1.5 mg/dL H mg/dL (0.7-1.2) GFR Calculation Not Reportable Glucose 121 mg/dL H mg/dL (65-115) Calculated Osmolal ity 287 mOsm/kg mOsm/ kg (285-295) Calcium 8.1 mg/dL L mg/dL (8.5-10.5) Total Bilirubin 0.3 mg/dL mg/dL (0.15-1.2) AST 21 U/L U/L (0-40) ALT 13 U/L U/L (0-41) Alkaline Phosphata se 92 IU/L IU/L (40-130) Troponin T Baselin e Troponin T 120 [place] Delta Troponin T NT-Pro-B Natriuret Pep 11942 pg/mL H pg/ mL (0-450) Total Protein 6.4 g/dL L g/dL (6.6-8.7) Albumin 3.2 g/dL L g/dL (3.5-5.2) Globulin 3.2 g/dL g/dL (1.3-4.6) 03/06/21 03/06/21 18:23 20:53 WBC RBC Hgb Hct MCV MCH MCHC RDW Plt Count MPV Neut % (Auto) Lymph % (Auto) Bond % (Auto) Eos % (Auto) Baso % (Auto) Neut # (Auto) Lymph # (Auto) Bond # (Auto) Eos # (Auto) Baso # (Auto) Nucleated RBC % (a uto) Nucleated RBCs # PT INR D-Dimer Sodium Potassium Chloride Carbon Dioxide Anion Gap BUN Creatinine GFR Calculation Glucose Calculated Osmolal ity Calcium Total Bilirubin AST ALT Alkaline Phosphata se Troponin T Baselin e 197 ng/L H* ng/L (0-15) Troponin T 120 [place] 194.1 ng/L H ng/L (0-15) Delta Troponin T -2.9 ABS# L ABS# (0-10) NT-Pro-B Natriuret Pep Total Protein Albumin Globulin Imaging Data^: CXR: Attestation: I personally reviewed and interpreted this imaging study as follows: My impression: [address] [place] [address] XRay Report Signed Patient: Hayes Solis Unit #: [id number] : 1935 Age/Sex: 85 / M ADM Date: 03/06/21 Loc: ER Room/Bed: Attending Dr: Ordering Provider/Ordering MD: Siena Dalal MD Date of Service: 03/06/21 Procedure(s): XR chest 1V portable [id number] Accession Number(s): [id number] Report Number: [id number] PROCEDURE INFORMATION: Exam: XR Chest Exam date and time: 03/06/2021 3:21 PM Age: 85 years old Clinical indication: Pain; Angina pectoris; Prior surgery; Surgery date: 1-6 months; Patient HX: Valve replaced 4 wks ago, open heart, HX of prostate cancer; Additional info: Cp TECHNIQUE: Imaging protocol: XR of the chest. Views: 1 view. COMPARISON: CT chest abd pel w con* 11/07/2020 1:36 PM FINDINGS: Tubes, catheters and devices: Heart valve prosthesis. Lungs: Atelectasis in the lung bases. Ground-glass opacity in the right lung base and peripheral left upper lobe. Pleural spaces: Blunting of the costophrenic angles. No pneumothorax. Heart/Mediastinum: Unremarkable. No cardiomegaly. Bones/joints: Degenerative changes of the shoulders and thoracic spine. Right lateral rib fractures are age indeterminate. XR/XR chest 1V portable [id number] IMPRESSION: 1. Ground-glass opacities in the right lung base and peripheral left upper lobe could represent pneumonia. 2. Blunting of the costophrenic angles appears to represent subpleural fatty deposition on the CT chest. Small pleural effusions are not excluded. Radiation Dose CTDIVOL = (mGy): DLP = (mGy-cm) Dictated By: Stevie Sutton Signed By: Stevie Sutton Signed Date/Time: 03/06/21 1705 DD/ 1521 CT Chest: Attestation: I personally reviewed and interpreted this imaging study as follows: Radiologist's impression: [address] [place] [address] CT Scan Report Signed Patient: Hayes Solis Unit #: [id number] : 1935 Age/Sex: 85 / M ADM Date: 03/06/21 Loc: ER Room/Bed: Attending Dr: Ordering Provider/Ordering MD: Siena Dalal MD Date of Service: 03/06/21 Procedure(s): CT angio chest PE protcl [id number] Accession Number(s): [id number] Report Number: [id number] PROCEDURE INFORMATION: Exam: CTA Chest With Contrast Exam date and time: 03/06/2021 6:51 PM Age: 85 years old Clinical indication: Shortness of breath; Prior surgery; Surgery date: <1 month; Surgery type: Valve repair x 4 weeks ago; Additional info: SOB TECHNIQUE: Imaging protocol: Computed tomographic angiography of the chest with contrast. 3D rendering (Not supervised by radiologist): MIP and/or 3D reconstructed images were created by the technologist. Radiation optimization: All CT scans at this facility use at least one of these dose optimization techniques: automated exposure control; mA and/or kV adjustment per patient size (includes targeted exams where dose is matched to clinical indication); or iterative reconstruction. Contrast material: VISI 320; Contrast volume: 73 ml; Contrast route: INTRAVENOUS (IV); COMPARISON: 1. CT angio chest [id number] 05/09/2019 4:[address] chest abd pel w con* 11/07/2020 1:36:40 PM RADIATION DOSE METRICS: Total DLP (mGy-cm): 576.63 FINDINGS: Tubes, catheters and devices: Mitral valve prosthesis. Pulmonary arteries: Normal. No pulmonary emboli. Aorta: Unremarkable. No aortic aneurysm. No aortic dissection. Lungs: Scattered subpleural atelectasis and/or scarring in both lungs, right greater than left. Dependent atelectasis in the lower lobes. No focal consolidation. Pleural spaces: Nodular thickening of the upper right lateral pleura measuring up to 15 mm in thickness. Nodular pleural thickening and pleural fluid with gas bubbles in the anterior right pleural space. Small amount of posterior right pleural fluid with pleural thickening. Heart: Coronary artery calcifications. Mild cardiomegaly. Lymph nodes: Unremarkable. No enlarged lymph nodes. Gallbladder and bile ducts: Calcified stone in the gallbladder. No visible wall thickening. The bile ducts are normal. Pancreas: Punctate calcifications in the pancreas. Otherwise unremarkable. Spleen: Calcified granulomas in the spleen. Kidneys and ureters: Fluid density cyst in the left kidney, Hounsfield units less than 20. No follow-up imaging recommended. Bones/joints: Numerous blastic lesions scattered throughout the entire skeleton involving the spine, sternum, and ribs. Pathologic right 4th rib fracture. Soft tissues: Gynecomastia. CT/CT angio chest PE protcl [id number] IMPRESSION: 1. No evidence for pulmonary embolus. 2. Right pleural fluid with anterior gas bubbles and pleural thickening. This is consistent with an empyema. A malignant pleural effusion is not excluded. 3. Nodular right pleural thickening, suspicious for pleural metastatic disease. Mesothelioma cannot be entirely excluded. 4. Stable polyostotic blastic metastatic disease, presumably prostate cancer. COMMENTS: Consistent with the [place] [employer]'s Incidental Findings Committee white paper (J Am Nichole Radiol 2018): Any incidental renal lesion less than 1 cm or classified as too small to characterize, or any incidental cystic renal lesion characterized as simple-appearing, is likely benign. No follow-up imaging is recommended for these lesions per consensus recommendations based on imaging criteria. Radiation Dose CTDIVOL = (mGy): DLP = 576.63 (mGy-cm) Dictated By: Stevie Sutton Signed By: Stevie Sutton Signed Date/Time: 03/06/212002 DD/ 185 EKG Data^: EKG 1: Attestation: I personally reviewed and interpreted this EKG as follows: EKG Interpretation Date: 03/06/21 EKG interpretation time: 16:49 Interpretation: nsr hr [address] or t wave abnormalities qrs 130 qtc 447 EKG 2: Attestation: I personally reviewed and interpreted this EKG as follows: EKG Interpretation Date: 03/06/21 Discharge Plan Discharge Patient Disposition: Admitted As Inpatient Clinical Impression: Dyspnea, Pleural effusion Condition: Stable Coding Level of Care Code ED [employer] for Chg Fwd Exam Comprehensive
--- NOTE | 2021-03-06 17:21 | ECG_ITS ---
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 Measurements Intervals [place] Rate: 77 P: 24 [place]: 245 QRS: -29 QRSD: 130 T: 107 QT: 415 QTc: 472 Interpretive Statements SINUS RHYTHM WITH FIRST DEGREE AV BLOCK ANTEROLATERAL MYOCARDIAL INFARCTION , PROBABLY RECENT [40+ ms Q WAVE IN I/aVL/V3-V6] ACUTE AR Compared to ECG 08/11/2019 14:39:22 First degree AV block now present Myocardial infarct finding still present Electronically Signed On 03-06-2021 22:53:46 NUT ORCHARDIST by Galina Houston M.D. [id number]
[2021-03-06 18:29] LABS: Basophils % 0.7 %; Eosinophils # 0.2 10^3/uL (0.0-0.8); Eosinophils % 4.2 %; Hemoglobin 9.2 g/dL (11.7-16.6); Lymphocytes # 0.6 10^3/uL (0.8-4.8); Lymphocytes % 12.7 %; Mean Corpuscular HGB Conc 31.7 g/dL (30.0-36.0); Mean Corpuscular Hemoglobin 29.3 pg (28.0-34.0); Mean Corpuscular Volume 92.4 fl (80-94); Mean Platelet Volume 9.1 fL (7.4-10.4); Monocytes # 0.3 10^3/uL (0.2-0.9); Monocytes % 6.8 %; Neutrophils # 3.36 10^3/uL (1.8-7.7); Neutrophils % 73.6 %; Nucleated Red Blood Cells % 0 %; Platelet Count 278 10^3/cmm (130-400); Red Blood Count 3.14 10^6/uL (4.1-5.3); Red Cell Distribution Width 18.7 % (12.1-15.1); White Blood Count 4.6 10^3/uL (4.0-10.0)
[2021-03-06 18:44] LABS: INR 1.36 (0.8-1.2)
[2021-03-06 18:47] LABS: D Dimer 2.85 ug/mIFEU (0-0.59)
--- NOTE | 2021-03-06 18:51 | CTR_ITS ---
PROCEDURE INFORMATION: Exam: CTA Chest With Contrast Exam date and time: 03/06/2021 6:51 PM Age: 85 years old Clinical indication: Shortness of breath; Prior surgery; Surgery date: <1 month; Surgery type: Valve repair x 4 weeks ago; Additional info: SOB TECHNIQUE: Imaging protocol: Computed tomographic angiography of the chest with contrast. 3D rendering (Not supervised by radiologist): MIP and/or 3D reconstructed images were created by the technologist. Radiation optimization: All CT scans at this facility use at least one of these dose optimization techniques: automated exposure control; mA and/or kV adjustment per patient size (includes targeted exams where dose is matched to clinical indication); or iterative reconstruction. Contrast material: VISI 320; Contrast volume: 73 ml; Contrast route: INTRAVENOUS (IV); COMPARISON: 1. CT angio chest [id number] 05/09/2019 4:[address] chest abd pel w con* 11/07/2020 1:36:40 PM RADIATION DOSE METRICS: Total DLP (mGy-cm): 576.63 FINDINGS: Tubes, catheters and devices: Mitral valve prosthesis. Pulmonary arteries: Normal. No pulmonary emboli. Aorta: Unremarkable. No aortic aneurysm. No aortic dissection. Lungs: Scattered subpleural atelectasis and/or scarring in both lungs, right greater than left. Dependent atelectasis in the lower lobes. No focal consolidation. Pleural spaces: Nodular thickening of the upper right lateral pleura measuring up to 15 mm in thickness. Nodular pleural thickening and pleural fluid with gas bubbles in the anterior right pleural space. Small amount of posterior right pleural fluid with pleural thickening. Heart: Coronary artery calcifications. Mild cardiomegaly. Lymph nodes: Unremarkable. No enlarged lymph nodes. Gallbladder and bile ducts: Calcified stone in the gallbladder. No visible wall thickening. The bile ducts are normal. Pancreas: Punctate calcifications in the pancreas. Otherwise unremarkable. Spleen: Calcified granulomas in the spleen. Kidneys and ureters: Fluid density cyst in the left kidney, Hounsfield units less than 20. No follow-up imaging recommended. Bones/joints: Numerous blastic lesions scattered throughout the entire skeleton involving the spine, sternum, and ribs. Pathologic right 4th rib fracture. Soft tissues: Gynecomastia. CT/CT angio chest PE protcl [id number] IMPRESSION: 1. No evidence for pulmonary embolus. 2. Right pleural fluid with anterior gas bubbles and pleural thickening. This is consistent with an empyema. A malignant pleural effusion is not excluded. 3. Nodular right pleural thickening, suspicious for pleural metastatic disease. Mesothelioma cannot be entirely excluded. 4. Stable polyostotic blastic metastatic disease, presumably prostate cancer. COMMENTS: Consistent with the [employer]'s Incidental Findings Committee white paper (J Am Nichole Radiol 2018): Any incidental renal lesion less than 1 cm or classified as too small to characterize, or any incidental cystic renal lesion characterized as simple-appearing, is likely benign. No follow-up imaging is recommended for these lesions per consensus recommendations based on imaging criteria. Radiation Dose CTDIVOL = (mGy): DLP = 576.63 (mGy-cm)
[2021-03-06 19:04] LABS: Alanine Aminotransferase 13 U/L (0-41); Albumin Level 3.2 g/dL (3.5-5.2); Alkaline Phosphatase 92 IU/L (40-130); Anion Gap 14.7 (5-19); Aspartate Amino Transferase 21 U/L (0-40); Blood Urea Nitrogen 24 mg/dL (8-23); Calcium 8.1 mg/dL (8.5-10.5); Carbon Dioxide 28 mmol/L (22-29); Chloride 98 mmol/L (98-107); Globulin 3.2 g/dL (1.3-4.6); Glucose 121 mg/dL (65-115); NT Pro B Type Natriuretic Pept 12950 pg/mL (0-450); Osmolality Calculated 287 mOsm/kg (285-295); Potassium 4.7 mmol/L (3.5-5.1); Sodium 136 mmol/L (136-145); Total Bilirubin 0.3 mg/dL (0.15-1.2); Total Protein 6.4 g/dL (6.6-8.7); Troponin(5th) Baseline 197 ng/L (0-15)
[2021-03-06 19:14] LABS: Slide Review Slide Review Perform
[2021-03-06] MEDS: iodixanol 320 mg/mL 100mL Btl IV (19:38)
[2021-03-06] MEDS: FUROsemide 10 mg/mL SDV 4mL 40 MG IVP (20:00)
--- NOTE | 2021-03-06 21:21 | ECG_ITS ---
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 Measurements Intervals [place] Rate: 76 P: 45 [place]: 237 QRS: -22 QRSD: 126 T: 82 QT: 423 QTc: 476 Interpretive Statements SINUS RHYTHM WITH FIRST DEGREE AV BLOCK POSSIBLE ANTERIOR MYOCARDIAL INFARCTION , OF INDETERMINATE AGE [30 ms Q WAVE IN V3/V4, OR R < 0.2 mV IN V4] Compared to ECG 03/06/2021 18:12:48 No significant changes Electronically Signed On 03-06-2021 22:54:09 SPIKE DRIVER by Galina Houston M.D. [id number]
[2021-03-06 21:34] LABS: Troponin 5 2HR Delta -2.9 ABS# (0-10)
[2021-03-06 21:35] LABS: Troponin 5 2HR 194.1 ng/L (0-15)
[2021-03-06] MEDS: piperacillin-tazobactam 3.375 GM in sodium chloride 0.9% (plus) 50 ML IV (21:41)
[2021-03-06] MEDS: vancomycin 1,000 MG in sodium chloride 0.9% 250 ML 250 MG IV (22:33)
[2021-03-07] VITALS (11 sets, daily range): BP systolic 96–136; BP diastolic 42–64; PULSE 76–99; RESP 14–24; TEMP 36.4–36.7; O2SAT 93–100
[2021-03-07 00:52] LABS: Troponin 5 6HR 214.8 ng/L (0-15); Troponin 5 6HR Delta 17.8 ng/L (0-12)
--- NOTE | 2021-03-07 01:36 | PM.HP ---
Providers/Chief Complaint Admitting Physician: Soco Salinas MD Primary Care Provider: Tiki Dorado MD Chief Complaint: SOB VALVE REPLACED 4WKS AGO History of Present Illness Hayes Solis is a 85 year old male with PMH metastatic prostate cancer, past h/o tarumatic hepatic subcapsular hematoma 2018, h/o CHF last known EF 35% 04/2019, gr 1 diastolic dysfunction ,recently underwent MV replacement at [facility] one month ago. Subsequently discharged to [facility] rehab where he states he was doing well and feeling improved, discharged home one week ago. Since returning home he has been noticing increasing lower extremity swelling and dyspnea on exertion. He reports having had significant LINDSEY over the past 3-4 months, transiently improved after surgery but now worsening again over the past week. Denies orthopnea. Currently saturating 96% on RA at time of exam. CTa chest negative for PE however shows Right pleural fluid with anterior gas bubbles and pleural thickening concerning for empyema vs malignant effusion. Of note, he reports that surgical site of entry was along right lateral ribs. Denies dysphagia or odynophagia. No fever, cough or expectoration. Denies chest pain, palpitations. Vaccinated for COVID 19 with 2 dose mRNA series, 2md dose ~July 2020. Review of Systems General: Reports: 10 or more systems reviewed and unremarkable except in HPI and below Const: Denies: fever(s), chills or body aches Eyes: Denies: change in vision, blurry vision or photophobia ENMT: Reports: hoarseness; Denies: throat pain, enlarged tonsils, odynophagia or nasal congestion Card: Denies: chest pain, palpitations, irregular heart rhythm, edema, swelling of feet/ankles, lightheadedness, pre-syncope, dyspnea on exertion or orthopnea Resp: Reports: dyspnea; Denies: productive cough, non-productive cough, wheezing, stridor, pain on inspiration, change in phlegm color, hemoptysis or chest congestion GI: Denies: abdominal pain, nausea, vomiting, hematemesis, coffee ground emesis, dysphagia, heartburn, diarrhea, constipation, GI cramping, change in stool character, hematochezia or melena : Denies: flank pain, dysuria, urinary frequency, urinary urgency, urinary hesitancy or hematuria Musc: Denies: neck pain, back pain, extremity pain, joint swelling, joint warmth or deformity Neuro: Denies: headache(s), numbness in extremities, weakness in extremities, sensory changes, difficulty walking, frequent falls, dizziness, vertigo, behavioral changes, Slurred speech present or seizure-like activity Psych: Denies: anxiety, depression, suicidal ideation or homicidal ideation Endo: Denies: polyuria, polydipsia, tired all the time, cold intolerance or hot flashes Aj/Lymph: Denies: easy bruising or easy bleeding Medications/Allergies Home Medications Medication Instructions Recorded Confirmed Last Taken Type Multiple Vitamins 1 tab PO DAILY 05/09/19 03/04/21 01/20/21 21:00 History aspirin 81 mg tablet,delayed 81 mg PO DAILY 05/09/19 03/04/21 01/20/21 21:00 History release magnesium oxide 400 mg PO DAILY 05/09/19 03/04/21 01/20/21 21:00 History hydrocodone 5 mg-acetaminophen 325 1 tab PO Q6H PRN tab 05/18/19 03/04/21 09/19/19 05:00 History mg tablet clopidogrel 75 mg tablet 75 mg PO DAILY #90 tab 07/02/20 03/04/21 01/20/21 09:00 Rx furosemide 40 mg tablet 40 mg PO DAILY #60 tab 10/01/20 03/04/21 01/20/21 09:00 Rx isosorbide mononitrate 30 mg 30 mg PO DAILY 30 Days #30 tab 10/03/20 03/04/21 01/20/21 09:00 Rx tablet,extended release 24 hr nitroglycerin 0.4 mg sublingual 0.4 mg SUBLINGUAL Q5M PRN #25 tab 12/17/20 03/04/21 Unknown Rx tablet sacubitril 49 mg-valsartan 51 mg 1 tab PO BID #180 tab 12/25/20 03/04/21 01/20/21 09:00 Rx tablet carvedilol 6.25 mg tablet 3.125 mg PO BID #90 tab 01/14/21 03/04/21 01/20/21 09:00 Rx duloxetine 30 mg capsule,delayed See Rx Instructions .ROUTE 01/16/21 03/04/21 01/20/21 09:00 Rx release .COMPLEX #90 cap potassium chloride [Klor-Con 10] 10 meq PO BID 01/17/21 03/04/21 01/20/21 21:00 History PreserVision AREDS 1 cap PO BID 01/18/21 03/04/21 01/20/21 22:00 History pravastatin 80 mg PO DAILY 01/18/21 03/04/21 01/20/21 21:00 History finasteride 5 mg tablet See Rx Instructions .ROUTE 02/22/21 03/04/21 Unknown Rx .COMPLEX #30 tab omeprazole 20 mg capsule,delayed See Rx Instructions .ROUTE 02/22/21 03/04/21 Unknown Rx release .COMPLEX #30 cap warfarin 1 mg tablet 1 mg PO DAILY 03/04/21 03/04/21 Unknown History Allergies Allergy/AdvReac Type Severity Reaction Status Date / Time diclofenac Allergy Unknown Verified 03/04/21 15:51 meperidine Allergy ADR-Vomitin Verified 03/04/21 15:51 g spironolactone Allergy Unknown Verified 03/04/21 15:51 PFSH Acute PFSH: Medical History Anemia ASHD (arteriosclerotic heart disease) Atrial fibrillation Basal cell carcinoma BPH (benign prostatic hyperplasia) Cervical post-laminectomy syndrome CHF (congestive heart failure) Chronic lung disease Chronic shortness of breath Chronic systolic heart failure CKD (chronic kidney disease) DDD (degenerative disc disease) Diabetes GERD (gastroesophageal reflux disease) Hyperlipemia Hypertension Immunization due Iron deficiency anemia Ischemic cardiomyopathy Melanoma Mitral valve regurgitation Needs flu shot Neuropathy 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 Sleep apnea Subcapsular hematoma of liver Subcapsular hematoma of liver Syncope TIA (transient ischemic attack) Tricuspid valve regurgitation Surgical History 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 History of angioplasty History of heart artery stent Previous back surgery Family History Father , AT AGE 80 CAD (coronary artery disease) Mother , AT AGE 73 Dementia ALZHIEMERS Social History Smoking and tobacco status: never smoked Alcohol intake: current Alcohol intake frequency: holidays/special occasions only Household members: spouse Marital status: Current occupational status: retired Current gender identity: Male Vitals/I&O/Wt Last Vital Signs Temp 98.0 F 03/06/21 15:33 Pulse 82 03/07/21 00:11 Resp 14 03/07/21 00:11 BP 96/64 03/07/21 00:11 Pulse Ox 93 03/07/21 00:11 03/06/21 03/06/21 03/07/21 14:59 22:59 06:59 Intake Total 300 / 300 Balance 300 / 300 Weight last 48 hrs Weight 94.347 kg Physical Exam Narrative: EXAM NARRATIVE: General: No acute distress, AO x3 HEENT: PERRLA, pupils bilaterally equal and reactive, pallors not present Chest: Normal vesicular breath sounds, no added sounds, equal good air entry bilaterally CVS: S1-S2 regular, no tachycardia, no gallops, no rubs Abdomen: Soft, mildly distended, nontender, bowel sounds present Neuro: No focal deficits, no facial deformity, AO x3, power 5/5 in all limbs Extremities: 2+ pitting edema Data : 03/07/21 02:58 03/07/21 02:58 Micro: Microbiology 03/07/21 00:08 Blood Culture - Preliminary Blood SPECIMEN COLLECTED 03/07/21 00:05 Blood Culture - Preliminary Blood SPECIMEN COLLECTED A&P Assessment and plan (1) CHF (congestive heart failure): Acute on chronic systolic and diastolic heart failure as evidenced by elevated BNP, increased LE edema, rales on exam Last echocardiogram with EF 35% and gr 1 diastolic dysfunction Lasix 40mg iv q12h Recent h/o MV replacement one month ago at [facility]-records requested Stat echocardiogram ordered from ER- results not known at this time due to IT maintainence INR subtherapeutic on Coumadin at 1.3 today, bridge with heparin gtt for now Troponin leak with negatiev delta at 2 hrs, 6 hrs troponin awaited, denies chest pain, may be related to CHF exacerbation vs recent procedure. Curently saturating well on RA Status: Acute Qualifiers: Heart failure type: combined systolic and diastolic Heart failure chronicity: acute on chronic Qualified Code(s): I50.43 - Acute on chronic combined systolic (congestive) and diastolic (congestive) heart failure (2) Atrial fibrillation: Currently rate controlled Status: Acute (3) Pleural effusion: Complex right pleural effusion, noted emyema vs malignant effusion No fever or signs of sepsis at this time. ??Post op changes from recent procedure vs from known metastatic disease. Empiric treatment with Zosyn while undergoing evaluation Blood cx taken and pending Status: Acute Attestations Medical Necessity Statement*: anticipate >2midnight admission for management of CHF exacerbation, iv diuresis, heaprin bridging Coding Level of Care Code Acute Systems Applications Programming Lead for [facility] Diagnoses CHF (congestive heart failure) I50.43 Heart failure type: combined systolic and diastolic Heart failure chronicity: acute on chronic Atrial fibrillation I48.91 Pleural effusion J90
[2021-03-07 03:12] LABS: Platelet Count 304 10^3/cmm (130-400)
[2021-03-07] MEDS: FUROsemide 10 mg/mL SDV 4mL 40 MG IVP ×2 (03:34→17:27)
[2021-03-07] MEDS: piperacillin-tazobactam 3.375 GM in sodium chloride 0.9% (plus) 50 ML IV ×2 (03:38→11:26)
[2021-03-07] MEDS: acetaminophen 325 mg Tablet 650 MG PO (03:43)
[2021-03-07 03:54] LABS: Alanine Aminotransferase 16 U/L (0-41); Albumin Level 3.3 g/dL (3.5-5.2); Alkaline Phosphatase 108 IU/L (40-130); Anion Gap 18.5 (5-19); Aspartate Amino Transferase 23 U/L (0-40); Blood Urea Nitrogen 25 mg/dL (8-23); Calcium 8.1 mg/dL (8.5-10.5); Carbon Dioxide 27 mmol/L (22-29); Chloride 99 mmol/L (98-107); Globulin 3.1 g/dL (1.3-4.6); Glucose 117 mg/dL (65-115); Osmolality Calculated 295 mOsm/kg (285-295); Potassium 4.5 mmol/L (3.5-5.1); Sodium 140 mmol/L (136-145); Total Bilirubin 0.3 mg/dL (0.15-1.2); Total Protein 6.4 g/dL (6.6-8.7)
[2021-03-07] MEDS: heparin 5,000 unit/mL INJ 1 mL IV (05:10)
[2021-03-07] MEDS: heparin drip 25,000 UNIT/500 ML PREMIX 27 UNIT IV (05:13)
[2021-03-07 05:14] LABS: Partial Thromboplastin Time 33.7 SECONDS (23.9-36.7)
--- NOTE | 2021-03-07 08:17 | PC.PHAR ---
pts states cindy Paz dced plavix,entresto,chlorthalidone,farxiga and imdur on 02/04/21-pts states the pt is taking the medications entered
[2021-03-07] MEDS: aspirin 81 mg EC Tablet PO (09:58)
[2021-03-07] MEDS: clopidogrel 75 mg Tablet PO (10:01)
[2021-03-07] MEDS: duloxetine 30 mg Capsule PO (10:02)
[2021-03-07] MEDS: pantoprazole DR 40 mg Tablet PO (10:03)
[2021-03-07] MEDS: carvedilol 3.125 mg Tablet PO (11:19)
[2021-03-07] MEDS: finasteride 5 mg Tablet PO (11:19)
--- NOTE | 2021-03-07 12:16 | PM.CONSULT ---
Providers/Reason For Consult Consulting Physician/Specialty*: Dr. Mosqueda, cardiology Reason for Consult*: Shortness of breath, elevated troponin Attending Physician: Cameron Bermudez MD Primary Care Provider: Tiki Dorado MD History of Present Illness History of Present Illness Hayes Solis is a 85 year old male with past medical history of severe mitral regurgitation and moderate aortic stenosis, status post recent bioprosthetic mitral valve replacement via right thoracotomy incision, congestive heart failure (HFrEF=25%), coronary artery disease with prior LAD stent ([facility]: 21 January 2021-right dominant circulation. Patent proximal LAD, distal RCA with 30% stenosis in mid circumflex with 30% stenosis). He also has history of metastatic prostate cancer history of traumatic hepatic subcapsular hematoma 2018, hypertension, diabetes, dyslipidemia, gastroesophageal reflux disease, history of TIA and sleep apnea. He had mitral valve surgery about a month ago and was discharged to [facility] rehab and was discharged home about a week ago. He was also discharged on amiodarone and warfarin after being diagnosed with postop A. fib. Patient is anxious at the time of examination. Denies any chest pain. Shortness of breath aggressively worsening over last week or 2 along with some swelling in lower extremity. Complain of generalized weakness inability to stand on his own and tremors in hand. Baseline troponin T of 197 at 2 hours 194 and at 6 hours 215. NT proBNP 47155. BUN 24 and creatinine 1.5. EKG on arrival showed sinus rhythm with first-degree AV block AZ interval 253 ms. Interventricular conduction delay. Possible anterior AL of indeterminate age. CT chest showed no PE right pleural effusion with anterior gas bubbles and pleural thickening with concern for empyema/malignant pleural effusion as well as nodular right pleural thickening Review of Systems General: Reports: 10 or more systems reviewed and unremarkable except in HPI and below Const: Denies: fever(s), chills or body aches Eyes: Denies: change in vision or photophobia ENMT: Reports: hoarseness; Denies: nasal congestion Card: Reports: edema and swelling of feet/ankles; Denies: chest pain, palpitations, irregular heart rhythm, lightheadedness, pre-syncope, dyspnea on exertion or orthopnea Resp: Reports: dyspnea; Denies: productive cough, non-productive cough, wheezing, pain on inspiration, change in phlegm color, hemoptysis or chest congestion GI: Denies: abdominal pain, nausea, vomiting, hematemesis, coffee ground emesis, diarrhea, constipation, hematochezia or melena : Denies: dysuria, urinary frequency, urinary urgency, urinary hesitancy or hematuria Musc: Denies: neck pain, back pain or extremity pain Neuro: Reports: dizziness; Denies: headache(s), numbness in extremities, weakness in extremities, sensory changes, difficulty walking, frequent falls or seizure-like activity Psych: Denies: anxiety or depression Endo: Denies: tired all the time Aj/Lymph: Denies: easy bruising or easy bleeding Meds/Allergies Home Medications and Allergies Home Medications Medication Instructions Recorded Confirmed Last Taken Type aspirin 81 mg tablet,delayed 81 mg PO QAM 05/09/19 03/07/21 01/20/21 21:00 History release magnesium oxide 400 mg PO QPM 05/09/19 03/07/21 01/20/21 21:00 History hydrocodone 5 mg-acetaminophen 325 1 tab PO Q6H PRN tab 05/18/19 03/07/21 09/19/19 05:00 History mg tablet nitroglycerin 0.4 mg sublingual 0.4 mg SUBLINGUAL Q5M PRN #25 tab 12/17/20 03/07/21 Unknown Rx tablet pravastatin 80 mg PO BEDTIME 01/18/21 03/07/21 01/20/21 21:00 History warfarin 1 mg tablet See Rx Instructions .ROUTE .COMPLEX 03/04/21 03/07/21 Unknown History amiodarone 200 mg PO TID 03/07/21 03/07/21 Unknown History carvedilol 3.125 mg PO BID 03/07/21 03/07/21 Unknown History docusate sodium [Colace] 100 mg PO BID 03/07/21 03/07/21 Unknown History duloxetine 30 mg PO QAM 03/07/21 03/07/21 Unknown History finasteride 5 mg PO QAM 03/07/21 03/07/21 Unknown History fluticasone furoate-vilanterol 1 inh INHALATION DAILY 03/07/21 03/07/21 Unknown History [Breo Ellipta] furosemide 40 mg PO BID@07,14 03/07/21 03/07/21 Unknown History multivitamin 1 tab PO QPM 03/07/21 03/07/21 Unknown History omeprazole 20 mg PO QAM 03/07/21 03/07/21 Unknown History potassium chloride 20 meq PO QAM 03/07/21 03/07/21 Unknown History spironolactone 25 mg PO QAM 03/07/21 03/07/21 Unknown History tamsulosin [Flomax] 0.4 mg PO QAM 03/07/21 03/07/21 Unknown History vit C,R-Ut-fdabe-lutein-zeaxan 1 cap PO QPM 03/07/21 03/07/21 Unknown History [PreserVision AREDS-2] Allergies Allergy/AdvReac Type Severity Reaction Status Date / Time diclofenac Allergy Unknown Verified 03/07/21 08:13 meperidine Allergy ADR-Vomitin Verified 03/07/21 08:13 g spironolactone Allergy Unknown Verified 03/07/21 08:13 Current Medications Current Medications Generic Name Dose Route Start Last Admin Trade Name Freq PRN Reason Stop Dose Admin Acetaminophen 650 mg 03/07/21 01:27 03/07/21 03:43 Acetaminophen 325 Mg Tablet PO 650 mg Q6H PRN Administration Mild/Mod Pain Or Temp >/= 101 Aspirin 81 mg 03/07/21 09:00 03/07/21 09:58 Aspirin 81 Mg Ec Tablet PO 81 mg DAILY NAEEM Administration Carvedilol 3.125 mg 03/07/21 09:00 03/07/21 11:19 Carvedilol 3.125 Mg Tablet PO 3.125 mg BID@0900,2100 NAEEM Administration Clopidogrel Bisulfate 75 mg 03/07/21 09:00 03/07/21 10:01 Clopidogrel 75 Mg Tablet PO 75 mg DAILY NAEEM Administration Duloxetine HCl 30 mg 03/07/21 09:00 03/07/21 10:02 Duloxetine 30 Mg Capsule PO 30 mg DAILY NAEEM Administration Finasteride 5 mg 03/07/21 09:00 03/07/21 11:19 Finasteride 5 Mg Tablet PO 5 mg DAILY NAEEM Administration Furosemide 40 mg 03/07/21 04:00 03/07/21 03:34 Furosemide 10 Mg/Ml Sdv 4ml IVP 40 mg Q12H NAEEM Administration Heparin Sodium (Porcine) 0 unit 03/07/21 01:27 03/07/21 05:10 Heparin 5,000 Unit/Ml Inj 1 Ml IV 4,800 unit PRN PRN Administration Heparin weight-base protocol Protocol Piperacillin Sod/Tazobactam 50 mls @ 12.5 mls/hr 03/07/21 03:30 03/07/21 11:26 Sod 3.375 gm/ Sodium Chloride IV 50 mls/hr Q8H NAEEM Administration Protocol Heparin Sodium/Sodium Chloride 25,000 unit in 500 mls @ 0 mls/hr 03/07/21 04:30 03/07/21 05:13 Heparin Drip IV 14.31 unit/kg/hr .Q0M NAEEM 27 mls/hr Administration Protocol Per Protocol Non-Formulary Medication 1 tab 03/07/21 09:00 03/07/21 10:14 Sacubitril-Valsartan [Entresto] PO Not Given BID NAEEM Pantoprazole Sodium 40 mg 03/07/21 09:00 03/07/21 10:[address] 40 Mg Tablet PO 40 mg DAILY NAEEM Administration PFSH Acute PFSH: Medical History Anemia ASHD (arteriosclerotic heart disease) Atrial fibrillation Basal cell carcinoma BPH (benign prostatic hyperplasia) Cervical post-laminectomy syndrome CHF (congestive heart failure) Chronic lung disease Chronic shortness of breath Chronic systolic heart failure CKD (chronic kidney disease) DDD (degenerative disc disease) Diabetes GERD (gastroesophageal reflux disease) Hyperlipemia Hypertension Immunization due Iron deficiency anemia Ischemic cardiomyopathy Melanoma Mitral valve regurgitation Needs flu shot Neuropathy 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 Sleep apnea Subcapsular hematoma of liver Subcapsular hematoma of liver Syncope TIA (transient ischemic attack) Tricuspid valve regurgitation Surgical History 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 History of angioplasty History of heart artery stent Previous back surgery Family History Father , AT AGE 80 CAD (coronary artery disease) Mother , AT AGE 73 Dementia ALZHIEMERS Social History Smoking and tobacco status: never smoked Alcohol intake: current Alcohol intake frequency: holidays/special occasions only Household members: spouse Marital status: Current occupational status: retired Current gender identity: Male Vitals/I&O/Wt Last Vital Signs Temp 98.0 F 03/06/21 15:33 Pulse 82 03/07/21 00:11 Resp 14 03/07/21 00:11 BP 96/64 03/07/21 00:11 Pulse Ox 93 03/07/21 00:11 03/06/21 03/07/21 03/07/21 22:59 06:59 14:59 Intake Total 350 / 350 Balance 350 / 350 Weight last 48 hrs Weight 208 lb Physical Exam Narrative: EXAM NARRATIVE: GENERAL: Elderly patient sitting in bed in no acute distress HEENT: No pallor or icterus. NECK: No JVD, No carotid bruit. CARDIOVASCULAR SYSTEM: S1-S2 regular. Grade 3/6 systolic murmur in aortic area RESPIRATORY SYSTEM: Chest clear to auscultation decreased at bases. No wheezes rhonchi or rubs heard. ABDOMEN: Soft, nontender and nondistended. Normal bowel sounds present. EXTREMITIES: No cyanosis or clubbing. [No edema]. RECOVERY COLLECTOR: Patient is alert oriented ?3. No focal neurological deficits. Data Micro: Micro: Microbiology 03/07/21 00:08 Blood Culture - Pr eliminary Blood SPECIMEN COLLE JACY 03/07/21 00:05 Blood Culture - Pr eliminary Blood SPECIMEN [facility] Other Data: Attestation for Other Data: I personally reviewed and interpreted the following: Other data: TTE (03/06/21) CONCLUSIONS 1. Dilated left ventricle. Severely decreased left ventricle systolic function. Left ventricular ejection fraction is estimated at 20-25 %. Severe global hypokinesis with regional variation (mid to apical anterior and apical hurley ). 2. Normal right ventricular size and systolic function. 3. Moderately to markedly increased left atrial size. 4. Mitral valve bioprosthesis in situ well-seated and normally functioning. Mean gradient 3 mmHg. No significant valvular or perivalvular regurgitation. 5. Moderate aortic valve stenosis, mean gradient 22.3 mmHg, TOMY 1.4 cm squared. Mild aortic valve regurgitation. 6. When compared to previous echocardiogram dated 09/06/2020, there is bioprosthetic mitral valve now. A&P Assessment and plan (1) CHF (congestive heart failure): HFrEF= ~25%, agree with Lasix 40 mg IV every 12 -Close intake and output monitoring and daily weight. -Continue on Coreg. ARNI held due to URMILA Status: Acute Qualifiers: Heart failure chronicity: acute on chronic Heart failure type: combined systolic and diastolic Qualified Code(s): I50.43 - Acute on chronic combined systolic (congestive) and diastolic (congestive) heart failure (2) History of mitral valve replacement with bioprosthetic valve: Follow-up on records Status: Acute (3) Atrial fibrillation: Paroxysmal atrial fibrillation. Currently in sinus rhythm -Decrease amiodarone to 200 mg daily Status: Acute (4) Aortic stenosis: Moderate aortic stenosis on recent echo Status: Acute Qualifiers: Cardiac valve disease etiology: nonrheumatic Qualified Code(s): I35.0 - Nonrheumatic aortic (valve) stenosis Additional A&P Information Elevated troponin 2/2 NSTEMI type 2 : DC heparin drip CAD Metastatic prostate cancer Hypertension Hyperlipidemia Diabetes mellitus Fraility History of TIA Thank you for allowing me to participate in patient's care. Please feel free to call with questions or concerns. Consult Attestations Time Spent in Patient Care: 16 - 35 minutes (>than 50% of time spent in counselling and/or direct pt care on unit). Coding Level of Care Code Acute Controller Operations And Hr Manager for [facility] Diagnoses CHF (congestive heart failure) I50.43 Heart failure chronicity: acute on chronic Heart failure type: combined systolic and diastolic History of mitral valve replacement with bioprosthetic valve Z95.3 Atrial fibrillation I48.91 Aortic stenosis I35.0 Cardiac valve disease etiology: nonrheumatic
[2021-03-07 13:08] LABS: Partial Thromboplastin Time > 250.0 SECONDS (23.9-36.7)
--- NOTE | 2021-03-07 13:27 | P.MISC_ITS ---
Miscellaneous Note Note: Patient was examined in the ER bed #4 is at the bedside Patient is stating that his valve was replaced a month ago at [place] At that time as per the one of the ribs had to be cut because of difficult access and pleural thickening He spent some time at the rehab and was discharged a week ago he has been getting weaker, at the time of discharge from the hospital he was 204 pounds, at the time of discharge from the rehab he weighed 224 pounds, he is endorsing orthopnea, PND shortness of breath after walking only 10 feet, he has not noticed any fever or chest pain He has been noticing resting tremors which make his sleep very difficult sometimes No previous history of Parkinson however endorsing family history of Parkinson's in his mother I reviewed his CT scan findings with the radiologist, we do not think it is empyema, air and atelectasis pleural thickening seems concerning for possible mesothelioma and air is secondary to postsurgical changes Patient was in semi-Zimmerman position Does not use oxygen at home Currently on 1 to 2 L A. fib RVR heart rate fluctuating between 95-1 10 Clinical signs of fluid overload Bilateral lower extremity edema 1+ Venous stasis dermatitis Essential tremors I did not appreciate cogwheel rigidity Variable S1-S2 Abdomen soft Bilateral breath sounds with mild rhonchi at the bases no active wheezing, diminished airflow at the bases of the lungs bilaterally I did not appreciate active crackles Plan: Acute exacerbation of CHF Echo shows ejection fraction No acute valvular motion abnormality as per the echo, mean gradient around aortic valve also significant please see echo for further details Patient does have active signs of clinical fluid overload Once blood pressure is stable would switch him to Bumex IV regimen Type II AL:?: No active chest pain, EKG without ischemic or infarctive changes, Discontinue heparin, APTT above 200 Continue Coumadin, Plavix Recent mitral valve replacement with bovine valve Continue Coumadin A. fib RVR: I will resume his amiodarone, hold Coreg secondary to worsening CHF and low blood pressure He will stay on Coumadin for valvular A. fib Prostate cancer with bony metastases Pleural thickening concern for possible mesothelioma, no histopathological diagnosis available Cardiac diet DVT prophylaxis: Coumadin DNR/DNI, discussed goals of care with the patient and his , patient absolutely does not want any aggressive intervention in case of worsening of his health, he prefers to stay home
[2021-03-07] MEDS: primidone 50 mg Tablet PO (17:26)
[2021-03-07] MEDS: amiodarone 200 mg Tablet PO (17:26)
--- NOTE | 2021-03-07 19:50 | PC.NURSE ---
Received report from SHEILA Hutchison. Patient resting in bed watching TV. Spouse at bedside presently. Denies needs. No distress observed.
[2021-03-07 20:15] LABS: Glucose Point of Care 180 mg/dL (70-110)
[2021-03-07] MEDS: ALPRAZolam 0.5 mg Tablet 0.25 MG PO (21:56)
[2021-03-08] VITALS (12 sets, daily range): BP systolic 88–134; BP diastolic 44–84; PULSE 70–86; RESP 16–34; TEMP 36.1–36.6; O2SAT 95–100; BMI 28.6
[2021-03-08 02:49] LABS: Eosinophils # 0.3 10^3/uL (0.0-0.8); Eosinophils % 6.8 %; Hematocrit 26.1 % (42.0-52.0); Hemoglobin 7.9 g/dL (11.7-16.6); Lymphocytes # 0.5 10^3/uL (0.8-4.8); Lymphocytes % 13.9 %; Mean Corpuscular HGB Conc 30.3 g/dL (30.0-36.0); Mean Corpuscular Hemoglobin 28.6 pg (28.0-34.0); Mean Corpuscular Volume 94.6 fl (80-94); Monocytes # 0.3 10^3/uL (0.2-0.9); Monocytes % 7.3 %; Neutrophils # 2.64 10^3/uL (1.8-7.7); Neutrophils % 69.4 %; Nucleated Red Blood Cells % 0 %; Platelet Count 229 10^3/cmm (130-400); Red Blood Count 2.76 10^6/uL (4.1-5.3); Red Cell Distribution Width 18.8 % (12.1-15.1); White Blood Count 3.8 10^3/uL (4.0-10.0)
[2021-03-08 03:03] LABS: INR 1.54 (0.8-1.2)
[2021-03-08 03:15] LABS: Blood Urea Nitrogen 26 mg/dL (8-23); Calcium 8.1 mg/dL (8.5-10.5); Carbon Dioxide 30 mmol/L (22-29); Chloride 103 mmol/L (98-107); Glucose 108 mg/dL (65-115); Magnesium 1.8 mg/dL (1.7-2.3); Osmolality Calculated 299 mOsm/kg (285-295); Sodium 142 mmol/L (136-145)
[2021-03-08 03:18] LABS: Anion Gap 13.4 (5-19); Potassium 4.4 mmol/L (3.5-5.1)
[2021-03-08 03:22] LABS: Thyroid Stimulating Hormone 55.48 uIU/mL (0.27-4.20)
[2021-03-08] MEDS: FUROsemide 10 mg/mL SDV 4mL 40 MG IVP ×2 (04:58→18:12)
--- NOTE | 2021-03-08 06:02 | PC.NURSE ---
Shift Note Frequent safety and comfort rounds continue. Orders and/or nursing care completed as indicated. Patient monitored for response to intervention and treatment(s). Education provided includes Lasix. Patient and spouse both verbalized complete understanding. Patient had uneventful night. Reports sleeping well. Patient reports breathing easier this morning. Denies needs. No distress observed. Will continue to monitor.
[2021-03-08 06:13] LABS: Glucose Point of Care 112 mg/dL (70-110)
[2021-03-08 07:33] LABS: Hematocrit 29.3 % (42.0-52.0)
[2021-03-08 08:12] LABS: Free T4 Free Thyroxine 0.56 ng/dL (0.82-1.77)
[2021-03-08] MEDS: pantoprazole DR 40 mg Tablet PO (09:28)
[2021-03-08] MEDS: finasteride 5 mg Tablet PO (09:28)
[2021-03-08] MEDS: amiodarone 200 mg Tablet PO (09:28)
[2021-03-08] MEDS: clopidogrel 75 mg Tablet PO (09:28)
[2021-03-08] MEDS: primidone 50 mg Tablet PO ×2 (09:29→18:12)
[2021-03-08] MEDS: duloxetine 30 mg Capsule PO (09:29)
--- NOTE | 2021-03-08 10:25 | P.PN_ITS ---
Subjective Subjective: Interval history: Patient has converted to sinus rhythm, heart rate in 70s hemodynamically stable Severe hypothyroidism Creatinine worsening -500 fluid balance Patient did experience sundowning last night he did receive sleeping aid, I did went to see him twice he was sound asleep, supine, was saturating well on 2 L nasal cannula 99 to 100% at the bedside Cardiology consultation note reviewed, appreciate cardiology recommendations CONCLUSIONS 1. Dilated left ventricle. Severely decreased left ventricle systolic function. Left ventricular ejection fraction is estimated at 20-25 %. Severe global hypokinesis with regional variation (mid to apical anterior and apical hurley ). 2. Normal right ventricular size and systolic function. 3. Moderately to markedly increased left atrial size. 4. Mitral valve bioprosthesis in situ well-seated and normally functioning. Mean gradient 3 mmHg. No significant valvular or perivalvular regurgitation. 5. Moderate aortic valve stenosis, mean gradient 22.3 mmHg, TOMY 1.4 cm squared. Mild aortic valve regurgitation. 6. When compared to previous echocardiogram dated 09/06/2020, there is bioprosthetic mitral valve now Vitals/I&O/Wt Last Vital Signs Temp 97.8 F 03/08/21 04:21 Pulse 74 03/08/21 10:14 Resp 16 03/08/21 10:14 BP 134/73 03/08/21 04:21 Pulse Ox 100 03/08/21 10:14 03/07/21 03/08/21 03/08/21 22:59 06:59 14:59 Intake Total 240 / 453.75 0 / 0 Output Total 200 / 200 800 / 1000 Balance 40 / 253.75 -800 / -546.25 0 / 0 Weight last 48 hrs Weight 93.213 kg Weight 94.347 kg Physical Exam Narrative: EXAM NARRATIVE: Patient laying supine Saturating well on 2 L nasal cannula Bilateral breath sounds with mild rhonchi otherwise no severe wheezing no crackles Abdomen soft Lower extremity edema 1+ Data : 03/08/21 07:15 03/08/21 02:34 Micro: Microbiology 03/07/21 00:08 Blood Culture - Preliminary Blood NEGATIVE TO DATE 03/07/21 00:05 Blood Culture - Preliminary Blood NEGATIVE TO DATE A&P Assessment and plan (1) History of mitral valve replacement with bioprosthetic valve: Status: Acute (2) CHF (congestive heart failure): Status: Acute Qualifiers: Heart failure type: combined systolic and diastolic Heart failure chronicity: acute on chronic Qualified Code(s): I50.43 - Acute on chronic combined systolic (congestive) and diastolic (congestive) heart failure (3) Dyspnea: Status: Acute (4) Pleural effusion: Status: Acute (5) Atrial fibrillation: Status: Acute (6) Mitral valve regurgitation: Status: Acute (7) Aortic stenosis: Status: Acute Qualifiers: Cardiac valve disease etiology: nonrheumatic Qualified Code(s): I35.0 - Nonrheumatic aortic (valve) stenosis (8) Hypertension: Status: Acute Qualifiers: Hypertension type: essential hypertension Qualified Code(s): I10 - Essential (primary) hypertension (9) CAD (coronary artery disease): Status: Acute Qualifiers: Associated angina: without angina Coronary Disease-Associated Artery/Lesion type: [place] artery [place] vs. transplanted heart: [place] heart Qualified Code(s): I25.10 - Atherosclerotic heart disease of [place] coronary artery without angina pectoris Additional A&P Information Acute exacerbation of reduced ejection heart failure -500 fluid balance, I would continue Lasix 40 mg IV every 12 for next 24 hours to see, monitor urine output and correlate with creatinine Patient is able to lay supine saturating well on 2 L nasal cannula Recent mitral valve surgery, nonmechanical bioprosthetic valve, INR 1.5, moderate aortic valve stenosis noted on echo, this might be contributing factor to versus persistent shortness of breath and heart failure exacerbation, will follow up with further cardiology recommendations URMILA: Cardiorenal, creatinine worsened Clinical signs of fluid overload Continue diuretics for now Dyspnea on minimal activity Congestive heart failure new class IV Pleural thickening, concern for mesothelioma, 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 Currently doing well on 2 L nasal cannula No histopathological findings Atrial fibrillation He developed atrial fibrillation after his valve surgery which was done a month ago, overnight he has converted to sinus rhythm his amiodarone dose has been reduced as per cardiology recommendations, Currently heart rate is in 70s, hemodynamically stable, sinus rhythm, telemetry reviewed Patient currently is on Coumadin Type II GA: No recurrence of shortness of breath or chest pain since hospitalization Metastatic prostate cancer with spine metastases BPH: Continue tamsulosin Patient does not want any aggressive intervention, he is DNR/DNI Might benefit from home health services Get PT evaluation Cardiac diet DVT prophylaxis: Currently on Coumadin Attestations Medical Necessity Statement*: Continue medical management Time Spent in Patient Care: less than 15 minutes Coding Level of Care Code Acute Shift Mgr for Chg Fwd Diagnoses History of mitral valve replacement with bioprosthetic valve Z95.3 CHF (congestive heart failure) I50.43 Heart failure type: combined systolic and diastolic Heart failure chronicity: acute on chronic Dyspnea R06.00 Pleural effusion J90 Atrial fibrillation I48.91 Mitral valve regurgitation I34.0 Aortic stenosis I35.0 Cardiac valve disease etiology: nonrheumatic Hypertension I10 Hypertension type: essential hypertension CAD (coronary artery disease) I25.10 Associated angina: without angina Coronary Disease-Associated Artery/Lesion type: [place] artery [place] vs. transplanted heart: [place] heart
[2021-03-08] MEDS: levothyroxine 50 mcg Tablet PO (11:12)
[2021-03-08 11:26] LABS: Glucose Point of Care 126 mg/dL (70-110)
--- NOTE | 2021-03-08 12:31 | PC.CHAP ---
Pastoral Care Encounter/Spiritual Assessment Type of Contact [] Declined die maintenance visit [] Patient/Family/Request visit [] Outpatient visit [] Follow-up visit [] Physician referral [] Code/Alert [xx] Routine visit [] Staff referral [] Actively dying [] Patient sleeping [] Family support [] [] Out of room [] Palliative care [] [] Receiving care in room [] Pre-surgical visit [] Trauma [] Long length of stay [] ICU visit [] Other: Relational/Emotional Strength [xx] Patient feels connected with others/family/visitors/staff [] Distress [] Loneliness/isolation [] Abandonment Spirituality of Patient [xx] Person of Manuela [] Attends Evangelical of their Manuela [xx] Believes in Prayer [] Reads Bible or Alevism materials [] There are Spiritual issues to be addressed Virtualization Consultant Interventions [xx] Prayer [xx] Active listening [xx] Non-anxious presence [] Spiritual/emotional support [] Crisis/trauma care [] Spiritual counseling [] Bereavement support [] Provided bereavement packet [] Provided Bible/devotional materials [] Provided toy/stuffed animal, coloring book to patient or family member [] Provided Communion [] Anointing/[place] [] Salvation [xx] Completed spiritual assessment [] Other: Impact on Illness or Injury [] Angry [] Fearful [] Anxious [] Often cries [] Exhaustion [] Unable to work [] Unable to attend yarsani [] Unable to walk/stand [] Unable to read [] Unable to drive [] Unable to eat/drink [] Unable to sleep [] Unable to be with family [] Patient intubated [] Other: Summary Patient's , Jessenia, present. Patient was under medicated sleep so die maintenance conversed and prayed with spouse per her request. Time spent with patient 5 minutes
--- NOTE | 2021-03-08 13:52 | P.PN_ITS ---
Subjective Subjective: Interval history: Patient was seen in [facility]. He looks and feels better. He is eager to go home. Remains in sinus rhythm. No events on telemetry 1 L of urine output documented -500 mL. Medications: Reviewed: Yes Vitals/I&O/Wt Last Vital Signs Temp 97.1 F L 03/08/21 08:00 Pulse 74 03/08/21 10:14 Resp 16 03/08/21 10:14 BP 109/44 03/08/21 08:00 Pulse Ox 100 03/08/21 10:14 03/07/21 03/08/21 03/08/21 22:59 06:59 14:59 Intake Total 240 / 453.75 360 / 360 Output Total 200 / 200 800 / 1000 730 / 730 Balance 40 / 253.75 -800 / -546.25 -370 / -370 Weight last 48 hrs Weight 205 lb 8 oz Weight 205 lb 8 oz Weight 208 lb Physical Exam Narrative: EXAM NARRATIVE: GENERAL: Elderly patient sitting in bed in no acute distress HEENT: No pallor or icterus. NECK: No JVD, No carotid bruit. CARDIOVASCULAR SYSTEM: S1-S2 regular. Grade 3/6 systolic murmur in aortic area RESPIRATORY SYSTEM: Chest clear to auscultation decreased at bases. No wheezes rhonchi or rubs heard. Right chest wall incision well approximated and healing well. ABDOMEN: Soft, nontender and nondistended. Normal bowel sounds present. EXTREMITIES: No cyanosis trace-1+ edema. BUSINESS ANALYSIS ANALYST: Patient is alert oriented ?3. No focal neurological deficits. Data : 03/08/21 07:15 03/08/21 02:34 Micro: Microbiology 03/07/21 00:08 Blood Culture - Preliminary Blood NEGATIVE TO DATE 03/07/21 00:05 Blood Culture - Preliminary Blood NEGATIVE TO DATE A&P Assessment and plan (1) CHF (congestive heart failure): HFrEF= ~25%, agree with Lasix 40 mg IV every 12 another day -Close intake and output monitoring and daily weight. -Continue on Coreg. ARNI held due to URMILA Status: Acute Qualifiers: Heart failure type: combined systolic and diastolic Heart failure chronicity: acute on chronic Qualified Code(s): I50.43 - Acute on chronic combined systolic (congestive) and diastolic (congestive) heart failure (2) History of mitral valve replacement with bioprosthetic valve: Follow-up on records, requested again today Status: Acute (3) Atrial fibrillation: Post op atrial fibrillation. Currently in sinus rhythm -Decrease amiodarone to 200 mg daily. -Continue warfarin INR goal (2-2.5); given advanced age. -May consider discontinuing amiodarone next few months based on patient's clinical progression -Follow-up on records Status: Acute (4) Aortic stenosis: Moderate aortic stenosis on recent echo Status: Acute Qualifiers: Cardiac valve disease etiology: nonrheumatic Qualified Code(s): I35.0 - Nonrheumatic aortic (valve) stenosis Additional A&P Information NSTEMI type 2 d/t decompensated CHF : DC heparin drip CAD s/p px LAD RADHA in 07/01/2018: DC Plavix and placed on low-dose aspirin. Amiodarone induced hypothyroidism: Amiodarone dose decreased to 200 mg daily and patient was started on levothyroxine. Acute on chronic kidney disease: Follow-up on [facility] Metastatic prostate cancer Hypertension Hyperlipidemia Diabetes mellitus Fraility Deconditioning History of TIA Thank you for allowing me to participate in patient's care. Please feel free to call with questions or concerns. Attestations Medical Necessity Statement*: Needs hospital stay for management of weakness and shortness of breath Time Spent in Patient Care: 16 - 35 minutes (>than 50% of time spent in counselling and/or direct pt care on unit) . Coding Level of Care Code Acute Chemical Detection Expert for Antwon Fwd Diagnoses CHF (congestive heart failure) I50.43 Heart failure type: combined systolic and diastolic Heart failure chronicity: acute on chronic History of mitral valve replacement with bioprosthetic valve Z95.3 Atrial fibrillation I48.91 Aortic stenosis I35.0 Cardiac valve disease etiology: nonrheumatic
[2021-03-08] MEDS: warfarin 2 mg Tablet 1 MG PO (14:59)
[2021-03-08 16:30] LABS: Glucose Point of Care 214 mg/dL (70-110)
[2021-03-08] MEDS: magnesium oxide 400 mg tablet PO (18:12)
--- NOTE | 2021-03-08 19:05 | PC.NURSE ---
Received report from SHEILA Hutchison. Patient resting in bed listening to football game . Denies pain presently. On room air currently with SpO2 of 95%. at bedside. No distress observed. Discussed plan for the night and Xanax ordered for sleep. Patient verbalized complete understanding.
[2021-03-08] MEDS: sennosides 8.6 mg Tablet 17.2 MG PO (20:24)
[2021-03-08] MEDS: ALPRAZolam 0.5 mg Tablet 0.25 MG PO (20:24)
[2021-03-08 20:31] LABS: Glucose Point of Care 152 mg/dL (70-110)
[2021-03-09] VITALS (11 sets, daily range): BP systolic 109–123; BP diastolic 40–76; PULSE 69–89; RESP 15–27; TEMP 36.2–37; O2SAT 94–97
[2021-03-09 03:25] LABS: Basophils % 0.6 %; Eosinophils # 0.3 10^3/uL (0.0-0.8); Eosinophils % 7.3 %; Hematocrit 27.3 % (42.0-52.0); Hemoglobin 8.4 g/dL (11.7-16.6); Lymphocytes # 0.5 10^3/uL (0.8-4.8); Lymphocytes % 15.5 %; Mean Corpuscular HGB Conc 30.8 g/dL (30.0-36.0); Mean Corpuscular Hemoglobin 29.1 pg (28.0-34.0); Mean Corpuscular Volume 94.5 fl (80-94); Mean Platelet Volume 9.4 fL (7.4-10.4); Monocytes # 0.3 10^3/uL (0.2-0.9); Monocytes % 7.9 %; Neutrophils % 67.2 %; Nucleated Red Blood Cells % 0 %; Platelet Count 235 10^3/cmm (130-400); Red Blood Count 2.89 10^6/uL (4.1-5.3); Red Cell Distribution Width 18.8 % (12.1-15.1); White Blood Count 3.4 10^3/uL (4.0-10.0)
[2021-03-09 03:49] LABS: Anion Gap 13.2 (5-19); Blood Urea Nitrogen 22 mg/dL (8-23); Calcium 7.5 mg/dL (8.5-10.5); Carbon Dioxide 30 mmol/L (22-29); Chloride 98 mmol/L (98-107); Glucose 109 mg/dL (65-115); Osmolality Calculated 288 mOsm/kg (285-295); Potassium 4.2 mmol/L (3.5-5.1); Sodium 137 mmol/L (136-145)
[2021-03-09] MEDS: FUROsemide 10 mg/mL SDV 4mL 40 MG IVP (05:13)
[2021-03-09] MEDS: levothyroxine 50 mcg Tablet PO (05:13)
--- NOTE | 2021-03-09 05:38 | PC.NURSE ---
Shift Note Frequent safety and comfort rounds continue. Orders and/or nursing care completed as indicated. Patient monitored for response to intervention and treatment(s). Education provided includes Lasix and Xanax for sleep. Patient verbalized complete understanding. Patient reports sleeping well through the night. Patient remains on room air this morning with SpO2 at 96%. Patient denies pain. No distress observed. Will continue to monitor.
[2021-03-09 06:41] LABS: Glucose Point of Care 122 mg/dL (70-110)
[2021-03-09] MEDS: amiodarone 200 mg Tablet PO (08:45)
[2021-03-09] MEDS: primidone 50 mg Tablet PO ×2 (08:45→17:25)
[2021-03-09] MEDS: pantoprazole DR 40 mg Tablet PO (08:45)
[2021-03-09] MEDS: magnesium oxide 400 mg tablet PO ×2 (08:45→17:25)
[2021-03-09] MEDS: duloxetine 30 mg Capsule PO (08:45)
[2021-03-09] MEDS: aspirin 81 mg EC Tablet PO (08:45)
[2021-03-09] MEDS: finasteride 5 mg Tablet PO (08:45)
--- NOTE | 2021-03-09 10:16 | P.PN_ITS ---
Subjective Subjective: Interval history: Cardiology coverage Patient with history of multivalvular heart disease, status post recent mitral valve replacement, presented with features of congestive heart failure, atrial fibrillation rapid ventricular rate. Patient is feeling okay. The telemetry shows atrial fibrillation with a controlled ventricular response rate. No chest pain or chest tightness. No palpitation, dizziness or syncopal episodes. Medications: Reviewed: Yes Medication Review Details: Current Medications Acetaminophen (Acetaminophen 325 Mg Tablet) 650 mg PO Q6H PRN PRN Reason: Mild/Mod Pain Or Temp >/= 101 Last Admin: 03/07/21 03:43 Dose: 650 mg Documented by: Albuterol/Ipratropium (Ipratropium-Albuterol 3 Ml Neb) 3 ml INHALATION Q4H PRN PRN Reason: SHORTNESS OF BREATH Alprazolam (Alprazolam 0.5 Mg Tablet) 0.25 mg PO BEDTIME PRN PRN Reason: sleep Last Admin: 03/08/21 20:24 Dose: 0.25 mg Documented by: Amiodarone HCl (Amiodarone 200 Mg Tablet) 200 mg PO DAILY [facility] Last Admin: 03/09/21 08:45 Dose: 200 mg Documented by: Aspirin (Aspirin 81 Mg Ec Tablet) 81 mg PO DAILY [facility] Last Admin: 03/09/21 08:45 Dose: 81 mg Documented by: Carvedilol (Carvedilol 3.125 Mg Tablet) 3.125 mg PO BID@0900,2100 [facility] Last Admin: 03/07/21 11:19 Dose: 3.125 mg Documented by: Dextrose (Dextrose 50% Syringe 50 Ml) 25 ml IVP ONCE PRN; Protocol PRN Reason: hypoglycemia protocol Dextrose (Dextrose 50% Syringe 50 Ml) 50 ml IVP PRN PRN; Protocol PRN Reason: hypoglycemia protocol Duloxetine HCl (Duloxetine 30 Mg Capsule) 30 mg PO DAILY [facility] Last Admin: 03/09/21 08:45 Dose: 30 mg Documented by: Finasteride (Finasteride 5 Mg Tablet) 5 mg PO DAILY [facility] Last Admin: 03/09/21 08:45 Dose: 5 mg Documented by: Furosemide (Furosemide 10 Mg/Ml Sdv 4ml) 40 mg IVP Q12H [facility] Last Admin: 03/09/21 05:13 Dose: 40 mg Documented by: Glucagon (Glucagon 1 Mg/Ml Inj 1 Ml) 1 mg IM ONCE PRN; Protocol PRN Reason: Adult Acute Hypoglycemia Prot. Dextrose (D5w) 500 mls @ 100 mls/hr IV ONCE PRN; Protocol PRN Reason: Adult Acute Hypoglycemia Prot Levothyroxine Sodium (Levothyroxine 50 Mcg Tablet) 50 mcg PO QAM [facility] Last Admin: 03/09/21 05:13 Dose: 50 mcg Documented by: Magnesium Oxide (Magnesium Oxide 400 Mg Tablet) 400 mg PO BID [facility] Stop: 03/10/21 07:00 Last Admin: 03/09/21 08:45 Dose: 400 mg Documented by: Non-Formulary Medication (Sacubitril-Valsartan [Entresto]) 1 tab PO BID [facility] Last Admin: 03/07/21 10:14 Dose: Not Given Documented by: Ondansetron HCl (Ondansetron 2 Mg/Ml Sdv 2 Ml) 4 mg IVP Q8H PRN PRN Reason: vomiting, or N/V if npo Pantoprazole Sodium (Pantoprazole Dr 40 Mg Tablet) 40 mg PO DAILY [facility] Last Admin: 03/09/21 08:45 Dose: 40 mg Documented by: Primidone (Primidone 50 Mg Tablet) 50 mg PO BID [facility] Last Admin: 03/09/21 08:45 Dose: 50 mg Documented by: Senna (Sennosides 8.6 Mg Tablet) 17.2 mg PO BEDTIME [facility] Last Admin: 03/08/21 21:05 Dose: Not Given Documented by: Warfarin Sodium (Warfarin 1 Mg Tablet) 1 mg PO MoTh [facility] Last Admin: 03/07/21 13:13 Dose: Not Given Documented by: Warfarin Sodium (Warfarin 2 Mg Tablet) 1 mg PO SuTuWeFrSa [facility] Last Admin: 03/08/21 14:59 Dose: 1 mg Documented by: Vitals/I&O/Wt Last Vital Signs Temp 97.8 F 03/09/21 10:07 Pulse 72 03/09/21 10:07 Resp 24 H 03/09/21 10:07 BP 114/40 03/09/21 10:07 Pulse Ox 96 03/09/21 10:07 03/08/21 03/09/21 03/09/21 22:59 06:59 14:59 Intake Total 480 / 840 236 / 236 Output Total 770 / 1500 1000 / 2500 150 / 150 Balance -290 / -660 -1000 / -1660 86 / 86 Weight last 48 hrs Weight 205 lb 8 oz Weight 205 lb 8 oz Data : 03/10/21 03:15 03/10/21 03:15 Other Labs: Laboratory Last Values WBC 3.4 10^3/uL (4.0-10.0) L 03/09/21 02:39 RBC 2.89 10^6/uL (4.1-5.3) L 03/09/21 02:39 Hgb 8.4 g/dL (11.7-16.6) L 03/09/21 02:39 Hct 27.3 % (42.0-52.0) L 03/09/21 02:39 MCV 94.5 fl (80-94) H 03/09/21 02:39 MCH 29.1 pg (28.0-34.0) 03/09/21 02:39 MCHC 30.8 g/dL (30.0-36.0) 03/09/21 02:39 RDW 18.8 % (12.1-15.1) H 03/09/21 02:39 Plt Count 235 10^3/cmm (130-400) 03/09/21 02:39 MPV 9.4 fL (7.4-10.4) 03/09/21 02:39 Neut % (Auto) 67.2 % 03/09/21 02:39 Lymph % (Auto) 15.5 % 03/09/21 02:39 [place] % (Auto) 7.9 % 03/09/21 02:39 Eos % (Auto) 7.3 % 03/09/21 02:39 Baso % (Auto) 0.6 % 03/09/21 02:39 Neut # (Auto) 2.30 10^3/uL (1.8-7.7) 03/09/21 02:39 Lymph # (Auto) 0.5 10^3/uL (0.8-4.8) L 03/09/21 02:39 [place] # (Auto) 0.3 10^3/uL (0.2-0.9) 03/09/21 02:39 Eos # (Auto) 0.3 10^3/uL (0.0-0.8) 03/09/21 02:39 Baso # (Auto) 0.0 10^3/uL (0.0-0.1) 03/09/21 02:39 Nucleated RBC % (auto) 0 % 03/09/21 02:39 Nucleated RBCs # 0.0 /100WBC 03/09/21 02:39 PT 17.60 SECONDS (12.1-14.9) H 03/09/21 02:39 INR 1.40 (0.8-1.2) H 03/09/21 02:39 APTT > 250.0 SECONDS (23.9-36.7) H* D 03/07/21 11:45 D-Dimer 2.85 ug/mIFEU (0-0.59) H 03/06/21 18:23 Sodium 137 mmol/L (136-145) 03/09/21 02:39 Potassium 4.2 mmol/L (3.5-5.1) 03/09/21 02:39 Chloride 98 mmol/L (98-107) 03/09/21 02:39 Carbon Dioxide 30 mmol/L (22-29) H 03/09/21 02:39 Anion Gap 13.2 (5-19) 03/09/21 02:39 BUN 22 mg/dL (8-23) 03/09/21 02:39 Creatinine 1.6 mg/dL (0.7-1.2) H 03/09/21 02:39 GFR Calculation Not Reportable 03/09/21 02:39 Glucose 109 mg/dL (65-115) 03/09/21 02:39 POC Glucose 122 mg/dL (70-110) H 03/09/21 06:34 Calculated Osmolality 288 mOsm/kg (285-295) 03/09/21 02:39 Calcium 7.5 mg/dL (8.5-10.5) L 03/09/21 02:39 Magnesium 1.8 mg/dL (1.7-2.3) 03/08/21 02:34 Total Bilirubin 0.3 mg/dL (0.15-1.2) 03/07/21 02:58 AST 23 U/L (0-40) 03/07/21 02:58 ALT 16 U/L (0-41) 03/07/21 02:58 Alkaline Phosphatase 108 IU/L (40-130) 03/07/21 02:58 Troponin T Baseline 197 ng/L (0-15) H* 03/06/21 18:23 Troponin T 120 Minute 194.1 ng/L (0-15) H 03/06/21 20:53 Delta Troponin T -2.9 ABS# (0-10) L 03/06/21 20:53 Troponin T Hi Sens 6Hr 214.8 ng/L (0-15) H 03/07/21 00:05 Troponin T Hi Sens 6Hr Delta 17.8 ng/L (0-12) H* 03/07/21 00:05 NT-Pro-B Natriuret Pep 82648 pg/mL (0-450) H 03/06/21 18:23 Total Protein 6.4 g/dL (6.6-8.7) L 03/07/21 02:58 Albumin 3.3 g/dL (3.5-5.2) L 03/07/21 02:58 Globulin 3.1 g/dL (1.3-4.6) 03/07/21 02:58 TSH 55.48 uIU/mL (0.27-4.20) H 03/08/21 02:34 Free T4 0.56 ng/dL (0.82-1.77) L 03/08/21 02:34 Echo: My impression: 1. Dilated left ventricle. Severely decreased left ventricle systolic function. Left ventricular ejection fraction is estimated at 20-25 %. Severe global hypokinesis with regional variation (mid to apical anterior and apical hurley ). 2. Normal right ventricular size and systolic function. 3. Moderately to markedly increased left atrial size. 4. Mitral valve bioprosthesis in situ well-seated and normally functioning. M luis gradient 3 mmHg. No significant valvular or perivalvular regurgitation. 5. Moderate aortic valve stenosis, mean gradient 22.3 mmHg, TOMY 1.4 cm squared. Mild aortic valve regurgitation. 6. When compared to previous echocardiogram dated 09/06/2020, there is bioprosthetic mitral valve now. A&P Assessment and plan (1) History of mitral valve replacement with bioprosthetic valve: The mitral valve function seems to be appropriate. Patient may continue on the current medications. Status: Acute (2) CHF (congestive heart failure): The heart failure seems to be getting compensated. In view of the severe LV systolic dysfunction, it may be appropriate to start him on spironolactone 25 mg p.o. daily. Because of the renal insufficiency, the kidney function need to be closely monitored. Status: Acute Qualifiers: Heart failure chronicity: acute on chronic Heart failure type: combined systolic and diastolic Qualified Code(s): I50.43 - Acute on chronic combined systolic (congestive) and diastolic (congestive) heart failure (3) Atrial fibrillation: The ventricular response rate is under control. May continue on the current medications. Status: Acute Qualifiers: Atrial fibrillation type: unspecified Qualified Code(s): I48.91 - Unspecified atrial fibrillation (4) Aortic stenosis: Status: Acute Qualifiers: Cardiac valve disease etiology: nonrheumatic Qualified Code(s): I35.0 - Nonrheumatic aortic (valve) stenosis (5) Atherosclerosis of coronary artery of [place] heart without angina pectoris: Patient was found to have mild coronary disease by angiogram in January of this year. May continue on the current medications. Status: Acute Qualifiers: Coronary Disease-Associated Artery/Lesion type: [place] artery Qualified Code(s): I25.10 - Atherosclerotic heart disease of [place] coronary artery without angina pectoris (6) Ischemic cardiomyopathy: LV ejection fraction of around 20 to 25% by echocardiogram. Patient was started on Entresto. Currently this is on hold because of the?hypotension. Consider restarting this medication, when it is appropriate Status: Acute Additional A&P Information And apparently has decided against the LifeVest or ICD. We will continue to optimize the medical treatment. Based on her clinical progress, further management decisions will be made Attestations Medical Necessity Statement*: Deferred to the primary Coding Level of Care Code Acute Tractor Distributor for Antwon Oconnell History Detailed Exam Detailed Medical Decision Making Moderate Complexity Diagnoses History of mitral valve replacement with bioprosthetic valve Z95.3 CHF (congestive heart failure) I50.43 Heart failure chronicity: acute on chronic Heart failure type: combined systolic and diastolic Atrial fibrillation I48.91 Atrial fibrillation type: unspecified Aortic stenosis I35.0 Cardiac valve disease etiology: nonrheumatic Atherosclerosis of coronary artery of [place] heart without angina pectoris I25.10 Coronary Disease-Associated Artery/Lesion type: [place] artery Ischemic cardiomyopathy I25.5
[2021-03-09] MEDS: warfarin 2 mg Tablet 1 MG PO (13:57)
--- NOTE | 2021-03-09 14:16 | PC.NURSE ---
Called physician regarding patients warfarin order. Pt at home takes 2mg yin,es,wed, fri,sat. We had him scheduled for 1mg everyday. Received orders to resume home schedule
--- NOTE | 2021-03-09 14:48 | PM.PN ---
Subjective Subjective: Interval history: Patient was seen and examined this morning, -900 fluid balance Creatinine has improved He is getting IV diuretics every 12 Did not do well with physical therapy yesterday Plan to keep him here over the weekend Dr. Houston saw him as well Patient has refused AICD and LifeVest He was diagnosed with hypothyroidism during his hospitalization, start levothyroxine yesterday Vitals/I&O/Wt Last Vital Signs Temp 98.6 F 03/09/21 13:06 Pulse 73 03/09/21 13:06 Resp 22 H 03/09/21 13:06 BP 114/40 03/09/21 13:06 Pulse Ox 94 03/09/21 13:06 03/08/21 03/09/21 03/09/21 22:59 06:59 14:59 Intake Total 480 / 840 472 / 472 Output Total 770 / 1500 1000 / 2500 150 / 150 Balance -290 / -660 -1000 / -1660 322 / 322 Weight last 48 hrs Weight 93.213 kg Weight 93.213 kg Physical Exam Narrative: EXAM NARRATIVE: Laying supine Saturating well on room air S1, S2 Abdomen soft Lower extremities trace edema Clinically looks euvolemic EOMI, PERRLA Venous stasis dermatitis Multiple petechiae of upper extremities Data : 03/09/21 02:39 03/09/21 02:39 A&P Assessment and plan (1) Ischemic cardiomyopathy: Status: Acute (2) Atherosclerosis of coronary artery of [place] heart without angina pectoris: Status: Acute (3) History of mitral valve replacement with bioprosthetic valve: Status: Acute (4) CHF (congestive heart failure): Status: Acute Qualifiers: Heart failure type: combined systolic and diastolic Heart failure chronicity: acute on chronic Qualified Code(s): I50.43 - Acute on chronic combined systolic (congestive) and diastolic (congestive) heart failure (5) Dyspnea: Status: Acute (6) Atrial fibrillation: Status: Acute (7) Pleural effusion: Status: Acute (8) Aortic stenosis: Status: Acute Qualifiers: Cardiac valve disease etiology: nonrheumatic Qualified Code(s): I35.0 - Nonrheumatic aortic (valve) stenosis (9) Hypothyroidism: Status: Acute (10) URMILA (acute kidney injury): Status: Acute Additional A&P Information acute sys congestive heart failure exacerbation: Patient looks euvolemic, adequate urine output, creatinine is improving We will de-escalate IV diuretics to once daily instead of twice daily Low EF less than 30%, patient has refused LifeVest and AICD Patient would like to follow-up with Dr. Purvis outpatient URMILA: Cardiorenal: Improving with diuresis A. fib without RVR: Has converted to sinus rhythm, amiodarone reduced dose, currently on warfarin Moderate aortic stenosis, recent mitral valve surgery, bioprosthetic mitral valve, INR target 2.5-3.5 for next 3 months he does not have mechanical valve that would require lifelong anticoagulation New diagnosis of hypothyroidism: Started 50 mcg of levothyroxine That would explain his fatigue lethargy and blood pressure fluctuation with activity Dyspnea on exertion seems secondary to deconditioning and underlying valvular pathology CHF seems to be improving currently doing well on room air Plan to discharge in next 48 hours if cleared by cardiology Patient does not want AICD Cardiac diet DVT prophylaxis covered with Coumadin Essential tremors: On this visit I have started primidone which seemed to improve his tremors No signs of Parkinson's Attestations Medical Necessity Statement*: Most likely will be discharged in next 48 hours Time Spent in Patient Care: less than 15 minutes Coding Level of Care Code Acute Interpreter for Chg Fwd Diagnoses Ischemic cardiomyopathy I25.5 Atherosclerosis of coronary artery of [place] heart without angina pectoris I25.10 History of mitral valve replacement with bioprosthetic valve Z95.3 CHF (congestive heart failure) I50.43 Heart failure type: combined systolic and diastolic Heart failure chronicity: acute on chronic Dyspnea R06.00 Atrial fibrillation I48.91 Pleural effusion J90 Aortic stenosis I35.0 Cardiac valve disease etiology: nonrheumatic Hypothyroidism E03.9 URMILA (acute kidney injury) N17.9
[2021-03-09 20:04] LABS: Glucose Point of Care 133 mg/dL (70-110)
[2021-03-09] MEDS: ALPRAZolam 0.5 mg Tablet 0.25 MG PO (21:05)
--- NOTE | 2021-03-09 22:28 | PC.NURSE ---
Did not give patient senna tonight as he had two loose stools today and discussed with patient that it was contraindicated and he agreed.
[2021-03-10 04:00] VITALS: BP 109/53; PULSE 70; RESP 22; O2SAT 94
[2021-03-10 04:00] LABS: Basophils % 0.9 %; Eosinophils # 0.2 10^3/uL (0.0-0.8); Eosinophils % 5.7 %; Hematocrit 27.5 % (42.0-52.0); Hemoglobin 8.4 g/dL (11.7-16.6); Lymphocytes # 0.5 10^3/uL (0.8-4.8); Lymphocytes % 15.9 %; Mean Corpuscular HGB Conc 30.5 g/dL (30.0-36.0); Mean Corpuscular Hemoglobin 28.7 pg (28.0-34.0); Mean Corpuscular Volume 93.9 fl (80-94); Mean Platelet Volume 9.5 fL (7.4-10.4); Monocytes # 0.3 10^3/uL (0.2-0.9); Monocytes % 7.8 %; Neutrophils # 2.25 10^3/uL (1.8-7.7); Neutrophils % 67.6 %; Nucleated Red Blood Cells % 0 %; Platelet Count 245 10^3/cmm (130-400); Red Blood Count 2.93 10^6/uL (4.1-5.3); White Blood Count 3.3 10^3/uL (4.0-10.0)
[2021-03-10 04:46] LABS: Blood Urea Nitrogen 25 mg/dL (8-23); Calcium 7.2 mg/dL (8.5-10.5); Carbon Dioxide 26 mmol/L (22-29); Chloride 97 mmol/L (98-107); Glucose 98 mg/dL (65-115); Osmolality Calculated 284 mOsm/kg (285-295); Sodium 135 mmol/L (136-145)
[2021-03-10 04:59] VITALS: PULSE 69
[2021-03-10 05:40] LABS: INR 1.32 (0.8-1.2)
[2021-03-10] MEDS: levothyroxine 50 mcg Tablet PO (05:55)
[2021-03-10 06:08] LABS: Glucose Point of Care 110 mg/dL (70-110)
--- NOTE | 2021-03-10 06:29 | PC.NURSE ---
Frequent safety and comfort rounds continue. Orders and/or nursing care completed as indicated. Patient monitored for response to intervention and treatment(s). Education provided includes medications. Patient and/or sales representative graphic art verbalize understanding. Will continue to monitor.
[2021-03-10] MEDS: primidone 50 mg Tablet PO (08:27)
[2021-03-10] MEDS: finasteride 5 mg Tablet PO (08:27)
[2021-03-10] MEDS: duloxetine 30 mg Capsule PO (08:28)
[2021-03-10] MEDS: pantoprazole DR 40 mg Tablet PO (08:28)
[2021-03-10] MEDS: aspirin 81 mg EC Tablet PO (08:28)
--- NOTE | 2021-03-10 09:29 | PC.SOCIAL ---
IMM update IMM updated with patient and at bedside. Copy Pg2 provided. Verbalized an understanding. Initialled, dated, timed, and placed in chart.
[2021-03-10 09:56] VITALS: BP 106/39; PULSE 73; RESP 19; O2SAT 97
[2021-03-10] MEDS: FUROsemide 20 mg Tablet PO (10:10)
[2021-03-10] MEDS: amiodarone 200 mg Tablet PO (10:10)
--- NOTE | 2021-03-10 10:40 | PM.PN ---
Subjective Subjective: Interval history: The patient is feeling okay. He is not ambulating much. He is barely wanting to go home. Vital signs have remained stable. Telemetry shows atrial fibrillation with a controlled ventricular response rate. No fever or chills. No cough. No unusual shortness of breath. Medications: Reviewed: Yes Medication Review Details: Current Medications Acetaminophen (Acetaminophen 325 Mg Tablet) 650 mg PO Q6H PRN PRN Reason: Mild/Mod Pain Or Temp >/= 101 Last Admin: 03/07/21 03:43 Dose: 650 mg Documented by: Albuterol/Ipratropium (Ipratropium-Albuterol 3 Ml Neb) 3 ml INHALATION Q4H PRN PRN Reason: SHORTNESS OF BREATH Alprazolam (Alprazolam 0.5 Mg Tablet) 0.25 mg PO BEDTIME PRN PRN Reason: sleep Last Admin: 03/09/21 21:05 Dose: 0.25 mg Documented by: Amiodarone HCl (Amiodarone 200 Mg Tablet) 200 mg PO DAILY [facility] Last Admin: 03/10/21 10:10 Dose: 200 mg Documented by: Aspirin (Aspirin 81 Mg Ec Tablet) 81 mg PO DAILY [facility] Last Admin: 03/10/21 08:28 Dose: 81 mg Documented by: Carvedilol (Carvedilol 3.125 Mg Tablet) 3.125 mg PO BID@0900,2100 [facility] Last Admin: 03/07/21 11:19 Dose: 3.125 mg Documented by: Dextrose (Dextrose 50% Syringe 50 Ml) 25 ml IVP ONCE PRN; Protocol PRN Reason: hypoglycemia protocol Dextrose (Dextrose 50% Syringe 50 Ml) 50 ml IVP PRN PRN; Protocol PRN Reason: hypoglycemia protocol Duloxetine HCl (Duloxetine 30 Mg Capsule) 30 mg PO DAILY [facility] Last Admin: 03/10/21 08:28 Dose: 30 mg Documented by: Finasteride (Finasteride 5 Mg Tablet) 5 mg PO DAILY [facility] Last Admin: 03/10/21 08:27 Dose: 5 mg Documented by: Furosemide (Furosemide 10 Mg/Ml Sdv 4ml) 40 mg IVP DAILY [facility] Glucagon (Glucagon 1 Mg/Ml Inj 1 Ml) 1 mg IM ONCE PRN; Protocol PRN Reason: Adult Acute Hypoglycemia Prot. Dextrose (D5w) 500 mls @ 100 mls/hr IV ONCE PRN; Protocol PRN Reason: Adult Acute Hypoglycemia Prot Levothyroxine Sodium (Levothyroxine 50 Mcg Tablet) 50 mcg PO QAM [facility] Last Admin: 03/10/21 05:55 Dose: 50 mcg Documented by: Non-Formulary Medication (Sacubitril-Valsartan [Entresto]) 1 tab PO BID [facility] Last Admin: 03/07/21 10:14 Dose: Not Given Documented by: Ondansetron HCl (Ondansetron 2 Mg/Ml Sdv 2 Ml) 4 mg IVP Q8H PRN PRN Reason: vomiting, or N/V if npo Pantoprazole Sodium (Pantoprazole Dr 40 Mg Tablet) 40 mg PO DAILY [facility] Last Admin: 03/10/21 08:28 Dose: 40 mg Documented by: Primidone (Primidone 50 Mg Tablet) 50 mg PO BID [facility] Last Admin: 03/10/21 08:27 Dose: 50 mg Documented by: Senna (Sennosides 8.6 Mg Tablet) 17.2 mg PO BEDTIME [facility] Last Admin: 03/09/21 20:29 Dose: Not Given Documented by: Warfarin Sodium (Warfarin 1 Mg Tablet) 1 mg PO MoTh [facility] Last Admin: 03/07/21 13:13 Dose: Not Given Documented by: Warfarin Sodium (Warfarin 2 Mg Tablet) 2 mg PO [id number] [facility] Vitals/I&O/Wt Last Vital Signs Temp 97.4 F L 03/09/21 19:15 Pulse 73 03/10/21 09:56 Resp 19 H 03/10/21 09:56 BP 106/39 03/10/21 09:56 Pulse Ox 97 03/10/21 09:56 03/09/21 03/10/21 03/10/21 22:59 06:59 14:59 Intake Total 236 / 708 340 / 340 Output Total 325 / 775 300 / 1075 Balance -89 / -67 -300 / -367 340 / 340 Physical Exam Narrative: EXAM NARRATIVE: GENERAL: The patient is alert and oriented times three. Not in any acute distress. [] HEENT: Moderate pallor. No icterus or lymphadenopathy.Oral cavity: There are no mucous membrane lesions. NECK: Trachea appears to be central. No masses noted. No JVD or thyromegaly appreciated. RESPIRATORY: Chest is symmetrical. No intercostals muscle retraction or any accessory muscle activation. There is no chest wall tenderness. Breath sounds are heard bilaterally. No rales or rhonchi heard. No evidence of any consolidation. [] BREASTS: Deferred. [] HEART: The heart sounds are normal. No S3 or S4. [No significant murmurs] []. No pericardial rub ABDOMEN: No vessel pulsations or distention. No tenderness. No organomegaly appreciated. Bowel sounds are normally heard. [] : Deferred. [] RECTAL: Deferred. [] LYMPHATIC: No lymphadenopathy noted in the neck or groin. [] EXTREMITIES: No edema or cyanosis. No clubbing. Peripheral pulses are weak bilaterally MUSCULOSKELETAL: No acute joint deformities or swelling SKIN: There are no significant rashes or ecchymosis NEUROPSYCHIATRIC: The patient is alert and oriented x3. Appears to be in a good mood. No tremors or rigidity noted. [] Data : 03/10/21 03:15 03/10/21 03:15 Other Labs: Laboratory Last Values WBC 3.3 10^3/uL (4.0-10.0) L 03/10/21 03:15 RBC 2.93 10^6/uL (4.1-5.3) L 03/10/21 03:15 Hgb 8.4 g/dL (11.7-16.6) L 03/10/21 03:15 Hct 27.5 % (42.0-52.0) L 03/10/21 03:15 MCV 93.9 fl (80-94) 03/10/21 03:15 MCH 28.7 pg (28.0-34.0) 03/10/21 03:15 MCHC 30.5 g/dL (30.0-36.0) 03/10/21 03:15 RDW 19.0 % (12.1-15.1) H 03/10/21 03:15 Plt Count 245 10^3/cmm (130-400) 03/10/21 03:15 MPV 9.5 fL (7.4-10.4) 03/10/21 03:15 Neut % (Auto) 67.6 % 03/10/21 03:15 Lymph % (Auto) 15.9 % 03/10/21 03:15 [place] % (Auto) 7.8 % 03/10/21 03:15 Eos % (Auto) 5.7 % 03/10/21 03:15 Baso % (Auto) 0.9 % 03/10/21 03:15 Neut # (Auto) 2.25 10^3/uL (1.8-7.7) 03/10/21 03:15 Lymph # (Auto) 0.5 10^3/uL (0.8-4.8) L 03/10/21 03:15 [place] # (Auto) 0.3 10^3/uL (0.2-0.9) 03/10/21 03:15 Eos # (Auto) 0.2 10^3/uL (0.0-0.8) 03/10/21 03:15 Baso # (Auto) 0.0 10^3/uL (0.0-0.1) 03/10/21 03:15 Nucleated RBC % (auto) 0 % 03/10/21 03:15 Nucleated RBCs # 0.0 /100WBC 03/10/21 03:15 PT 16.70 SECONDS (12.1-14.9) H 03/10/21 03:15 INR 1.32 (0.8-1.2) H 03/10/21 03:15 APTT > 250.0 SECONDS (23.9-36.7) H* D 03/07/21 11:45 D-Dimer 2.85 ug/mIFEU (0-0.59) H 03/06/21 18:23 Sodium 135 mmol/L (136-145) L 03/10/21 03:15 Potassium 4.0 mmol/L (3.5-5.1) 03/10/21 03:15 Chloride 97 mmol/L (98-107) L 03/10/21 03:15 Carbon Dioxide 26 mmol/L (22-29) 03/10/21 03:15 Anion Gap 16.0 (5-19) 03/10/21 03:15 BUN 25 mg/dL (8-23) H 03/10/21 03:15 Creatinine 1.6 mg/dL (0.7-1.2) H 03/10/21 03:15 GFR Calculation Not Reportable 03/10/21 03:15 Glucose 98 mg/dL (65-115) 03/10/21 03:15 POC Glucose 110 mg/dL (70-110) 03/10/21 06:04 Calculated Osmolality 284 mOsm/kg (285-295) L 03/10/21 03:15 Calcium 7.2 mg/dL (8.5-10.5) L 03/10/21 03:15 Magnesium 1.8 mg/dL (1.7-2.3) 03/08/21 02:34 Total Bilirubin 0.3 mg/dL (0.15-1.2) 03/07/21 02:58 AST 23 U/L (0-40) 03/07/21 02:58 ALT 16 U/L (0-41) 03/07/21 02:58 Alkaline Phosphatase 108 IU/L (40-130) 03/07/21 02:58 Troponin T Baseline 197 ng/L (0-15) H* 03/06/21 18:23 Troponin T 120 Minute 194.1 ng/L (0-15) H 03/06/21 20:53 Delta Troponin T -2.9 ABS# (0-10) L 03/06/21 20:53 Troponin T Hi Sens 6Hr 214.8 ng/L (0-15) H 03/07/21 00:05 Troponin T Hi Sens 6Hr Delta 17.8 ng/L (0-12) H* 03/07/21 00:05 NT-Pro-B Natriuret Pep 74751 pg/mL (0-450) H 03/06/21 18:23 Total Protein 6.4 g/dL (6.6-8.7) L 03/07/21 02:58 Albumin 3.3 g/dL (3.5-5.2) L 03/07/21 02:58 Globulin 3.1 g/dL (1.3-4.6) 03/07/21 02:58 TSH 55.48 uIU/mL (0.27-4.20) H 03/08/21 02:34 Free T4 0.56 ng/dL (0.82-1.77) L 03/08/21 02:34 A&P Assessment and plan (1) History of mitral valve replacement with bioprosthetic valve: The mitral valve function seems to be appropriate. Patient may continue on the current medications. Status: Acute (2) CHF (congestive heart failure): The heart failure seems to be getting compensated. In view of the severe LV systolic dysfunction, it may be appropriate to start him on spironolactone 25 mg p.o. daily. Because of the renal insufficiency, the kidney function need to be closely monitored. Status: Acute Qualifiers: Heart failure chronicity: acute on chronic Heart failure type: combined systolic and diastolic Qualified Code(s): I50.43 - Acute on chronic combined systolic (congestive) and diastolic (congestive) heart failure (3) Atrial fibrillation: The ventricular response rate is under control. May continue on the current medications. Status: Acute Qualifiers: Atrial fibrillation type: unspecified Qualified Code(s): I48.91 - Unspecified atrial fibrillation (4) Aortic stenosis: The aortic stenosis was found to be moderate. At this time, the patient may not require any specific intervention. Status: Acute Qualifiers: Cardiac valve disease etiology: nonrheumatic Qualified Code(s): I35.0 - Nonrheumatic aortic (valve) stenosis (5) Atherosclerosis of coronary artery of [place] heart without angina pectoris: Patient was found to have mild coronary disease by angiogram in January of this year. May continue on the current medications. Status: Acute Qualifiers: Coronary Disease-Associated Artery/Lesion type: [place] artery Qualified Code(s): I25.10 - Atherosclerotic heart disease of [place] coronary artery without angina pectoris (6) Ischemic cardiomyopathy: LV ejection fraction of around 20 to 25% by echocardiogram. Patient was started on Entresto. Currently this is on hold because of the?hypotension. Consider restarting this medication, when it is appropriate Status: Acute Additional A&P Information And apparently has decided against the LifeVest or ICD. We will continue to optimize the medical treatment. Based on her clinical progress, further management decisions will be made . He continues to remain stable, may be discharged home from a cardiac standpoint. He need to be seen the [facility] by the nurse practitioner. He will be seen by Dr. Mosqueda in the month Attestations Medical Necessity Statement*: Patient requires continued hospital stay for close monitoring and further management Coding Level of Care Code Acute Utilization Coordinator for Chg Fwd History Detailed Exam Detailed Medical Decision Making Moderate Complexity Diagnoses History of mitral valve replacement with bioprosthetic valve Z95.3 CHF (congestive heart failure) I50.43 Heart failure chronicity: acute on chronic Heart failure type: combined systolic and diastolic Atrial fibrillation I48.91 Atrial fibrillation type: unspecified Aortic stenosis I35.0 Cardiac valve disease etiology: nonrheumatic Atherosclerosis of coronary artery of [place] heart without angina pectoris I25.10 Coronary Disease-Associated Artery/Lesion type: [place] artery Ischemic cardiomyopathy I25.5
[2021-03-10 12:00] VITALS: BP 106/45; PULSE 77
--- NOTE | 2021-03-10 12:28 | P.DS_ITS ---
Discharge Providers Date of Admission: 03/07/21 06:09 Date of Discharge: March 10, 2021 Attending Provider at Admission: Soco Salinas MD Attending Provider at Discharge: Cameron Bermudez MD Primary Care Provider: Tiki Dorado MD Diagnoses at Discharge Discharge Diagnosis (1) History of mitral valve replacement with bioprosthetic valve: Status: Acute (2) CHF (congestive heart failure): Status: Acute Qualifiers: Heart failure chronicity: acute on chronic Heart failure type: combined systolic and diastolic Qualified Code(s): I50.43 - Acute on chronic combined systolic (congestive) and diastolic (congestive) heart failure (3) Atrial fibrillation: Status: Acute Qualifiers: Atrial fibrillation type: unspecified Qualified Code(s): I48.91 - Unspecified atrial fibrillation (4) Aortic stenosis: Status: Acute Qualifiers: Cardiac valve disease etiology: nonrheumatic Qualified Code(s): I35.0 - Nonrheumatic aortic (valve) stenosis (5) 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 Salinas History of Present Illness Hayes Solis is a 85 year old male with PMH metastatic prostate cancer, past h/o tarumatic hepatic subcapsular hematoma 2018, h/o CHF last known EF 35% 04/2019, gr 1 diastolic dysfunction ,recently underwent MV replacement at [facility] one month ago. Subsequently discharged to [facility] rehab where he states he was doing well and feeling improved, discharged home one week ago. Since returning home he has been noticing increasing lower extremity swelling and dyspnea on exertion. He reports having had significant LINDSEY over the past 3-4 months, transiently improved after surgery but now worsening again over the past week. Denies orthopnea. Currently saturating 96% on RA at time of exam. CTa chest negative for PE however shows Right pleural fluid with anterior gas bubbles and pleural thickening concerning for empyema vs malignant effusion. Of note, he reports that surgical site of entry was along right lateral ribs. Denies dysphagia or odynophagia. No fever, cough or expectoration. Denies chest pain, palpitations. Vaccinated for COVID 19 with 2 dose mRNA series, 2md dose ~July 2020. Hospital course Patient was admitted with diagnosis of NSTEMI. After admission patient was evaluated by middle school science teacher Dr. Mosqueda.(Heparin were discontinued as per cardiology recommendations for type II CT related to tachyarrhythmia) patient does have reduce ejection fraction heart failure, has refused LifeVest and AICD during this hospitalization. Echo did reveal reduced action fraction with moderate aortic valve stenosis. Patient was diuresed with Lasix every 12h IV regimen which improved his volume status and symptoms. At the time of admission he was in A. fib RVR which improved and he converted to sinus rhythm his amiodarone dose was decreased to 200 mg daily instead of 3 times a day. He was discharged on Bumex 0.5 mg with instructions to take it every other day because of soft systolic blood pressure. Patient will follow up with Dr. Bermeo his regular middle school science teacher outpatient. His Coreg dose was held secondary to low blood pressure at the time of discharge. Lasix was discontinued. During this hospitalization he was diagnosed with hypothyroidism for which I started him on 50 mcg of levothyroxine. His creatinine improved from 1.9-1.6. At the time of discharge he was euvolemic with trace edema of lower extremity he was saturating well on room air at the time of discharge. Patient does have mild coronary disease evident on the angiogram done in January this year. Ischemic cardiomyopathy EF 20 to 25%. Entresto was put on hold secondary to hypotension. He has been taking Coumadin for his bioprosthetic valve, he has to finish 90 days on Coumadin with target INR 2.5-3.5. Medications added during this hospitalization Primidone for essential tremors Levothyroxine for hypothyroidism Bumex 0.5 mg for reduced action fraction heart failure Medications on hold Coreg Entresto CODE STATUS: DNR/DNI Physical Exam Narrative: EXAM NARRATIVE: Laying supine Saturating well on room air S1, S2 Abdomen soft Lower extremities trace edema Clinically looks euvolemic EOMI, PERRLA Venous stasis dermatitis Multiple petechiae of upper extremities Discharge Data Data Completed and Pending: Completed Studies During Hospitalization Category Date Time Status CT angio chest PE protcl [id number] Urge nt Cat Scan 03/06/21 18:51 Completed XR chest 1V kehinde ble [id number] Stat Exams 03/06/21 15:21 Completed CV. echo complete * [id number] Routine Ultrasound 03/06/21 16:45 Completed Pending at discharge Category Date Time Status Blood Culture Sta t Lab 03/06/21 21:49 Results Labs from last 24 hours 03/10/21 03/10/21 03/10/21 06:04 03:15 03:15 WBC 3.3 L RBC 2.93 L Hgb 8.4 L Hct 27.5 L MCV 93.9 MCH 28.7 MCHC 30.5 RDW 19.0 H Plt Count 245 MPV 9.5 Neut % (Auto) 67.6 Lymph % (Auto) 15.9 Baker % (Auto) 7.8 Eos % (Auto) 5.7 Baso % (Auto) 0.9 Neut # (Auto) 2.25 Lymph # (Auto) 0.5 L Baker # (Auto) 0.3 Eos # (Auto) 0.2 Baso # (Auto) 0.0 Nucleated RBC % (a uto) 0 Nucleated RBCs # 0.0 PT INR Sodium 135 L Potassium 4.0 Chloride 97 L Carbon Dioxide 26 Anion Gap 16.0 BUN 25 H Creatinine 1.6 H GFR Calculation Not Reportable Glucose 98 POC Glucose 110 Calculated Osmolal ity 284 L Calcium 7.2 L 03/10/21 03/09/21 03:15 20:01 WBC RBC Hgb Hct MCV MCH MCHC RDW Plt Count MPV Neut % (Auto) Lymph % (Auto) Baker % (Auto) Eos % (Auto) Baso % (Auto) Neut # (Auto) Lymph # (Auto) Baker # (Auto) Eos # (Auto) Baso # (Auto) Nucleated RBC % (a uto) Nucleated RBCs # PT 16.70 H INR 1.32 H Sodium Potassium Chloride Carbon Dioxide Anion Gap BUN Creatinine GFR Calculation Glucose POC Glucose 133 H Calculated Osmolal ity Calcium Vitals: Last Vital Signs Temp 97.4 F L 03/09/21 19:15 Pulse 73 03/10/21 09:56 Resp 19 H 03/10/21 09:56 BP 106/39 03/10/21 09:56 Pulse Ox 97 03/10/21 09:56 Discharge Plan Discharge Patient Disposition: Home Condition: Stable Prescriptions: New bumetanide 0.5 mg tablet 0.5 mg PO Q48H Qty: 30 RF: 2 primidone 50 mg Tablet 50 mg PO BID Qty: 60 RF: 2 levothyroxine 50 mcg Tablet 50 mcg PO QAM Qty: 30 RF: 2 Continued magnesium oxide 400 mg magnesium tablet 400 mg PO QPM RF: 0 aspirin [Adult Low Dose Aspirin] 81 mg tablet,delayed release (DR/EC) 81 mg PO QAM RF: 0 hydrocodone-acetaminophen 5-325 mg tablet 1 tab PO Q6H PRN (Reason: Pain) RF: 0 warfarin 1 mg tablet See Rx Instructions mg .ROUTE .COMPLEX RF: 0 nitroglycerin [Nitrostat] 0.4 mg tablet, sublingual 0.4 mg SUBLINGUAL Q5M PRN (Reason: Chest Pain) Qty: 25 RF: 2 pravastatin 80 mg Tablet 80 mg PO BEDTIME RF: 0 multivitamin Tablet 1 tab PO QPM RF: 0 potassium chloride 20 mEq tablet,ER particles/crystals 20 meq PO QAM RF: 0 Flomax 0.4 mg Capsule 0.4 mg PO QAM RF: 0 Colace 100 mg Capsule 100 mg PO BID RF: 0 omeprazole 20 mg capsule,delayed release(DR/EC) 20 mg PO QAM RF: 0 finasteride 5 mg tablet 5 mg PO QAM RF: 0 duloxetine 30 mg capsule,delayed release(DR/EC) 30 mg PO QAM RF: 0 Breo Ellipta 100-25 mcg/dose blister with device 1 inh INHALATION DAILY RF: 0 PreserVision AREDS-2 250-90-40-1 mg Capsule 1 cap PO QPM RF: 0 Changed amiodarone 200 mg tablet 200 mg PO DAILY Qty: 0 RF: 0 Held spironolactone 25 mg tablet 25 mg PO QAM RF: 0 Hold Instructions: Resume on 03/17/21. until cr improves carvedilol 3.125 mg tablet 3.125 mg PO BID RF: 0 Hold Instructions: Resume on 03/17/21. Discontinued furosemide 40 mg tablet 40 mg PO BID@07,14 RF: 0 Discharge Orders: Discharge Order (Routine); Ordered 03/10/21 Ordered By: Cameron Bermudez Other Ambulatory Orders: Physical Therapy Eval and Treat Outpatient (Order) Timeframe: 2 Weeks Facility: [facility] - Location: Physical Therapy Ordered By: Cameron Bermudez Referrals: Joan Michael FNP [Nurse Practitioner] - 1 week ([facility] will be calling to schedule a cardiology followup to be seen in 1 week. If you don't hear from them by Thursday afternoon, please give them a call. Thank you.) Tiki Dorado MD [Primary Care Provider] - 2 weeks ([facility] [place] will be calling to schedule a hospital followup to be seen in 2 weeks. If you don't hear from them by Thursday afternoon, please give them a call. Thank you) Discharge Diet: Cardiac Discharge Activity: Increase activity as tolerated Patient Instructions: Bumetanide (By mouth) (Bumex), Levothyroxine (By mouth), Primidone (By mouth) (Mysoline), Heart Failure (DC), Hypothyroidism (DC), CHF Stoplight, Opioid Safety Activity Restrictions/Additional Instructions: Keep a log of your blood pressures and HR at home twice a day to bring to your appointments. 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
[2021-03-10 14:02] VITALS: BP 106/45; PULSE 73; RESP 18; TEMP 36.4; O2SAT 97
[2021-03-10] MEDS: warfarin 2 mg Tablet PO (14:33)
--- NOTE | 2021-03-10 15:29 | PC.NURSE ---
Discharge Note Patient discharged to home via wheelchair accompanied by sons and . Discharge instructions reviewed with patient and/or traffic representative. Mobile pharmacy medications and/or prescriptions provided. Belongings/home medications returned.
== END 2021-03-10 15:17 | disposition home or self-care (01) | DRG 280 ==
LOC: ER 03-07 03:50 → ER IP 03-07 06:09 → CSU 03-07 15:46
PROVIDERS: Internal Medicine Cardiovascular Disease; Admitting Provider Student in an Organized Health Care Education/Training Program; Emergency Provider Emergency Medicine; PCP Family Medicine; Visit Provider Internal Medicine
DX: I13.0 Hypertensive heart and chronic kidney disease with heart failure and stage 1 through stage 4 chronic kidney disease, or unspecified chronic kidney disease (principal); I50.43 Acute on chronic combined systolic (congestive) and diastolic (congestive) heart failure; I21.A1 Myocardial infarction type 2; C79.51 Secondary malignant neoplasm of bone; C78.7 Secondary malignant neoplasm of liver and intrahepatic bile duct; N17.9 Acute kidney failure, unspecified; N18.9 Chronic kidney disease, unspecified; E11.22 Type 2 diabetes mellitus with diabetic chronic kidney disease; Z95.3 Presence of xenogenic heart valve; D50.9 Iron deficiency anemia, unspecified; I25.10 Atherosclerotic heart disease of native coronary artery without angina pectoris; Z95.5 Presence of coronary angioplasty implant and graft; I48.0 Paroxysmal atrial fibrillation; Z85.820 Personal history of malignant melanoma of skin; N40.0 Benign prostatic hyperplasia without lower urinary tract symptoms; M96.1 Postlaminectomy syndrome, not elsewhere classified; K21.9 Gastro-esophageal reflux disease without esophagitis; E78.5 Hyperlipidemia, unspecified; I25.5 Ischemic cardiomyopathy; C61 Malignant neoplasm of prostate; G47.30 Sleep apnea, unspecified; Z86.73 Personal history of transient ischemic attack (TIA), and cerebral infarction without residual deficits; I08.0 Rheumatic disorders of both mitral and aortic valves; G25.81 Restless legs syndrome; E03.9 Hypothyroidism, unspecified; Z66 Do not resuscitate; G25.0 Essential tremor; I87.2 Venous insufficiency (chronic) (peripheral); I25.2 Old myocardial infarction
CPT/HCPCS: 36415; 36416; 71045; 71275; 80048; 80053; 82962; 83735; 83880; 84439; 84443; 84484; 85014; 85018; 85025; 85049; 85378; 85610; 85730; 87040; 93005; 93306; 96365; 96367; 96375; 97110; 97116; 97162; 97530; 99285; J1644; J1940; J2543; J3370; J7050; Q9967

== ENCOUNTER 2021-03-20 06:00 | Outpatient (RCR) | payer MEDICARE, OTHER, SELFPAY | END 2021-04-19 23:59 | disposition home or self-care (01) | LOC: TPT 06:00 | PROVIDERS: PCP Family Medicine; Referring Provider Internal Medicine; Visit Provider Internal Medicine | DX: G45.9 Transient cerebral ischemic attack, unspecified (principal) | CPT/HCPCS: 97110; 97163; 97164 ==

== ENCOUNTER → 2021-03-20 16:54 | Outpatient (BNVA) | payer MEDICARE, OTHER, SELFPAY | PROVIDERS: PCP Family Medicine; Visit Provider Family Medicine | DX: I48.91 Unspecified atrial fibrillation (principal) | CPT/HCPCS: 85610 ==

== ENCOUNTER → 2021-03-26 10:35 | Outpatient (BNVA) | payer MEDICARE, OTHER, SELFPAY | PROVIDERS: PCP Family Medicine; Visit Provider Family Medicine | DX: I50.32 Chronic diastolic (congestive) heart failure (principal); E03.9 Hypothyroidism, unspecified; I48.91 Unspecified atrial fibrillation | CPT/HCPCS: 84439; 84443; 84481; 85610 ==

== ENCOUNTER → 2021-04-03 16:47 | Outpatient (BNVA) | payer MEDICARE, OTHER, SELFPAY | PROVIDERS: PCP Family Medicine; Visit Provider Family Medicine | DX: I48.91 Unspecified atrial fibrillation (principal) | CPT/HCPCS: 85610 ==

== ENCOUNTER 2021-04-08 09:06 | Outpatient (CLI) | payer MEDICARE, OTHER, SELFPAY ==
[2021-04-08 09:50] LABS: Basophils # 0.1 10^3/uL (0.0-0.1); Basophils % 0.9 %; Eosinophils # 0.1 10^3/uL (0.0-0.8); Eosinophils % 1.7 %; Hematocrit 31.3 % (42.0-52.0); Hemoglobin 9.8 g/dL (11.7-16.6); Lymphocytes # 0.7 10^3/uL (0.8-4.8); Lymphocytes % 10.4 %; Mean Corpuscular HGB Conc 31.3 g/dL (30.0-36.0); Mean Corpuscular Hemoglobin 29.3 pg (28.0-34.0); Mean Corpuscular Volume 93.4 fl (80-94); Mean Platelet Volume 8.8 fL (7.4-10.4); Monocytes # 0.4 10^3/uL (0.2-0.9); Monocytes % 6.3 %; Neutrophils # 5.28 10^3/uL (1.8-7.7); Neutrophils % 79.5 %; Nucleated Red Blood Cells % 0 %; Platelet Count 316 10^3/cmm (130-400); Red Blood Count 3.35 10^6/uL (4.1-5.3); Red Cell Distribution Width 19.5 % (12.1-15.1); White Blood Count 6.6 10^3/uL (4.0-10.0)
[2021-04-08 10:20] LABS: Alanine Aminotransferase 25 U/L (0-41); Albumin Level 3.2 g/dL (3.5-5.2); Alkaline Phosphatase 91 IU/L (40-130); Blood Urea Nitrogen 26 mg/dL (8-23); Carbon Dioxide 22 mmol/L (22-29); Chloride 97 mmol/L (98-107); Globulin 3.7 g/dL (1.3-4.6); Glucose 126 mg/dL (65-115); Osmolality Calculated 286 mOsm/kg (285-295); Sodium 135 mmol/L (136-145); Total Bilirubin 0.2 mg/dL (0.15-1.2); Total Protein 6.9 g/dL (6.6-8.7)
[2021-04-08 10:24] LABS: Anion Gap 20.5 (5-19); Aspartate Amino Transferase 36 U/L (0-40); Potassium 4.5 mmol/L (3.5-5.1)
[2021-04-08] MEDS: lidocaine 1% INJ 20 mL INJECTION (12:20)
[2021-04-08] MEDS: goserelin acetate 10.8 mg Implant SUBCUT (12:31)
--- NOTE | 2021-04-09 13:07 | ONC FU_ITS ---
Dr. Giron follow up note Patient: Hayes Solis Unit #: [id number]: 1935 Dicatated By: Shanice Giron M.D.Date of Visit:Apr 08, 2021 Onc Med Follow-up/Prog Note History of Present Illness: Mr. Solis is an 85-year-old gentleman who was recently admitted to hospital with right sided chest pain. He had a fall prior to the admission on 05/09/2019 that occurred on 04/08/2019. Mr Solis had had an episode of syncopal attack and sustained liver injury causing hepatic hematoma. He was on aspirin and Plavix as he has history of coronary artery disease ???5 recent stent placed in June 2018. At the time of his admission in April 2019, he underwent CT scan of chest/ abdomen which showed a patent subscapular hematoma and also enlarged lobulated prostate suspicious for possible carcinoma. His PSA was 435.2. A bone scan also showed diffuse sclerotic lesions within the visualized bony structures- worse in the pelvis and sacrum and were suspicious for metastatic disease. The CT scan of abdomen showed mixed attenuation mass involving the right hepatic lobe corresponding to the previously described subcapsular hematoma. His AFP was 0.6. As per patient in October 2018 his PSA was 4. He follows with Dr. Lynch. Mr Solis was seen by Dr. Lynch for prostate biopsy. Mr Solis reports that he was started on Casodex 50 mg by mouth daily and no biopsy was considered due to the reports of extensive bone metastases and abnormal looking prostate gland on the scan and PSA being extremely high at 435.2. Clinically diagnosed with prostate cancer was entertained and now being treated as stage IV prostate cancer with Zoladex and Xgeva. The Casodex was discontinued on January 10, 2020 due to progressive PSA and Dr Giron's note indicates that sometimes holding the antiandrogen can improve PSA results. PMH: As history of coronary artery disease status post multiple stent and history of congestive heart failure, Echocardiogram done on 10/07/2018 showed ejection fraction 45%, [id number] aortic stenosis, moderate mitral regurg. Other medical history includes: COPD, sleep apnea, iron deficiency anemia, TIA, hypertension, chronic kidney disease, INTERIM HISTORY: CT PET scan done on October 29, 2019 showed diffuse low-grade activity in the prostate gland with no focal activity to localize. Small scattered pelvic lymph nodes are FDG negative with no evidence of zeyad metastatic disease. There were widespread sclerotic lesion throughout the axial and appendicular skeleton consistent with osseous metastatic disease demonstrate low-grade FDG. Follow-up CT scan of abdomen and pelvis done on February 28, 2020 showed no pelvic lymphadenopathy no inguinal lymphadenopathy, normal seminal vesicles, no abdominal lymphadenopathy, previously described right subcapsular hepatic hematoma is resolved. Progressive diffuse blastic metastasis throughout the visualized bony structures. Heterogeneous enhancing nodular prostate has decreased in size Bone scan done on February 28, 2020 showed diffuse bony metastatic prostate cancer involving bony pelvis, lumbar and thoracic and cervical spine sternum and ribs. Mr. Solis has been offered treatment with Zytiga/prednisone. He began his first cycle on April 07, 2020 with Zytiga 1000 mg orally along with the prednisone. His Zytiga, dose was reduced to 250 mg p.o. daily along with prednisone for better tolerance on April 25, 2020. He was having significant diarrhea and decline in his performance status. He will continue with Zoladex. He was also referred to radiation oncology in [place] for Evaluation for Xofigo. He has had 4 infusions and the 4th one was on August 16, 2020. And second last was given on September 14, 2020 and final dose was on October 11, 2020 . Patient could not to tolerate even a reduced dose Zytiga, so was discontinued while he continue with prednisone alone as it was helping his appetite and bone discomfort while continue with 3 monthly Zoladex along with Xgeva Came for follow-up, complaining of generalized weakness and fatigue, as per patient he underwent mitral valve replacement on February 12, 2021 since then, off and on his getting physical therapy/rehabilitation, which is helping him somewhat now walking without much support. Denies any new bony pains denies any dysuria or hematuria denies any abdominal pain denies any fever chills as per patient after mitral valve replacement is ejection fraction has improved to 20 to 25%, with physical rehab it might improve further may be up to 30%. As per patient during surgical evaluation for mitral valve replacement, he was told that his ribs shows some damage from prostate cancer. As patient had severe congestive heart failure and was undergoing cardiac evaluation for mitral valve replacement, patient held his Xgeva since December 14, 2020 and last dose of Zoladex was given on October 08, 2020 Medications: Carvedilol 1 Tablet (of 3.125 mg) Oral b.i.d., Chlorthalidone 1 Tablet (of 25 mg) Oral daily, DULoxetine HCl 1 Capsule (of 30 mg) Capsule Delayed Release Particles Oral daily, Entresto (49-51 mg) Tablet Oral b.i.d., Finasteride 1 Tablet (of 5 mg) Oral daily, HYDROcodone-Acetaminophen 1 Tablet (of 5-325 mg) Oral q 6 hours PRN, Levothyroxine Sodium 1 Tablet (of 50 mcg) Capsule Oral daily, Magnesium 1 Tablet (of 200 mg) Tablet, chewable Oral daily, Mens Multivitamin Tablet Oral, Omeprazole 1 Capsule (of 20 mg) Capsule Delayed Release Oral daily, Potassium Chloride ER 2 Capsule (of 10 meq) Capsule, controlled release Oral daily, Pravastatin Sodium 1 Tablet (of 80 mg) Oral at bedtime, Tamsulosin HCl 1 Capsule (of 0.4 mg) Oral b.i.d., Warfarin Sodium 1 Tablet (of 3 mg) Oral daily Allergies: Diclofenac Sodium, Isosorbide Mononitrate, Meperidine HCl, and Spironolactone. Review of Systems: Review of Systems is not available for this patient. Vital Signs: Performed on Apr 08, 2021 11:37 Height - 71.00 in Weight - 211 lbs (LOW) BSA - 2.16 sq.m BMI - 29.43 Temperature - 98.1 F (LOW) Pulse - 79 /min Respiration - 16 /min BP - 92/56 mm(hg) O2 Sat - 94 % (LOW) Pain - 0 Fatigue - 2 Performance Status: 1 - No physically strenuous activity, but ambulatory and able to carry out light or sedentary work (e.g. office work, light house work). (ECOG) Physical Examination: ENMT - No mouth sores, no thrush, no jaundice, Respiratory - Lungs are clear to auscultation, Cardiovascular - Regular rate and rhythm of heart, Abdomen - Soft, bowel sounds present, Extremities - 1+ edema bilaterally. Lab/Imaging: Test performed on Nov 09, 2020 09:30 WBC 5.9 10^3/uL RBC 3.69 10^6/uL HGB 11.1 g/dL HCT 35.0 % MCV 94.9 fl MCH 30.1 pg MCHC 31.7 g/dL RDW 13.5 % Platelet Count 265 10^3/uL MPV 10.4 fl Neutrophils 4.49 10^3/uL Lymphocytes 0.6 10^3/uL Monocytes 0.6 10^3/uL Eosinophils 0.1 10^3/uL Basophils 0.0 10^3/uL Neutrophil % 76.7 % Lymphocyte % 10.8 % Monocyte % 10.1 % Eosinophil % 1.4 % Basophils % 0.7 % PSA 249.900 ng/mL Impression: 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 Lynch, urologist started him on Casodex 50 mg by mouth daily based on clinical diagnosis of metastatic prostrate cancer CT scan of chest abdomen pelvis done on 04/17/2019 and on 05/09/2019 showed enlarged lobulated heterogeneous prostate suspicious for prostrate carcinoma, diffuse sclerotic lesions within the visualized bony structures worse in the bony pelvis and sacrum suspicious for metastatic disease. Hepatic Subcapsular hematoma. Small right pleural effusion. History of hepatic subcapsular hematoma due to fall due to syncopal attack in March 2019 while on aspirin and Plavix for coronary artery disease status post stent placement History of congestive heart failure ejection fraction 45% on 10/07/2018, Status post mitral valve replacement on February 12, 2021 discussed with Mr and Mrs Solis that the PSA had increased to 31.19 compared to 19.70 on February 14, 2020 and a 14.61 on January 10, 2020. Follow-up CT scan of abdomen pelvis showed no abdominal/pelvic/inguinal lymphadenopathy and previously seen subcapsular hepatic hematoma, now resolved. But extensive bone mets and bone scan confirmed extensive bone mets involving whole spine, pelvic bones and ribs and sternum. Clinically, patient doing reasonably well no new signs symptoms but his follow-up bone scan shows extensive bone mets and also seen on CT scan of abdomen pelvis but no visceral disease, his PSA has continued to go up now 31.19 compared to 19.70 on February 14, 2020 while on Zoladex every 3-month, his Casodex was put on hold because of progressive PSA and related symptoms like generalized weakness and fatigue, hot flashes which were presumed due to Casodex and in fact improved off Casodex. Treatment options including but not limited to, continue with 3 monthly Zoladex and monthly Xgeva and addition of apalutamide or enzalutamide or Zytiga/prednisone or systemic chemotherapy with docetaxel. Mr Solis opted for a trial of Zytiga/prednisone was referred to radiation oncology at [facility] for evaluation for Xofigo as patient has only osseous metastatic disease, no evidence of visceral disease. Mr Solis has received the Zytiga 1000mg Along with prednisone was started on April 07, 2020, But dose was reduced to 250 mg p.o. daily along with prednisone on April 25, 2019 for better tolerance and moreover patient is being treated with Xofigo Plan: Discussed with patient regarding his labs white blood count 6.6 hemoglobin 9.8 hematocrit 31.3 platelets 316,000 CMP within normal limit except glucose 126 PSA 771.6 compared to 270 .8 on December 14, 2020 Clinically, patient is doing reasonably well, no new since symptom considering prostate cancer but his PSA continues to go up now 771 compared to 270 , As, since mitral valve placement, his overall performance is improving slowly but gradually, we may consider restarting him on palliative therapy for prostate cancer, earlier discussed about hospice care because of severe congestive heart failure and progressive prostate cancer but patient underwent mitral valve placement, so we may consider palliative therapy for metastatic prostate cancer, so we will resume his Zoladex 10.8 mg today and then he will return to clinic in 1 month with PSA if his PSA continues to go up, we will discuss with him about other treatment options on the other hand if shows improvement then will continue 3 monthly Zoladex along with Xgeva. Signed By: Shanice Giron M.D. <<Signature on File>>
== END 2021-04-08 09:07 | disposition home or self-care (01) ==
LOC: ONCMED 09:13
PROVIDERS: Internal Medicine Hematology & Oncology; PCP Family Medicine; Visit Provider Family Medicine
DX: C61 Malignant neoplasm of prostate (principal); C79.51 Secondary malignant neoplasm of bone; R97.21 Rising PSA following treatment for malignant neoplasm of prostate; Z79.818 Long term (current) use of other agents affecting estrogen receptors and estrogen levels
CPT/HCPCS: 36415; 80053; 84153; 85025; 96372; 96402; 99215; J9202

== ENCOUNTER → 2021-04-17 17:03 | Outpatient (BNVA) | payer MEDICARE, OTHER, SELFPAY | PROVIDERS: PCP Family Medicine; Visit Provider Family Medicine | DX: I48.91 Unspecified atrial fibrillation (principal) | CPT/HCPCS: 85610 ==

== ENCOUNTER 2021-04-20 06:00 | Outpatient (RCR) | payer MEDICARE, OTHER, SELFPAY | END 2021-05-20 23:59 | disposition home or self-care (01) | LOC: TPT 06:00 | PROVIDERS: PCP Family Medicine; Referring Provider Internal Medicine; Visit Provider Internal Medicine | DX: I69.90 Unspecified sequelae of unspecified cerebrovascular disease (principal) | CPT/HCPCS: 97110; 97116 ==

== ENCOUNTER → 2021-05-08 14:58 | Outpatient (BNVA) | payer MEDICARE, OTHER, SELFPAY | PROVIDERS: PCP Family Medicine; Visit Provider Family Medicine | DX: I48.91 Unspecified atrial fibrillation (principal) | CPT/HCPCS: 85610 ==

== ENCOUNTER 2021-05-16 13:08 | Outpatient (CLI) | payer MEDICARE, OTHER, SELFPAY ==
[2021-05-16] MEDS: denosumab 120 mg SDV SUBCUT (15:50)
== END 2021-05-16 13:09 | disposition home or self-care (01) ==
PROVIDERS: Internal Medicine Hematology & Oncology; PCP Family Medicine; Visit Provider Nurse Practitioner Family
DX: Z51.11 Encounter for antineoplastic chemotherapy (principal); C61 Malignant neoplasm of prostate; C79.51 Secondary malignant neoplasm of bone; J90 Pleural effusion, not elsewhere classified; Z86.2 Personal history of diseases of the blood and blood-forming organs and certain disorders involving the immune mechanism; Z86.79 Personal history of other diseases of the circulatory system; Z79.818 Long term (current) use of other agents affecting estrogen receptors and estrogen levels; Z79.899 Other long term (current) drug therapy
CPT/HCPCS: 36415; 84153; 96372; 99215; J0897

== ENCOUNTER → 2021-05-20 10:17 | Outpatient (BNVA) | payer MEDICARE, OTHER, SELFPAY | PROVIDERS: PCP Family Medicine; Visit Provider Internal Medicine Cardiovascular Disease | DX: E03.9 Hypothyroidism, unspecified (principal); I50.32 Chronic diastolic (congestive) heart failure | CPT/HCPCS: 80048; 83735; 83880; 84443 ==

== ENCOUNTER 2021-05-21 06:00 | Outpatient (RCR) | payer MEDICARE, OTHER, SELFPAY | END 2021-06-17 23:59 | disposition home or self-care (01) | LOC: TPT 06:00 | PROVIDERS: PCP Family Medicine; Referring Provider Internal Medicine; Visit Provider Internal Medicine | DX: I69.90 Unspecified sequelae of unspecified cerebrovascular disease (principal) | CPT/HCPCS: 97110 ==

== ENCOUNTER → 2021-05-28 15:30 | Outpatient (BNVA) | payer MEDICARE, OTHER, SELFPAY | PROVIDERS: PCP Family Medicine; Visit Provider Internal Medicine Cardiovascular Disease | DX: I07.1 Rheumatic tricuspid insufficiency (principal); I25.10 Atherosclerotic heart disease of native coronary artery without angina pectoris; I48.91 Unspecified atrial fibrillation; R06.02 Shortness of breath; I50.32 Chronic diastolic (congestive) heart failure; I35.0 Nonrheumatic aortic (valve) stenosis; Z95.3 Presence of xenogenic heart valve | CPT/HCPCS: 80048; 83735; 83880 ==

== ENCOUNTER 2021-06-05 08:29 | Inpatient (IN) | payer MEDICARE, OTHER, SELFPAY ==
[2021-06-05] VITALS (16 sets, daily range): BP systolic 104–137; BP diastolic 46–73; PULSE 75–92; RESP 14–38; TEMP 36.6–37.1; O2SAT 93–100; BMI 27.8
--- NOTE | 2021-06-05 08:32 | XR_ITS ---
WS: [id number] CHEST XRAY TECHNIQUE: Portable chest. CLINICAL INFORMATION: dyspnea/cough COMPARISON: March 06, 2021 FINDINGS: Heart: Cardiomegaly. Aortic valve replacement. Lungs: Chronic emphysematous changes. Tiny bilateral pleural effusions pleural thickening. Hazy infil trates in the RIGHT greater than LEFT lower lobes unchanged from previous. Bones: Hypertrophic changes thoracic spine. XR/XR chest 1V portable [id number] IMPRESSION: 1. Cardiomegaly. AVR. 2. Tiny bilateral pleural effusions with pleural thickening. 3. Hazy infiltrates in the bilateral RIGHT greater than LEFT lower lobes uncha nged from March 06, 2021. 4. No significant changes from previous.
--- NOTE | 2021-06-05 08:33 | ECG_ITS ---
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 [id number]
--- NOTE | 2021-06-05 09:01 | W.ED.CHESTPA ---
HPI - Chest Pain General: Chief Complaint: ER Hold Stated Complaint: Pts Fluid building on his lungs Time Seen by Provider: 06/05/21 08:31 Source: patient Mode of arrival: ambulatory Limitations: no limitations History of Present Illness: 85-year-old male presents to the emergency room with complaint of shortness of breath and chest discomfort. He has noted increased fluid retention has gained 5 pounds in the last few days. Said pain in the left arm. He took 3 nitro this morning and the pain relieved. He denies any orthopnea but does state that when he is in bed he gets more short of breath. He appears mildly conversationally dyspneic. He has a history of previous mitral valve replacement from lateral thoracic approach. He also has a history of coronary artery disease he last had any kind of intervention in 2016. He had a mitral valve replacement in January 2021. He is pain-free at this time. MD complaint: chest pain Pertinent past history: coronary artery disease Onset (ago): day(s) Timing of current episode: episodic Prior episodes: No Onset: during rest Pain location: left chest Pain radiation: left arm Severity: moderate Quality: tightness, aching and heaviness Relieving factors: nitroglycerin Exacerbating factors: nothing Associated symptoms: Deny abdominal pain, dyspnea, fever(s), nausea or vomiting Treatment prior to arrival: nitroglycerin Review of Systems Const: Denies: fever(s), chills, body aches, change in appetite, fatigue or malaise ENMT: Denies: throat pain, ear or mastoid pain, nasal discharge or nasal congestion Card: Denies: chest pain, edema, dyspnea on exertion or orthopnea Resp: Denies: dyspnea, productive cough or non-productive cough GI: Denies: abdominal pain, nausea, vomiting, hematemesis, coffee ground emesis, diarrhea, constipation, bloating, hematochezia or melena PFS ED PFSH: Medical History Aortic stenosis Atrial fibrillation Basal cell carcinoma BPH (benign prostatic hyperplasia) CAD (coronary artery disease) Cervical post-laminectomy syndrome Chronic lung disease Chronic shortness of breath Chronic systolic heart failure 02/2021 EF 20-25%, bioprosthetic mitral valve, TOMY 1.4 cm2 with mean gradient of 22.3 mmHg CKD (chronic kidney disease) DDD (degenerative disc disease) Diabetes GERD (gastroesophageal reflux disease) Hyperlipemia Hypertension Hypothyroidism Iron deficiency anemia Ischemic cardiomyopathy Melanoma Mitral valve regurgitation Neuropathy Pleural effusion Prostate cancer metastatic to bone Sleep apnea Subcapsular hematoma of liver (~04/2019) traumatic TIA (transient ischemic attack) Tricuspid valve regurgitation Surgical History 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 Patent proximal LAD, distal RCA with 30% stenosis in mid circumflex with 30% stenosis History of heart artery stent History of mitral valve replacement with bioprosthetic valve (~01/2021) [facility] History of prostate biopsy Previous back surgery Family History Father , at age 80 CAD (coronary artery disease) Mother , at age 73 Dementia Alzheimers Social History Smoking and tobacco status: never smoked Alcohol intake: current Alcohol intake frequency: holidays/special occasions only Substance/Drug Use: never Household members: spouse Marital status: Current occupational status: retired Current gender identity: Male Physical Exam Const: GENERAL APPEARANCE: cooperative and comfortable ORIENTATION/CONSCIOUSNESS: Yes awake, Yes oriented to person, Yes oriented to place and Yes oriented to time HENMT: COMMON NORMALS: normocephalic, atraumatic and hearing grossly normal bilaterally HEAD & SCALP: normocephalic and atraumatic Neck/C-Spine: COMMON NORMALS: no JVD Lymph: LYMPHATIC: no lymphadenopathy noted and no lymphedema noted Resp: COMMON NORMALS: normal respiratory effort, No retractions, No use of accessory muscles and clear to auscultation bilaterally AUSCULTATION: clear to auscultation bilaterally Cardio: COMMON NORMALS: no JVD, regular rate, regular rhythm and No murmurs present (Cardio) RATE: regular rate RHYTHM: regular rhythm GI: COMMON NORMALS: Soft to palpation and No hepatosplenomegaly present AUSCULTATION: Yes normoactive bowel sounds PALPATION: Yes Soft to palpation, No Tenderness to palpation present (GI), No Guarding due to palpation present (GI) and Yes No hepatosplenomegaly present Extremity: COMMON NORMALS: normal to inspection, capillary refill normal, no clubbing, cyanosis or edema, no calf tenderness and no pedal edema Neuro: SENSORIUM/ORIENTATION: Yes oriented to person, Yes oriented to place and Yes oriented to time Skin: COMMON NORMALS: no rashes or lesions noted GENERAL SKIN EXAM: no rashes or lesions noted Course Vital Signs: Vital signs: Vital Signs Temperature 97.8 F 06/05/21 08:51 Pulse Rate 84 06/05/21 12:10 Respiratory Rate 18 06/05/21 12:10 Blood Pressure 108/60 06/05/21 12:10 Pulse Oximetry 93 06/05/21 12:10 MDM - Chest Pain Medical Decision Making Patient has multiple issues. He is significantly anemic he has heart failure he also has mild acute kidney injury with an elevated troponin. He has known ischemic cardiomyopathy. Ejection fraction on last echo available was 26%. His INR today is 1.15 he is subtherapeutic. Discussed with his Dr. Burleson ordering to go ahead and admit him patient does not want to be a full code but he is willing to undergo angiography. Medical Records I reviewed the patient's medical records. Lab Data I reviewed the patient's lab results. : 06/05/21 09:08 06/05/21 09:08 Radiology Impressions Chest X-Ray 06/05/21 08:32 IMPRESSION: 1. Cardiomegaly. AVR. 2. Tiny bilateral pleural effusions with pleural thickening. 3. Hazy infiltrates in the bilateral RIGHT greater than LEFT lower lobes unchanged from March 06, 2021. 4. No significant changes from previous. Laboratory Results WBC 4.9 10^3/uL (4.0-10.0) 06/05/21 09:08 Corrected WBC 4.7 10^3/cmm (4.8-10.8) L 06/05/21 09:08 RBC 2.19 10^6/uL (4.1-5.3) L 06/05/21 09:08 Hgb 6.6 g/dL (11.7-16.6) L 06/05/21 09:08 Hct 21.5 % (42.0-52.0) L 06/05/21 09:08 MCV 98.2 fl (80-94) H 06/05/21 09:08 MCH 30.1 pg (28.0-34.0) 06/05/21 09:08 MCHC 30.7 g/dL (30.0-36.0) 06/05/21 09:08 RDW 18.9 % (12.1-15.1) H 06/05/21 09:08 Plt Count 239 10^3/cmm (130-400) 06/05/21 09:08 MPV 9.3 fL (7.4-10.4) 06/05/21 09:08 Lymph % (Auto) Not Reportable 06/05/21 09:08 [place] % (Auto) Not Reportable 06/05/21 09:08 Lymph # (Auto) Not Reportable 06/05/21 09:08 [place] # (Auto) Not Reportable 06/05/21 09:08 Total Counted 100 (0-100) 06/05/21 09:08 Atypical Lymphs % 1.0 % (0-5) 06/05/21 09:08 Absolute Neutrophils 3.8 10^3/cmm (1.4-6.5) 06/05/21 09:08 Segmented Neutrophils 67 % 06/05/21 09:08 Abs Segm Neuts (Man) 3.3 10/cmm (1.6-7.1) 06/05/21 09:08 Band Neutrophils 10.0 % 06/05/21 09:08 Abs Band Neuts (Man) 0.5 10^3/cmm (0.0-1.2) 06/05/21 09:08 Absolute Lymphocytes 0.5 10^3/cmm (1.2-3.4) L 06/05/21 09:08 Lymphocytes (Manual) 10 % 06/05/21 09:08 Monocytes (Manual) 4.0 % 06/05/21 09:08 Absolute Monocytes 0.2 10^3/cmm (0.1-0.6) 06/05/21 09:08 Eosinophils (Manual) 3 % 06/05/21 09:08 Absolute Eosinophils 0.1 10^3/cmm (0.0-0.7) 06/05/21 09:08 Basophils (Manual) 1.0 % 06/05/21 09:08 Absolute Basophils 0.0 10^3/cmm (0.0-0.2) 06/05/21 09:08 Metamyelocytes 2.0 % 06/05/21 09:08 Myelocytes 2.0 % 06/05/21 09:08 Nucleated RBCs 4.0 /100WBC (0-1) H 06/05/21 09:08 Platelet Estimate Normal (Normal) 06/05/21 09:08 PT 15.00 SECONDS (12.1-14.9) H 06/05/21 11:44 INR 1.15 (0.8-1.2) 06/05/21 11:44 Sodium 135 mmol/L (136-145) L 06/05/21 09:08 Potassium 4.2 mmol/L (3.5-5.1) 06/05/21 09:08 Chloride 96 mmol/L (98-107) L 06/05/21 09:08 Carbon Dioxide 27 mmol/L (22-29) 06/05/21 09:08 Anion Gap 16.2 (5-19) 06/05/21 09:08 BUN 48 mg/dL (8-23) H 06/05/21 09:08 Creatinine 1.6 mg/dL (0.7-1.2) H 06/05/21 09:08 GFR Calculation Not Reportable 06/05/21 09:08 Glucose 137 mg/dL (65-115) H 06/05/21 09:08 Calculated Osmolality 295 mOsm/kg (285-295) 06/05/21 09:08 Calcium 8.3 mg/dL (8.5-10.5) L 06/05/21 09:08 Iron 104 ug/dL (59-158) 06/05/21 09:08 TIBC 231 mcg/dl 06/05/21 09:08 % Saturation 45.0 % (20-50) 06/05/21 09:08 Unsat Iron Binding 127 ug/dL (112-347) 06/05/21 09:08 Total Bilirubin 0.2 mg/dL (0.15-1.2) 06/05/21 09:08 AST 27 U/L (0-40) 06/05/21 09:08 ALT 22 U/L (0-41) 06/05/21 09:08 Alkaline Phosphatase 103 IU/L (40-130) 06/05/21 09:08 Troponin T Baseline 285 ng/L (0-15) H* 06/05/21 09:08 Troponin T 120 Minute 273.5 ng/L (0-15) H 06/05/21 11:44 Delta Troponin T -11.5 ABS# (0-10) L 06/05/21 11:44 NT-Pro-B Natriuret Pep 52754 pg/mL (0-450) H 06/05/21 09:08 Total Protein 6.4 g/dL (6.6-8.7) L 06/05/21 09:08 Albumin 3.5 g/dL (3.5-5.2) 06/05/21 09:08 Globulin 2.9 g/dL (1.3-4.6) 06/05/21 09:08 Urine Color Yellow (Yellow) 06/05/21 09:14 Urine Appearance Clear (CLEAR) 06/05/21 09:14 Urine pH 5 (5-7) 06/05/21 09:14 Ur Specific [place] 1.010 (1.005-1.030) 06/05/21 09:14 Urine Protein Neg (Negative) 06/05/21 09:14 Urine Glucose (UA) Norm (Normal) 06/05/21 09:14 Urine Ketones Negative (Negative) 06/05/21 09:14 Urine Blood Neg (Negative) 06/05/21 09:14 Urine Nitrate Negative (Negative) 06/05/21 09:14 Urine Bilirubin Neg (Negative) 06/05/21 09:14 Urine Urobilinogen Norm mg/dL (Negative) 06/05/21 09:14 Ur Leukocyte Esterase Negative (Negative) 06/05/21 09:14 Blood Type O Positive 06/05/21 11:44 Rho(D) Type Positive 06/05/21 11:44 EKG Data EKG 1: EKG interpretation date: 06/05/21 EKG interpretation time: 08:33 Prior EKG tracings: available for review Other EKG comments: Sinus rhythm first-degree AV block left bundle branch block EKG unchanged from March 06, 2021 Discharge Plan Discharge Patient Disposition: Admitted As Inpatient Clinical Impression: History of mitral valve replacement with bioprosthetic valve, Tricuspid valve regurgitation, Aortic stenosis, CAD (coronary artery disease), Atrial fibrillation, URMILA (acute kidney injury), Skin tear, Unstable angina pectoris, Non-ST elevation AK (NSTEMI), Anemia CHF (congestive heart failure) Qualifiers: Heart failure type: systolic Heart failure chronicity: acute on chronic Qualified Code(s): I50.23 - Acute on chronic systolic (congestive) heart failure Condition: Stable Coding Level of Care Code ED Production [employer] for [place] Fwd Exam Comprehensive
[2021-06-05] MEDS: FUROsemide 10 mg/mL SDV 10mL 60 MG IVP (09:14)
[2021-06-05 09:20] LABS: Hematocrit 21.5 % (42.0-52.0); Hemoglobin 6.6 g/dL (11.7-16.6); Mean Corpuscular HGB Conc 30.7 g/dL (30.0-36.0); Mean Corpuscular Hemoglobin 30.1 pg (28.0-34.0); Mean Corpuscular Volume 98.2 fl (80-94); Mean Platelet Volume 9.3 fL (7.4-10.4); Platelet Count 239 10^3/cmm (130-400); Red Blood Count 2.19 10^6/uL (4.1-5.3); Red Cell Distribution Width 18.9 % (12.1-15.1); White Blood Count 4.9 10^3/uL (4.0-10.0)
--- NOTE | 2021-06-05 09:22 | PC.NURSE ---
PATIENT WOUNDS UNWRAPPED ON RIGHT ARM AND BACK. PATIENT HAS ONE LACERATION ABOVE ELBOW, ONE LARGE SKIN TEAR ON RIGHT LATERAL/POSTERIOR ARM BELOW ELBOW, ONE LARGE SKIN TEAR ON DORSAL SIDE OF RIGHT HAND, AND KNOT AND LACERATION ON RIGHT SIDE OF BACK. PATIENT STATES THAT HE FELL ON THURSDAY AND WENT TO [facility] ON THURSDAY FOR EVALUATION. PROVIDER VISUALIZED WOUNDS AT TIME OF UNWRAP.
--- NOTE | 2021-06-05 09:25 | XR_ITS ---
WS: [id number] HAND RIGHT TECHNIQUE: 3 views of the right hand CLINICAL INFORMATION: pain swelling COMPARISON: None. FINDINGS: Osteopenia. Soft tissue edema at the wrist. 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 Normal scaphoid and lunate. IP joint narrowing. Normal metacarpals. IMPRESSION: 1. Osteopenia with soft tissue edema. 2. No acute fractures.
[2021-06-05 09:34] LABS: Add Urine Microscopic? NO; Charge for UA Resulting for Rev
[2021-06-05 09:42] LABS: Troponin(5th) Baseline 285 ng/L (0-15)
[2021-06-05 09:45] LABS: Alanine Aminotransferase 22 U/L (0-41); Albumin Level 3.5 g/dL (3.5-5.2); Alkaline Phosphatase 103 IU/L (40-130); Anion Gap 16.2 (5-19); Aspartate Amino Transferase 27 U/L (0-40); Blood Urea Nitrogen 48 mg/dL (8-23); Calcium 8.3 mg/dL (8.5-10.5); Carbon Dioxide 27 mmol/L (22-29); Chloride 96 mmol/L (98-107); Globulin 2.9 g/dL (1.3-4.6); Glucose 137 mg/dL (65-115); NT Pro B Type Natriuretic Pept 22665 pg/mL (0-450); Osmolality Calculated 295 mOsm/kg (285-295); Potassium 4.2 mmol/L (3.5-5.1); Sodium 135 mmol/L (136-145); Total Bilirubin 0.2 mg/dL (0.15-1.2); Total Protein 6.4 g/dL (6.6-8.7)
[2021-06-05 09:45] LABS: Bilirubin Urine Neg (Negative); Blood Urine Neg (Negative); Glucose Urine UA Norm (Normal); Ketones Urine Negative (Negative); Leukocyte Esterase Urine Negative (Negative); Nitrate Urine Negative (Negative); Protein Urine Neg (Negative); Urine Appearance Clear (CLEAR); Urine Color Yellow (Yellow); Urobilinogen Urine Norm (Negative); pH Urine 5 (5-7)
[2021-06-05 09:54] LABS: Slide Review Slide Review Perform
[2021-06-05 09:58] LABS: Absolute Eosinophils 0.1 10^3/cmm (0.0-0.7); Absolute Segmented Neutrophil 3.3 10/cmm (1.6-7.1); Band Neutrophils Absolute 0.5 10^3/cmm (0.0-1.2); Corrected White Blood Count 4.7 10^3/cmm (4.8-10.8); Eosinophils 3 %; Lymphocytes 10 %; Lymphocytes Absolute 0.5 10^3/cmm (1.2-3.4); Monocytes Absolute 0.2 10^3/cmm (0.1-0.6); Segmented Neutrophils 67 %; Total Cells Counted 100 (0-100)
[2021-06-05 10:02] LABS: Absolute Neutrophil 3.8 10^3/cmm (1.4-6.5); Platelet Estimate Normal (Normal)
--- NOTE | 2021-06-05 10:23 | PC.NURSE ---
PATIENT RIGHT ARM RE-WRAPPED.
--- NOTE | 2021-06-05 10:28 | P.HP_ITS ---
Providers/Chief Complaint Admitting Physician: Courtney Burleson MD Primary Care Provider: Tiki Dorado MD Chief Complaint: Pts Fluid building on his lungs History of Present Illness Hayes Solis is a 85 year old male who presented to the emergency room with chief complaint of left arm pain. Patient has multiple comorbid cardiac conditions as described below. He had mitral valve bioprosthetic replacement last January. Ejection fraction has been in the range of 20 to 25%. He has been doing well as recently as a week or so ago. On Thursday night or rather Thursday morning around 1 AM he got up to go to the bathroom and fell down. He sustained multiple skin tears to his right upper extremity right side of his face around the ear and most prominently in the right back/flank area. He does not really know what happened with the fall but he had woken up from sleep. Denies loss of consciousness. He was seen in urgent care for the skin tears that were treated. reports that he lost quite a bit of blood during all of this. He has not been as mobile since then. Pain has been a limiting factor in that regard as well as getting more short of breath with any amount of exertion and feeling tired. Because he was not getting up as much, his held his metolazone which is an every other day medication. She also cut back his Lasix from twice a day to once a day so he would not have to try to get up as much. He has had increased edema over the last week with this along with increasing respiratory symptoms. In addition to the diuretics, she held the Coumadin due to the amount of bleeding that he had had. INR on Thursday though was 2.6. Today at rest he had severe left arm pain. Not really any other definitive associated symptoms but because of the quality of the pain and the severity of the pain and the location of the pain he took nitroglycerin at home with improvement. On arrival here EKG shows left bundle branch block. No ST elevation discerned. Initial to baseline troponin was 285 which is higher than his usual. In addition to this he was found to have hemoglobin of 6.6. Other than the bleeding from the fall on Thursday morning, he denies any other known bleeding. He does have a history of iron deficiency anemia. On chronic anticoagulation due to history of atrial fibrillation and mitral valve replacement. Again the valve is bioprosthetic. BUN and creatinine were also higher than previous. With symptom presentation, abnormalities identified and comorbid conditions combined with advanced age and high risk of continued clinical decline without intervention, he is being admitted for further care. In the emergency room he received a dose of IV Lasix but has not yet had much in the way of urine output. He has known prostate cancer is on finasteride and Flomax and reports significant decrease in urine output recently and chronic difficulty with urination. He is presently left arm pain-free. He does have known coronary artery disease in addition to issues described. Review of Systems Const: Reports: change in appetite, change in weight and fatigue; Denies: fever(s) ENMT: Reports: nasal discharge; Denies: throat pain or epistaxis Card: Reports: edema and dyspnea on exertion; Denies: chest pain (But was having left arm pain as described) Resp: Reports: dyspnea and non-productive cough; Denies: hemoptysis GI: Reports: constipation; Denies: abdominal pain, nausea, vomiting, diarrhea, hematochezia or melena : Reports: difficulty urinating, urinary hesitancy and oliguria; Denies: dysuria or hematuria Musc: Reports: back pain, extremity pain and muscle weakness Skin/Breast: Reports: new lesions (Multiple skin tears to right arm, right back and behind right ear) Neuro: Reports: frequent falls; Denies: dizziness or vertigo Medications/Allergies Home Medications Medication Instructions Recorded Confirmed Last Taken Type magnesium oxide 400 mg PO QPM 05/09/19 06/05/21 06/04/21 History hydrocodone 5 mg-acetaminophen 325 1 tab PO Q6H PRN tab 05/18/19 06/05/21 09/19/19 05:00 History mg tablet nitroglycerin 0.4 mg sublingual 0.4 mg SUBLINGUAL Q5M PRN #25 tab 12/17/20 06/05/21 Unknown Rx tablet (Nitrostat) pravastatin 80 mg tablet 80 mg PO BEDTIME 01/18/21 06/05/21 06/04/21 History docusate sodium 100 mg capsule 100 mg PO BID 03/07/21 06/05/21 Unknown History (Colace) duloxetine 30 mg capsule,delayed 30 mg PO QAM 03/07/21 06/05/21 06/05/21 History release multivitamin 1 tab PO EVERY OTHER DAY 03/07/21 06/05/21 Unknown History tamsulosin 0.4 mg capsule (Flomax) 0.4 mg PO QAM 03/07/21 06/05/21 06/05/21 History vit C 250 mg-vit E 90 mg-zinc 40 1 cap PO EVERY OTHER DAY 03/07/21 06/05/21 Unknown History mg-copper 1 [id number] capsule (PreserVision AREDS-2) metolazone 2.5 mg tablet 2.5 mg PO Q48H #15 tab 04/27/21 06/05/21 06/03/21 Rx omeprazole 20 mg capsule,delayed 20 mg PO QAM #90 cap 05/17/21 06/05/21 06/05/21 Rx release bicalutamide 50 mg tablet 50 mg PO QAM 05/28/21 06/05/21 Unknown History fluticasone furoate 100 1 inh INHALATION DAILY PRN ea 05/28/21 06/05/21 Unknown History mcg-vilanterol 25 mcg/dose inhalation powder (Breo Ellipta) aspirin 81 mg tablet,delayed 81 mg PO QAM #90 tab 05/31/21 06/05/21 06/05/21 07:00 Rx release (Adult Low Dose Aspirin) furosemide 40 mg tablet 40 mg PO BID #180 tab 06/03/21 06/05/21 Unknown Rx potassium chloride 20 mEq 20 meq PO QAM #90 tab 06/03/21 06/05/21 06/05/21 Rx tablet,extended release(part/cryst) primidone 50 mg tablet 50 mg PO BID #60 tab 06/03/21 06/05/21 Unknown Rx carvedilol 3.125 mg tablet 3.125 mg PO BID 06/05/21 06/05/21 06/05/21 History finasteride 5 mg tablet 5 mg PO QAM 06/05/21 06/05/21 06/05/21 History lactulose 10 gram/15 mL oral 20 g PO QID PRN 06/05/21 06/05/21 Unknown History solution levothyroxine 75 mcg tablet 75 mcg PO QAM 06/05/21 06/05/21 Unknown History spironolactone 25 mg tablet 25 mg PO QAM 06/05/21 06/05/21 Unknown History umeclidinium 62.5 mcg/actuation 1 inh INHALATION DAILY PRN 06/05/21 06/05/21 Unknown History blister powder for inhalation (Incruse Ellipta) warfarin 2 mg tablet See Rx Instructions .ROUTE .COMPLEX 06/05/21 06/05/21 Unknown History Allergies Allergy/AdvReac Type Severity Reaction Status Date / Time diclofenac Allergy Unknown Verified 06/03/21 15:46 meperidine Allergy ADR-Vomitin Verified 06/03/21 15:46 g spironolactone Allergy Unknown Verified 06/03/21 15:46 PFSH Acute PFSH: Medical History Aortic stenosis Atrial fibrillation Basal cell carcinoma BPH (benign prostatic hyperplasia) CAD (coronary artery disease) Cervical post-laminectomy syndrome Chronic lung disease Chronic shortness of breath Chronic systolic heart failure 02/2021 EF 20-25%, bioprosthetic mitral valve, TOMY 1.4 cm2 with mean gradient of 22.3 mmHg CKD (chronic kidney disease) DDD (degenerative disc disease) Diabetes GERD (gastroesophageal reflux disease) Hyperlipemia Hypertension Hypothyroidism Iron deficiency anemia Ischemic cardiomyopathy Melanoma Mitral valve regurgitation Neuropathy Pleural effusion Prostate cancer metastatic to bone Sleep apnea Subcapsular hematoma of liver (~04/2019) traumatic TIA (transient ischemic attack) Tricuspid valve regurgitation Surgical History 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 Patent proximal LAD, distal RCA with 30% stenosis in mid circumflex with 30% stenosis History of heart artery stent History of mitral valve replacement with bioprosthetic valve (~01/2021) [facility] History of prostate biopsy Previous back surgery Family History Father , at age 80 CAD (coronary artery disease) Mother , at age 73 Dementia Alzheimers Social History Smoking and tobacco status: never smoked Alcohol intake: current Alcohol intake frequency: holidays/special occasions only Substance/Drug Use: never Household members: spouse Marital status: Current occupational status: retired Current gender identity: Male Other PFSH information: Supplemental PFSH Information: I personally updated the medical surgical family and social history earlier today and have reviewed this evening prior to signing my note. Vitals/I&O/Wt Last Vital Signs Temp 97.8 F 06/05/21 08:51 Pulse 75 06/05/21 09:15 Resp 14 06/05/21 09:15 BP 110/62 06/05/21 09:15 Pulse Ox 97 06/05/21 09:15 Weight last 48 hrs Weight 90.718 kg Physical Exam Narrative: Constitutional: Awake and alert, looks stated age, may be younger, cooperative HEENT: Normocephalic, has a cut on the inside of the right earlobe with some scabbing and a bruise with a small scab in the posterior auricular region behind that ear, no ear drainage, pupils are equal with evidence of prior cataract surgery notable, nasopharynx is clear, oropharynx with dry mucous membranes Neck: Supple Respiratory: Bibasilar rales, no wheezes or rhonchi, chest expansion is equal bilaterally Cardiovascular: Regular rhythm, 3/6 systolic murmur noted throughout, loudest at the right upper sternal border region Abdomen: Soft, nontender, positive bowel sounds Extremities: 3+ edema noted to the lower extremities bilaterally, right lower extremity is slightly larger than left lower extremity but no calf tenderness or palpable cords Skin: Pale, dry, skin tears to right hand and right elbow/arm are covered in dressings which are not removed at this time as they had just recently been completed by nursing staff. On patient's right back there is a large area of skin tear with scab over it. Dressing over this wound has some dried blood on it. There is a couple of areas of more oozing dark blood but no bright red blood is seen. The cyst soft tissue underneath this area of loss of superficial layer of skin has evident hematoma with some edema. It is tender to touch. No crepitus is noted around this area. Neuro: Speech clear, little hard of hearing, face is symmetric, extraocular movements are intact, moves all extremities, handgrip equal Psych: Anxious, normal affect Data : 06/05/21 09:08 06/05/21 09:08 Other Labs: Radiology Impressions Chest X-Ray 06/05/21 08:32 IMPRESSION: 1. Cardiomegaly. AVR. 2. Tiny bilateral pleural effusions with pleural thickening. 3. Hazy infiltrates in the bilateral RIGHT greater than LEFT lower lobes unchanged from March 06, 2021. 4. No significant changes from previous. Laboratory Results WBC 4.9 10^3/uL (4.0-10.0) 06/05/21 09:08 Corrected WBC 4.7 10^3/cmm (4.8-10.8) L 06/05/21 09:08 RBC 2.19 10^6/uL (4.1-5.3) L 06/05/21 09:08 Hgb 6.6 g/dL (11.7-16.6) L 06/05/21 09:08 Hct 21.5 % (42.0-52.0) L 06/05/21 09:08 MCV 98.2 fl (80-94) H 06/05/21 09:08 MCH 30.1 pg (28.0-34.0) 06/05/21 09:08 MCHC 30.7 g/dL (30.0-36.0) 06/05/21 09:08 RDW 18.9 % (12.1-15.1) H 06/05/21 09:08 Plt Count 239 10^3/cmm (130-400) 06/05/21 09:08 MPV 9.3 fL (7.4-10.4) 06/05/21 09:08 Lymph % (Auto) Not Reportable 06/05/21 09:08 [place] % (Auto) Not Reportable 06/05/21 09:08 Lymph # (Auto) Not Reportable 06/05/21 09:08 [place] # (Auto) Not Reportable 06/05/21 09:08 Total Counted 100 (0-100) 06/05/21 09:08 Atypical Lymphs % 1.0 % (0-5) 06/05/21 09:08 Absolute Neutrophils 3.8 10^3/cmm (1.4-6.5) 06/05/21 09:08 Segmented Neutrophils 67 % 06/05/21 09:08 Abs Segm Neuts (Man) 3.3 10/cmm (1.6-7.1) 06/05/21 09:08 Band Neutrophils 10.0 % 06/05/21 09:08 Abs Band Neuts (Man) 0.5 10^3/cmm (0.0-1.2) 06/05/21 09:08 Absolute Lymphocytes 0.5 10^3/cmm (1.2-3.4) L 06/05/21 09:08 Lymphocytes (Manual) 10 % 06/05/21 09:08 Monocytes (Manual) 4.0 % 06/05/21 09:08 Absolute Monocytes 0.2 10^3/cmm (0.1-0.6) 06/05/21 09:08 Eosinophils (Manual) 3 % 06/05/21 09:08 Absolute Eosinophils 0.1 10^3/cmm (0.0-0.7) 06/05/21 09:08 Basophils (Manual) 1.0 % 06/05/21 09:08 Absolute Basophils 0.0 10^3/cmm (0.0-0.2) 06/05/21 09:08 Metamyelocytes 2.0 % 06/05/21 09:08 Myelocytes 2.0 % 06/05/21 09:08 Nucleated RBCs 4.0 /100WBC (0-1) H 06/05/21 09:08 Platelet Estimate Normal (Normal) 06/05/21 09:08 Sodium 135 mmol/L (136-145) L 06/05/21 09:08 Potassium 4.2 mmol/L (3.5-5.1) 06/05/21 09:08 Chloride 96 mmol/L (98-107) L 06/05/21 09:08 Carbon Dioxide 27 mmol/L (22-29) 06/05/21 09:08 Anion Gap 16.2 (5-19) 06/05/21 09:08 BUN 48 mg/dL (8-23) H 06/05/21 09:08 Creatinine 1.6 mg/dL (0.7-1.2) H 06/05/21 09:08 GFR Calculation Not Reportable 06/05/21 09:08 Glucose 137 mg/dL (65-115) H 06/05/21 09:08 Calculated Osmolality 295 mOsm/kg (285-295) 06/05/21 09:08 Calcium 8.3 mg/dL (8.5-10.5) L 06/05/21 09:08 Total Bilirubin 0.2 mg/dL (0.15-1.2) 06/05/21 09:08 AST 27 U/L (0-40) 06/05/21 09:08 ALT 22 U/L (0-41) 06/05/21 09:08 Alkaline Phosphatase 103 IU/L (40-130) 06/05/21 09:08 Troponin T Baseline 285 ng/L (0-15) H* 06/05/21 09:08 NT-Pro-B Natriuret Pep 66179 pg/mL (0-450) H 06/05/21 09:08 Total Protein 6.4 g/dL (6.6-8.7) L 06/05/21 09:08 Albumin 3.5 g/dL (3.5-5.2) 06/05/21 09:08 Globulin 2.9 g/dL (1.3-4.6) 06/05/21 09:08 Urine Color Yellow (Yellow) 06/05/21 09:14 Urine Appearance Clear (CLEAR) 06/05/21 09:14 Urine pH 5 (5-7) 06/05/21 09:14 Ur Specific [place] 1.010 (1.005-1.030) 06/05/21 09:14 Urine Protein Neg (Negative) 06/05/21 09:14 Urine Glucose (UA) Norm (Normal) 06/05/21 09:14 Urine Ketones Negative (Negative) 06/05/21 09:14 Urine Blood Neg (Negative) 06/05/21 09:14 Urine Nitrate Negative (Negative) 06/05/21 09:14 Urine Bilirubin Neg (Negative) 06/05/21 09:14 Urine Urobilinogen Norm mg/dL (Negative) 06/05/21 09:14 Ur Leukocyte Esterase Negative (Negative) 06/05/21 09:14 A&P Assessment and plan (1) Unstable angina pectoris: Presenting with left arm pain and increased dyspnea, improved with nitroglycerin Baseline troponin increased from usual values EKG with LBBB Last arteriogram was 01/2021 with right dominant circulation, patent proximal LAD, distal RCA with 30% stenosis, in mid circumflex with 30% stenosis Known CAD on chronic aspirin, coreg, statin, as needed nitroglycerin Status: Acute (2) Non-ST elevation AL (NSTEMI): as above Status: Acute (3) Anemia: With macrocytosis History of iron deficiency anemia per old records Likely component of anemia CKD as well No reported blood loss though with recent fall and superficial hematomas Known prostate cancer On chronic anticoagulation Status: Acute (4) CHF (congestive heart failure): Acute oon Chronic Systolic EF 02/2021 was 20-35% Chronically on lasix, aldactone and metolazone No CAROLYN/ARB due to CKD I believe Status: Acute Qualifiers: Heart failure chronicity: acute on chronic Heart failure type: systolic Qualified Code(s): I50.23 - Acute on chronic systolic (congestive) heart failure (5) Chronic anticoagulation: With coumadin INR pending Goal 2-3 Status: Chronic (6) CKD (chronic kidney disease): Looks like stage 3a versus 3b chronically with variation dependent on volume status and resultant calculations, lean to 3b Recently with persistently higher creatinine corresponding with drop in ejection fraction, valvular disease changes URMILA in differential, but appears progression of disease in my view Status: Chronic Qualifiers: Chronic kidney disease stage: stage 3 (moderate) Chronic kidney disease stage 3 subtype: stage 3b (GFR 30-44) Qualified Code(s): N18.32 - Chronic kidney disease, stage 3b (7) History of mitral valve replacement with bioprosthetic valve: 01/2021 at [facility] Status: Chronic (8) Aortic stenosis: Mean gradient 22.3 mmHg,?TOMY 1.4 cm squared Status: Chronic (9) Atrial fibrillation: Postoperative after valve surgery versus chronic paroxysmal On beta blockade and anticoagulation with coumadin Status: Chronic (10) Skin tear: Multiple from recent fall at home Status: Acute (11) Hypothyroidism: Chronic on levothyroxine, last TSH on 05/20/21 was 55.56 down from 74.97 on 03/26/21 Status: Chronic Qualifiers: Hypothyroidism type: acquired Qualified Code(s): E03.9 - Hypothyroidism, unspecified (12) Prostate cancer metastatic to bone: Increasing PSA, last value 05/16/2021 was 1234 up from 771 04/09/2021 On bicalutamide, finasteride and flomax Follows with Dr Giron Status: Chronic Plan Chronic lung disease/COPD on chronic Breo and Incruse Ellipta Chronically on duloxetine Chronically on prn narcotics for bone pain Inpatient admission Cardiology consultation, Dr. Deshpande has already been consulted Serial cardiac enzymes Continue aspirin, beta-blockade and statin Check lipid panel We will defer repeat echocardiogram to cardiology given findings at last value Continue IV diuresis [place] catheter for close monitoring of urine output in the setting of somebody with known prostate cancer, prostatic hypertrophy, decreased urine output and di fficulty with urination Serial H&H Type and cross and transfuse at least 1 unit of blood Hemoccult stool Check TIBC, B12, folate and peripheral smear Hold Coumadin presently Current INR is pending, will check serially for a couple of days Monitor wound to back with hematoma closely for any ongoing bleeding, will leave clot formation in place to minimize recurrent bleeding Monitor renal function for changes Telemetry monitoring Recheck TSH, free T3 and free T4 Has appointment scheduled with oncology on June 13 at which time a repeat PSA will be done PPI for GI prophylaxis SCDs for DVT prophylaxis while Coumadin is held Supportive care otherwise Findings, concerns and plans were discussed with patient and his and both were given an opportunity to ask questions Reviewed with patient and current bed situation and let them know that we would get them a bed on the floor preferably on the first floor as soon as 1 becomes available Currently anticipate discharge home with close outpatient follow-up, possibly with some home health services but will ultimately depend on clinical course Patient does not wish to be intubated or resuscitated but would be okay with invasive medical management of coronary conditions. Attestations Medical Necessity Statement*: Anticipated stay greater than two midnights in gentleman presenting with anginal symptoms found to have severe anemia in setting of chronic anticoagulation, acute on chronic chf, non ST elevation AL and other issues as noted. With comorbid conditions at high risk of further acute decline and sudden without close monitoring and inpatient intervention to include blood transfusion, evaluation for cause in drop of hemoglobin, IV diuresis, medical management versus invasive evaluation/intervantion for coronary disease in addition to other described care plan. Coding Level of Care Code Acute [employer] for g Fwd Diagnoses Unstable angina pectoris I20.0 Non-ST elevation AL (NSTEMI) I21.4 Anemia D64.9 CHF (congestive heart failure) I50.23 Heart failure chronicity: acute on chronic Heart failure type: systolic Hypothyroidism E03.9 Hypothyroidism type: acquired History of mitral valve replacement with bioprosthetic valve Z95.3 Chronic anticoagulation Z79.01 CKD (chronic kidney disease) N18.32 Chronic kidney disease stage: stage 3 (moderate) Chronic kidney disease stage 3 subtype: stage 3b (GFR 30-44) Aortic stenosis I35.0 Atrial fibrillation I48.91 Prostate cancer metastatic to bone C61; C79.51 Skin tear
--- NOTE | 2021-06-05 10:33 | ECG_ITS ---
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 Measurements Intervals [place] Rate: 75 P: 52 RI: 218 QRS: -27 QRSD: 150 T: 116 QT: 463 QTc: 519 Interpretive Statements SINUS RHYTHM WITH FIRST DEGREE AV BLOCK LEFT BUNDLE BRANCH BLOCK LATERAL MYOCARDIAL INFARCTION , OF INDETERMINATE AGE Compared to ECG 03/06/2021 21:19:16 Left bundle-branch block now present Myocardial infarct finding still present Electronically Signed On 06-05-2021 14:45:57 HEART NURSE by Arabella Mosqueda M.D. [id number]
[2021-06-05 12:19] LABS: LAB Peripheral Smear Sent for Review
[2021-06-05 12:24] LABS: INR 1.15 (0.8-1.2)
[2021-06-05 12:28] LABS: Iron 104 ug/dL (59-158); Total Iron Binding Capacity 231 mcg/dl; Unsaturated Iron Binding 127 ug/dL (112-347)
[2021-06-05 12:30] LABS: Troponin 5 2HR 273.5 ng/L (0-15); Troponin 5 2HR Delta -11.5 ABS# (0-10)
[2021-06-05 12:44] LABS: Vitamin B12 596 pg/mL (232-1245)
[2021-06-05 12:48] LABS: Folate Level 7.7 ng/mL (4.5-32.2)
--- NOTE | 2021-06-05 14:33 | ECG_ITS ---
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 Measurements Intervals [place] Rate: 77 P: 65 VT: 195 QRS: -25 QRSD: 153 T: 119 QT: 457 QTc: 519 Interpretive Statements SINUS RHYTHM with first-degree AV block LEFT BUNDLE BRANCH BLOCK Compared to ECG 06/05/2021 08:49:25 No significant changes Electronically Signed On 06-05-2021 14:45:17 WARP HAND by Arabella Mosqueda M.D. [id number]
[2021-06-05] MEDS: FUROsemide 10 mg/mL SDV 4mL 40 MG IVP (15:28)
[2021-06-05] MEDS: ALPRAZolam 0.5 mg Tablet 0.25 MG PO (15:28)
[2021-06-05 16:54] LABS: Troponin 5 6HR 299.6 ng/L (0-15)
[2021-06-05 16:55] LABS: Troponin 5 6HR Delta 14.6 ng/L (0-12)
--- NOTE | 2021-06-05 17:06 | PC.NURSE ---
Physician Notified Critical lab, 6hr troponin of 299.6 with a delta of 14.6. No new orders.
[2021-06-05] MEDS: docusate sodium 100 mg Capsule PO (17:46)
[2021-06-05] MEDS: primidone 50 mg Tablet PO (20:49)
[2021-06-05] MEDS: carvedilol 3.125 mg Tablet PO (20:50)
[2021-06-05] MEDS: HYDROcodone-acetaminophen 5-325 mg Tablet 1 TAB PO (22:20)
[2021-06-05] MEDS: trazodone 100 mg Tablet PO (22:21)
[2021-06-06] VITALS (19 sets, daily range): BP systolic 100–135; BP diastolic 50–61; PULSE 70–93; RESP 16–36; TEMP 36.3–37.1; O2SAT 90–100
[2021-06-06] MEDS: FUROsemide 10 mg/mL SDV 4mL 40 MG IVP ×2 (02:07→19:56)
[2021-06-06 03:07] LABS: Basophils % 0.5 %; Eosinophils # 0.1 10^3/uL (0.0-0.8); Eosinophils % 1.4 %; Hematocrit 24.8 % (42.0-52.0); Hemoglobin 7.7 g/dL (11.7-16.6); Lymphocytes # 0.7 10^3/uL (0.8-4.8); Lymphocytes % 12.6 %; Mean Corpuscular Hemoglobin 30.2 pg (28.0-34.0); Mean Corpuscular Volume 97.3 fl (80-94); Mean Platelet Volume 9.3 fL (7.4-10.4); Monocytes # 0.4 10^3/uL (0.2-0.9); Monocytes % 6.5 %; Neutrophils # 4.36 10^3/uL (1.8-7.7); Neutrophils % 74.4 %; Nucleated Red Blood Cells # 0.2 /100WBC; Nucleated Red Blood Cells % 2.7 %; Platelet Count 174 10^3/cmm (130-400); Red Blood Count 2.55 10^6/uL (4.1-5.3); Red Cell Distribution Width 19.7 % (12.1-15.1); White Blood Count 5.9 10^3/uL (4.0-10.0)
[2021-06-06 03:42] LABS: Anion Gap 15.7 (5-19); Blood Urea Nitrogen 48 mg/dL (8-23); Calcium 8.4 mg/dL (8.5-10.5); Carbon Dioxide 28 mmol/L (22-29); Chloride 98 mmol/L (98-107); Chol HDL Ratio 2.71 mg/dL (1.0-5.00); Cholesterol 157 mg/dL (0-200); Free T4 Free Thyroxine 0.64 ng/dL (0.82-1.77); Glucose 137 mg/dL (65-115); HDL Cholesterol 58 mg/dL (60-100); LDL Cholesterol Calculated 83 mg/dL (50-129); LDL HDL Ratio 1.43 RATIO (0.00-3.22); Magnesium 2.3 mg/dL (1.7-2.3); Osmolality Calculated 301 mOsm/kg (285-295); Phosphorus 4.7 mg/dL (2.5-4.5); Potassium 3.7 mmol/L (3.5-5.1); Sodium 138 mmol/L (136-145); T3 Free 1.2 PG/ML (2.0-4.4); Triglycerides 82 mg/dL (0-150)
[2021-06-06] MEDS: finasteride 5 mg Tablet PO (05:21)
[2021-06-06] MEDS: aspirin 81 mg EC Tablet PO (05:21)
[2021-06-06] MEDS: potassium chloride ER 20 mEq Tablet PO (05:21)
[2021-06-06] MEDS: tamsulosin 0.4 mg Capsule PO (05:21)
[2021-06-06] MEDS: levothyroxine 75 mcg Tablet PO (05:21)
[2021-06-06] MEDS: duloxetine 30 mg Capsule PO (05:21)
--- NOTE | 2021-06-06 05:36 | PC.NURSE ---
Addendum entered by Elizabeth Siegel RN 06/06/21 06:37: Pt rested quietly throughout night. PRN pain medication and Trazodone given. VSS. Fountain patient with adequate UOP. Pt repositioned frequently. No complaints per pt and . at bedside. Hourly rounding done. All needs met. Original Note: Pt rested quietly throughout night. PRN pain medication and Trazodone given. VSS. Fountain patient with adequate UOP. Pt repositioned frequently. No complaints per pt and . at bedside.
[2021-06-06] MEDS: primidone 50 mg Tablet PO ×2 (08:06→19:57)
[2021-06-06] MEDS: docusate sodium 100 mg Capsule PO ×2 (08:06→18:04)
[2021-06-06] MEDS: pantoprazole DR 40 mg Tablet PO (08:06)
[2021-06-06] MEDS: magnesium oxide 400 mg tablet PO (08:06)
[2021-06-06] MEDS: carvedilol 3.125 mg Tablet PO ×2 (08:06→19:57)
--- NOTE | 2021-06-06 08:35 | PM.CONSULT ---
Providers/Reason For Consult Consulting Physician/Specialty*: Adam Deshpande MD/Cardiology Reason for Consult*: Left arm pain/troponin elevation Requesting Physician: Dr Brenner Attending Physician: Demond Nice Primary Care Provider: Tiki Dorado MD History of Present Illness History of Present Illness Hayes Solis is a 85 year old male with past medical history of coronary artery disease, mitral stenosis s/p bioprosthetic valve replacement, moderate aortic stenosis and congestive heart failure presented to the hospital with left arm pain. A few days earlier he had fallen down. His hemoglobin is significantly low. Daily came complaining of left arm pain. Hemoglobin was found to be 6.6. He was also on Coumadin. He was also volume overloaded. Review of Systems Const: Reports: change in appetite, change in weight and fatigue; Denies: fever(s) ENMT: Reports: nasal discharge; Denies: throat pain or epistaxis Card: Reports: edema and dyspnea on exertion; Denies: chest pain (But was having left arm pain as described) Resp: Reports: dyspnea and non-productive cough; Denies: hemoptysis GI: Reports: constipation; Denies: abdominal pain, nausea, vomiting, diarrhea, hematochezia or melena : Reports: difficulty urinating, urinary hesitancy and oliguria; Denies: dysuria or hematuria Musc: Reports: back pain, extremity pain and muscle weakness Skin/Breast: Reports: new lesions (Multiple skin tears to right arm, right back and behind right ear) Neuro: Reports: frequent falls; Denies: dizziness or vertigo Medications/Allergies Home Medications Medication Instructions Recorded Confirmed Last Taken Type magnesium oxide 400 mg PO QPM 05/09/19 06/05/21 06/04/21 History hydrocodone 5 mg-acetaminophen 325 1 tab PO Q6H PRN tab 05/18/19 06/05/21 09/19/19 05:00 History mg tablet nitroglycerin 0.4 mg sublingual 0.4 mg SUBLINGUAL Q5M PRN #25 tab 12/17/20 06/05/21 Unknown Rx tablet (Nitrostat) pravastatin 80 mg tablet 80 mg PO BEDTIME 01/18/21 06/05/21 06/04/21 History docusate sodium 100 mg capsule 100 mg PO BID 03/07/21 06/05/21 Unknown History (Colace) duloxetine 30 mg capsule,delayed 30 mg PO QAM 03/07/21 06/05/21 06/05/21 History release multivitamin 1 tab PO EVERY OTHER DAY 03/07/21 06/05/21 Unknown History tamsulosin 0.4 mg capsule (Flomax) 0.4 mg PO QAM 03/07/21 06/05/21 06/05/21 History vit C 250 mg-vit E 90 mg-zinc 40 1 cap PO EVERY OTHER DAY 03/07/21 06/05/21 Unknown History mg-copper 1 [id number] capsule (PreserVision AREDS-2) metolazone 2.5 mg tablet 2.5 mg PO Q48H #15 tab 04/27/21 06/05/21 06/03/21 Rx omeprazole 20 mg capsule,delayed 20 mg PO QAM #90 cap 05/17/21 06/05/21 06/05/21 Rx release bicalutamide 50 mg tablet 50 mg PO QAM 05/28/21 06/05/21 Unknown History fluticasone furoate 100 1 inh INHALATION DAILY PRN ea 05/28/21 06/05/21 Unknown History mcg-vilanterol 25 mcg/dose inhalation powder (Breo Ellipta) aspirin 81 mg tablet,delayed 81 mg PO QAM #90 tab 05/31/21 06/05/21 06/05/21 07:00 Rx release (Adult Low Dose Aspirin) furosemide 40 mg tablet 40 mg PO BID #180 tab 06/03/21 06/05/21 Unknown Rx potassium chloride 20 mEq 20 meq PO QAM #90 tab 06/03/21 06/05/21 06/05/21 Rx tablet,extended release(part/cryst) primidone 50 mg tablet 50 mg PO BID #60 tab 06/03/21 06/05/21 Unknown Rx carvedilol 3.125 mg tablet 3.125 mg PO BID 06/05/21 06/05/21 06/05/21 History finasteride 5 mg tablet 5 mg PO QAM 06/05/21 06/05/21 06/05/21 History lactulose 10 gram/15 mL oral 20 g PO QID PRN 06/05/21 06/05/21 Unknown History solution levothyroxine 75 mcg tablet 75 mcg PO QAM 06/05/21 06/05/21 Unknown History spironolactone 25 mg tablet 25 mg PO QAM 06/05/21 06/05/21 Unknown History umeclidinium 62.5 mcg/actuation 1 inh INHALATION DAILY PRN 06/05/21 06/05/21 Unknown History blister powder for inhalation (Incruse Ellipta) warfarin 2 mg tablet See Rx Instructions .ROUTE .COMPLEX 06/05/21 06/05/21 Unknown History Allergies Allergy/AdvReac Type Severity Reaction Status Date / Time diclofenac Allergy Unknown Verified 06/03/21 15:46 meperidine Allergy ADR-Vomitin Verified 06/03/21 15:46 g spironolactone Allergy Unknown Verified 06/03/21 15:46 Current Medications Generic Name Dose Route Start Last Admin Trade Name Freq PRN Reason Stop Dose Admin Hydrocodone Bitart/Acetaminophen 1 tab 06/05/21 11:24 06/05/21 22:20 Hydrocodone-Acetaminophen 5-325 Mg Tablet PO 1 tab Q4H PRN Administration MODERATE TO SEVERE PAIN Aspirin 81 mg 06/06/21 06:00 06/06/21 05:21 Aspirin 81 Mg Ec Tablet PO 81 mg QAM NAEEM Administration Atorvastatin Calcium 80 mg 06/05/21 21:00 06/05/21 20:50 Atorvastatin 40 Mg Tablet PO Not Given BEDTIME NAEEM Bicalutamide 50 mg 06/06/21 06:00 06/06/21 05:35 Bicalutamide 50 Mg Tablet PO Not Given QAM NAEEM Carvedilol 3.125 mg 06/05/21 21:00 06/06/21 08:06 Carvedilol 3.125 Mg Tablet PO 3.125 mg BID@0900,2100 NAEEM Administration Docusate Sodium 100 mg 06/05/21 18:00 06/06/21 08:06 Docusate Sodium 100 Mg Capsule PO 100 mg BID NAEEM Administration Duloxetine HCl 30 mg 06/06/21 06:00 06/06/21 05:21 Duloxetine 30 Mg Capsule PO 30 mg QAM NAEEM Administration Finasteride 5 mg 06/06/21 06:00 06/06/21 05:21 Finasteride 5 Mg Tablet PO 5 mg QAM NAEEM Administration Furosemide 40 mg 06/05/21 14:00 06/06/21 02:07 Furosemide 10 Mg/Ml Sdv 4ml IVP 40 mg Q12H NAEEM Administration Levothyroxine Sodium 75 mcg 06/06/21 06:00 06/06/21 05:21 Levothyroxine 75 Mcg Tablet PO 75 mcg QAM NAEEM Administration Magnesium Oxide 400 mg 06/06/21 09:00 06/06/21 08:06 Magnesium Oxide 400 Mg Tablet PO 400 mg DAILY NAEEM Administration Pantoprazole Sodium 40 mg 06/06/21 09:00 06/06/21 08:[address] 40 Mg Tablet PO 40 mg DAILY NAEEM Administration Potassium Chloride 20 meq 06/06/21 06:00 06/06/21 05:21 Potassium Chloride Er 20 Meq Tablet PO 20 meq QAM NAEEM Administration Primidone 50 mg 06/05/21 21:00 06/06/21 08:06 Primidone 50 Mg Tablet PO 50 mg BID@0900,2100 NAEEM Administration Senna 17.2 mg 06/05/21 21:00 06/05/21 20:50 Sennosides 8.6 Mg Tablet PO Not Given BEDTIME NAEEM Tamsulosin HCl 0.4 mg 06/06/21 06:00 06/06/21 05:21 Tamsulosin 0.4 Mg Capsule PO 0.4 mg QAM NAEEM Administration Trazodone HCl 100 mg 06/05/21 22:00 06/05/21 22:21 Trazodone 100 Mg Tablet PO 100 mg BEDTIME PRN Administration INSOMNIA PFSH Acute PFSH: Medical History Aortic stenosis Atrial fibrillation Basal cell carcinoma BPH (benign prostatic hyperplasia) CAD (coronary artery disease) Cervical post-laminectomy syndrome Chronic lung disease Chronic shortness of breath Chronic systolic heart failure 02/2021 EF 20-25%, bioprosthetic mitral valve, TOMY 1.4 cm2 with mean gradient of 22.3 mmHg CKD (chronic kidney disease) DDD (degenerative disc disease) Diabetes GERD (gastroesophageal reflux disease) Hyperlipemia Hypertension Hypothyroidism Iron deficiency anemia Ischemic cardiomyopathy Melanoma Mitral valve regurgitation Neuropathy Pleural effusion Prostate cancer metastatic to bone Sleep apnea Subcapsular hematoma of liver (~04/2019) traumatic TIA (transient ischemic attack) Tricuspid valve regurgitation Surgical History 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 Patent proximal LAD, distal RCA with 30% stenosis in mid circumflex with 30% stenosis History of heart artery stent History of mitral valve replacement with bioprosthetic valve (~01/2021) [facility] [place] History of prostate biopsy Previous back surgery Family History Father , at age 80 CAD (coronary artery disease) Mother , at age 73 Dementia Alzheimers Social History Smoking and tobacco status: never smoked Alcohol intake: current Alcohol intake frequency: holidays/special occasions only Substance/Drug Use: never Household members: spouse Marital status: Current occupational status: retired Current gender identity: Male Vitals/I&O/Wt Last Vital Signs Temp 98.7 F 06/06/21 02:10 Pulse 84 06/06/21 08:06 Resp 29 H 06/06/21 08:06 BP 131/56 06/06/21 08:06 Pulse Ox 98 06/06/21 08:06 06/05/21 06/06/21 06/06/21 22:59 06:59 14:59 Intake Total 350 / 350 240 / 590 354 / 354 Output Total 900 / 900 750 / 1650 Balance -550 / -550 -510 / -1060 354 / 354 Weight last 48 hrs Weight 199 lb 12.8 oz Weight 200 lb Physical Exam Narrative: GENERAL: Patient is alert, awake and oriented x3. [] NECK: No jugular vein distension. [] HEENT: No cyanosis. No icterus. No pallor. [] HEART: Regular S1 and S2. No murmur, rub or gallop. [] LUNGS: Clear to auscultate bilaterally. [] ABDOMEN: Soft, nontender and nondistended. Positive bowel sounds. No guarding, rebound or tenderness. [] CENTRAL NERVOUS SYSTEM: Grossly nonfocal. [] EXTREMITIES: Lower extremities with 1+ edema bilaterally. Pulses palpable in the lower extremities, both dorsalis pedis and posterior tibial. [] Urinary Catheter Management: Coude: Cath Placed During This Visit: yes Reason for Continuing Indwelling Catheter: Acute Urinary Retention or Obstruction Urinary Catheter Date of Insertion: 06/05/21 Urinary Catheter Time of Insertion: 15:00 Data : 06/06/21 02:45 06/06/21 02:45 A&P Assessment and plan (1) CKD (chronic kidney disease): Status: Chronic Qualifiers: Chronic kidney disease stage: stage 3 (moderate) Chronic kidney disease stage 3 subtype: stage 3b (GFR 30-44) Qualified Code(s): N18.32 - Chronic kidney disease, stage 3b (2) CHF (congestive heart failure): Status: Acute Qualifiers: Heart failure type: systolic Heart failure chronicity: acute on chronic Qualified Code(s): I50.23 - Acute on chronic systolic (congestive) heart failure (3) Aortic stenosis: Status: Chronic (4) CAD (coronary artery disease): Status: Chronic (5) Atrial fibrillation: Status: Chronic (6) History of mitral valve replacement with bioprosthetic valve: Status: Chronic (7) Chronic anticoagulation: Status: Chronic (8) Troponin level elevated: Status: Acute Plan Patient has presented with left arm pain. Troponin elevation is likely secondary to demand ischemia in the setting of CHF and significant anemia. Transfuse blood. Check H&H. IV Lasix for volume overload. No invasive work-up recommended at this time. Coumadin has been held because of significant drop in the hemoglobin. Need will be reassessed later. Thank you for involving us with care of this patient. We will continue to follow. Please call with questions. Coding Level of Care Code Acute Date Night Caregiver for Antwon Oconnell Diagnoses CKD (chronic kidney disease) N18.32 Chronic kidney disease stage: stage 3 (moderate) Chronic kidney disease stage 3 subtype: stage 3b (GFR 30-44) CHF (congestive heart failure) I50.23 Heart failure type: systolic Heart failure chronicity: acute on chronic Aortic stenosis I35.0 CAD (coronary artery disease) I25.10 Atrial fibrillation I48.91 History of mitral valve replacement with bioprosthetic valve Z95.3 Chronic anticoagulation Z79.01 Troponin level elevated R77.8
--- NOTE | 2021-06-06 10:12 | PC.CHAP ---
Pastoral Care Encounter/Spiritual Assessment Type of Contact [] Declined conference producer visit [] Patient/Family/Request visit [] Outpatient visit [] Follow-up visit [] Physician referral [] Code/Alert [x] Routine visit [] Staff referral [] Actively dying [] Patient sleeping [] Family support [] [] Out of room [] Palliative care [] [x] Receiving care in room [] Pre-surgical visit [] Trauma [x] Long length of stay [] ICU visit [] Other: Relational/Emotional Strength [x] Patient feels connected with others/family/visitors/staff [] Distress [] Loneliness/isolation [] Abandonment Spirituality of Patient [x] Person of Manuela [] Attends Latter Day of their [place] [x] Believes in Prayer [] Reads Bible or Buddhism materials [] There are Spiritual issues to be addressed [employer] Interventions [x] Prayer [x] Active listening [x] Non-anxious presence [x] Spiritual/emotional support [] Crisis/trauma care [x] Spiritual counseling [] Bereavement support [] Provided bereavement packet [] Provided Bible/devotional materials [] Provided toy/stuffed animal, coloring book to patient or family member [] Provided Communion [] Anointing/[place] [] Salvation [x] Completed spiritual assessment [] Other: Impact on Illness or Injury [] Angry [] Fearful [x] Anxious [] Often cries [] Exhaustion [x] Unable to work [] Unable to attend spiritism [] Unable to walk/stand [] Unable to read [] Unable to drive [] Unable to eat/drink [] Unable to sleep [] Unable to be with family [] Patient intubated [] Other: Summary Senior aad a stent heart he also fell, and other health problems he is dealing with will go home and rehab from home + 2 and his key account executive Time spent with patient 10 mins
[2021-06-06] MEDS: HYDROcodone-acetaminophen 5-325 mg Tablet 1 TAB PO ×2 (11:33→19:57)
[2021-06-06] MEDS: atorvastatin 40 mg Tablet 80 MG PO (19:57)
[2021-06-06] MEDS: sennosides 8.6 mg Tablet 17.2 MG PO (19:57)
[2021-06-06] MEDS: trazodone 100 mg Tablet PO (19:57)
--- NOTE | 2021-06-06 21:03 | P.PN_ITS ---
Subjective Subjective: Feels much better. No chest pain or pressure, denies trouble breathing. Multiple recent falls. Some with presyncopal symptoms, or waking up after syncopal on the ground. Some states due to confusion waking up and getting up from bed. Vitals/I&O/Wt Last Vital Signs Temp 97.8 F 06/06/21 18:00 Pulse 80 06/06/21 20:59 Resp 20 H 06/06/21 20:59 BP 135/61 06/06/21 20:00 Pulse Ox 90 06/06/21 20:59 06/06/21 06/06/21 06/06/21 06:59 14:59 22:59 Intake Total 240 / 590 594 / 594 350 / 944 Output Total 750 / 1650 Balance -510 / -1060 594 / 594 350 / 944 Weight last 48 hrs Weight 90.628 kg Weight 90.718 kg Physical Exam Narrative: Family at bedside including and son Const: COMMON NORMALS: patient oriented x3 GENERAL APPEARANCE: frail appearing Neck/C-Spine: COMMON NORMALS: no JVD Resp: AUSCULTATION: rales and diminished lung sounds Cardio: COMMON NORMALS: no JVD, regular rhythm, S1 normal heart sound present, S2 normal heart sound present and No murmurs present (Cardio) RHYTHM: regular rhythm HEART SOUNDS: S1 normal heart sound present and S2 normal heart sound present GI: COMMON NORMALS: Normal to inspection, nondistended, normoactive bowel sounds present, Soft to palpation and non-tender PALPATION: Yes Soft to palpation Extremity: COMMON NORMALS: no joint enlargement GENERAL: Yes edema (2+ BL LE) Neuro: COMMON NORMALS: patient oriented x3 and moves all extremities Skin: GENERAL SKIN EXAM: ecchymosis TRAUMA: other (Multiple skin tears on right arm, back.) Urinary Catheter Management: Coude: Cath Placed During This Visit: yes Reason for Continuing Indwelling Catheter: Acute Urinary Retention or Obstruction Urinary Catheter Date of Insertion: 06/05/21 Urinary Catheter Time of Insertion: 15:00 Data : 06/06/21 02:45 06/06/21 02:45 Micro: Microbiology 06/06/21 14:10 Occult Blood (FIT) - Final Stool A&P Assessment and plan (1) Non-ST elevation MN (NSTEMI): Type II MN with demand ischemia with acute anemia following bleeding following falls. Transfused with good response, hemoglobin up to 7.7, but given troponin elevation will transfuse additional 1 unit He is feeling much better. Appreciate cardiology assessment and recommendations. Status: Acute (2) Unstable angina pectoris: As above. Presenting with left arm pain and increased dyspnea, improved with nitroglycerin Baseline troponin increased from usual values EKG with LBBB Last arteriogram was 01/2021 with right dominant circulation, patent proximal LAD, distal RCA with 30% stenosis, in mid circumflex with 30% stenosis Known CAD on chronic aspirin, coreg, statin, as needed nitroglycerin Status: Acute (3) Anemia: Transfuse additional unit of PRBC. May benefit from additional adjustment of levothyroxine dose with hypothyroidism. No evidence of iron deficiency at this time. Appears possible AICD. Normal B12, folic acid. With macrocytosis consider follow-up with MMA. Likely component of anemia CKD as well Acute blood loss after fall with superficial tears, hematoma, states bled quite a bit. Off warfarin. INR now normalized. No current active bleeding. Known prostate cancer On chronic anticoagulation Status: Acute (4) CHF (congestive heart failure): Acute oon Chronic Systolic EF 02/2021 was 20-35% Chronically on lasix, aldactone and metolazone No CAROLYN/ARB due to CKD I believe Status: Acute Qualifiers: Heart failure type: systolic Heart failure chronicity: acute on chronic Qualified Code(s): I50.23 - Acute on chronic systolic (congestive) heart failure (5) Chronic anticoagulation: With coumadin INR now normalized Goal 2-3 Status: Chronic (6) CKD (chronic kidney disease): URMILA on CKD, creatinine up to 1.8 today. Transfuse additional PRBC as above. Possibly secondary to acute on chronic CHF exacerbation. Continue diuresis. Looks like stage 3a versus 3b chronically with variation dependent on volume status and resultant calculations, lean to 3b Recently with persistently higher creatinine corresponding with drop in ejection fraction, valvular disease changes URMILA in differential, but appears progression of disease in my view Status: Chronic Qualifiers: Chronic kidney disease stage: stage 3 (moderate) Chronic kidney disease stage 3 subtype: stage 3b (GFR 30-44) Qualified Code(s): N18.32 - Chronic kidney disease, stage 3b (7) History of mitral valve replacement with bioprosthetic valve: 01/2021 at [facility] Status: Chronic (8) Aortic stenosis: Mean gradient 22.3 mmHg,?TOMY 1.4 cm squared Status: Chronic (9) Atrial fibrillation: Postoperative after valve surgery versus chronic paroxysmal On beta blockade and anticoagulation with coumadin Status: Chronic (10) Skin tear: Multiple from recent fall at home Status: Acute (11) Hypothyroidism: Chronic on levothyroxine, last TSH on 05/20/21 was 55.56 down from 74.97 on 1 05/27/20 May benefit from additional adjustment of levothyroxine dose. Status: Chronic Qualifiers: Hypothyroidism type: acquired Qualified Code(s): E03.9 - Hypothyroidism, unspecified (12) Prostate cancer metastatic to bone: Increasing PSA, last value 05/16/2021 was 1234 up from 771 04/09/2021 On bicalutamide, finasteride and flomax Follows with Dr Giron Status: Chronic (13) Medication administered in error: found today giving him lisinopril which is her medication, not his. Discussed with RN to instruct to avoid giving him any medications that are not his due to potentially disabling or life-threatening complications. Status: Acute (14) Falls: Transfuse, diuresis, subsequently will assess orthostatics. Known moderate aortic stenosis. Should exercise orthostatic precautions. PT assessment. Encouraged him to make sure he is walking with a walker especially since not all his falls are presyncopal/syncopal. Status: Acute Plan Chronic lung disease/COPD on chronic Breo and Incruse Ellipta Chronically on duloxetine Chronically on prn narcotics for bone pain Attestations Medical Necessity Statement*: Continue admission for additional diuresis with CHF exacerbation, additional transfusion with acute blood loss anemia on chronic anemia, in the setting of anticoagulation, multiple recent falls. Coding Level of Care Code Acute Commercial Loan Analyst for [facility] Fwd Diagnoses Unstable angina pectoris I20.0 Non-ST elevation MN (NSTEMI) I21.4 Anemia D64.9 CHF (congestive heart failure) I50.23 Heart failure type: systolic Heart failure chronicity: acute on chronic Chronic anticoagulation Z79.01 CKD (chronic kidney disease) N18.32 Chronic kidney disease stage: stage 3 (moderate) Chronic kidney disease stage 3 subtype: stage 3b (GFR 30-44) History of mitral valve replacement with bioprosthetic valve Z95.3 Aortic stenosis I35.0 Atrial fibrillation I48.91 Skin tear Hypothyroidism E03.9 Hypothyroidism type: acquired Prostate cancer metastatic to bone C61; C79.51 Medication administered in error T50.901A Falls W19.XXXA
[2021-06-07] VITALS (10 sets, daily range): BP systolic 107–125; BP diastolic 49–60; PULSE 76–85; RESP 12–20; TEMP 36.4; O2SAT 96–100
[2021-06-07 02:54] LABS: Basophils % 0.9 %; Eosinophils # 0.1 10^3/uL (0.0-0.8); Eosinophils % 1.4 %; Hematocrit 26.5 % (42.0-52.0); Hemoglobin 8.5 g/dL (11.7-16.6); Lymphocytes # 0.7 10^3/uL (0.8-4.8); Lymphocytes % 15.5 %; Mean Corpuscular HGB Conc 32.1 g/dL (30.0-36.0); Mean Corpuscular Hemoglobin 30.9 pg (28.0-34.0); Mean Corpuscular Volume 96.4 fl (80-94); Mean Platelet Volume 9.5 fL (7.4-10.4); Monocytes # 0.3 10^3/uL (0.2-0.9); Monocytes % 6.2 %; Neutrophils % 70.7 %; Nucleated Red Blood Cells # 0.1 /100WBC; Nucleated Red Blood Cells % 2.1 %; Platelet Count 182 10^3/cmm (130-400); Red Blood Count 2.75 10^6/uL (4.1-5.3); Red Cell Distribution Width 18.1 % (12.1-15.1); White Blood Count 4.4 10^3/uL (4.0-10.0)
[2021-06-07 03:12] LABS: INR 1.23 (0.8-1.2)
[2021-06-07 03:20] LABS: Anion Gap 15.7 (5-19); Blood Urea Nitrogen 51 mg/dL (8-23); Calcium 8.4 mg/dL (8.5-10.5); Carbon Dioxide 28 mmol/L (22-29); Chloride 99 mmol/L (98-107); Glucose 113 mg/dL (65-115); Osmolality Calculated 302 mOsm/kg (285-295); Potassium 3.7 mmol/L (3.5-5.1); Sodium 139 mmol/L (136-145)
[2021-06-07 03:30] LABS: Slide Review Slide Review Perform
[2021-06-07] MEDS: potassium chloride ER 20 mEq Tablet PO (05:31)
[2021-06-07] MEDS: HYDROcodone-acetaminophen 5-325 mg Tablet 1 TAB PO ×2 (05:31→10:44)
[2021-06-07] MEDS: finasteride 5 mg Tablet PO (05:31)
[2021-06-07] MEDS: levothyroxine 75 mcg Tablet PO (05:31)
[2021-06-07] MEDS: tamsulosin 0.4 mg Capsule PO (05:31)
[2021-06-07] MEDS: duloxetine 30 mg Capsule PO (05:31)
[2021-06-07] MEDS: aspirin 81 mg EC Tablet PO (05:31)
[2021-06-07] MEDS: pantoprazole DR 40 mg Tablet PO (07:51)
[2021-06-07] MEDS: magnesium oxide 400 mg tablet PO (07:51)
[2021-06-07] MEDS: primidone 50 mg Tablet PO (07:51)
[2021-06-07] MEDS: docusate sodium 100 mg Capsule PO (07:52)
[2021-06-07] MEDS: carvedilol 3.125 mg Tablet PO (07:52)
[2021-06-07] MEDS: FUROsemide 10 mg/mL SDV 4mL 40 MG IVP (08:40)
--- NOTE | 2021-06-07 15:25 | P.PN_ITS ---
Subjective Subjective: Patient is feeling better. Creatinine downtrending with diuretics. Vitals/I&O/Wt Last Vital Signs Temp 97.6 F 06/07/21 05:22 Pulse 85 06/07/21 14:00 Resp 19 H 06/07/21 11:38 BP 107/49 06/07/21 11:38 Pulse Ox 100 06/07/21 11:38 06/07/21 06/07/21 06/07/21 06:59 14:59 22:59 Intake Total 480 / 480 Output Total 1050 / 1050 Balance -1050 / -106 480 / 480 Weight last 48 hrs Weight 205 lb 3.2 oz Weight 199 lb 12.8 oz Physical Exam Narrative: GENERAL: Patient is alert, awake and oriented x3. [] NECK: No jugular vein distension. [] HEENT: No cyanosis. No icterus. No pallor. [] HEART: Regular S1 and S2. No murmur, rub or gallop. [] LUNGS: Clear to auscultate bilaterally. [] ABDOMEN: Soft, nontender and nondistended. Positive bowel sounds. No guarding, rebound or tenderness. [] CENTRAL NERVOUS SYSTEM: Grossly nonfocal. [] EXTREMITIES: Lower extremities with 1+ edema bilaterally. Pulses palpable in the lower extremities, both dorsalis pedis and posterior tibial. [] Urinary Catheter Management: Coude: Cath Placed During This Visit: yes Reason for Continuing Indwelling Catheter: Acute Urinary Retention or Obstruction Urinary Catheter Date of Insertion: 06/05/21 Urinary Catheter Time of Insertion: 15:00 Data : 06/07/21 02:36 06/07/21 02:36 Micro: Microbiology 06/06/21 14:10 Occult Blood (FIT) - Final Stool A&P Assessment and plan (1) CKD (chronic kidney disease): Qualifiers: Chronic kidney disease stage: stage 3 (moderate) Chronic kidney disease stage 3 subtype: stage 3b (GFR 30-44) Qualified Code(s): N18.32 - Chronic kidney disease, stage 3b (2) CHF (congestive heart failure): Qualifiers: Heart failure type: systolic Heart failure chronicity: acute on chronic Qualified Code(s): I50.23 - Acute on chronic systolic (congestive) heart failure (3) Aortic stenosis: (4) CAD (coronary artery disease): (5) Atrial fibrillation: (6) History of mitral valve replacement with bioprosthetic valve: (7) Chronic anticoagulation: Status: Chronic (8) Troponin level elevated: Plan Patient has presented with left arm pain. Troponin elevation is likely secondary to demand ischemia in the setting of CHF and significant anemia. Hemoglobin has improved with blood transfusion. Keep holding Coumadin which can be restarted as an outpatient Diuretics can be switched to PO today Thank you for involving us with care of this patient. Please call with questions. Attestations Medical Necessity Statement*: Care expected to cross 2 midnights Coding Level of Care Code Acute Credit And Collections Analyst for g Fwd Diagnoses CKD (chronic kidney disease) N18.32 Chronic kidney disease stage: stage 3 (moderate) Chronic kidney disease stage 3 subtype: stage 3b (GFR 30-44) CHF (congestive heart failure) I50.23 Heart failure type: systolic Heart failure chronicity: acute on chronic Aortic stenosis I35.0 CAD (coronary artery disease) I25.10 Atrial fibrillation I48.91 History of mitral valve replacement with bioprosthetic valve Z95.3 Chronic anticoagulation Z79.01 Troponin level elevated R77.8
--- NOTE | 2021-06-07 18:06 | P.DS_ITS ---
Discharge Providers Date of Admission: 06/05/21 10:02 Date of Discharge: June 07, 2021 Attending Provider at Admission: Courtney Burleson MD Attending Provider at Discharge: Demond Nice Primary Care Provider: Tiki Dorado MD Diagnoses at Discharge Discharge Diagnosis (1) Non-ST elevation CA (NSTEMI): Status: Acute (2) Unstable angina pectoris: Status: Acute (3) Anemia: Status: Acute (4) CHF (congestive heart failure): Status: Acute Qualifiers: Heart failure type: systolic Heart failure chronicity: acute on chronic Qualified Code(s): I50.23 - Acute on chronic systolic (congestive) heart failure (5) Chronic anticoagulation: Status: Chronic Permanent problem details: coumadin, for afib and valvular disease (6) CKD (chronic kidney disease): Status: Chronic Qualifiers: Chronic kidney disease stage: stage 3 (moderate) Chronic kidney disease stage 3 subtype: stage 3b (GFR 30-44) Qualified Code(s): N18.32 - Chronic kidney disease, stage 3b (7) History of mitral valve replacement with bioprosthetic valve: Status: Chronic Permanent problem details: [facility] [place] (8) Aortic stenosis: Status: Chronic (9) Atrial fibrillation: Status: Chronic (10) Skin tear: Status: Acute (11) Hypothyroidism: Status: Chronic Qualifiers: Hypothyroidism type: acquired Qualified Code(s): E03.9 - Hypothyroidism, unspecified (12) 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 (13) Medication administered in error: Status: Acute (14) Falls: Status: Acute Reason for Visit Reason for Visit: Pts Fluid building on his lungs Hospital Course Hospital Course Pleasant 85-year-old man with multiple medical comorbidities, on chronic anticoagulation with history of atrial fibrillation, history of systolic CHF, EF 20-25%, aortic stenosis, bioprosthetic mitral valve replacement, has been having intermittent falls, some of them associated with presyncope, one-time waking up on the floor after apparent syncopal event, presented after recent several falls without associated syncope, but with multiple skin tears on his back, right forearm, hand, with significant bleeding, since then complaining of shortness of breath, chest pain radiating to the left arm, as well as increased lower extremity edema. On Thursday his INR was 2.6. On presentation noted elevated troponin, as well as noted acute on chronic anemia with hemoglobin 6.6, with last hemoglobin 9.8 in March 2021. He was given 1 unit PRBC transfusion. Warfarin was held. Cardiology was consulted due to possible NSTEMI, troponin trend [phone]. This was likely related to demand ischemia in setting of acute anemia as found on cardiology assessment. He received diuresis for fluid overload/CHF exacerbation with lower extremity edema improvement. Improvement in renal function, creatinine decreasing to 1.5 from initial acute kidney injury creatinine up to 1.8. INR had normalized, warfarin continue to be held and he is asked to hold warfarin additional 4 days to allow for wound healing prior to resuming to avoid additional bleeding. He was transfused additional unit after initial hemoglobin increased up to 7.7, with good response overall with final hemoglobin up at 8.5. He had resolution of any chest pain or discomfort with transfusion. Due to report of history of sleep apnea for which he could not tolerate BiPAP facemask in the past he is referred for additional assessment by sleep study, overnight pulse oximetry in the hospital revealed significant nighttime desaturation with oxygen saturations dropping below 82% 60% of the time. Nocturnal oxygen is ordered for him at discharge. He is willing to consider nasal CPAP or cushions as long as it is not too claustrophobic. He and family declined home health. He is asked to maintain his walker with him at all times. Maintain strict orthostatic precautions. Continue outpatient physical therapy. He is referred to wound care for reassessment of skin tears. Please reassess in care anemia in office. Please follow-up MMA given macrocytosis. Please note due to elevated TSH his levothyroxine dose is additionally adjusted to 88 mcg. Please reassess thyroid function in 3-4 weeks. Of note his was seen to be inadvertently giving him a tablet of lisinopril because she thought it was one of his medications while it is hers. They declined home health, but she was counseled against giving him any medications other than his. Physical Exam Narrative: Sitting at the edge of bed. He reports he is feeling much better. Wants to return home. Const: COMMON NORMALS: patient oriented x3 GENERAL APPEARANCE: frail appearing Neck/C-Spine: COMMON NORMALS: no JVD Resp: AUSCULTATION: rales and diminished lung sounds Cardio: COMMON NORMALS: no JVD, regular rhythm, S1 normal heart sound present, S2 normal heart sound present and No murmurs present (Cardio) RHYTHM: regular rhythm HEART SOUNDS: S1 normal heart sound present and S2 normal heart sound present GI: COMMON NORMALS: Normal to inspection, nondistended, normoactive bowel sounds present, Soft to palpation and non-tender PALPATION: Yes Soft to palpation Extremity: COMMON NORMALS: no joint enlargement GENERAL: Yes edema (1+ BL LE) Neuro: COMMON NORMALS: patient oriented x3 and moves all extremities Skin: GENERAL SKIN EXAM: ecchymosis TRAUMA: other (Multiple skin tears on right arm, back.) Urinary Catheter Management: Coude: Cath Placed During This Visit: yes Reason for Continuing Indwelling Catheter: Acute Urinary Retention or Obstruction Urinary Catheter Date of Insertion: 06/05/21 Urinary Catheter Time of Insertion: 15:00 Discharge Data Studies Completed and Pending Completed Studies During Hospitalization Category Date Time Status XR chest 1V portable [id number] Stat Exams 06/05/21 08:32 Completed XR hand RT min 3V* [id number] Stat Exams 06/05/21 09:25 Completed Pending at discharge Category Date Time Status Basic Metabolic Panel AM LABS Lab 06/08/21 04:00 Ordered Basic Metabolic Panel AM LABS Lab 06/09/21 04:00 Ordered Complete Blood Count w/Auto AM LABS Lab 06/08/21 04:00 Ordered Complete Blood Count w/Auto AM LABS Lab 06/09/21 04:00 Ordered Prothrombin Time INR AM LABS Lab 06/08/21 04:00 Ordered Radiology Impressions Chest X-Ray 06/05/21 08:32 IMPRESSION: 1. Cardiomegaly. AVR. 2. Tiny bilateral pleural effusions with pleural thickening. 3. Hazy infiltrates in the bilateral RIGHT greater than LEFT lower lobes unchanged from March 06, 2021. 4. No significant changes from previous. Laboratory Results WBC 4.4 10^3/uL (4.0-10.0) 06/07/21 02:36 Corrected WBC 4.7 10^3/cmm (4.8-10.8) L 06/05/21 09:08 RBC 2.75 10^6/uL (4.1-5.3) L 06/07/21 02:36 Hgb 8.5 g/dL (11.7-16.6) L 06/07/21 02:36 Hct 26.5 % (42.0-52.0) L 06/07/21 02:36 MCV 96.4 fl (80-94) H 06/07/21 02:36 MCH 30.9 pg (28.0-34.0) 06/07/21 02:36 MCHC 32.1 g/dL (30.0-36.0) 06/07/21 02:36 RDW 18.1 % (12.1-15.1) H 06/07/21 02:36 Plt Count 182 10^3/cmm (130-400) 06/07/21 02:36 MPV 9.5 fL (7.4-10.4) 06/07/21 02:36 Neut % (Auto) 70.7 % 06/07/21 02:36 Lymph % (Auto) 15.5 % 06/07/21 02:36 [place] % (Auto) 6.2 % 06/07/21 02:36 Eos % (Auto) 1.4 % 06/07/21 02:36 Baso % (Auto) 0.9 % 06/07/21 02:36 Neut # (Auto) 3.10 10^3/uL (1.8-7.7) 06/07/21 02:36 Lymph # (Auto) 0.7 10^3/uL (0.8-4.8) L 06/07/21 02:36 [place] # (Auto) 0.3 10^3/uL (0.2-0.9) 06/07/21 02:36 Eos # (Auto) 0.1 10^3/uL (0.0-0.8) 06/07/21 02:36 Baso # (Auto) 0.0 10^3/uL (0.0-0.1) 06/07/21 02:36 Nucleated RBC % (auto) 2.1 % 06/07/21 02:36 Total Counted 100 (0-100) 06/05/21 09:08 Atypical Lymphs % 1.0 % (0-5) 06/05/21 09:08 Absolute Neutrophils 3.8 10^3/cmm (1.4-6.5) 06/05/21 09:08 Segmented Neutrophils 67 % 06/05/21 09:08 Abs Segm Neuts (Man) 3.3 10/cmm (1.6-7.1) 06/05/21 09:08 Band Neutrophils 10.0 % 06/05/21 09:08 Abs Band Neuts (Man) 0.5 10^3/cmm (0.0-1.2) 06/05/21 09:08 Absolute Lymphocytes 0.5 10^3/cmm (1.2-3.4) L 06/05/21 09:08 Lymphocytes (Manual) 10 % 06/05/21 09:08 Monocytes (Manual) 4.0 % 06/05/21 09:08 Absolute Monocytes 0.2 10^3/cmm (0.1-0.6) 06/05/21 09:08 Eosinophils (Manual) 3 % 06/05/21 09:08 Absolute Eosinophils 0.1 10^3/cmm (0.0-0.7) 06/05/21 09:08 Basophils (Manual) 1.0 % 06/05/21 09:08 Absolute Basophils 0.0 10^3/cmm (0.0-0.2) 06/05/21 09:08 Metamyelocytes 2.0 % 06/05/21 09:08 Myelocytes 2.0 % 06/05/21 09:08 Nucleated RBCs 4.0 /100WBC (0-1) H 06/05/21 09:08 Nucleated RBCs # 0.1 /100WBC 06/07/21 02:36 Platelet Estimate Normal (Normal) 06/05/21 09:08 PT 15.80 SECONDS (12.1-14.9) H 06/07/21 02:36 INR 1.23 (0.8-1.2) H 06/07/21 02:36 Sodium 139 mmol/L (136-145) 06/07/21 02:36 Potassium 3.7 mmol/L (3.5-5.1) 06/07/21 02:36 Chloride 99 mmol/L (98-107) 06/07/21 02:36 Carbon Dioxide 28 mmol/L (22-29) 06/07/21 02:36 Anion Gap 15.7 (5-19) 06/07/21 02:36 BUN 51 mg/dL (8-23) H 06/07/21 02:36 Creatinine 1.5 mg/dL (0.7-1.2) H 06/07/21 02:36 GFR Calculation Not Reportable 06/07/21 02:36 Glucose 113 mg/dL (65-115) 06/07/21 02:36 Calculated Osmolality 302 mOsm/kg (285-295) H 06/07/21 02:36 Calcium 8.4 mg/dL (8.5-10.5) L 06/07/21 02:36 Phosphorus 4.7 mg/dL (2.5-4.5) H 06/06/21 02:45 Magnesium 2.3 mg/dL (1.7-2.3) 06/06/21 02:45 Iron 104 ug/dL (59-158) 06/05/21 09:08 TIBC 231 mcg/dl 06/05/21 09:08 % Saturation 45.0 % (20-50) 06/05/21 09:08 Unsat Iron Binding 127 ug/dL (112-347) 06/05/21 09:08 Total Bilirubin 0.2 mg/dL (0.15-1.2) 06/05/21 09:08 AST 27 U/L (0-40) 06/05/21 09:08 ALT 22 U/L (0-41) 06/05/21 09:08 Alkaline Phosphatase 103 IU/L (40-130) 06/05/21 09:08 Troponin T Baseline 285 ng/L (0-15) H* 06/05/21 09:08 Troponin T 120 Minute 273.5 ng/L (0-15) H 06/05/21 11:44 Delta Troponin T -11.5 ABS# (0-10) L 06/05/21 11:44 Troponin T Hi Sens 6Hr 299.6 ng/L (0-15) H 06/05/21 15:41 Troponin T Hi Sens 6Hr Delta 14.6 ng/L (0-12) H* 06/05/21 15:41 NT-Pro-B Natriuret Pep 47747 pg/mL (0-450) H 06/05/21 09:08 Total Protein 6.4 g/dL (6.6-8.7) L 06/05/21 09:08 Albumin 3.5 g/dL (3.5-5.2) 06/05/21 09:08 Globulin 2.9 g/dL (1.3-4.6) 06/05/21 09:08 Triglycerides 82 mg/dL (0-150) 06/06/21 02:45 Cholesterol 157 mg/dL (0-200) 06/06/21 02:45 LDL Cholesterol, Calc 83 mg/dL (50-129) 06/06/21 02:45 HDL Cholesterol 58 mg/dL (60-100) L 06/06/21 02:45 LDL/HDL Ratio 1.43 RATIO (0.00-3.22) 06/06/21 02:45 Cholesterol/HDL Ratio 2.71 mg/dL (1.0-5.00) 06/06/21 02:45 Vitamin B12 596 pg/mL (232-1245) 06/05/21 09:08 Folate 7.7 ng/mL (4.5-32.2) 06/05/21 11:44 TSH 35.10 uIU/mL (0.27-4.20) H 06/06/21 02:45 Free T4 0.64 ng/dL (0.82-1.77) L 06/06/21 02:45 Free T3 1.2 PG/ML (2.0-4.4) L 06/06/21 02:45 Urine Color Yellow (Yellow) 06/05/21 09:14 Urine Appearance Clear (CLEAR) 06/05/21 09:14 Urine pH 5 (5-7) 06/05/21 09:14 Ur Specific [place] 1.010 (1.005-1.030) 06/05/21 09:14 Urine Protein Neg (Negative) 06/05/21 09:14 Urine Glucose (UA) Norm (Normal) 06/05/21 09:14 Urine Ketones Negative (Negative) 06/05/21 09:14 Urine Blood Neg (Negative) 06/05/21 09:14 Urine Nitrate Negative (Negative) 06/05/21 09:14 Urine Bilirubin Neg (Negative) 06/05/21 09:14 Urine Urobilinogen Norm mg/dL (Negative) 06/05/21 09:14 Ur Leukocyte Esterase Negative (Negative) 06/05/21 09:14 Blood Type O Positive 06/05/21 11:44 Rho(D) Type Positive 06/05/21 11:44 Antibody Screen Negative 06/05/21 11:44 Crossmatch See Detail 06/05/21 11:44 Vitals Last Vital Signs Temp 97.6 F 06/07/21 05:22 Pulse 85 06/07/21 16:38 Resp 12 06/07/21 16:38 BP 125/49 06/07/21 16:38 Pulse Ox 98 06/07/21 16:38 Discharge Plan Discharge Patient Disposition: Home Condition: Stable Prescriptions: New trazodone 50 mg tablet 25 mg PO BEDTIME PRN (Reason: insomnia) Qty: 30 0RF levothyroxine 88 mcg capsule 88 mcg PO DAILY Qty: 30 0RF Continued magnesium oxide 400 mg magnesium tablet 400 mg PO QPM 0RF hydrocodone-acetaminophen 5-325 mg tablet 1 tab PO Q6H PRN (Reason: Pain) 0RF Breo Ellipta 100-25 mcg/dose blister with device 1 inh INHALATION DAILY PRN (Reason: unknown) 0RF bicalutamide 50 mg tablet 50 mg PO QAM 0RF primidone 50 mg tablet 50 mg PO BID Qty: 60 2RF nitroglycerin [Nitrostat] 0.4 mg tablet, sublingual 0.4 mg SUBLINGUAL Q5M PRN (Reason: Chest Pain) Qty: 25 2RF omeprazole 20 mg capsule,delayed release(DR/EC) 20 mg PO QAM Qty: 90 1RF aspirin [Adult Low Dose Aspirin] 81 mg tablet,delayed release (DR/EC) 81 mg PO QAM Qty: 90 1RF potassium chloride 20 mEq tablet,ER particles/crystals 20 meq PO QAM Qty: 90 1RF pravastatin 80 mg Tablet 80 mg PO BEDTIME 0RF multivitamin Tablet 1 tab PO EVERY OTHER DAY 0RF tamsulosin [Flomax] 0.4 mg Capsule 0.4 mg PO QAM 0RF docusate sodium [Colace] 100 mg Capsule 100 mg PO BID 0RF duloxetine 30 mg capsule,delayed release(DR/EC) 30 mg PO QAM 0RF PreserVision AREDS-2 250-90-40-1 mg Capsule 1 cap PO EVERY OTHER DAY 0RF carvedilol 3.125 mg tablet 3.125 mg PO BID 0RF spironolactone 25 mg tablet 25 mg PO QAM 0RF finasteride 5 mg tablet 5 mg PO QAM 0RF lactulose 10 gram/15 mL solution 20 g PO QID PRN (Reason: Constipation) 0RF Incruse Ellipta 62.5 mcg/actuation blister with device 1 inh inhalation DAILY PRN (Reason: unknown) 0RF Changed furosemide 40 mg tablet 40 mg PO DAILY Qty: 180 1RF metolazone 2.5 mg tablet 2.5 mg PO Q48H PRN (Reason: Edema) Qty: 15 3RF Held warfarin 2 mg tablet See Rx Instructions .ROUTE .COMPLEX 0RF Hold Instructions: Resume on 06/11/21. Rx Instructions: 2mg po daily@21:00 on thu,thu,,,sat 3mg po daily@21:00 on thu and fri Discontinued levothyroxine 75 mcg tablet 75 mcg PO QAM 0RF Discharge Orders: Discharge Order (Routine); Ordered 06/07/21 Ordered By: Demond Nice Other Ambulatory Orders: Sleep Study/Titration (Routine) Timeframe: 1 Week Facility: [facility] - Location: [facility] Ordered By: Demond Nice DME: Oxygen (Order) Location: None Selected Ordered By: Demond Nice Referrals: Wound Care [Provider Group] - 1 week (You will be receiving a call from wound care regarding skin tears. If you don't hear from them by Thursday, please call the office. [phone]) Joan Michael FNP [Nurse Practitioner] - 1 week (Please call [facility] to arrange an appointment with Joan Michael. Nurse Practitioner, within one week. ) Tiki Dorado MD [Primary Care Provider] - 4-7 days (Please make an appointment with yout PCP within 4-7days. ) Discharge Diet: Cardiac Discharge Activity: Oxygen as instructed Patient Instructions: Aortic Stenosis (GEN), Fall Prevention (GEN) Activity Restrictions/Additional Instructions: Please have your primary doctor follow-up your blood counts for acute anemia. Please have your primary doctor also check MMA level given macrocytosis. Please hold warfarin for additional 4 days to allow your wound to heal and prevent additional bleeding. Then resume your warfarin as per prior schedule. Follow-up with your primary doctor for recheck INR and any dose adjustments. Continue wound care and skin tears of your right hand, forearm, back: Clean wound daily with mild soap and water, dry and apply Hydrofera Blue, cover with gauze dressing or Coban on the arm, ABD pad on the back. Follow-up with wound care for reassessment. Maintain fall precautions at all times. Use your walker at all times. In case you are getting lightheaded or feel you may pass out, sit down or lie down immediately wherever you are. Rise slowly from laying to sitting and sitting to standing. Avoid walking or standing up at night without assistance. Continue physical therapy. Please have your primary doctor reassess your thyroid function in 3 weeks. Your levothyroxine dose is increased to 88 mcg. Please avoid any medications that may not be yours. Wear 2 L of oxygen at night due to noted nighttime hypoxia. Please attend the sleep study. During the day only wear the oxygen if you are told to do so at discharge after home oxygen assessment Discharge Attestations Time Spent in Discharge Care*: greater than 30 min Quality Metrics Clinical Quality Measures [ No reported AMI, CVA or VTE this stay] Coding Level of Care Code Acute [facility] note Diagnoses Non-ST elevation CA (NSTEMI) I21.4 Unstable angina pectoris I20.0 Anemia D64.9 CHF (congestive heart failure) I50.23 Heart failure type: systolic Heart failure chronicity: acute on chronic Chronic anticoagulation Z79.01 CKD (chronic kidney disease) N18.32 Chronic kidney disease stage: stage 3 (moderate) Chronic kidney disease stage 3 subtype: stage 3b (GFR 30-44) History of mitral valve replacement with bioprosthetic valve Z95.3 Aortic stenosis I35.0 Atrial fibrillation I48.91 Skin tear Hypothyroidism E03.9 Hypothyroidism type: acquired Prostate cancer metastatic to bone C61; C79.51 Medication administered in error T50.901A [place] W19.XXXA
--- NOTE | 2021-06-07 18:32 | PC.NURSE ---
IV removed, VS stable. Patient education provided to regarding wound care, follow up appointments, and discharge education. No questions or concerns. patient left via wheelchair with spouse.
--- NOTE | 2021-06-10 09:45 | PC.SOCIAL ---
Care Coordination Admin. Greenhouse Worker took call 06/10/21 from [facility] updating on levothyroxine 88 mcg that they did not have capsules in stock, so dispensed in tablets instead.
== END 2021-06-07 18:00 | disposition home or self-care (01) | DRG 291 ==
LOC: ER 10:21 → CSU 13:53
PROVIDERS: Admitting Provider Hospitalist; Emergency Provider Family Medicine; PCP Family Medicine; Visit Provider Internal Medicine
DX: I13.0 Hypertensive heart and chronic kidney disease with heart failure and stage 1 through stage 4 chronic kidney disease, or unspecified chronic kidney disease (principal); I50.23 Acute on chronic systolic (congestive) heart failure; C79.51 Secondary malignant neoplasm of bone; I48.20 Chronic atrial fibrillation, unspecified; I24.8 Other forms of acute ischemic heart disease; N18.32 Chronic kidney disease, stage 3b; E11.22 Type 2 diabetes mellitus with diabetic chronic kidney disease; E11.42 Type 2 diabetes mellitus with diabetic polyneuropathy; D50.9 Iron deficiency anemia, unspecified; Z95.3 Presence of xenogenic heart valve; E03.9 Hypothyroidism, unspecified; C61 Malignant neoplasm of prostate; T46.4X1A Poisoning by angiotensin-converting-enzyme inhibitors, accidental (unintentional), initial encounter; Z85.820 Personal history of malignant melanoma of skin; N40.1 Benign prostatic hyperplasia with lower urinary tract symptoms; M96.1 Postlaminectomy syndrome, not elsewhere classified; Z79.82 Long term (current) use of aspirin; I25.110 Atherosclerotic heart disease of native coronary artery with unstable angina pectoris; Z95.5 Presence of coronary angioplasty implant and graft; Z79.02 Long term (current) use of antithrombotics/antiplatelets; Z79.891 Long term (current) use of opiate analgesic; Z91.81 History of falling; G89.3 Neoplasm related pain (acute) (chronic); Z79.899 Other long term (current) drug therapy; I08.3 Combined rheumatic disorders of mitral, aortic and tricuspid valves; Z86.73 Personal history of transient ischemic attack (TIA), and cerebral infarction without residual deficits; G47.30 Sleep apnea, unspecified; I25.5 Ischemic cardiomyopathy; E78.5 Hyperlipidemia, unspecified; K21.9 Gastro-esophageal reflux disease without esophagitis
CPT/HCPCS: 36415; 36430; 51702; 71045; 73130; 80048; 80053; 80061; 80500; 81003; 82274; 82607; 82746; 83540; 83550; 83735; 83880; 84100; 84439; 84443; 84481; 84484; 85007; 85025; 85610; 86850; 86900; 86920; 93005; 96374; 97110; 97161; 97530; 99285; J1940; J8999; P9016

== ENCOUNTER 2021-06-18 06:00 | Outpatient (RCR) | payer MEDICARE, OTHER, SELFPAY | END 2021-07-18 23:59 | disposition home or self-care (01) | LOC: TPT 06:00 | PROVIDERS: PCP Family Medicine; Referring Provider Internal Medicine; Visit Provider Internal Medicine | DX: G45.9 Transient cerebral ischemic attack, unspecified (principal) | CPT/HCPCS: 97110; 97164 ==

== ENCOUNTER → 2021-06-26 14:31 | Outpatient (BNVA) | payer MEDICARE, OTHER, SELFPAY | PROVIDERS: PCP Family Medicine; Visit Provider Internal Medicine Cardiovascular Disease | DX: Z79.01 Long term (current) use of anticoagulants (principal) | CPT/HCPCS: 85610 ==

== ENCOUNTER → 2021-07-03 16:50 | Outpatient (BNVA) | payer MEDICARE, OTHER, SELFPAY | PROVIDERS: PCP Family Medicine; Visit Provider Family Medicine | DX: Z79.01 Long term (current) use of anticoagulants (principal) | CPT/HCPCS: 85610 ==

== ENCOUNTER → 2021-07-04 16:29 | Outpatient (BNVA) | payer MEDICARE, OTHER, SELFPAY | PROVIDERS: PCP Family Medicine; Visit Provider Family Medicine | DX: G47.30 Sleep apnea, unspecified (principal); E03.9 Hypothyroidism, unspecified; D64.9 Anemia, unspecified | CPT/HCPCS: 83921; 84443; 85025 ==

== ENCOUNTER 2021-07-05 17:52 | Inpatient (IN) | payer MEDICARE, OTHER, SELFPAY ==
[2021-07-05 18:11] VITALS: BP 102/61; PULSE 88; RESP 16; TEMP 36.3; O2SAT 97; BMI 27.4
--- NOTE | 2021-07-05 18:39 | XRR_ITS ---
PROCEDURE INFORMATION: Exam: XR Chest Exam date and time: 07/05/2021 6:04 PM Age: 85 years old Clinical indication: Shortness of breath; Additional info: SOB TECHNIQUE: Imaging protocol: XR of the chest. Views: 1 view. COMPARISON: CR XR chest 1V portable [id number] 06/05/2021 8:54 AM FINDINGS: Lungs: Bilateral airspace infiltrates greatest in the lower lung leach. Pleural spaces: Small bilateral pleural effusions suspected. Heart/Mediastinum: Cardiomegaly. Bones/joints: Diffuse sclerotic metastatic disease throughout the osseous structures. XR/XR chest 1V portable [id number] IMPRESSION: 1. Cardiomegaly. 2. Bilateral airspace infiltrates greatest in the lower lung leach. 3. Small bilateral pleural effusions suspected. 4. Diffuse sclerotic metastatic disease throughout the osseous structures.
--- NOTE | 2021-07-05 18:40 | ECG_ITS ---
[facility] Test Date: 2021-07-05 Pat Name: Hayes Solis Department: Room: Gender: Male Carpet Inspector: : [id number] Requested By: Siena Dalal Order Number: [id number] Miroslava MD: Adam Deshpande M.D. Measurements Intervals [place] Rate: 88 P: 46 TX: 188 QRS: -1 QRSD: 178 T: 112 QT: 406 QTc: 492 Interpretive Statements SINUS RHYTHM INTRAVENTRICULAR CONDUCTION DELAY [130+ ms QRS DURATION] Compared to ECG 06/05/2021 11:00:20 Intraventricular conduction delay now present Left bundle-branch block no longer present Electronically Signed On 07-05-2021 20:07:41 CDT by Adam Deshpande M.D. [id number]
[2021-07-05 19:10] LABS: Basophils % 0.5 %; Eosinophils % 0.5 %; Hematocrit 26.3 % (42.0-52.0); Hemoglobin 8.3 g/dL (11.7-16.6); Lymphocytes # 0.5 10^3/uL (0.8-4.8); Lymphocytes % 13.2 %; Mean Corpuscular HGB Conc 31.6 g/dL (30.0-36.0); Mean Corpuscular Hemoglobin 30.5 pg (28.0-34.0); Mean Corpuscular Volume 96.7 fl (80-94); Mean Platelet Volume 10.1 fL (7.4-10.4); Monocytes # 0.3 10^3/uL (0.2-0.9); Monocytes % 7.3 %; Neutrophils # 2.98 10^3/uL (1.8-7.7); Neutrophils % 72.9 %; Nucleated Red Blood Cells # 0.1 /100WBC; Nucleated Red Blood Cells % 2.7 %; Platelet Count 195 10^3/cmm (130-400); Red Blood Count 2.72 10^6/uL (4.1-5.3); Red Cell Distribution Width 17.9 % (12.1-15.1); White Blood Count 4.1 10^3/uL (4.0-10.0)
--- NOTE | 2021-07-05 19:16 | W.ED.GENADLT ---
HPI - General Adult General: Chief complaint: General Medical Stated complaint: Not urinating, shortness of breath, neck hurting Time Seen by Provider: 07/05/21 18:11 Source: patient Mode of arrival: ambulatory Limitations: no limitations History of Present Illness: 85-year-old male history of prostate cancer with bone mets did have chemotherapy at the beginning of last year last treatment was in September. He states that over the last week he has been having increasing weakness with difficulty urinating states he has been having much less urine output he feels like. Has been having exertional dyspnea along with extremity swelling states he saw his PCP yesterday been having some lower blood pressure they stopped his carvedilol starting once correct alone. States that today has felt very fatigued still denies any worsening improving factors. Does have a history of congestive heart failure as well. Associated symptoms: Reports dyspnea; Deny headache(s), nausea, rash or vomiting Review of Systems Const: Reports: fatigue Eyes: Denies: blurry vision or eye discomfort ENMT: Denies: throat pain or dental pain Card: Reports: swelling of feet/ankles Resp: Reports: dyspnea GI: Denies: abdominal pain, nausea, vomiting or diarrhea : Reports: difficulty urinating Musc: Denies: neck pain or back pain Skin/Breast: Denies: rash Neuro: Denies: headache(s) Psych: Denies: depression Aj/Lymph: Denies: easy bruising All/Imm: Denies: urticaria PFSH ED PFSH: Medical History Aortic stenosis Atrial fibrillation Basal cell carcinoma BPH (benign prostatic hyperplasia) CAD (coronary artery disease) Cervical post-laminectomy syndrome CHF (congestive heart failure) Chronic lung disease Chronic shortness of breath Chronic systolic heart failure 02/2021 EF 20-25%, bioprosthetic mitral valve, TOMY 1.4 cm2 with mean gradient of 22.3 mmHg CKD (chronic kidney disease) DDD (degenerative disc disease) Diabetes GERD (gastroesophageal reflux disease) Hyperlipemia Hypertension Hypothyroidism Iron deficiency anemia Ischemic cardiomyopathy Melanoma Mitral valve regurgitation Neuropathy Pleural effusion Prostate cancer metastatic to bone Sleep apnea Subcapsular hematoma of liver (~04/2019) traumatic TIA (transient ischemic attack) Tricuspid valve regurgitation Troponin level elevated Surgical History 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 Patent proximal LAD, distal RCA with 30% stenosis in mid circumflex with 30% stenosis History of heart artery stent History of mitral valve [facility] History of prostate biopsy Previous back surgery Family History Father , at age 80 CAD (coronary artery disease) Mother , at age 73 Dementia Alzheimers Social History Smoking and tobacco status: never smoked Alcohol intake: current Alcohol intake frequency: holidays/special occasions only Household members: spouse Marital status: Current occupational status: retired Current gender identity: Male Physical Exam Const: COMMON NORMALS: patient oriented x3 GENERAL APPEARANCE: ill appearing and frail appearing HENMT: COMMON NORMALS: normocephalic and atraumatic HEAD & SCALP: normocephalic and atraumatic Eye: COMMON NORMALS: Equal, round and reactive pupils present and EOMs intact bilaterally PUPIL: Yes Equal, round and reactive pupils present Neck/C-Spine: COMMON NORMALS: full ROM and supple Chest: COMMONS NORMALS: normal inspection of the chest and normal palpation of entire chest wall Resp: COMMON NORMALS: No retractions and No use of accessory muscles EFFORT & INSPECTION: Yes tachypneic AUSCULTATION: rales Cardio: COMMON NORMALS: regular rate, regular rhythm and No murmurs present (Cardio) RATE: regular rate RHYTHM: regular rhythm GI: COMMON NORMALS: Normal to inspection, nondistended, normoactive bowel sounds present, Soft to palpation, non-tender and no masses PALPATION: Yes Soft to palpation Extremity: COMMON NORMALS: full ROM NARRATIVE EXTREMITY EXAM: 2+ edema Neuro: COMMON NORMALS: patient oriented x3, moves all extremities and no focal motor deficits Psych: COMMON NORMALS: mental status grossly normal, Normal thought process present and cooperative THOUGHT PROCESS: Normal thought process present Skin: COMMON NORMALS: no rashes or lesions noted and no wounds GENERAL SKIN EXAM: no rashes or lesions noted Course Vital Signs: Vital signs: Vital Signs Temperature 97.6 F 07/05/21 21:51 Pulse Rate 97 07/05/21 21:51 Respiratory Rate 48 H 07/05/21 21:51 Blood Pressure 101/48 07/05/21 21:51 Pulse Oximetry 93 07/05/21 21:51 MDM - General Adult Medical Decision Making Patient presents here with congestive heart failure increase dyspnea likely from pulmonary edema does have leg edema as well with increased BNP patient had IV Lasix will admit to cardiac stepdown spoke to hospitalist who is admitting. Lab Data : 07/05/21 18:54 07/05/21 20:23 Radiology Impressions Chest X-Ray 07/05/21 18:39 IMPRESSION: 1. Cardiomegaly. 2. Bilateral airspace infiltrates greatest in the lower lung leach. 3. Small bilateral pleural effusions suspected. 4. Diffuse sclerotic metastatic disease throughout the osseous structures. Laboratory Results WBC 4.1 10^3/uL (4.0-10.0) 07/05/21 18:54 RBC 2.72 10^6/uL (4.1-5.3) L 07/05/21 18:54 Hgb 8.3 g/dL (11.7-16.6) L 07/05/21 18:54 Hct 26.3 % (42.0-52.0) L 07/05/21 18:54 MCV 96.7 fl (80-94) H 07/05/21 18:54 MCH 30.5 pg (28.0-34.0) 07/05/21 18:54 MCHC 31.6 g/dL (30.0-36.0) 07/05/21 18:54 RDW 17.9 % (12.1-15.1) H 07/05/21 18:54 Plt Count 195 10^3/cmm (130-400) 07/05/21 18:54 MPV 10.1 fL (7.4-10.4) 07/05/21 18:54 Neut % (Auto) 72.9 % 07/05/21 18:54 Lymph % (Auto) 13.2 % 07/05/21 18:54 [place] % (Auto) 7.3 % 07/05/21 18:54 Eos % (Auto) 0.5 % 07/05/21 18:54 Baso % (Auto) 0.5 % 07/05/21 18:54 Neut # (Auto) 2.98 10^3/uL (1.8-7.7) 07/05/21 18:54 Lymph # (Auto) 0.5 10^3/uL (0.8-4.8) L 07/05/21 18:54 [place] # (Auto) 0.3 10^3/uL (0.2-0.9) 07/05/21 18:54 Eos # (Auto) 0.0 10^3/uL (0.0-0.8) 07/05/21 18:54 Baso # (Auto) 0.0 10^3/uL (0.0-0.1) 07/05/21 18:54 Nucleated RBC % (auto) 2.7 % 07/05/21 18:54 Nucleated RBCs # 0.1 /100WBC 07/05/21 18:54 PT 22.60 SECONDS (12.1-14.9) H 07/05/21 18:54 INR 1.94 (0.8-1.2) H 07/05/21 18:54 D-Dimer 2.03 ug/mIFEU (0-0.59) H 07/05/21 18:59 Sodium 125 mmol/L (136-145) L 07/05/21 20:23 Potassium 5.9 mmol/L (3.5-5.1) H 07/05/21 20:23 Chloride 87 mmol/L (98-107) L 07/05/21 20:23 Carbon Dioxide 24 mmol/L (22-29) 07/05/21 20:23 Anion Gap 19.9 (5-19) H 07/05/21 20:23 BUN 58 mg/dL (8-23) H 07/05/21 20:23 Creatinine 1.9 mg/dL (0.7-1.2) H 07/05/21 20:23 GFR Calculation Not Reportable 07/05/21 20:23 Glucose 175 mg/dL (65-115) H 07/05/21 20:23 Calculated Osmolality 280 mOsm/kg (285-295) L 07/05/21 20:23 Calcium 9.0 mg/dL (8.5-10.5) 07/05/21 20:23 Total Bilirubin 0.2 mg/dL (0.15-1.2) 07/05/21 20:23 AST 55 U/L (0-40) H 07/05/21 20:23 ALT 32 U/L (0-41) 07/05/21 20:23 Alkaline Phosphatase 114 IU/L (40-130) 07/05/21 20:23 Troponin T Baseline 394 ng/L (0-15) H* 07/05/21 18:54 Troponin T 120 Minute 399.6 ng/L (0-15) H 07/05/21 20:23 Delta Troponin T 5.6 ABS# (0-10) 07/05/21 20:23 NT-Pro-B Natriuret Pep 28225 pg/mL (0-450) H 07/05/21 20:23 Total Protein 6.6 g/dL (6.6-8.7) 07/05/21 20: Albumin 3.5 g/dL (3.5-5.2) 07/05/21 20:23 Globulin 3.1 g/dL (1.3-4.6) 07/05/21 20:23 Urine Color Yellow (Yellow) 07/05/21 19:17 Urine Appearance Clear (CLEAR) 07/05/21 19:17 Urine pH 5 (5-7) 07/05/21 19:17 Ur Specific [place] 1.015 (1.005-1.030) 07/05/21 19:17 Urine Protein Neg (Negative) 07/05/21 19:17 Urine Glucose (UA) Norm (Normal) 07/05/21 19:17 Urine Ketones Negative (Negative) 07/05/21 19:17 Urine Blood 2+ (Negative) H 07/05/21 19:17 Urine Nitrate Negative (Negative) 07/05/21 19:17 Urine Bilirubin Neg (Negative) 07/05/21 19:17 Urine Urobilinogen Norm mg/dL (Negative) 07/05/21 19:17 Ur Leukocyte Esterase Negative (Negative) 07/05/21 19:17 Urine RBC 10-15 /hpf (0-2) H 07/05/21 19:17 Urine WBC 5-10 /hpf (0-5) H 07/05/21 19:17 Ur Squamous Epith Cells 5-10 /hpf (0-5) H 07/05/21 19:17 Amorphous Sediment Not Reportable 07/05/21 19:17 Urine Bacteria Trace /hpf (NONE) 07/05/21 19:17 Hyaline Casts 0-4 /lpf H 07/05/21 19:17 EKG Data EKG 1: I personally reviewed and interpreted this EKG as follows: EKG interpretation date: 07/05/21 EKG interpretation time: 17:59 Interpretation: nsr hr [address] or t wave abnormalities qrs 178 qtc 451 Computer generated interpretation: Chest X-Ray 07/05/21 18:39 IMPRESSION: 1. Cardiomegaly. 2. Bilateral airspace infiltrates greatest in the lower lung leach. 3. Small bilateral pleural effusions suspected. 4. Diffuse sclerotic metastatic disease throughout the osseous structures. Critical Care Time Critical Care Time: Critical Care Time: Yes Total Critical Care Time: 40 Attestation: The high probability of a clinically significant, sudden or life threatening deterioration of the patient's [CV] system(s) required my full and direct attention, intervention and personal management. The critical care time is as shown. 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
[2021-07-05 19:19] LABS: INR 1.94 (0.8-1.2)
--- NOTE | 2021-07-05 19:22 | PC.NURSE ---
PT PLACED ON CONTINUOUS SPO2, NIBP, AND CM.
[2021-07-05 19:33] LABS: Slide Review Slide Review Perform
[2021-07-05 19:35] LABS: Troponin(5th) Baseline 394 ng/L (0-15)
[2021-07-05 19:52] LABS: Add Urine Culture? Yes; Add Urine Microscopic? YES; Bacteria Urine TRACE /hpf; Bilirubin Urine Neg (Negative); Blood Urine 2+ (Negative); Glucose Urine UA Norm (Normal); Hyaline Casts Urine 0-4 /lpf; Ketones Urine Negative (Negative); Leukocyte Esterase Urine Negative (Negative); Nitrate Urine Negative (Negative); Protein Urine Neg (Negative); Specific Gravity, Urine 1.015 (1.005-1.030); Urine Appearance Clear (CLEAR); Urine Color Yellow (Yellow); Urobilinogen Urine Norm (Negative); pH Urine 5 (5-7)
[2021-07-05 20:14] VITALS: BP 107/56; PULSE 90; RESP 37; O2SAT 94
[2021-07-05 20:39] LABS: D Dimer 2.03 ug/mIFEU (0-0.59)
[2021-07-05 21:18] LABS: Alanine Aminotransferase 32 U/L (0-41); Albumin Level 3.5 g/dL (3.5-5.2); Alkaline Phosphatase 114 IU/L (40-130); Anion Gap 19.9 (5-19); Aspartate Amino Transferase 55 U/L (0-40); Blood Urea Nitrogen 58 mg/dL (8-23); Carbon Dioxide 24 mmol/L (22-29); Chloride 87 mmol/L (98-107); Globulin 3.1 g/dL (1.3-4.6); Glucose 175 mg/dL (65-115); Osmolality Calculated 280 mOsm/kg (285-295); Potassium 5.9 mmol/L (3.5-5.1); Sodium 125 mmol/L (136-145); Total Bilirubin 0.2 mg/dL (0.15-1.2); Total Protein 6.6 g/dL (6.6-8.7)
[2021-07-05 21:26] LABS: Troponin 5 2HR 399.6 ng/L (0-15); Troponin 5 2HR Delta 5.6 ABS# (0-10)
[2021-07-05 21:51] VITALS: BP 101/48; PULSE 97; RESP 48; TEMP 36.4; O2SAT 93
[2021-07-05] MEDS: FUROsemide 10 mg/mL SDV 10mL 60 MG IVP (22:00)
[2021-07-05] MEDS: LORazepam 2 mg/mL INJ 1 mL 0.5 MG IVP (22:26)
[2021-07-05 22:35] LABS: NT Pro B Type Natriuretic Pept 70465 pg/mL (0-450)
--- NOTE | 2021-07-05 23:49 | PM.HP ---
Providers/Chief Complaint Admitting Physician: Demond Nice Primary Care Provider: Tiki Dorado MD Chief Complaint: Not urinating, shortness of breath, neck hurting History of Present Illness 85-year-old gentleman with metastatic prostate cancer, chronic systolic congestive heart failure, EF 20-25%. History of bioprosthetic mitral valve, but without improvement in symptoms, moderate aortic stenosis, A. fib on chronic anticoagulation with warfarin. Admitted a month ago after a fall, acute anemia, at the time with noted troponin elevation, thought to be demand ischemia. At the time also with CHF exacerbation for which she was diuresed. He was discharged with oxygen, although his states due to recurrent alarms they took the oxygen back. Came into ER for evaluation with his family due to recently having progressive weakness, dyspnea, dyspnea on exertion, more difficult time walking, having missed also several appointments with outpatient physical therapy due to the symptoms, with worsening lower extremity edema, his also reports him having low blood pressures at home, as low as 90/40 due to which carvedilol was recently stopped. Family report also bothersome constipation due to which she also missed physical therapy. Currently with noted URMILA on CKD, creatinine up to 1.9. Noted hyponatremia, sodium 125. states he has had unimproving swelling, although also he has cut out sodium from his diet. Potassium is 5.9. Baseline troponin 394, 2-hour troponin 399.6. EKG with intraventricular conduction delay. Chest x-ray with cardiomegaly, bilateral airspace infiltrates greatest in lower lung leach. Small bilateral pleural effusions suspected. Diffuse sclerotic metastatic disease throughout osseous structures. TSH performed yesterday noted 19.1. Due to hypothyroidism his levothyroxine dose was adjusted during last hospitalization up to 88 mcg. He is currently asleep, reports he is recently not been sleeping well more than 2-3 hours. In ER he was getting anxious, received Ativan. History obtained from his family, ER physician and documentation. His denies that he has been having any fever, chills, cough, headache, nausea, vomiting or diarrhea. Review of Systems General: Reports: ROS unobtainable due to mental status Medications/Allergies Home Medications Medication Instructions Recorded Confirmed Last Taken Type magnesium oxide 400 mg PO QPM 05/09/19 07/04/21 06/04/21 History hydrocodone 5 mg-acetaminophen 325 1 tab PO Q6H PRN tab 05/18/19 07/04/21 09/19/19 05:00 History mg tablet nitroglycerin 0.4 mg sublingual 0.4 mg SUBLINGUAL Q5M PRN #25 tab 12/17/20 07/04/21 Unknown Rx tablet (Nitrostat) pravastatin 80 mg tablet 80 mg PO BEDTIME 01/18/21 07/04/21 06/04/21 History multivitamin 1 tab PO EVERY OTHER DAY 03/07/21 07/04/21 Unknown History tamsulosin 0.4 mg capsule (Flomax) 0.4 mg PO QAM 03/07/21 07/04/21 06/05/21 History omeprazole 20 mg capsule,delayed 20 mg PO QAM #90 cap 05/17/21 07/04/21 06/05/21 Rx release fluticasone furoate 100 1 inh INHALATION DAILY PRN ea 05/28/21 07/04/21 Unknown History mcg-vilanterol 25 mcg/dose inhalation powder (Breo Ellipta) aspirin 81 mg tablet,delayed 81 mg PO QAM #90 tab 05/31/21 07/04/21 06/05/21 07:00 Rx release (Adult Low Dose Aspirin) primidone 50 mg tablet 50 mg PO BID #60 tab 06/03/21 07/04/21 Unknown Rx carvedilol 3.125 mg tablet 3.125 mg PO BID 06/05/21 07/04/21 06/05/21 History finasteride 5 mg tablet 5 mg PO QAM 06/05/21 07/04/21 06/05/21 History umeclidinium 62.5 mcg/actuation 1 inh INHALATION DAILY PRN 06/05/21 07/04/21 Unknown History blister powder for inhalation (Incruse Ellipta) warfarin 2 mg tablet See Rx Instructions .ROUTE .COMPLEX 06/05/21 07/04/21 Unknown History furosemide 40 mg tablet 40 mg PO DAILY #180 tab 06/07/21 07/04/21 Unknown Rx metolazone 2.5 mg tablet 2.5 mg PO Q48H PRN #15 tab 06/07/21 07/04/21 06/03/21 Rx trazodone 50 mg tablet 25 mg PO BEDTIME PRN #30 tab 06/07/21 07/04/21 Unknown Rx duloxetine 30 mg capsule,delayed See Rx Instructions .ROUTE 06/27/21 07/04/21 Unknown Rx release .COMPLEX #30 capsule levothyroxine 88 mcg capsule 88 mcg PO DAILY #30 cap 07/01/21 07/04/21 Unknown Rx bicalutamide 50 mg tablet 50 mg PO QAM #90 tab 07/02/21 07/04/21 Unknown Rx potassium chloride 10 mEq 20 meq PO DAILY #180 cap 07/02/21 07/04/21 Unknown Rx capsule,extended release lactulose 10 gram/15 mL oral 20 g (30 mL) PO QID PRN #473 ml 07/04/21 07/04/21 Unknown Rx solution spironolactone 25 mg tablet 50 mg PO QAM #60 tab 07/04/21 07/04/21 Unknown Rx Allergies Allergy/AdvReac Type Severity Reaction Status Date / Time diclofenac Allergy Unknown Verified 07/04/21 13:26 meperidine Allergy ADR-Vomitin Verified 07/04/21 13:26 g spironolactone Allergy Unknown Verified 07/04/21 13:26 PFSH Acute PFSH: Medical History (Updated 07/06/21 @ 00:55 by Demond Nice MD) Aortic stenosis Atrial fibrillation Basal cell carcinoma BPH (benign prostatic hyperplasia) CAD (coronary artery disease) Cervical post-laminectomy syndrome CHF (congestive heart failure) Chronic lung disease Chronic shortness of breath Chronic systolic heart failure 02/2021 EF 20-25%, bioprosthetic mitral valve, TOMY 1.4 cm2 with mean gradient of 22.3 mmHg CKD (chronic kidney disease) DDD (degenerative disc disease) Diabetes GERD (gastroesophageal reflux disease) Hyperlipemia Hypertension Hypothyroidism Iron deficiency anemia Ischemic cardiomyopathy Melanoma Mitral valve regurgitation Neuropathy Pleural effusion Prostate cancer metastatic to bone Sleep apnea Subcapsular hematoma of liver (~04/2019) traumatic TIA (transient ischemic attack) Tricuspid valve regurgitation Troponin level elevated Surgical History 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 Patent proximal LAD, distal RCA with 30% stenosis in mid circumflex with 30% stenosis History of heart artery stent History of mitral valve replacement with bioprosthetic valve (~01/2021) [facility] History of prostate biopsy Previous back surgery Family History Father , at age 80 CAD (coronary artery disease) Mother , at age 73 Dementia Alzheimers Social History Smoking and tobacco status: never smoked Alcohol intake: current Alcohol intake frequency: holidays/special occasions only Household members: spouse Marital status: Current occupational status: retired Current gender identity: Male Vitals/I&O/Wt Last Vital Signs Temp 97.6 F 07/05/21 21:51 Pulse 97 07/05/21 21:51 Resp 48 H 07/05/21 21:51 BP 101/48 07/05/21 21:51 Pulse Ox 93 07/05/21 21:51 Weight last 48 hrs Weight 89.358 kg Physical Exam Const: COMMON NORMALS: no acute distress and patient oriented x3 GENERAL APPEARANCE: frail appearing HENMT: COMMON NORMALS: oropharynx normal Resp: AUSCULTATION: diminished lung sounds Cardio: COMMON NORMALS: no JVD, regular rhythm, S1 normal heart sound present, S2 normal heart sound present and No murmurs present (Cardio) RHYTHM: regular rhythm HEART SOUNDS: S1 normal heart sound present and S2 normal heart sound present GI: COMMON NORMALS: Normal to inspection, nondistended, normoactive bowel sounds present, Soft to palpation and non-tender PALPATION: Yes Soft to palpation Extremity: COMMON NORMALS: no joint enlargement GENERAL: Yes edema (3+) Neuro: COMMON NORMALS: patient oriented x3 and moves all extremities Skin: COMMON NORMALS: no rashes or lesions noted GENERAL SKIN EXAM: no rashes or lesions noted Urinary Catheter Management: [place]: Cath Placed During This Visit: yes Urinary Catheter Date of Insertion: 07/05/21 Urinary Catheter Time of Insertion: 21:17 Data : 07/05/21 18:54 07/05/21 20:23 A&P Assessment and plan (1) Acute exacerbation of CHF (congestive heart failure): Chronic systolic congestive failure, EF 20-25% at baseline, moderate aortic stenosis, history of the prostatic mitral valve replacement due to MVR, but without improvement in symptoms. Recently progressive lower extremity edema, functional decline, also soft blood pressures at home. Carvedilol was stopped. Reportedly spironolactone was added. Lasix 60 mg IV twice daily. Complete troponin EKG series. Troponin elevation, similar to prior admission, possibly demand ischemia. However, will obtain additional assessment by limited TTE, in case of changes in ejection fraction, RWMA, consider additional assessment for ischemia. He has been chest pain-free. Goals of care overall have been limited. He had declined previously LifeVest, he would not want CPR in case of cardiopulmonary arrest. Monitor blood pressures. Discussed with his and son condition is complicated by URMILA on CKD. Possibly due to recent hypotension, possibly cardiorenal syndrome. This may portend poor prognosis especially if he does not respond well to diuresis. In case blood pressures remain low, or evidence of other organ hypoperfusion, consideration may need to be given to low output failure. Further consideration of goals of care, possibly involving hospice care. His family also state after recent discharge due to alarms at home they returned his oxygen. Once ready for discharge would obtain home oxygen reevaluation. Status: Acute (2) Acute kidney injury superimposed on CKD: Creatinine up to 1.9 which is higher than his prior baseline. Suspect this may be secondary to episodes of hypotension recently. Carvedilol was stopped. Hold off medications that may decrease blood pressure. Monitor blood pressures with diuresis. Consideration may be given to low output failure depending on his continued clinical condition. Consideration of possible cardiorenal syndrome. With treatment of fluid overload may improve, monitor blood pressures. Status: Acute (3) Hyperkalemia: On potassium supplementation at home. Recently also on spironolactone. Hold both. Recheck potassium. Low potassium diet. Status: Acute (4) Acute hyponatremia: Suspect hypervolemic hyponatremia. Diuresis as above. Monitor sodium level. Status: Acute (5) Hypotension: Recent hypotension. Carvedilol was discontinued, do not resume. Monitor blood pressures. Status: Acute (6) Abnormal urinalysis: Requested urine culture. Recently with generalized weakness, functional decline. Will empirically treat with ceftriaxone for now. Discontinue in case urine culture negative. Status: Acute (7) Hypothyroidism: 1 month ago levothyroxine dose increased to 88 mcg, TSH is better, but still elevated at 19.1. Increase levothyroxine further to 100 mcg. Follow-up outpatient for reassessment in 3-4 weeks. Status: Acute (8) Physical deconditioning: Treat underlying conditions as above. PT assessment. He has been going to outpatient therapy, but recently has missed multiple appointments per his family. Partially due above symptoms, fatigability, partially due to bothersome constipation. Status: Acute (9) Chronic anticoagulation: Continue warfarin. Status: Chronic (10) Troponin level elevated: No chest pain or pressure with complete troponin EKG series. Previously elevated troponin. Suspect this may be demand ischemia in the setting of acute congestive heart failure, URMILA. However, cannot entirely rule out cardiac ischemia. Continue aspirin, warfarin. Not a candidate for beta-hung. Continue statin. Assess limited TTE as above. In case of further findings in support of cardiac ischemia consider reassessment by cardiology. Status: Acute (11) Constipation: Has been recently started on bowel regimen with lactulose. Continue. Status: Acute (12) Prostate cancer metastatic to multiple sites: Status: Acute Plan Elevated D-dimer: Possibly secondary to metastatic cancer. Renal failure. Continue anticoagulation. Attestations Medical Necessity Statement*: Admission of over 2 midnights is anticipated for assessment management of acute CHF exacerbation and gentleman with low ejection fraction, as well as URMILA on CKD. Coding Level of Care Code Acute Traffic Ii Manager for [facility] Fwd Exam Comprehensive Diagnoses Acute exacerbation of CHF (congestive heart failure) I50.9 Acute kidney injury superimposed on CKD N17.9; N18.9 Hyperkalemia E87.5 Acute hyponatremia E87.1 Hypotension I95.9 Abnormal urinalysis R82.90 Hypothyroidism E03.9 Physical deconditioning R53.81 Chronic anticoagulation Z79.01 Troponin level elevated R77.8 Constipation K59.00 Prostate cancer metastatic to multiple sites C61
[2021-07-06] VITALS (16 sets, daily range): BP systolic 96–114; BP diastolic 44–66; PULSE 71–93; RESP 13–41; TEMP 36.5–36.7; O2SAT 94–99; BMI 27.4
--- NOTE | 2021-07-06 00:40 | ECG_ITS ---
[facility] Test Date: 2021-07-06 Pat Name: Hayes Solis Department: Room: 102 Gender: Male [employer] Analyst: : 1935 Requested By: Siena Dalal Order Number: [id number] Miroslava MD: Galina Houston M.D. Measurements Intervals [place] Rate: 95 P: 55 [place]: 214 QRS: -11 QRSD: 167 T: 122 QT: 387 QTc: 489 Interpretive Statements SINUS RHYTHM WITH FIRST DEGREE AV BLOCK WITH OCCASIONAL SUPRAVENTRICULAR PREMATURE COMPLEXES INTRAVENTRICULAR CONDUCTION DELAY [130+ ms QRS DURATION] Compared to ECG 07/05/2021 17:59:19 First degree AV block now present Electronically Signed On 07-07-2021 17:39:01 CDT by Galina Houston M.D. [email or web address]
--- NOTE | 2021-07-06 01:33 | USCV_ITS ---
Hayes Solis Age: 85 Gender: M : 1935 Exam Date: 07/06/2021 09:12 Ordering Phys: Demond Nice MD Technologist: [place] [facility] [place] ef BP: 104 / 56 HR: 82 Rhythm: Sinus Technical Quality: Adequate MEASUREMENTS (Male / Female) Normal Values 2D ECHO LV Diastolic Diameter PLAX 6.0 cm 4.2 - 5.9 / 3.9 - 5.3 cm LV Systolic Diameter PLAX 5.0 cm IVS Diastolic Thickness 1.2 cm 0.6 - 1.0 / 0.6 - 0.9 cm IVS Systolic Thickness 1.6 cm LVPW Diastolic Thickness 1.4 cm 0.6 - 1.0 / 0.6 - 0.9 cm LVPW Systolic Thickness 1.4 cm LVOT Diameter 2.1 cm LV Ejection Fraction 2D Teich 22.9 % LV Ejection Fraction MOD 2C 29.9 % LV Ejection Fraction 2C AL 30.1 % LA Diameter 4.9 cm M-MODE Aortic Annulus Diameter 3.5 cm LA Ao Ratio MM 1.3 FINDINGS Left Ventricle Severe diffuse hypokinesia, more so of the mid and apical segments of the left ventricle with an ejection fraction of around 25%. Mildly dilated LV cavity Right Ventricle Normal right ventricular size and systolic function. Right Atrium Possibly of normal size Left Atrium Mildly increased left atrial size. Mitral Valve The bioprosthetic valve at the mitral position appears to be well-seated. Aortic Valve Moderate aortic valve calcification. Tricuspid Valve No gross abnormalities noted Pulmonic Valve Pulmonic valve not well visualized. Pericardium No pericardial effusion. Aorta Normal aortic annulus size. CONCLUSIONS Severe diffuse hypokinesia, more so of the mid and apical segments of the left ventricle with an ejection fraction of around 25%. Mildly dilated LV cavity. Mildly increased left atrial size. The bioprosthetic valve at the mitral position appears to be well-seated. Moderate aortic valve calcification with thickened aortic leaflets. There is no pericardial effusion. There are no intracardiac masses. Compared to the study from 03/06/2021, there may not be a significant change in the 2D findings Dr Galina Houston MD [facility] (Electronically Signed) Final Date: 06 July 2021 12:54 S
[2021-07-06] MEDS: FUROsemide 10 mg/mL SDV 10mL 60 MG IVP ×2 (02:59→16:33)
[2021-07-06] MEDS: cefTRIAXone 1,000 MG in sodium chloride 0.9% (plus) 50 ML 100 MG IV (03:03)
[2021-07-06] MEDS: aspirin 81 mg EC Tablet PO (05:43)
[2021-07-06] MEDS: finasteride 5 mg Tablet PO (05:43)
[2021-07-06] MEDS: pantoprazole DR 40 mg Tablet PO (05:44)
[2021-07-06] MEDS: tamsulosin 0.4 mg Capsule PO (05:44)
[2021-07-06] MEDS: levothyroxine 100 mcg Tablet PO (05:44)
--- NOTE | 2021-07-06 07:15 | PC.NURSE ---
received report, reviewed poc. pt and both sleeping, did not wake when I entered the room. Pt stable on monitor, in no apparent distress and no needs identified at this time.
[2021-07-06] MEDS: duloxetine 30 mg Capsule PO (09:56)
[2021-07-06] MEDS: primidone 50 mg Tablet PO ×2 (09:56→20:31)
[2021-07-06] MEDS: polyethylene glycol 3350 Pkt 17 gm PO (09:56)
--- NOTE | 2021-07-06 13:45 | PM.PN ---
Subjective Subjective: Patient is sleeping soundly. The states the patient has not slept well in a month. Patient is mildly arousable but speaks mostly in 1 or 2 word sentences. He can answer yes or no. He states that he is feeling better. states that he has been short of breath for a while. She states that he is given up since he cannot do his usual activities. She states that the patient has said he is ready to and would rather . Earlier I spoke with case management who received a consult for home health care versus hospice. She had spoken with the who told her similar story that while the patient is agreeable to hospice she is not ready for him to . See below for my family discussion. Vitals/I&O/Wt Last Vital Signs Temp 97.7 F 07/06/21 04:00 Pulse 82 07/06/21 13:00 Resp 24 H 07/06/21 13:00 BP 104/47 07/06/21 13:00 Pulse Ox 98 07/06/21 13:00 07/05/21 07/06/21 07/06/21 22:59 06:59 14:59 Intake Total 50 / 50 Output Total 500 / 500 Balance -450 / -450 Weight last 48 hrs Weight 89.358 kg Weight 89.358 kg Weight 89.358 kg Physical Exam Narrative: Patient is lying in bed semiconscious. He appears thin frail elderly. Does not open eyes even on command. He speaks in 1 or 2 word sentences. His heart is regular distant no loud murmurs noted. Lungs are clear to auscultation anteriorly. Abdomen soft nontender nondistended positive bowel sounds extremities mild edema skin severe ecchymosis of the right arm Urinary Catheter Management: Fountain: Cath Placed During This Visit: yes Urinary Catheter Date of Insertion: 07/05/21 Urinary Catheter Time of Insertion: 21:17 Data : 07/05/21 18:54 07/05/21 20:23 A&P Assessment and plan (1) Acute exacerbation of CHF (congestive heart failure): Patient unfortunately suffers from acute on chronic CHF. His echocardiogram shows consistent EF of 20 to 25%. He is on the standard heart failure medications without improvement. He also recently had a mitral valve replacement in the hopes to improve his symptoms of shortness of breath. Unfornately, pt remains short of breath at rest. This classifies him as end-stage heart failure. Given his age and comorbidity of stage IV prostate cancer; hospice is recommended in the treatment plans of end-stage heart failure. I did have a discussion with patient's and son outside of the room. again reports that the patient is ready to but she is not ready for it. I explained the hospice benefit which provides an interdisciplinary care team would be there to support not only the patient but her and the family. They would have school laboratory technician and social work service that would help her emotionally and spiritually with her 's progressive decline. Patient and family has already decided on a DO NOT RESUSCITATE. The requested that I asked the patient his wishes. I did have a short conversation with the patient with and son in the room. Since he could only answer short sentences I had to ask if he wanted aggressive care versus comfort care if he want to be in the hospital versus home and he clearly stated he would rather be home and he wants to be comfortable and for me to do what ever I could to help him . At this point I think the best help for this patient is to allow the disease to progress normally and treat for symptoms of pain shortness of breath nausea etc. The is unwilling to pick a hospice agency at this time without further discussion with her sons. Case management has given her the 3 choices of hospice. Since the patient has clearly made his choice of treatment strategy I will treat for comfort adding Roxanol and Ativan as needed. Will stop other aggressive treatments such as abx since the CXR shows pulm edema with effusions. Status: Acute (2) End-stage systolic heart failure: as above Status: Acute (3) Prostate cancer metastatic to multiple sites: Status: Acute (4) Acute kidney injury superimposed on CKD: worsening renal failure while remaining short of breath. Will tolerate this worsening to assist breathing. Status: Acute (5) Falls: recent falls with signficant bruising due to anticoagulation Status: Acute (6) Chronic shortness of breath: add roxanol for SOB Status: Chronic (7) Chronic anticoagulation: will continue Status: Chronic (8) Anemia: stable at 8 Status: Acute Attestations Medical Necessity Statement*: pt is end stage chf with prognosis of less than 6 months. Will change treatment to comfort measures only including lasix and other treatments of heart failure that are tolerated. 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
[2021-07-06 14:35] LABS: Basophils % 0.5 %; Eosinophils % 0.8 %; Hematocrit 24.2 % (42.0-52.0); Hemoglobin 7.5 g/dL (11.7-16.6); Lymphocytes # 0.4 10^3/uL (0.8-4.8); Lymphocytes % 11.4 %; Mean Corpuscular Hemoglobin 29.9 pg (28.0-34.0); Mean Corpuscular Volume 96.4 fl (80-94); Mean Platelet Volume 9.5 fL (7.4-10.4); Monocytes # 0.3 10^3/uL (0.2-0.9); Neutrophils # 2.75 10^3/uL (1.8-7.7); Nucleated Red Blood Cells # 0.1 /100WBC; Nucleated Red Blood Cells % 2.7 %; Platelet Count 145 10^3/cmm (130-400); Red Blood Count 2.51 10^6/uL (4.1-5.3); Red Cell Distribution Width 17.8 % (12.1-15.1); White Blood Count 3.8 10^3/uL (4.0-10.0)
[2021-07-06 15:01] LABS: Alanine Aminotransferase 35 U/L (0-41); Alkaline Phosphatase 107 IU/L (40-130); Anion Gap 19.7 (5-19); Aspartate Amino Transferase 66 U/L (0-40); Blood Urea Nitrogen 69 mg/dL (8-23); Carbon Dioxide 23 mmol/L (22-29); Chloride 91 mmol/L (98-107); Globulin 3.3 g/dL (1.3-4.6); Glucose 134 mg/dL (65-115); Osmolality Calculated 290 mOsm/kg (285-295); Potassium 4.7 mmol/L (3.5-5.1); Sodium 129 mmol/L (136-145); Total Bilirubin 0.2 mg/dL (0.15-1.2); Total Protein 6.3 g/dL (6.6-8.7)
[2021-07-06 15:28] LABS: Neutrophils % 79.3 %; Slide Review Slide Review Perform
[2021-07-07] MEDS: LORazepam 2 mg/mL INJ 1 mL 0.5 MG SUBLINGUAL ×2 (00:43→05:05)
[2021-07-07 00:44] VITALS: BP 98/48; PULSE 91; RESP 20; O2SAT 96
[2021-07-07 03:42] VITALS: BP 104/49; PULSE 89; RESP 20; O2SAT 95
[2021-07-07] MEDS: FUROsemide 10 mg/mL SDV 10mL 60 MG IVP (05:06)
[2021-07-07] MEDS: levothyroxine 100 mcg Tablet PO (05:12)
[2021-07-07] MEDS: finasteride 5 mg Tablet PO (05:12)
[2021-07-07] MEDS: tamsulosin 0.4 mg Capsule PO (05:12)
[2021-07-07] MEDS: aspirin 81 mg EC Tablet PO (05:13)
--- NOTE | 2021-07-07 06:43 | PC.NURSE ---
pt rested quietly throughout night. VSS. Pain controlled. Pt repositioned per requests. Fountain patent. Fountain care done. Adequate UOP. Frequent rounding done. All needs met.
[2021-07-07 07:36] VITALS: PULSE 76; RESP 19; O2SAT 97
[2021-07-07 08:00] VITALS: BP 96/69; PULSE 95; RESP 20; O2SAT 96
[2021-07-07] MEDS: polyethylene glycol 3350 Pkt 17 gm PO (10:17)
[2021-07-07] MEDS: lactulose oral liq 20 gm/30 mL UDC PO (10:17)
[2021-07-07] MEDS: primidone 50 mg Tablet PO (10:18)
[2021-07-07] MEDS: duloxetine 30 mg Capsule PO (10:18)
[2021-07-07 12:00] VITALS: BP 103/47; PULSE 95; RESP 22; O2SAT 88
[2021-07-07] MEDS: saline nasal spray 44mL Btl 1 SPRAY NASAL (12:50)
[2021-07-07] MEDS: lanolin oint 7 gm 1 APPLIC TOPICAL (13:37)
--- NOTE | 2021-07-07 14:32 | P.DS_ITS ---
Discharge Providers Date of Admission: 07/05/21 21:55 Date of Discharge: July 07, 2021 Attending Provider at Admission: Demond Nice Attending Provider at Discharge: Carlos Barillas MD Primary Care Provider: Tiki Dorado MD Diagnoses at Discharge Discharge Diagnosis (1) Acute exacerbation of CHF (congestive heart failure): (2) End-stage systolic heart failure: (3) Prostate cancer metastatic to multiple sites: (4) Acute kidney injury superimposed on CKD: (5) Falls: (6) Chronic shortness of breath: (7) Chronic anticoagulation: Permanent problem details: coumadin, for afib and valvular disease (8) Anemia: Reason for Visit Reason for Visit: Not urinating, shortness of breath, neck hurting Hospital Course Hospital Course 85-year-old gentleman with metastatic prostate cancer, chronic systolic congestive heart failure, EF 20-25%.? History of bioprosthetic mitral valve, but without improvement in symptoms, moderate aortic stenosis,? A. fib on chronic anticoagulation with warfarin. Came into ER for evaluation with his family due to recently having progressive weakness, dyspnea, dyspnea on exertion, more difficult time walking, having missed also several appointments with outpatient physical therapy due to the symptoms, with worsening lower extremity edema, his also reports him having low blood pressures at home, as low as 90/40 due to which carvedilol was recently stopped.He was initially admitted primarily for the management of Ac on chronic HFrEF Exacerbation,URMILA ON CKD,hyperkalemia,hyponatremia,he was started on I.V Diuresis,and other conservative management for above mention conditions. Detailed discussion was initiated with the family and patient regarding his progressive decline and his overall prognosis.Family and patient was of the opinion that the moving forward hospice is the way to go.Patient was discharged home on home hospice. Physical Exam Const: COMMON NORMALS: patient oriented x3 HENMT: COMMON NORMALS: normocephalic and atraumatic HEAD & SCALP: normocephalic and atraumatic Eye: GENERAL EYE: appearance normal, both eyes and all related structures Chest: COMMONS NORMALS: normal inspection of the chest and normal palpation of entire chest wall CHEST: Yes Symmetrical chest wall rise Resp: COMMON NORMALS: normal respiratory effort, No retractions, No use of accessory muscles and clear to auscultation bilaterally EFFORT & INSPECTION: Yes symmetric chest movement AUSCULTATION: clear to auscultation bilaterally Cardio: COMMON NORMALS: regular rate, regular rhythm, S1 normal heart sound present, S2 normal heart sound present, No gallops present (Cardio), No murmurs present (Cardio), No rub (Cardio) and Peripheral pulses 2+ throughout RATE: regular rate RHYTHM: regular rhythm HEART SOUNDS: S1 normal heart sound present and S2 normal heart sound present PERIPHERAL PULSES: Peripheral pulses 2+ throughout GI: COMMON NORMALS: Normal to inspection, nondistended, normoactive bowel sounds present, Soft to palpation, non-tender, No hepatosplenomegaly present and no masses AUSCULTATION: Yes normoactive bowel sounds PALPATION: Yes Soft to palpation and Yes No hepatosplenomegaly present RECTAL EXAM: Yes deferred Extremity: COMMON NORMALS: no clubbing, cyanosis or edema and no pedal edema Neuro: COMMON NORMALS: patient oriented x3 Urinary Catheter Management: Fountain: Cath Placed During This Visit: yes Urinary Catheter Date of Insertion: 07/05/21 Urinary Catheter Time of Insertion: 21:17 Discharge Data Studies Completed and Pending Completed Studies During Hospitalization Category Date Time Status XR chest 1V portable [id number] Stat Exams 07/05/21 18:39 Completed CV. echo limited [id number] Routine Ultrasound 07/06/21 01:33 Completed Pending at discharge Category Date Time Status Urine Culture Routine Lab 07/05/21 19:17 Results Radiology Impressions Chest X-Ray 07/05/21 18:39 IMPRESSION: 1. Cardiomegaly. 2. Bilateral airspace infiltrates greatest in the lower lung leach. 3. Small bilateral pleural effusions suspected. 4. Diffuse sclerotic metastatic disease throughout the osseous structures. Laboratory Results WBC 3.8 10^3/uL (4.0-10.0) L 07/06/21 14:07 RBC 2.51 10^6/uL (4.1-5.3) L 07/06/21 14:07 Hgb 7.5 g/dL (11.7-16.6) L 07/06/21 14:07 Hct 24.2 % (42.0-52.0) L 07/06/21 14:07 MCV 96.4 fl (80-94) H 07/06/21 14:07 MCH 29.9 pg (28.0-34.0) 07/06/21 14:07 MCHC 31.0 g/dL (30.0-36.0) 07/06/21 14:07 RDW 17.8 % (12.1-15.1) H 07/06/21 14:07 Plt Count 145 10^3/cmm (130-400) 07/06/21 14:07 MPV 9.5 fL (7.4-10.4) 07/06/21 14:07 Neut % (Auto) 79.3 % 07/06/21 14:07 Lymph % (Auto) 11.4 % 07/06/21 14:07 [place] % (Auto) 8.0 % 07/06/21 14:07 Eos % (Auto) 0.8 % 07/06/21 14:07 Baso % (Auto) 0.5 % 07/06/21 14:07 Neut # (Auto) 2.75 10^3/uL (1.8-7.7) 07/06/21 14:07 Lymph # (Auto) 0.4 10^3/uL (0.8-4.8) L 07/06/21 14:07 [place] # (Auto) 0.3 10^3/uL (0.2-0.9) 07/06/21 14:07 Eos # (Auto) 0.0 10^3/uL (0.0-0.8) 07/06/21 14:07 Baso # (Auto) 0.0 10^3/uL (0.0-0.1) 07/06/21 14:07 Nucleated RBC % (auto) 2.7 % 07/06/21 14:07 Nucleated RBCs # 0.1 /100WBC 07/06/21 14:07 PT 22.60 SECONDS (12.1-14.9) H 07/05/21 18:54 INR 1.94 (0.8-1.2) H 07/05/21 18:54 D-Dimer 2.03 ug/mIFEU (0-0.59) H 07/05/21 18:59 Sodium 129 mmol/L (136-145) L 07/06/21 14:07 Potassium 4.7 mmol/L (3.5-5.1) 07/06/21 14:07 Chloride 91 mmol/L (98-107) L 07/06/21 14:07 Carbon Dioxide 23 mmol/L (22-29) 07/06/21 14:07 Anion Gap 19.7 (5-19) H 07/06/21 14:07 BUN 69 mg/dL (8-23) H 07/06/21 14:07 Creatinine 1.8 mg/dL (0.7-1.2) H 07/06/21 14:07 GFR Calculation Not Reportable 07/06/21 14:07 Glucose 134 mg/dL (65-115) H 07/06/21 14:07 Calculated Osmolality 290 mOsm/kg (285-295) 07/06/21 14:07 Calcium 8.0 mg/dL (8.5-10.5) L 07/06/21 14:07 Total Bilirubin 0.2 mg/dL (0.15-1.2) 07/06/21 14:07 AST 66 U/L (0-40) H 07/06/21 14:07 ALT 35 U/L (0-41) 07/06/21 14:07 Alkaline Phosphatase 107 IU/L (40-130) 07/06/21 14:07 Troponin T Baseline 394 ng/L (0-15) H* 07/05/21 18:54 Troponin T 120 Minute 399.6 ng/L (0-15) H 07/05/21 20:23 Delta Troponin T 5.6 ABS# (0-10) 07/05/21 20:23 Troponin T Hi Sens 6Hr 469.0 ng/L (0-15) H 07/06/21 01:05 Troponin T Hi Sens 6Hr Delta 75.0 ng/L (0-12) H* 07/06/21 01:05 NT-Pro-B Natriuret Pep 61991 pg/mL (0-450) H 07/05/21 20:23 Total Protein 6.3 g/dL (6.6-8.7) L 07/06/21 14:07 Albumin 3.0 g/dL (3.5-5.2) L 07/06/21 14:07 Globulin 3.3 g/dL (1.3-4.6) 07/06/21 14:07 Urine Color Yellow (Yellow) 07/05/21 19:17 Urine Appearance Clear (CLEAR) 07/05/21 19:17 Urine pH 5 (5-7) 07/05/21 19:17 Ur Specific [place] 1.015 (1.005-1.030) 07/05/21 19:17 Urine Protein Neg (Negative) 07/05/21 19:17 Urine Glucose (UA) Norm (Normal) 07/05/21 19:17 Urine Ketones Negative (Negative) 07/05/21 19:17 Urine Blood 2+ (Negative) H 07/05/21 19:17 Urine Nitrate Negative (Negative) 07/05/21 19:17 Urine Bilirubin Neg (Negative) 07/05/21 19:17 Urine Urobilinogen Norm mg/dL (Negative) 07/05/21 19:17 Ur Leukocyte Esterase Negative (Negative) 07/05/21 19:17 Urine RBC 10-15 /hpf (0-2) H 07/05/21 19:17 Urine WBC 5-10 /hpf (0-5) H 07/05/21 19:17 Ur Squamous Epith Cells 5-10 /hpf (0-5) H 07/05/21 19:17 Amorphous Sediment Not Reportable 07/05/21 19:17 Urine Bacteria Trace /hpf (NONE) 07/05/21 19:17 Hyaline Casts 0-4 /lpf H 07/05/21 19:17 Vitals Last Vital Signs Temp 98 F 07/06/21 20:00 Pulse 95 07/07/21 12:00 Resp 22 H 07/07/21 12:00 BP 103/47 07/07/21 12:00 Pulse Ox 88 L 07/07/21 12:00 Discharge Plan Discharge Patient Disposition: Hospice - Home Condition: Stable Prescriptions: Continued magnesium oxide 400 mg magnesium tablet 400 mg PO QPM 0RF hydrocodone-acetaminophen 5-325 mg tablet 1 tab PO Q6H PRN (Reason: Pain) 0RF Breo Ellipta 100-25 mcg/dose blister with device 1 inh INHALATION DAILY PRN (Reason: unknown) 0RF lactulose 10 gram/15 mL solution 20 g PO QID PRN (Reason: Constipation) Qty: 473 1RF spironolactone 25 mg tablet 50 mg PO QAM Qty: 60 0RF Rx Instructions: This is an increase primidone 50 mg tablet 50 mg PO BID Qty: 60 2RF nitroglycerin [Nitrostat] 0.4 mg tablet, sublingual 0.4 mg SUBLINGUAL Q5M PRN (Reason: Chest Pain) Qty: 25 2RF omeprazole 20 mg capsule,delayed release(DR/EC) 20 mg PO QAM Qty: 90 1RF aspirin [Adult Low Dose Aspirin] 81 mg tablet,delayed release (DR/EC) 81 mg PO QAM Qty: 90 1RF duloxetine 30 mg capsule,delayed release(DR/EC) See Rx Instructions .ROUTE .COMPLEX Qty: 30 3RF Dose Instruction: TAKE ONE CAPSULE BY MOUTH EVERY DAY Rx Instructions: TAKE ONE CAPSULE BY MOUTH EVERY DAY levothyroxine 88 mcg capsule 88 mcg PO DAILY Qty: 30 3RF bicalutamide 50 mg tablet 50 mg PO QAM Qty: 90 1RF potassium chloride 10 mEq capsule, extended release 20 meq PO DAILY Qty: 180 3RF pravastatin 80 mg Tablet 80 mg PO BEDTIME 0RF multivitamin Tablet 1 tab PO EVERY OTHER DAY 0RF tamsulosin [Flomax] 0.4 mg Capsule 0.4 mg PO QAM 0RF carvedilol 3.125 mg tablet 3.125 mg PO BID 0RF warfarin 2 mg tablet See Rx Instructions mg .ROUTE .COMPLEX 0RF Hold Instructions: Resume on 06/11/21. Protocol: Dose Management Condition: Thursday Dose/Route: 6 mg Instruction: 3 x 2 mg tablets Condition: Thursday Dose/Route: 5 mg Instruction: 2.5 x 2 mg tablets Condition: Thursday Dose/Route: 6 mg Instruction: 3 x 2 mg tablets Condition: Thursday Dose/Route: 5 mg Instruction: 2.5 x 2 mg tablets Condition: Dose/Route: 6 mg Instruction: 3 x 2 mg tablets Condition: Thursday Dose/Route: 5 mg Instruction: 2.5 x 2 mg tablets Condition: Thursday Dose/Route: 6 mg Instruction: 3 x 2 mg tablets Protocol Text: Adjustment Start Date: Thursday07/03/21 INR Value: 17.00 SECONDS INR Date: 07/03/21 Recheck Date: 07/10/21 Rx Instructions: 2mg po daily@21:00 on thu,thu,,,sat 3mg po daily@21:00 on thu and thu finasteride 5 mg tablet 5 mg PO QAM 0RF Incruse Ellipta 62.5 mcg/actuation blister with device 1 inh inhalation DAILY PRN (Reason: unknown) 0RF trazodone 50 mg tablet 25 mg PO BEDTIME PRN (Reason: insomnia) Qty: 30 0RF furosemide 40 mg tablet 40 mg PO DAILY Qty: 180 1RF metolazone 2.5 mg tablet 2.5 mg PO Q48H PRN (Reason: Edema) Qty: 15 3RF Discharge Orders: Discharge Order (Routine); Ordered 07/07/21 Ordered By: Carlos Barillas [facility] [facility]) [Outside] Tiki Dorado MD [Primary Care Provider] - () Patient Instructions: Heart Failure (DC), CHF Stoplight, Opioid Safety Discharge Attestations Time Spent in Discharge Care*: less than 30 min Quality Metrics Clinical Quality Measures [ No reported AMI, CVA or VTE this stay] Coding Level of Care Code Acute Chg FW DC note Diagnoses Acute exacerbation of CHF (congestive heart failure) I50.9 End-stage systolic heart failure I50.20 Prostate cancer metastatic to multiple sites C61 Acute kidney injury superimposed on CKD N17.9; N18.9 Falls W19.XXXA Chronic shortness of breath R06.02 Chronic anticoagulation Z79.01 Anemia D64.9
[2021-07-07 14:46] VITALS: BP 103/47; PULSE 95; RESP 22; O2SAT 88
--- NOTE | 2021-07-07 15:36 | PC.NURSE ---
pt going home on hospice.discharge instructions given to spouse.verb understanding .discharged via w/c to vehicle.pt's spouse to drive pt home.
== END 2021-07-07 15:42 | disposition hospice, home (50) | DRG 291 ==
LOC: ER 23:03 → CSU 23:07
PROVIDERS: Admitting Provider Internal Medicine; Emergency Provider Emergency Medicine; PCP Family Medicine; Visit Provider Internal Medicine
DX: I13.0 Hypertensive heart and chronic kidney disease with heart failure and stage 1 through stage 4 chronic kidney disease, or unspecified chronic kidney disease (principal); I50.33 Acute on chronic diastolic (congestive) heart failure; C79.51 Secondary malignant neoplasm of bone; I48.20 Chronic atrial fibrillation, unspecified; E87.1 Hypo-osmolality and hyponatremia; N17.9 Acute kidney failure, unspecified; I24.8 Other forms of acute ischemic heart disease; I50.84 End stage heart failure; N18.9 Chronic kidney disease, unspecified; E11.22 Type 2 diabetes mellitus with diabetic chronic kidney disease; C61 Malignant neoplasm of prostate; Z92.21 Personal history of antineoplastic chemotherapy; I08.3 Combined rheumatic disorders of mitral, aortic and tricuspid valves; Z85.820 Personal history of malignant melanoma of skin; N40.0 Benign prostatic hyperplasia without lower urinary tract symptoms; I25.10 Atherosclerotic heart disease of native coronary artery without angina pectoris; Z95.5 Presence of coronary angioplasty implant and graft; M96.1 Postlaminectomy syndrome, not elsewhere classified; E78.5 Hyperlipidemia, unspecified; K21.9 Gastro-esophageal reflux disease without esophagitis; E03.9 Hypothyroidism, unspecified; D50.9 Iron deficiency anemia, unspecified; I25.5 Ischemic cardiomyopathy; Z79.01 Long term (current) use of anticoagulants; Z79.82 Long term (current) use of aspirin; Z79.891 Long term (current) use of opiate analgesic; R29.6 Repeated falls; Z66 Do not resuscitate; K59.00 Constipation, unspecified; I95.9 Hypotension, unspecified; E87.5 Hyperkalemia; Z95.3 Presence of xenogenic heart valve; Z86.73 Personal history of transient ischemic attack (TIA), and cerebral infarction without residual deficits; G47.30 Sleep apnea, unspecified; E11.42 Type 2 diabetes mellitus with diabetic polyneuropathy
CPT/HCPCS: 36415; 51702; 71045; 80053; 81001; 83880; 83921; 84443; 84484; 85025; 85378; 85610; 87086; 93005; 93308; 94664; 96374; 96375; 99285; J0696; J1940; J2060; J8999